=== PATIENT | male | born 1950 | race Caucasian/White ===

== ENCOUNTER 2018-11-22 11:00 | Inpatient (IN) | payer MEDICARE ==
[~2018-11-22] VITALS: Ht 177.8 cm; Wt 88.2 kg
[~2018-11-22 11:00] MED LIST: ADVAIR 250-501 EACH INH; ASPIRIN BUFFER325 MG PO; DAILY MULTIPLE1 EACH PO; IBUPROFEN600 MG PO; OMEGA 3-6-9 11200 MG PO; PROLASTIN C1000 MG IV; SPIRIVA18 MCG INH; VITAMIN D1000 UNIT PO
--- NOTE | 2018-11-22 20:16 | EKG ---
[facility] [address] [facility] [place], [place] [address] Signed Sinus tachycardia Otherwise normal ECG No previous ECGs available Confirmed by DANNIELLE VALE MD ([id number]) on 11/22/2018 8:16:54 PM Electronically Signed By: DANNIELLE VALE MD 11/22/18 2016 PATIENT NAME: HERMAN HALL MEME Electrocardiogram DATE OF : 46 PHYSICIAN: DANNIELLE VALE MD REPORT #: [id number] REPORT IS CONFIDENTIAL AND NOT TO BE RELEASED WITHOUT AUTHORIZATION
[2018-11-25] MEDS ORDERED: TAMIFLU75 MG PO (11:14)
[2018-11-25] MEDS ORDERED: ALBUTEROL2.5 MG/3 M INH (11:15)
[2018-11-25] MEDS ORDERED: PREDNISONE20 MG PO (11:17)
== END 2018-11-25 12:45 | disposition home or self-care (01) | DRG 193 ==
LOC: ED 11:00 → CCU 16:17 → MS 11-23 18:45
PROVIDERS: ADMIT Internal Medicine
DX: J10.01 Influenza due to other identified influenza virus with the same other identified influenza virus pneumonia (principal); J96.01 Acute respiratory failure with hypoxia; J44.1 Chronic obstructive pulmonary disease with (acute) exacerbation; J44.0 Chronic obstructive pulmonary disease with (acute) lower respiratory infection; R65.10 Systemic inflammatory response syndrome (SIRS) of non-infectious origin without acute organ dysfunction; E22.2 Syndrome of inappropriate secretion of antidiuretic hormone; E88.01 Alpha-1-antitrypsin deficiency; E86.1 Hypovolemia; I95.1 Orthostatic hypotension; Z88.8 Allergy status to other drugs, medicaments and biological substances; Z87.891 Personal history of nicotine dependence; Z79.51 Long term (current) use of inhaled steroids; Z79.899 Other long term (current) drug therapy
CPT/HCPCS: 36415; 71046; 80048; 80053; 83735; 83930; 83935; 84484; 85025; 87502; 93005; 93010; 94640; 94667; 94668; 94761; 96361; 96374; 99285-25; J1100; J1650; J2930; J3475; J7120; J7512

== ENCOUNTER 2020-02-19 03:13 | Emergency (ER) | payer MEDICARE ==
[~2020-02-19] VITALS: Ht 177.8 cm; Wt 88.7 kg
--- OUTSIDE RECORDS SUMMARY | ~2020-02-19 | XMS | Encounter Summary ---
Demographics + + + | Address | [id number] [place] [address] RD | | | [place] [address] | + + + | Home Phone | | + + + | Preferred Language | Unknown | + + + | Marital Status | | + + + | Hindu Affiliation | Unknown | + + + | Race | White | + + + | Ethnic Group | Not or | + + + Author + + + | Author | [facility] | + + + | Organization | [facility] | + + + | Address | Unknown | + + + | Phone | Unavailable | + + + Support + + +---------+ + | Name | Relationship | Address | Phone | + + +---------+ + | Tahmina Aaron | ECON | Unknown | | + + +---------+ + Care Team Providers + +------+ + | Care Ems Helicopter Pilot Name | Role | Phone | + +------+ + | Jerry Adrian MD | PCP | | + +------+ + Reason for Visit + + + | Reason | Comments | + + + | Refill Request | [facility] | + + + Encounter Details +--------+--------+ + + + | Date | Type | Department | Care Team | Description | +--------+--------+ + + + | 05/04/ | Refill | Pulmonary & | Misah Pace MD | Refill Request | | 2011 | | Critical Care | [address] | (S[facility]) | | | | Medicine at | [facility], | | | | | [facility] | [place] [address] | | | | | [address] | [phone] | | | | | [address] [facility] | | | | | | Pavilion, 3rd Floor | | | | | | [place], [place] | | | | | | [address] | | | | | | [phone] | | | +--------+--------+ + + + Social History + +-------+ +--------+ + | Tobacco Use | Types | Packs/Day | Years | Date | | | | | Used | | + +-------+ +--------+ + | Former Smoker | | | | Quit: 10/04/1985 | + +-------+ +--------+ + + +---+---+---+ | Smokeless Tobacco: | | | | | Never Used | | | | + +---+---+---+ + + +---------+ + | Alcohol Use | Drinks/Week | oz/Week | Comments | + + +---------+ + | Not Asked | | | | + + +---------+ + + + + | Sex Assigned at | Date Recorded | | | | + + + | Not on file | | + + + + + + + | Job Start Date | Occupation | Industry | + + + + | Not on file | Not on file | Not on file | + + + + + + + + | Travel History | Travel Start | Travel End | + + + + + + | No recent travel history available. | + + documented as of this encounter Plan of Treatment Not on filedocumented as of this encounter Visit Diagnoses Not on filedocumented in this encounter"
--- OUTSIDE RECORDS SUMMARY | ~2020-02-19 | XMS | Encounter Summary ---
Demographics + + + | Address | [id number] [place] [address] RD | | | [place] [address] | + + + | Home Phone | | + + + | Preferred Language | Unknown | + + + | Marital Status | | + + + | Jewish Affiliation | Unknown | + + + | Race | White | + + + | Ethnic Group | Not or | + + + Author + + + | Author | [facility] | + + + | Organization | [facility] | + + + | Address | Unknown | + + + | Phone | Unavailable | + + + Support + + +---------+ + | Name | Relationship | Address | Phone | + + +---------+ + | Tahmina Aaron | ECON | Unknown | | + + +---------+ + Care Team Providers + +------+ + | Care Statistical Machine Servicer Name | Role | Phone | + +------+ + | Jerry Adrian MD | PCP | | + +------+ + Reason for Visit + + + | Reason | Comments | + + + | Refill Request | Spirtohmas 18mcg | + + + Encounter Details +--------+--------+ + + + | Date | Type | Department | Care Team | Description | +--------+--------+ + + + | 08/30/ | Refill | Pulmonary & | Zion Roth, | Refill Request | | 2011 | | Critical Care | [address] | (S[facility] 18mcg) | | | | Medicine at | [facility] | | | | | [facility] | [place], [place] | | | | | [address] | [address] | | | | | [address] [facility] | [phone] | | | | | [facility] Floor | | | | | | [place], [place] | | | | | | [address] | | | | | | [phone] | | | +--------+--------+ + + + [...]
--- OUTSIDE RECORDS SUMMARY | ~2020-02-19 | XMS | Encounter Summary ---
Demographics + + + | Address | [address] [place] [address] RD | | | [place] [address] | + + + | Home Phone | | + + + | Preferred Language | Unknown | + + + | Marital Status | | + + + | Jewish Affiliation | Unknown | + + + | Race | White | + + + | Ethnic Group | Not or | + + + Author + + + | Organization | Unknown | + + + | Address | Unknown | + + + | Phone | Unavailable | + + + Support + + +---------+ + | Name | Relationship | Address | Phone | + + +---------+ + | Tahmina Aaron | ECON | Unknown | | + + +---------+ + Care Team Providers + +------+ + | Care Referral Agent Name | Role | Phone | + +------+ + PCP | Unavailable | + +------+ + Encounter Details +--------+ + + + + | Date | Type | Department | Care Team | Description | +--------+ + + + + | 02/13/ | Office | | Note, Outpatient | Progress Note | | 2002 | Visit-Trans | | Clinic | | | | cribed | | | | +--------+ + + + + Social History + +-------+ +--------+------+ | Tobacco Use | Types | Packs/Day | Years | Date | | | | | Used | | + +-------+ +--------+------+ | Never Assessed | | | | | + +-------+ +--------+------+ + + + | Sex Assigned at [...] + + documented as of this encounter Progress Notes Interface, Diamond Selector In - 04/22/2006 1:01 AM PDTCLINIC DATE: 02/13/2003 ADULT PULMONARY CLINIC PROBLEM: Chronic obstructive pulmonary disease secondary to alpha-1 antitrypsin deficiency. HISTORY OF PRESENT ILLNESS: I last saw To in July 2002. Since that time, he has had only 1 upper respiratory infection that resolved without antibiotics. He has been asymptomatic from that at least 2 weeks. He has a daily cough. It is not bothersome and is productive of a very minimal amount of sputum. He denies any wheezing, chest pain, or hemoptysis. REVIEW OF SYSTEMS CONSTITUTIONAL: No fevers, chills, or night sweats. His exercise tolerance and activity level have been stable. ENT: He is using his Flonase fairly regularly and has not had many sinus symptoms even with the onset of the allergy season. CARDIOVASCULAR: No chest pain or palpitations. RESPIRATORY: As above. GI: Negative. : Negative. MUSCULOSKELETAL: He did not mention his chronic neck pain today. SKIN: Negative. PSYCHIATRIC: His mood is good. ALLERGIES: He has no known drug allergies. MEDICATIONS: Azmacort 2 puffs b.i.d. He did increase it to 2 puffs t.i.d. when he had the URI. Serevent 2 puffs b.i.d. Flonase 1 to 2 inhalations in each nostril q.d. most days and Prolastin 140 mg/kg IV every 2 weeks. He does not use oxygen. 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 He is about [place] hike [place] this [place]. OBJECTIVE VITAL SIGNS: His weight is 197.3 pounds up 5 pounds from July 2002. Temperature is 97, blood pressure was 118/84, pulse was 68, respiratory rate was 21 when he arrived, but 16 when I examined him. His oxygen saturation was 92% at rest on room air immediately after walking into the exam room. GENERAL: He does not appear acutely or chronically ill. Skin is warm and dry. Color is good. HEENT: Sclerae anicteric. Conjunctivae noninjected. His nasal turbinates are swollen. No nasal polyps are visualized. No purulent nasal drainage. Pharynx is mildly injected. No exudate or lesions. NECK: Supple with no masses, lymphadenopathy, or increased JVP. CHEST: He does aerate to both bases well. He has got some scattered crackles. No wheezing. HEART: Heart sounds are unremarkable. S1, S2, no murmurs or rubs. ABDOMEN: Round and soft with adequate bowel sounds. No mass, tenderness, or organomegaly. EXTREMITIES: No edema, cyanosis, or clubbing. He does have some soft tissue swelling over the MIP joint of the middle finger of his left hand. This is apparently posttraumatic. LABORATORY DATA: Spirometry: Pre-bronchodilator spirometry today reveals a FVC of 3.25 L (65% of predicted), FEV1 is 1.76 L (44% of predicted), FEV1/FVC is 54%. Postbronchodilator FVC is 3.41 L (68% of predicted) FEV1 is 1.76 L (44% of predicted). This represents a postbronchodilator increase in FVC of 5%, and an increase in FEV1 of 0%. His DLCO is within normal limits. His oxygen saturation in the PFT lab is 95% at rest on room air. Laboratory data in his chart was reviewed. We do not have LFTs or alpha-1 trough levels since 1999, although he says those have been done every 6 months. ASSESSMENT 1. Moderate chronic obstructive pulmonary disease secondary to alpha-1 antitrypsin deficiency. His spirometry today is virtually the same as it was in July 2002. It does demonstrate a moderately severe obstructive defect with no reversibility. There is also a suggestion of restriction. 2. Chronic sinusitis, stable at this time. PLAN: He is going to continue on the same medications. We will see him back in 4 to 6 months. He will have his primary care doctor or the hospital send us his recent lab work. Pavithra Shi / [id number] / [id number] / [id number] / [id number] cc: Jerry Adrian M.D. [address] [place] [id number] signed by Interface, Diamond Selector In at 04/22/2006 1:01 AM PDTdocumented in this encounter Plan of Treatment Not on filedocumented as of this encounter Visit Diagnoses Not on filedocumented in this encounter"
--- OUTSIDE RECORDS SUMMARY | ~2020-02-19 | XMS | Encounter Summary ---
Demographics + + + | Address | [id number] [place] [address] RD | | | [place] [address] | + + + | Home Phone | | + + + | Preferred Language | Unknown | + + + | Marital Status | | + + + | Anabaptism Affiliation | Unknown | + + + | Race | White | + + + | Ethnic Group | Not or | + + + Author + + + | Author | [facility] | + + + | Organization | [facility] | + + + | Address | Unknown | + + + | Phone | Unavailable | + + + Support + + +---------+ + | Name | Relationship | Address | Phone | + + +---------+ + | Tahmina Aaron | ECON | Unknown | | + + +---------+ + Care Team Providers + +------+ + | Care Counseling Specialist Name | Role | Phone | + +------+ + PCP | Unavailable | + +------+ + Encounter Details +--------+ + + + + | Date | Type | Department | Care Team | Description | +--------+ + + + + | 04/26/ | Office | Pulmonary & | Masha Pickering ANP | | | 2005 | Visit-ECX | Critical Care | | | | | | Medicine at | | | | | | [facility] | | | | | | [address] | | | | | | [address] [facility] | | | | | | [facility], 3rd Floor | | | | | | [place], [place] | | | | | | [address] | | | | | | [phone] | | | +--------+ + + + [...]
--- OUTSIDE RECORDS SUMMARY | ~2020-02-19 | XMS | Encounter Summary ---
Demographics + + + | Address | [address] [place] [address] RD | | | [place] [address] | + + + | Home Phone | | + + + | Preferred Language | Unknown | + + + | Marital Status | | + + + | Sabianist Affiliation | Unknown | + + + | Race | White | + + + | Ethnic Group | Not or | + + + Author + + + | Author | [facility] | + + + | Organization | [facility] | + + + | Address | Unknown | + + + | Phone | Unavailable | + + + Support + + +---------+ + | Name | Relationship | Address | Phone | + + +---------+ + | Tahmina Aaron | ECON | Unknown | | + + +---------+ + Care Team Providers + +------+ + | Care Generating Station Mechanic Name | Role | Phone | + +------+ + | Jerry Adrian MD | PCP | | + +------+ + Encounter Details +--------+ + + + + | Date | Type | Department | Care Team | Description | +--------+ + + + + | 07/10/ | Results | Registration [id number] | | | | 1996 | Only | [address] | | | | | | [address] Mailcode: [id number] | | | | | | [place], [place] | | | | | | [address] | | | | | | [phone] | | | +--------+ + + + [...] Not on filedocumented as of this encounter Procedures + +--------+ + + + | Procedure Name | Priori | Date/Time | Associated Diagnosis | Comments | | | ty | | | | + +--------+ + + + | PULMONARY FUNCTION | Routin | 07/10/1997 | | Results for this | | TESTS | e | 2:36 PM | | procedure are in the | | | | PDT | | results section. | + +--------+ + + + documented in this encounter Results PULMONARY FUNCTION TESTS (07/10/1997 2:36 PM PDT) + + + + + + | Component | Value | Ref Range | Performed | Pathologist | | | | | At | Signature | + + + + + + | FVC | 4.13 | L | | | | MEASURED | | | | | + + + + + + | FVC % PRED | 81. | % | | | + + + + + + | FEV1 | 2.12 | L/S | | | | MEASURED | | | | | + + + + + + | FEV1 % PRED | 52. | % | | | + + + + + + | FEV1/FVC | 0.51 | % | | | | MEASURED | | | | | + + + + + + | FEF(25-75) | 0.65 | L/S | | | + + + + + + | FEF(25-75) | 16. | % | | | | % PRED | | | | | + + + + + + | FVC POST | 84. | % | | | | BD'S % PRED | | | | | + + + + + + | FEV1 POST | 2.06 | L | | | | BD'S | | | | | | MEASURED | | | | | + + + + + + | FEV1 POST | 50. | % | | | | BD'S % PRED | | | | | + + + + + + | FEV1/FVC | 0.48 | % | | | | POST BD'S | | | | | | MEASURD | | | | | + + + + + + | FEF() | 0.59 | L/S | | | | POST BD'S | | | | | | MEASURD | | | | | + + + + + + | FEF() | 15. | % | | | | POST BD'S % | | | | | | PRED | | | | | + + + + + + | FEV1 BD'S % | -3. | % | | | | CHANGE | | | | | + + + + + + | REST SAT | 96. | % | | | + + + + + + | FRC | 867. | L | | | | MEASURED | | | | | + + + + + + | PF COMMENT | 9860. | L | | | | 4 | | | | | + + + + + + + + | Specimen | + + | | + + + + + + + | Performing | Address | City/State/Zipcode | Phone Number | | Organization | | | | + + + + + | [facility] | [address] | [place] [address] | | | PATHOLOGY | [address] | | | + + + + + documented in this encounter Visit Diagnoses Not on filedocumented in this encounter"
--- OUTSIDE RECORDS SUMMARY | ~2020-02-19 | XMS | Encounter Summary ---
Demographics + + + | Address | [address] [place] [address] RD | | | [place] [address] | + + + | Home Phone | | + + + | Preferred Language | Unknown | + + + | Marital Status | | + + + | Yarsani Affiliation | Unknown | + + + | Race | White | + + + | Ethnic Group | Not or | + + + Author + + + | Author | [facility] | + + + | Organization | [facility] | + + + | Address | Unknown | + + + | Phone | Unavailable | + + + Support + + +---------+ + | Name | Relationship | Address | Phone | + + +---------+ + | Tahmina Aaron | ECON | Unknown | | + + +---------+ + Care Team Providers + +------+ + | Care Insurance Examiner Name | Role | Phone | + +------+ + | Jerry Adrian MD | PCP | | + +------+ + Encounter Details +--------+ + + + + | Date | Type | Department | Care Team | Description | +--------+ + + + + | 04/24/ | Online Facilitator | Pulmonary & | Misha Pace MD | COPD with Chronic | | 2007 | | Critical Care | [address] | Bronchitis (HCC) | | | | Medicine at | [facility], | (Primary Dx) | | | | [facility] | [place] [address] | | | | | [address] | [phone] | | | | | [address] [facility] | | | | | | [facility], 3rd Floor | | | | | | [place], [place] | | | | | | [address] | | | | | | [phone] | | | +--------+ + + + [...] as of this encounter Plan of Treatment + + +--------+ + + | Name | Type | Priori | Associated Diagnoses | Order Schedule | | | | ty | | | + + +--------+ + + | SPIROMETRY BEFORE / | Procedures | Routin | COPD with Chronic | 04/24/2008 | | AFTER BRONCHODIL, | | e | Bronchitis (HCC) | | | PULM FUNCTION LAB | | | | | + + +--------+ + + | CO DIFFUSION | Pulmonary | Routin | COPD with Chronic | 04/24/2008 | | CAPACITY(DLCO), PULM | Function | e | Bronchitis (HCC) | | | FUNCTION LAB | | | | | + + +--------+ + + | HEMOGLOBIN, PULM | Lab | Routin | COPD with Chronic | 04/24/2008 | | FUNCTION LAB ONLY | | e | Bronchitis (HCC) | | + + +--------+ + + | LUNG VOLUMES / BODY | Pulmonary | Routin | COPD with Chronic | 04/24/2008 | | BOX, PULM FUNCTION | Function | e | Bronchitis (HCC) | | | LAB | | | | | + + +--------+ + + documented as of this encounter Visit Diagnoses + + | Diagnosis | + + | 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
--- OUTSIDE RECORDS SUMMARY | ~2020-02-19 | XMS | Encounter Summary ---
Demographics + + + | Address | [address] [place] [address] RD | | | [place] [address] | + + + | Home Phone | | + + + | Preferred Language | Unknown | + + + | Marital Status | | + + + | Hinduism Affiliation | Unknown | + + + | Race | White | + + + | Ethnic Group | Not or | + + + Author + + + | Author | [facility] | + + + | Organization | [facility] | + + + | Address | Unknown | + + + | Phone | Unavailable | + + + Support + + +---------+ + | Name | Relationship | Address | Phone | + + +---------+ + | Tahmina Aaron | ECON | Unknown | | + + +---------+ + Care Team Providers + +------+ + | Care Clinical Data Coordinator Name | Role | Phone | + +------+ + | Jerry Adrian MD | PCP | | + +------+ + Encounter Details +--------+ + + + + | Date | Type | Department | Care Team | Description | +--------+ + + + + | 04/28/ | Results/Int | Pulmonary & | | Chronic airway | | 2010 | erpretation | Critical Care | | obstruction, not | | | | Medicine at [facility] | | elsewhere classified | | | | [address] | | (Primary Dx) | | | | [address] [facility] | | | | | | [place], 3rd Floor | | | | | | [place], [place] | | | | | | [address] | | | | | | [phone] | | | +--------+ + + + [...] documented as of this encounter Progress Notes Misha Pace MD - 04/29/2011 10:00 AM PDTRefer to PFT report. documented in this encounter Plan of Treatment Not on filedocumented as of this encounter Procedures + +--------+ + + + | Procedure Name | Priori | Date/Time | Associated Diagnosis | Comments | | | ty | | | | + +--------+ + + + | FL SPIROMETRY TEST | Routin | 04/29/2011 | Chronic airway | | | | e | 10:00 AM | obstruction, not | | | | | PDT | elsewhere classified | | + +--------+ + + + documented in this encounter Visit Diagnoses + + | Diagnosis | + + | Chronic airway obstruction, not elsewhere classified - Primary | + + documented in this encounter"
--- OUTSIDE RECORDS SUMMARY | ~2020-02-19 | XMS | Encounter Summary ---
Demographics + + + | Address | [address] [place] [address] RD | | | [place] [address] | + + + | Home Phone | | + + + | Preferred Language | Unknown | + + + | Marital Status | | + + + | Caodaism Affiliation | Unknown | + + + | Race | White | + + + | Ethnic Group | Not or | + + + Author + + + | Author | [facility] | + + + | Organization | [facility] | + + + | Address | Unknown | + + + | Phone | Unavailable | + + + Support + + +---------+ + | Name | Relationship | Address | Phone | + + +---------+ + | Tahmina Aaron | ECON | Unknown | | + + +---------+ + Care Team Providers + +------+ + | Care Biological Technical Officer Name | Role | Phone | + +------+ + PCP | Unavailable | + +------+ + Encounter Details +--------+ + + + + | Date | Type | Department | Care Team | Description | +--------+ + + + + | 07/11/ | Results | Pulmonary Function | Misha Pace MD | | | 2001 | Only | Lab at [facility] [address] | [address] | | | | [address] | [place], | | | | | [address] | [place] [address] | | | | | [place], [place] | [phone] | | | | | [address] | | | | | | [phone] | | | +--------+ + + + [...] | + +--------+ + + + | SPIROMETRY WITH BD'S | Routin | 07/11/2002 | | Results for this | | | e | 11:35 AM | | procedure are in the | | | | PDT | | results section. | + +--------+ + + + documented in this encounter Results SPIROMETRY WITH BD'S (07/11/2002 11:35 AM PDT) + + + + + + | Component | Value | Ref Range | Performed | Pathologist | | | | | At | Signature | + + + + + + | FVC | 3.28 | L | | | | MEASURED | | | | | + + + + + + | FVC % PRED | 65 | % | | | + + + + + + | FEV1 | 1.71 | L/S | | | | MEASURED | | | | | + + + + + + | FEV1 % PRED | 43 | % | | | + + + + + + | FEV1/FVC | 52.00 | % | | | | MEASURED | | | | | + + + + + + | FEF(25-75) | 0.50 | L/S | | | + + + + + + | FEF(25-75) | 13 | % | | | | % PRED | | | | | + + + + + + | FVC POST | 3.46 | L | | | | BD'S | | | | | | MEASURED | | | | | + + + + + + | FVC POST | 69 | | | | | BD'S % PRED | | | | | + + + + + + | FEV1 POST | 1.70 | L | | | | BD'S | | | | | | MEASURED | | | | | + + + + + + | FEV1 POST | 43 | % | | | | BD'S % PRED | | | | | + + + + + + | FEV1/FVC | 49.00 | % | | | | POST BD'S | | | | | | MEASURD | | | | | + + + + + + | FEF() | 0.45 | L/S | | | | POST BD'S | | | | | | MEASURD | | | | | + + + + + + | FEF() | 12 | % | | | | POST BD'S % | | | | | | PRED | | | | | + + + + + + | FEV1 BD'S % | 0 | % | | | | CHANGE | | | | | + + + + + + | PF COMMENT | SAO2:97% | | | | | 1 | | | | | + + + + + + + + | Specimen | + + | | + + + + + + + | Performing | Address | City/State/Zipcode | Phone Number | | Organization | | | | + + + + + | [facility] | [address] | [place], [place] | | | DIAGNOSTICS - | [address] | [address] | | | PULMONARY FUNCTION | | | | + + + + + documented in this encounter Visit Diagnoses Not on filedocumented in this encounter"
--- OUTSIDE RECORDS SUMMARY | ~2020-02-19 | XMS | Encounter Summary ---
Demographics + + + | Address | [id number] [place] [address] RD | | | [place] [address] | + + + | Home Phone | | + + + | Preferred Language | Unknown | + + + | Marital Status | | + + + | Buddhist Affiliation | Unknown | + + + | Race | White | + + + | Ethnic Group | Not or | + + + Author + + + | Author | [facility] | + + + | Organization | [facility] | + + + | Address | Unknown | + + + | Phone | Unavailable | + + + Support + + +---------+ + | Name | Relationship | Address | Phone | + + +---------+ + | Tahmina Aaron | ECON | Unknown | | + + +---------+ + Care Team Providers + +------+ + | Care Systems Integration Manager Name | Role | Phone | + +------+ + PCP | Unavailable | + +------+ + Encounter Details +--------+ + + + + | Date | Type | Department | Care Team | Description | +--------+ + + + + | 01/17/ | Office | [facility] | Note, Outpatient | Progress Note | | 1998 | Visit-Trans | MEDICINE | Clinic | | | | cribed [...] as of this encounter Progress Notes Interface, Medical Office Clerk In - 09/25/2006 5:07 AM [facility]: [facility] PULMON[facility] CLINIC CHIEF COMPLAINT: Concern over decreased supply of alpha-1 antitrypsin replacement therapy and concern over progression of disease. SUBJECTIVE: Since the patient's last visit on July 30, 1998, he has done relatively well. He had one episode of respiratory tract infection precipitated by sinus infection. The patient instituted therapy early with inhaled therapies and noted a prompt relief. Since that time, he is back to his baseline. He continues to be active and is able to do everything he wants without significant shortness of breath. He has no cough, has no sputum production, no chest pain, no lower extremity edema, and no shortness of breath at rest or with exertion. PAST MEDICAL HISTORY: Past medical history is significant for: 1. Acute herpes zoster on the right forehead approximately one month ago, treated with Famvir. 2. Benign prostatic hypertrophy. MEDICATIONS: Current medications include: 1. Serevent two puffs twice daily. 2. Azmacort two puffs twice daily. 3. Prolastin 12 mg intravenously every two weeks, although he has had trouble getting that much. 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 He plans a trip to [place] with his family this summer. REVIEW OF SYSTEMS: The patient has had no fevers, chills, sweats, or night sweats. Rash is improved. He continues to be concerned about his weight. He has no other complaints, no other problems. OBJECTIVE: GENERAL: The patient is a gentleman looking his stated age, well nourished, well hydrated, in no acute distress. VITAL SIGNS: Weight 208 pounds, heart rate 72 and regular, blood pressure 118/74, respiratory rate 16 and unlabored, room air oxygen saturation at rest is 92 percent. SKIN: Warm and dry with good turgor. HEENT: Sclerae are anicteric without injection. Oropharynx is clear. LUNGS: Distant breath sounds which are vesicular in nature without rales or rhonchi appreciated. There is a normal expiratory phase. CARDIOVASCULAR: Examination reveals regular rate and rhythm with a normal S1 and S2. ABDOMEN: The abdomen is mildly obese but soft and nontender. EXTREMITIES: No cyanosis, clubbing, or edema. LABORATORY VALUES: Pulmonary function tests today show an FEV1 of 1.98 (49 percent of predicted) with a 3 percent increase to 2.03 (50 percent after bronchodilators). FVC before bronchodilators is 4.27 and decreases to 4.07 after bronchodilators. ASSESSMENT: 1. 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 The patient is clinically stable. He has had some decrement in his pulmonary function tests since last visit. This is a small decrement and may be due to variation in airflow as is seen in this population. 2. Alpha-1 antitrypsin deficiency. The patient has had trouble getting adequate replacement therapy due to nationwide shortage. 3. Chronic sinusitis, quiescent at this time. 4. Chronic intermittent rash of the forehead, which is improved. PLAN: 1. Check liver function tests now and every six months. (The patient had this tested last month and will get the results forwarded to me at this time.) 2. Follow up pulmonary function tests in six months. 3. Continue alcohol and acetaminophen abstinence. 4. Continue current metered-dose inhaler regimen. 5. The patient, Masha Pickering, and I had a long detailed discussion regarding optimal replacement therapy during this time when he is not getting his ideal allotment. Parminderbrittonaisha will be working with his pharmacy company and the supplier as well as the patient to come up with the optimal regimen. Jimmie Montalvo M.D. [place], Pulmonary and Critical Care MSC/clg cc: Enmanuel OROURKE MD [address] [place] [address] [address] [place] [id number] signed by Interface, Medical Office Clerk In at 09/25/2006 5:07 AM PSTdocumented in this encounter Plan of Treatment Not on filedocumented as of this encounter Visit Diagnoses Not on filedocumented in this encounter"
--- OUTSIDE RECORDS SUMMARY | ~2020-02-19 | XMS | Clinical Summary ---
Demographics + + + | Address | [address] | | | [place] [address] | + + + | Home Phone | | + + + | Preferred Language | Unknown | + + + | Marital Status | | + + + | Jewish Affiliation | Unknown | + + + | Race | Unknown | + + + | Ethnic Group | Unknown | + + + Author + + + | Author | [facility] | | | and [place] | + + + | Organization | [facility] | | | and [place] | + + + | Address | Unknown | + + + | Phone | Unavailable | + + + Support + + +---------+ + | Name | Relationship | Address | Phone | + + +---------+ + | Tahmina Aaron | ECON | Unknown | | + + +---------+ + Care Team Providers + +------+ + | Care Administration Internship Name | Role | Phone | + +------+ + PCP | Unavailable | + +------+ + Allergies Not on File Medications Not on file Active Problems Not on file Social History + +-------+ +--------+------+ | Tobacco [...] recent travel history available. | + + Last Filed Vital Signs Not on file Plan of Treatment + + + + + | Health Maintenance | Due Date | Last Done | Comments | + + + + + | Vaccine: | | | | | Dtap/Tdap/Td (1 - | 9 | | | | Tdap) | | | | + + + + + | Vaccine: Zoster (1 | | | | | of 2) | 8 | | | + + + + + | Vaccine: | | | | | Pneumococcal 65+ (1 | 3 | | | | of 2 - PCV13) | | | | + + + + + | Vaccine: Influenza | | | | | (Season Ended) | 0 | | | + + + + + Results Not on filefrom Last 3 Months"
--- OUTSIDE RECORDS SUMMARY | ~2020-02-19 | XMS | Encounter Summary ---
Demographics + + + | Address | [address] [place] [address] RD | | | [place] [address] | + + + | Home Phone | | + + + | Preferred Language | Unknown | + + + | Marital Status | | + + + | Roman Catholic Affiliation | Unknown | + + + [...] Team Providers + +------+ + | Care Cath Laboratory Technician Name | Role | Phone | + +------+ + PCP | Unavailable | + +------+ + Encounter Details +--------+ + + + + | Date | Type | Department | Care Team | Description | +--------+ + + + + | 12/15/ | Office | | Note, Outpatient | Progress Note | | 2005 | Visit-Trans | | Clinic | | [...] as of this encounter Progress Notes Interface, Architectural Designer In - 05/03/2005 1:24 AM PDT [id number] ISABEL Matos Clinic Date: 12/15/2004 Clinic: TELEPHONE CONVERSATION Subjective: Anabell called to say that on December 11, 2004, he woke up with a sore throat and burning in his lungs. Since that time, he has been coughing up yellow sputum. He has not taken his temperature, feels like he may have had a low-grade fever off and on. No sore throat anymore. He has trouble lying flat because it makes him cough. He is very fatigued and he has some shortness of breath with exertion. He has no antibiotic allergies. Assessment: Upper respiratory infection in a man with underlying emphysema secondary to bkmtb-7-zrczcoamjfv deficiency. Plan: I called a prescription for amoxicillin 875 mg 1 p.o. b.i.d x10 days. I advised him to call his primary care doctor and/or be seen in an urgent care clinic if he develops a fever, pleuritic chest pain, or any increase in his shortness of breath. Pavithra Shi / TRISTIAN [id number] / [id number] / [id number] / [phone] Electronically signed by Masha Pickering 12-26-2004 04:36:05 PM documented i n this encounter Plan of Treatment Not on filedocumented as of this encounter Visit Diagnoses Not on filedocumented in this encounter"
--- OUTSIDE RECORDS SUMMARY | ~2020-02-19 | XMS | Encounter Summary ---
Demographics + + + | Address | [address] [place] [address] RD | | | [place] [address] | + + + | Home Phone | | + + + | Preferred Language | Unknown | + + + | Marital Status | | + + + | Yazdanism Affiliation | Unknown | + + + | Race | White | + + + | Ethnic Group | Not or | + + + Author + + + | Author | [facility] | + + + | Organization | [facility] | + + + | Address | Unknown | + + + | Phone | Unavailable | + + + Support + + +---------+ + | Name | Relationship | Address | Phone | + + +---------+ + | Tahmina Aaron | ECON | Unknown | | + + +---------+ + Care Team Providers + +------+ + | Care Combination Worker Name | Role | Phone | + +------+ + | Jerry Adrian MD | PCP | | + +------+ + Encounter Details +--------+ + + + + | Date | Type | Department | Care Team | Description | +--------+ + + + + | 07/31/ | Results | Registration [id number] | | | | 1997 | Only | [address] | | | | | | [address] Mailcode: [address] | | | | | | [place], [place] | | | | | | [address] | | | | | | [phone] | | | +--------+ + + + [...] + | PULMONARY FUNCTION | Routin | 07/31/1998 | | Results for this | | TESTS | e | 8:10 AM | | procedure are in the | | | | PST | | results section. | + +--------+ + + + documented in this encounter Results PULMONARY FUNCTION TESTS (07/31/1998 8:10 AM PST) + + + + + + | Component | Value | Ref Range | Performed | Pathologist | | | | | At | Signature | + + + + + + | FVC | 4.09 | L | | | | MEASURED | | | | | + + + + + + | FVC % PRED | 80. | % | | | + + + + + + | FEV1 | 1.95 | L/S | | | | MEASURED | | | | | + + + + + + | FEV1 % PRED | 48. | % | | | + + + + + + | FEV1/FVC | 48. | % | | | | MEASURED | | | | | + + + + + + | FEF(25-75) | 0.56 | L/S | | | + + + + + + | FEF(25-75) | 14. | % | | | | % PRED | | | | | + + + + + + | FVC POST | 85. | % | | | | BD'S % PRED | | | | | + + + + + + | FEV1 POST | 2.16 | L | | | | BD'S | | | | | | MEASURED | | | | | + + + + + + | FEV1 POST | 53. | % | | | | BD'S % PRED | | | | | + + + + + + | FEV1/FVC | 50. | % | | | | POST BD'S | | | | | | MEASURD | | | | | + + + + + + | FEF() | 0.63 | L/S | | | | POST BD'S | | | | | | MEASURD | | | | | + + + + + + | FEF() | 16. | % | | | | POST BD'S % | | | | | | PRED | | | | | + + + + + + | FEV1 BD'S % | 11. | % | | | | CHANGE | | | | | + + + + + + + + | Specimen | + + | | + + + + + + + | Performing | Address | City/State/Zipcode | Phone Number | | Organization | | | | + + + + + | [facility] | [address] | [place] [address] | | | PATHOLOGY | [address] | | | + + + + + documented in this encounter Visit Diagnoses Not on filedocumented in this encounter"
--- OUTSIDE RECORDS SUMMARY | ~2020-02-19 | XMS | Encounter Summary ---
Demographics + + + | Address | [address] [place] [address] RD | | | [place] [address] | + + + | Home Phone | | + + + | Preferred Language | Unknown | + + + | Marital Status | | + + + | Adventism Affiliation | Unknown | + + + | Race | White | + + + | Ethnic Group | Not or | + + + Author + + + | Author | [facility] | + + + | Organization | [facility] | + + + | Address | Unknown | + + + | Phone | Unavailable | + + + Support + + +---------+ + | Name | Relationship | Address | Phone | + + +---------+ + | Tahmina Aaron | ECON | Unknown | | + + +---------+ + Care Team Providers + +------+ + | Care Division Merchandise Manager Name | Role | Phone | + +------+ + PCP | Unavailable | + +------+ + Encounter Details +--------+ + + + + | Date | Type | Department | Care Team | Description | +--------+ + + + + | 01/19/ | Office | [facility] | Note, Outpatient | Progress Note | | 1999 | Visit-Trans | MEDICINE | Clinic | [...] as of this encounter Progress Notes Interface, Micrographics Services Supervisor In - 08/25/2006 5:03 AM [facility]: [facility] The patient canceled his appointment, was not able to make it. However, we spoke on the phone. Overall, he continues to feel well without any change in overall respiratory status. His primary complaint is that he has gained 15 pounds over the winter, and this has decreased his exercise tolerance somewhat. He has dyspnea with heavy exertion when he overdoes himself, otherwise, no shortness of breath at rest. He has a cough that is intermittent without sputum production or hemoptysis. No chest pain or lower extremity edema. His sinuses are doing well; although, he anticipates it may be getting some allergic rhinitis in the coming weeks, has certain shrubs in his yard about to grow. He changed to use Serevent two puffs b.i.d., Azmacort two puffs b.i.d., and prostacyclin at 140 mg/kg IV every two weeks. He had laboratory tests done on December 31, 1999. AST 34, ALT 29, alkaline phosphatase 57, total bilirubin 0.6, and alpha 1 antitrypsin level 63. All these values are within the normal or target values. Overall, Mr. Aaron continues to do well with his emphysema from alpha 1antitrypsin deficiency. He continues to be relatively asymptomatic with a high activity level. His alpha 1 antitrypsin level is in the target zone (desired greater than 60). My only concern is that on the last spirometry testing, he had a decrement from before. Differential diagnosis is clear. Therapeutic options are unlimited. Due to the patient's stable status, I did not feel it is imperative that the patient comes and sees me now, but can defer until summer or at his earliest convenience; although I do feel strongly he gets followup spirometry in the coming months. Today, I called in prescriptions for Serevent two puffs b.i.d., Azmacort four puffs b.i.d., and Vancenase one puff each nostril q.d. to [facility] at [phone]. The patient's phone number is . Jimmie Montalvo M.D. Asst. Professor Pulmonary Critical Care Medicine MSC / HS [id number] / [id number] / [phone] / [phone] cc: Fermin Adrian M.D. [address] [place] [phone] [id number] signed by Interface, Micrographics Services Supervisor In at 08/25/2006 5:03 AM PSTdocume nted in this encounter Plan of Treatment Not on filedocumented as of this encounter Visit Diagnoses Not on filedocumented in this encounter"
--- OUTSIDE RECORDS SUMMARY | ~2020-02-19 | XMS | Encounter Summary ---
Demographics + + + | Address | [address] [place] [address] RD | | | [place] [address] | + + + | Home Phone | | + + + | Preferred Language | Unknown | + + + | Marital Status | | + + + | Temple Affiliation | Unknown | + + + | Race | White | + + + | Ethnic Group | Not or | + + + Author + + + | Author | [facility] | + + + | Organization | [facility] | + + + | Address | Unknown | + + + | Phone | Unavailable | + + + Support + + +---------+ + | Name | Relationship | Address | Phone | + + +---------+ + | Tahmina Aaron | ECON | Unknown | | + + +---------+ + Care Team Providers + +------+ + | Care Daycare Teacher Name | Role | Phone | + +------+ + | Jerry Adrian MD | PCP | | + +------+ + Encounter Details +--------+ + + + + | Date | Type | Department | Care Team | Description | +--------+ + + + + | 10/10/ | Chair Trimmer | Pulmonary & | Kathie Gomes, | COPD with chronic | | 2010 | | Critical Care | ANP [address] | bronchitis (HCC) | | | | Medicine at | [address] | (Primary Dx) | | | | [facility] | [place], [place] | | | | | [address] | [address] | | | | | [facility] | [phone] | | | | | [place], [address] [place] [address] | | | | | | [place], [place] | | | | | | [address] | | | | | | [phone] | | | +--------+ + + + + Social History + +-------+ +--------+ + | Tobacco Use | Types | Packs/Day | Years | Date | | | | | Used | | + +-------+ +--------+ + | Former Smoker | | | | Quit: 10/04/1985 | + +-------+ +--------+ + + + +---------+ + | Alcohol Use [...] Not on filedocumented as of this encounter Results SPIROMETRY, PULM FUNCTION LAB (04/28/2011 8:27 AM PDT) + + + + + + | Component | Value | Ref Range | Performed | Pathologist | | | | | At | Signature | + + + + + + | DISTANCE | 384 | | [facility] | | | WALKED-METE | | | SPECIAL | | | RS | | | DIAGNOSTICS | | | | | | - | | | | | | PULMONARY | | | | | | FUNCTION | | + + + + + + | FVC PRE | 2.92 | 4.72 Liters | [facility] | | | | | | SPECIAL | | | | | | DIAGNOSTICS | | | | | | - | | | | | | PULMONARY | | | | | | FUNCTION | | + + + + + + | FVC PRE | 62 | % | [facility] | | | (%REF) | | | SPECIAL | | | | | | DIAGNOSTICS | | | | | | - | | | | | | PULMONARY | | | | | | FUNCTION | | + + + + + + | FEV1 PRE | 1.41 | 3.55 Liters | [facility] | | | | | | SPECIAL | | | | | | DIAGNOSTICS | | | | | | - | | | | | | PULMONARY | | | | | | FUNCTION | | + + + + + + | FEV1 PRE | 40 | % | [facility] | | | (%REF) | | | SPECIAL | | | | | | DIAGNOSTICS | | | | | | - | | | | | | PULMONARY | | | | | | FUNCTION | | + + + + + + | FEV1/FVC | 48 | 75 % | [facility] | | | PRE | | | SPECIAL | | | | | | DIAGNOSTICS | | | | | | - | | | | | | PULMONARY | | | | | | FUNCTION | | + + + + + + | FEV1/FVC | 64 | % | [facility] | | | PRE (%REF) | | | SPECIAL | | | | | | DIAGNOSTICS | | | | | | - | | | | | | PULMONARY | | | | | | FUNCTION | | + + + + + + | DUK44-01% | 0.40 | 2.88 L/sec | [facility] | | | PRE | | | SPECIAL | | | | | | DIAGNOSTICS | | | | | | - | | | | | | PULMONARY | | | | | | FUNCTION | | + + + + + + | OSD32-32% | 14 | % | [facility] | | | PRE (%REF) | | | SPECIAL | | | | | | DIAGNOSTICS | | | | | | - | | | | | | PULMONARY | | | | | | FUNCTION | | + + + + + + | PEF PRE | 6.06 | 9.09 L/sec | [facility] | | | | | | SPECIAL | | | | | | DIAGNOSTICS | | | | | | - | | | | | | PULMONARY | | | | | | FUNCTION | | + + + + + + | PEF PRE | 67 | % | [facility] | | | (%REF) | | | SPECIAL | | | | | | DIAGNOSTICS | | | | | | - | | | | | | PULMONARY | | | | | | FUNCTION | | + + + + + + | FIF50% PRE | 7.63 | L/sec | [facility] | | | | | | SPECIAL | | | | | | DIAGNOSTICS | | | | | | - | | | | | | PULMONARY | | | | | | FUNCTION | | + + + + + + | PULMONARY | Name: GALEN HERMAN | | [facility] | | | INTERPRETAT | L ########Age: 60 | | SPECIAL | | | ION | Gender: | | DIAGNOSTICS | | | | Male Race: | | - | | | | | | PULMONARY | | | | Height(in):Physician: | | FUNCTION | | | | Misha Pace | | | | | | | | | | | | Mold Builder: Shannen | | | | | | THALIA Boss Diagnosis: | | | | | | COPD 496 | | | | | | 8-lvpvvkrhygg-201.4D | | | | | | ######## | | | | | | | | | | | | Dyspnea | | | | | | Exercise: No Dyspnea | | | | | | Rest: No Cough: Yes | | | | | | | | | | | | Persistent: Yes | | | | | | Productive | | | | | | (cc): Smoker: Yes | | | | | | How | | | | | | Lon | | | | | | Cigarettes: Yes Quit: | | | | | | Yes | | | | | | | | | | | | Stopped: Order# | | | | | | [id number] | | | | | | | | | | | | Spirometry | | | | | | Ref | | | | | | Pre Pre | | | | | | Post Post | | | | | | Post | | | | | | | | | | | | Michelle % Ref | | | | | | Michelle % Ref | | | | | | % ChgFVC | | | | | | Liters 4.72 | | | | | | 2.92 [id number] | | | | | | Liters 3.55 | | | | | | 1.41 40FEV1/FVC | | | | | | % 75 | | | | | | [id number]% | | | | | | L/sec 2.88 | | | | | | 0.40 [id number] | | | | | | L/sec | | | | | | 0.40PEF | | | | | | L/sec 9.09 | | | | | | 6.06 33WUW71% | | | | | | L/sec | | | | | | 7.63 | | | | | | Lung | | | | | | VolumesTLC | | | | | | Liters 7.02VC | | | | | | Liters 4.70IC | | | | | | Liters 3.10FRC | | | | | | N2 Liters | | | | | | 3.67ERV | | | | | | Liters 1.55RV | | | | | | Liters 2.29RV/TLC | | | | | | % 33Wash | | | | | | Time MinFRC PL | | | | | | Liters 3.67 | | | | | | | | | | | | Pulmonary Pressures | | | | | | | | | | | | Ref Pre Pre | | | | | | | | | | | | Michelle % | | | | | | RefPI max [id number] | | | | | | Volume LitersPE max | | | | | | [id number] Volume Liters | | | | | | | | | | | | Diffusing Capacity | | | | | | (DLCO) | | | | | | Ref | | | | | | Pre Pre | | | | | | | | | | | | | | | | | | Michelle % RefDLCO | | | | | | mL/mmHg/min 28.0DL | | | | | | Adj mL/mmHg/min | | | | | | 28.0DLCO/VA | | | | | | mL/mHg/min/L 4.18DL/VA | | | | | | Adj mL/mHg/min/L 4.04 PF | | | | | | Reference: NHANES III - | | | | | | | | | | | | | | | | | | | | | | | | | | | | | | | | | | | | Page 1Name: GALEN, | | | | | | HERMAN L ######## | | | | | | | | | | | | | | | | | | Six Minute Walk | | | | | | test (if done) | | | | | | COMMENTS:Patient | | | | | | was unable to produce | | | | | | Acceptable and | | | | | | Reproducible | | | | | | Spirometrydata.--inconsi | | | | | | stent FEV1 and peak | | | | | | flows. 6 Minute Walk | | | | | | Test: | | | | | | Zhzpqkskixuorp=0355 | | | | | | feet, 384 meters | | | | | | Minutes Walked= 6 | | | | | | Beginning HR=57 | | | | | | Beginning SpO2=93 | | | | | | Ending HR: 91 Ending | | | | | | SpO2: 90 Dyspnea Index | | | | | | before= 0 ,after= 0.5 | | | | | | Oxygen Level=room air | | | | | | | | | | | | | | | | | | Physician | | | | | | InterpretationSpirometry | | | | | | shows severe | | | | | | (FEV1/FVC<70%, | | | | | | 30%<FEV1<50% predicted) | | | | | | airflowobstruction. | | | | | | Since 07/08/10, the FEV1 | | | | | | has increased by 19%. | | | | | | The FVC hasremained the | | | | | | same. The distance | | | | | | walked is mildly reduced | | | | | | (6133-8099 | | | | | | feet).Theoxygen | | | | | | saturation at the end of | | | | | | the walk remained in | | | | | | the lower limit of | | | | | | normalfor the duration | | | | | | of the test. | | | | | | Technically difficult | | | | | | study as detailed in | | | | | | bodyof report. | | | | | | | | | | | | | | | | | | | | | | | | | | | | | | Page 2 | | | | + + + + + + + + | Specimen | + + | | + + + + + | Narrative | Performed At | + + + | | | + + + + + | Transcriptions | + + | Jamila [place] - 04/29/2011 10:13 AM PDT | | | + + | Jamila [place] - 05/10/2011 3:33 PM PDT | + + + + + + + | Performing | Address | City/State/Zipcode | Phone Number | | Organization | | | | + + + + + | [facility] | [address] | [place], [place] | | | DIAGNOSTICS - | [address] | [address] | | | PULMONARY FUNCTION | | | | + + + + + documented in this encounter Visit Diagnoses + + | Diagnosis | + + | 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
--- OUTSIDE RECORDS SUMMARY | ~2020-02-19 | XMS | Encounter Summary ---
Demographics + + + | Address | [address] [place] [address] RD | | | [place] [address] | + + + | Home Phone | | + + + | Preferred Language | Unknown | + + + | Marital Status | | + + + | Cheondoism Affiliation | Unknown | + + + | Race | White | + + + | Ethnic Group | Not or | + + + Author + + + | Author | [facility] | + + + | Organization | [facility] | + + + | Address | Unknown | + + + | Phone | Unavailable | + + + Support + + +---------+ + | Name | Relationship | Address | Phone | + + +---------+ + | Tahmina Aaron | ECON | Unknown | | + + +---------+ + Care Team Providers + +------+ + | Care Geothermal Operations Manager Name | Role | Phone | + +------+ + | Jelani Higgins MD | PCP | | + +------+ + Encounter Details +--------+ + + + + | Date | Type | Department | Care Team | Description | +--------+ + + + + | 05/26/ | Ancillary | Registration [address] | Masha Pickering ANP | | | 2006 | Registratio | [address] | | | | | n | [place] Mailcode: [id number] | | | | | | [place], [place] | | | | | | [address] | | | | | | [phone] | | | +--------+ + + + [...]
--- OUTSIDE RECORDS SUMMARY | ~2020-02-19 | XMS | Encounter Summary ---
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 He is about to [...] his recent lab work. Pavithra Shi / [id number] / [id number] / [id number] / [id number] cc: Jerry Adrian M.D. [address] [place] [id number] signed by Interface, Academic Administrator In at 04/22/2006 1:01 AM PDTdocumented in this encounter Plan of Treatment Not on filedocumented as of this encounter Visit Diagnoses Not on filedocumented in this encounter"
--- OUTSIDE RECORDS SUMMARY | ~2020-02-19 | XMS | Encounter Summary ---
Demographics + + + | Address | [address] [place] [address] RD | | | [place] [address] | + + + | Home Phone | | + + + | Preferred Language | Unknown | + + + | Marital Status | | + + + | Hoahaoism Affiliation | Unknown | + + + | Race | White | + + + | Ethnic Group | Not or | + + + Author + + + | Author | [facility] | + + + | Organization | [facility] | + + + | Address | Unknown | + + + | Phone | Unavailable | + + + Support + + +---------+ + | Name | Relationship | Address | Phone | + + +---------+ + | Tahmina Aaron | ECON | Unknown | | + + +---------+ + Care Team Providers + +------+ + | Care Construction Materials Tester Name | Role | Phone | + +------+ + | Jerry Adrian MD | PCP | | + +------+ + Reason for Visit + + + | Reason | Comments | + + + | Refill Request | Refill request for Fluticazone | + + + Encounter Details +--------+--------+ + + + | Date | Type | Department | Care Team | Description | +--------+--------+ + + + | 08/15/ | Refill | Pulmonary & | Zion Roth, | Refill Request | | 2012 | | Critical Care | [address] | (Refill request for | | | | Medicine at | [facility] [address] | Fluticazone ) | | | | [facility] | [place], [place] | | | | | [address] | [address] | | | | | [address] | [phone] | | | | | [place], [facility] Floor | | | | | | [place], [place] | | | | | | [address] | | | | | | [phone] | | | +--------+--------+ + + + [...]
--- OUTSIDE RECORDS SUMMARY | ~2020-02-19 | XMS | Encounter Summary ---
Demographics + + + | Address | [address] [place] [address] RD | | | [place] [address] | + + + | Home Phone | | + + + | Preferred Language | Unknown | + + + | Marital Status | | + + + | Latter-Day Affiliation | Unknown | + + + | Race | White | + + + | Ethnic Group | Not or | + + + Author + + + | Author | [facility] | + + + | Organization | [facility] | + + + | Address | Unknown | + + + | Phone | Unavailable | + + + Support + + +---------+ + | Name | Relationship | Address | Phone | + + +---------+ + | Tahmina Aaron | ECON | Unknown | | + + +---------+ + Care Team Providers + +------+ + | Care Jewel Hole Rough Opener Name | Role | Phone | + +------+ + | Jelani Higgins MD | PCP | | + +------+ + Encounter Details +--------+ + + + + | Date | Type | Department | Care Team | Description | +--------+ + + + + | 12/12/ | Plug Cutting Machine Operator | Pulmonary & | Zion Roth, | | | 2019 | | Critical Care | [address] | | | | | Medicine at | [facility] | | | | | [facility] | [place], [place] | | | | | [address] | [address] | | | | | [address] [facility] | [phone] | | | | | [place], [address] [place] [address] | | | | | | [place], [place] | | | | | | [address] | | | | | | [phone] | | | +--------+ + + + [...]
--- OUTSIDE RECORDS SUMMARY | ~2020-02-19 | XMS | Encounter Summary ---
Demographics + + + | Address | [address] [place] [address] RD | | | [place] [address] | + + + | Home Phone | | + + + | Preferred Language | Unknown | + + + | Marital Status | | + + + | Mu-Ism Affiliation | Unknown | + + + | Race | White | + + + | Ethnic Group | Not or | + + + Author + + + | Author | [facility] | + + + | Organization | [facility] | + + + | Address | Unknown | + + + | Phone | Unavailable | + + + Support + + +---------+ + | Name | Relationship | Address | Phone | + + +---------+ + | Tamhina Aaron | ECON | Unknown | | + + +---------+ + Care Team Providers + +------+ + | Care Global Compensation Director Name | Role | Phone | + +------+ + | Jerry Adrian MD | PCP | | + +------+ + Encounter Details +--------+ + + + + | Date | Type | Department | Care Team | Description | +--------+ + + + + | 07/08/ | Hospital | Medicine | Tech, P[facility] Adult | | | 2009 | Encounter | Specialties at [facility] | Clinic [address] | | | | | [address] | [facility] | | | | | [address] | [place] [address] | | | | | [place], [address] [place] [address] | | | | | | [place] | | | | | | [address] | | | | | | [phone] | | | +--------+ + + + [...] + + documented as of this encounter Medications at Time of Discharge + + + +---------+ + + | Medication | Sig | Dispensed | Refills | Start | End Date | | | | | | Date | | + + + +---------+ + + | PROLASTIN IV | 12 gms every 2 weeks | | 0 | 01/02/19 | | | | | | | 97 | | + + + +---------+ + + documented as of this encounter Plan of Treatment Not on filedocumented as of this encounter Procedures + +--------+ + + + | Procedure Name | Priori | Date/Time | Associated Diagnosis | Comments | | | ty | | | | + +--------+ + + + | PULMONARY FUNCTION | Routin | 07/08/2010 | | Results for this | | | e | 11:35 AM | | procedure are in the | | | | PDT | | results section. | + +--------+ + + + | ADULT PULMONARY | | 07/08/2010 | | Results for this | | FUNCTION | | 12:00 AM | | procedure are in the | | | | PDT | | results section. | + +--------+ + + + documented in this encounter Results RESP CARE PULMONARY FUNCTION (07/08/2010 11:35 AM PDT) + + + + + + | Component | Value | Ref Range | Performed | Pathologist | | | | | At | Signature | + + + + + + | PULMONARY | Spirometry with | | [facility] | | | FUNCTION | bronchodilator was | | RESPIRATORY | | | | performed:Spirometry | | THERAPY | | | | results were the | | | | | | following:FVC=2.92FVC% | | | | | | predicted=29GQY6=7.19FEV | | | | | | 1% | | | | | | predicted=34FEV1/FVC=41F | | | | | | EF 25-75=0.30FEF 25-75% | | | | | | predicted=11PEF=6.86PEF% | | | | | | predicted=76Post | | | | | | bronchodilator | | | | | | spirometry was the | | | | | | following:FVC=2.64FVC% | | | | | | predicted=95POI8=8.24FEV | | | | | | 1% | | | | | | predicted=35FEV1/FVC=47F | | | | | | EF 25-75=0.39FEF 25-75% | | | | | | predicted=14PEF=6.56PEF% | | | | | | predicted=73FEV1% | | | | | | change post | | | | | | bronchodilator=4Patient | | | | | | reports using Advair 3 | | | | | | hours before this test. | | | | | | PEFs and FVCs arenot | | | | | | consistent on | | | | | | pre-bronchodilator | | | | | | trials. | | | | | | Electronically Signed | | | | | | by: Marii Watson, JOB COST ESTIMATOR | | | | + + + + + + + + | Specimen | + + | | + + + + + + + | Performing | Address | City/State/Zipcode | Phone Number | | Organization | | | | + + + + + | [facility] | [address] [facility] | [place], [place] | | | THERAPY | [address] | [address] | | + + + + + ADULT PULMONARY FUNCTION (07/08/2010 12:00 AM PDT) + + + | Narrative | Performed At | + + + | | | + + + + + | Procedure Note | + + | Jamila [place] - 08/05/2010 10:52 AM PDT | | | + + documented in this encounter Visit Diagnoses Not on filedocumented in this encounter"
--- OUTSIDE RECORDS SUMMARY | ~2020-02-19 | XMS | Encounter Summary ---
Demographics + + + | Address | [address] [place] [address] RD | | | [place] [address] | + + + | Home Phone | | + + + | Preferred Language | Unknown | + + + | Marital Status | | + + + | Yarsanism Affiliation | Unknown | + + + | Race | White | + + + | Ethnic Group | Not or | + + + Author + + + | Author | [facility] | + + + | Organization | [facility] | + + + | Address | Unknown | + + + | Phone | Unavailable | + + + Support + + +---------+ + | Name | Relationship | Address | Phone | + + +---------+ + | Tahmina Aaron | ECON | Unknown | | + + +---------+ + Care Team Providers + +------+ + | Care Manager Student Services Name | Role | Phone | + +------+ + | Jerry Adrian MD | PCP | | + +------+ + Encounter Details +--------+ + + + + | Date | Type | Department | Care Team | Description | +--------+ + + + + | 08/18/ | Documentati | Pulmonary & | Zion Roth, | | | 2012 | on | Critical Care | [address] | | | | | Medicine at | [facility] | | | | | [facility] | [place], [place] | | | | | [address] | [address] | | | | | [address] [facility] | [phone] | | | | | [place], [facility] Floor | | | | | | [place], [place] | | | | | | [address] | | | | | | [phone] | | | +--------+ + + + [...]
--- OUTSIDE RECORDS SUMMARY | ~2020-02-19 | XMS | Encounter Summary ---
Demographics + + + | Address | [address] [place] [address] RD | | | [place] [address] | + + + | Home Phone | | + + + | Preferred Language | Unknown | + + + | Marital Status | | + + + | Mormon Affiliation | Unknown | + + + | Race | White | + + + | Ethnic Group | Not or | + + + Author + + + | Author | [facility] | + + + | Organization | [facility] | + + + | Address | Unknown | + + + | Phone | Unavailable | + + + Support + + +---------+ + | Name | Relationship | Address | Phone | + + +---------+ + | Tahmina Aaron | ECON | Unknown | | + + +---------+ + Care Team Providers + +------+ + | Care Facing End Trimmer Name | Role | Phone | + +------+ + | Jerry Adrian MD | PCP | | + +------+ + Reason for Visit +--------+ + | Reason | Comments | +--------+ + | COPD | f/u COPD w/ chronic bronchitis; Alpha 1 | +--------+ + Encounter Details +--------+---------+ + + + | Date | Type | Department | Care Team | Description | +--------+---------+ + + + | 08/10/ | Office | Pulmonary & | Misha Pace MD | Alpha 1-Antitrypsin | | 2007 | Visit | Critical Care | [address] | Deficiency; COPD | | | | Medicine at | [address] [place], | with Chronic | | | | [facility] | [place] [address] | Bronchitis (HCC) | | | | [address] | [phone] | | | | | [address] [facility] | | | | | | [place], [address] [place] [address] | | | | | | [place], [place] | | | | | | [address] | | | | | | [phone] | | | +--------+---------+ + + + Social History + +-------+ [...] + + documented as of this encounter Last Filed Vital Signs + + + + + | Vital Sign | Reading | Time Taken | Comments | + + + + + | Blood Pressure | 124/80 | 08/10/2008 10:08 AM | | | | | PST | | + + + + + | Pulse | 95 | 08/10/2008 10:08 AM | | | | | PST | | + + + + + | Temperature | 36.9 C (98.4 F) | 08/10/2008 10:08 AM | | | | | PST | | + + + + + | Respiratory Rate | 16 | 08/10/2008 10:08 AM | | | | | PST | | + + + + + | Oxygen Saturation | 95% | 08/10/2008 10:08 AM | | | | | PST | | + + + + + | Inhaled Oxygen | - | - | | | Concentration | | | | + + + + + | Weight | 92.1 kg (203 lb) | 08/10/2008 10:08 AM | | | | | PST | | + + + + + | Height | 175.3 cm (5' 9") | 08/10/2008 10:08 AM | | | | | PST | | + + + + + | Body Mass Index | 29.98 | 08/10/2008 10:08 AM | | | | | PST | | + + + + + documented in this encounter Patient Instructions Patient Instructions Misha Pace - 08/10/2008 10:32 AM PSTPneumonia shot today Spiriva on puff daily will improve breathing. Will give starter assistance.Electronically s igned by Misha Pace at 08/10/2008 10:32 AM PST documented in this encounter Progress Notes Misha Pace - 08/10/2008 10:16 AM PSTFormatting of this note might be different from the o riginal. Encounter Diagnoses Code Name Primary? 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 Not much lifti ng except in winter when has to put on chains. Takes albuterol before lifting which is main hardship. Takes Advair 250/50 BID, Prolastin [id number] at [facility]. No ED visits . Did well over past year. No URI ( cold) or bronchitis. Had suspected sinus infection last S pring, took clarithromycin. Does have cough, small phlegm but not off color. No awakening SOB. No albuterol since [place] 30 pound pack. For sinus, can not take nasal lavages secondary to burning and pain. Uses fluticasone with partial relief drainage. Both brothers are heterozygotes. Physical Exam: BP 124/80, Pulse 95, Temperature 36.9 C (98.4 F), Temperature source Ora l, RR 16, Ht 175.3 cm (5' 9")( < 3 %ile), Wt 92.08 kg (203 lbs)( < 3 %ile), SpO2 95%. General: No acute distress, otherwise unchanged from previous exam. Nares: erythema, mucus, and purulence. Throat: No erythema, exudate, or tonsillar enlargement Neck: No evidence of elevated jugular veins or lymphadenopathy Lungs: prolonged exhalation Cardiac: regular No murmurs, rubs or gallops. Extremities: varicose veins on right; no edema. Musculoskeletal: No obvious joint deformities noted. Neurologic: Exam grossly non-focal. Skin: No evidence of rash or skin changes. Lymph nodes: No other lymphadenopathy detected. LABS:Spirometry with bronchodilator, lung volumes, and DLCO were performed: Spirometry results were the following: FVC=2.73 FVC% predicted=60 FEV1=1.37 FEV1% predicted=39 FEV1/FVC=50 FEF 25-75=0.43 FEF 25-75% predicted=15 Severe obstructive impairment, response to aerosol bronchodilator; air trapping present. 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 No setbacks. On augmentation thera py PLAN: IN patient instructions include start Spiriva with instructions use, Pneumovac admini stered, F/U q6 months with 6 MW next visit; discussed many issues documented in this encounter Plan of Treatment Not on filedocumented as of this encounter Procedures + +--------+ + + + | Procedure Name | Priori | Date/Time | Associated Diagnosis | Comments | | | ty | | | | + +--------+ + + + | ORDERS OTHER | | 12/24/2008 | | Results for this | | | | 12:00 AM | | procedure are in the | | | | PDT | | results section. | + +--------+ + + + | ORDERS OTHER | | 07/10/2008 | | Results for this | | | | 12:00 AM | | procedure are in the | | | | PDT | | results section. | + +--------+ + + + | ORDERS OTHER | | 10/11/2006 | | Results for this | | | | 12:00 AM | | procedure are in the | | | | PST | | results section. | + +--------+ + + + documented in this encounter Results ORDERS OTHER (12/24/2008 12:00 AM PDT) + + + | Narrative | Performed At | + + + | | | + + + + + | Procedure Note | + + | Other, Faculty - 12/24/2008 12:00 AM PDT | + + ORDERS OTHER (07/10/2008 12:00 AM PDT) + + + | Narrative | Performed At | + + + | | | + + + + + | Procedure Note | + + | Jamila [place] - 07/10/2008 12:00 AM PDT | + + ORDERS MANISH (10/11/2006 12:00 AM PST) + + + | Narrative | Performed At | + + + | | | + + + + + | Procedure Note | + + | Jamila [place] - 10/11/2006 12:00 AM PST | + + documented in this encounter Visit Diagnoses + + | Diagnosis | + + | Alpha 1-antitrypsin deficiency [id number] deficiency | + + | COPD with chronic bronchitis (HCC) Obstructive chronic bronchitis without | | exacerbation | + + documented in this encounter
--- OUTSIDE RECORDS SUMMARY | ~2020-02-19 | XMS | Encounter Summary ---
Demographics + + + | Address | [address] [place] [address] RD | | | [place] [address] | + + + | Home Phone | | + + + | Preferred Language | Unknown | + + + | Marital Status | | + + + | Cheondoism Affiliation | Unknown | + + + | Race | White | + + + | Ethnic Group | Not or | + + + Author + + + | Author | [facility] | + + + | Organization | [facility] | + + + | Address | Unknown | + + + | Phone | Unavailable | + + + Support + + +---------+ + | Name | Relationship | Address | Phone | + + +---------+ + | Tahmina Aaron | ECON | Unknown | | + + +---------+ + Care Team Providers + +------+ + | Care Complaint Specialist Name | Role | Phone | + +------+ + | Jerry Adrian MD | PCP | | + +------+ + Encounter Details +--------+ + + + + | Date | Type | Department | Care Team | Description | +--------+ + + + + | 11/08/ | Results | Registration [address] | | | | 1995 | Only | [address] | | | | | | [address] Mailcode: [id number] | | | | | | [place], [place] | | | | | | [address] | | | | | | [phone] | | | +--------+ + + + [...] + | PULMONARY FUNCTION | Routin | 11/08/1995 | | Results for this | | TESTS | e | 4:22 PM | | procedure are in the | | | | PST | | results section. | + +--------+ + + + documented in this encounter Results PULMONARY FUNCTION TESTS (11/08/1995 4:22 PM PST) + + + + + + | Component | Value | Ref Range | Performed | Pathologist | | | | | At | Signature | + + + + + + | FVC | 4.56 | L | | | | MEASURED | | | | | + + + + + + | FVC % PRED | 88. | % | | | + + + + + + | FEV1 | 2.24 | L/S | | | | MEASURED | | | | | + + + + + + | FEV1 % PRED | 54. | % | | | + + + + + + | FEV1/FVC | 49. | % | | | | MEASURED | | | | | + + + + + + | FEF(25-75) | 0.61 | L/S | | | + + + + + + | FEF(25-75) | 15. | % | | | | % PRED | | | | | + + + + + + | FVC POST | 90. | % | | | | BD'S % PRED | | | | | + + + + + + | FEV1 POST | 2.38 | L | | | | BD'S | | | | | | MEASURED | | | | | + + + + + + | FEV1 POST | 58. | % | | | | BD'S % PRED | | | | | + + + + + + | FEV1/FVC | 51. | % | | | | POST BD'S | | | | | | MEASURD | | | | | + + + + + + | FEF() | 0.65 | L/S | | | | POST BD'S | | | | | | MEASURD | | | | | + + + + + + | FEF() | 16. | % | | | | POST BD'S % | | | | | | PRED | | | | | + + + + + + | FEV1 BD'S % | 6. | % | | | | CHANGE | | | | | + + + + + + + + | Specimen | + + | | + + + + + + + | Performing | Address | City/State/Zipcode | Phone Number | | Organization | | | | + + + + + | [facility] | [address] | [place] [address] | | | PATHOLOGY | [address] | | | + + + + + documented in this encounter Visit Diagnoses Not on filedocumented in this encounter"
--- OUTSIDE RECORDS SUMMARY | ~2020-02-19 | XMS | Clinical Summary ---
Demographics + + + | Address | [address] | | | [place] [address] | + + + | Home Phone | | + + + | Preferred Language | Unknown | + + + | Marital Status | | + + + | Samaritan Affiliation | Unknown | + + + | Race | Unknown | + + + | Ethnic Group | Unknown | + + + Author + + + | Author | [facility] | | | and [place] | + + + | Organization | [facility] | | | and [place] | [...] Team Providers + +------+ + | Care Family Readiness Support Assistant Name | Role | Phone | + [...]
--- OUTSIDE RECORDS SUMMARY | ~2020-02-19 | XMS | Encounter Summary ---
Demographics + + + | Address | [address] [place] [address] RD | | | [place] [address] | + + + | Home Phone | | + + + | Preferred Language | Unknown | + + + | Marital Status | | + + + | Sabianism Affiliation | Unknown | + + + | Race | White | + + + | Ethnic Group | Not or | + + + Author + + + | Author | [facility] | + + + | Organization | [facility] | + + + | Address | Unknown | + + + | Phone | Unavailable | + + + Support + + +---------+ + | Name | Relationship | Address | Phone | + + +---------+ + | Tahmina Aaron | ECON | Unknown | | + + +---------+ + Care Team Providers + +------+ + | Care Workers Compensation Manager Name | Role | Phone | + +------+ + | Jerry Adrian MD | PCP | | + +------+ + Reason for Visit + + + | Reason | Comments | + + + | Refill Request | Fluticasone | + + + Encounter Details +--------+--------+ + + + | Date | Type | Department | Care Team | Description | +--------+--------+ + + + | 07/29/ | Refill | Pulmonary & | Zion Roth, | Refill Request | | 2014 | | Critical Care | [address] | (Fluticasone ) | | | | Medicine at | [facility] | | | | | [facility] | [place], [place] | | | | | [address] | [address] | | | | | [address] | [phone] | | | | | [place], [address] Floor | | | | | | [place], [place] | | | | | | [address] | | | | | | [phone] | | | +--------+--------+ + + + [...]
--- OUTSIDE RECORDS SUMMARY | ~2020-02-19 | XMS | Encounter Summary ---
Demographics + + + | Address | [address] [place] [address] RD | | | [place] [address] | + + + | Home Phone | | + + + | Preferred Language | Unknown | + + + | Marital Status | | + + + | Methodist Affiliation | Unknown | + + + [...] | + + +---------+ + | Tahmina Hall | ECON | Unknown | | + + +---------+ + Care Team Providers + +------+ + | Care Topographical Surveyor Name | Role | Phone | + +------+ + | Jerry Adrian MD | PCP | | + +------+ + Encounter Details +--------+ + + + + | Date | Type | Department | Care Team | Description | +--------+ + + + + | 09/02/ | Windows Deployment Technician | Pulmonary & | Misha Godfrey MD | [id number]-ewmrhjgnmhe | | 2010 | | Critical Care | [address] | deficiency (HCC) | | | | Medicine at | [facility], | (Primary Dx) | | | | [facility] | [place] [address] | | | | | [address] | [phone] | | | | | [facility] | | | | | | Pavilion, 3rd Floor | | | | | | [place], [place] | | | | | | [address] | | | | | | [phone] | | | +--------+ + + + [...] this encounter Results SPIROMETRY, PULM FUNCTION LAB (04/15/2012 8:12 AM PDT) + + + + + + | Component | Value | Ref Range | Performed | Pathologist | | | | | At | Signature | + + + + + + | DISTANCE | 421 | | [facility] | | | WALKED-METE | | | SPECIAL | | | RS | | | DIAGNOSTICS | | | | | | - | | | | | | PULMONARY | | | | | | FUNCTION | | + + + + + + | FVC PRE | 3.25 | 4.62 Liters | [facility] | | | | | | SPECIAL | | | | | | DIAGNOSTICS | | | | | | - | | | | | | PULMONARY | | | | | | FUNCTION | | + + + + + + | FVC PRE | 70 | % | [facility] | | | (%REF) | | | SPECIAL | | | | | | DIAGNOSTICS | | | | | | - | | | | | | PULMONARY | | | | | | FUNCTION | | + + + + + + | FEV1 PRE | 1.51 | 3.47 Liters | [facility] | | | | | | SPECIAL | | | | | | DIAGNOSTICS | | | | | | - | | | | | | PULMONARY | | | | | | FUNCTION | | + + + + + + | FEV1 PRE | 43 | % | [facility] | | | (%REF) | | | SPECIAL | | | | | | DIAGNOSTICS | | | | | | - | | | | | | PULMONARY | | | | | | FUNCTION | | + + + + + + | FEV1/FVC | 46 | 75 % | [facility] | | | PRE | | | SPECIAL | | | | | | DIAGNOSTICS | | | | | | - | | | | | | PULMONARY | | | | | | FUNCTION | | + + + + + + | FEV1/FVC | 62 | % | [facility] | | | PRE (%REF) | | | SPECIAL | | | | | | DIAGNOSTICS | | | | | | - | | | | | | PULMONARY | | | | | | FUNCTION | | + + + + + + | [id number]% | 0.41 | 2.79 L/sec | [facility] | | | PRE | | | SPECIAL | | | | | | DIAGNOSTICS | | | | | | - | | | | | | PULMONARY | | | | | | FUNCTION | | + + + + + + | [id number]% | 15 | % | [facility] | | | PRE (%REF) | | | SPECIAL | | | | | | DIAGNOSTICS | | | | | | - | | | | | | PULMONARY | | | | | | FUNCTION | | + + + + + + | PEF PRE | 6.13 | 8.92 L/sec | [facility] | | | | | | SPECIAL | | | | | | DIAGNOSTICS | | | | | | - | | | | | | PULMONARY | | | | | | FUNCTION | | + + + + + + | PEF PRE | 69 | % | [facility] | | | (%REF) | | | SPECIAL | | | | | | DIAGNOSTICS | | | | | | - | | | | | | PULMONARY | | | | | | FUNCTION | | + + + + + + | FIF50% PRE | 6.63 | L/sec | [facility] | | | | | | SPECIAL | | | | | | DIAGNOSTICS | | | | | | - | | | | | | PULMONARY | | | | | | FUNCTION | | + + + + + + | PULMONARY | Name: HERMAN HALL | | [facility] | | | INTERPRETAT | L ########Age: 61 | | SPECIAL | | | ION | Gender: | | DIAGNOSTICS | | | | Male Race: | | - | | | | | | PULMONARY | | | | Height(in):Physician: | | FUNCTION | | | | MISHA GODFREY | | | | | | | | | | | | Raw Material Planner: Andrews Conrad | | | | | | ADMINISTRATOR Diagnosis: | | | | | | | | | | | | Occ | | | | | | Exposure: | | | | | | Construction/Diesel | | | | | | | | | | | | | | | | | | Dyspnea Exercise: No | | | | | | Dyspnea Rest: No Cough: | | | | | | Yes | | | | | | Persistent: Yes | | | | | | Productive | | | | | | (cc): 0-2 Smoker: Yes | | | | | | How | | | | | | Lon | | | | | | Cigarettes: Yes Quit: | | | | | | Yes | | | | | | | | | | | | Stopped: 30 Order# | | | | | | [id number] | | | | | | | [...] | | | | | | Liters 4.62 | | | | | | 3.25 [id number] | | | | | | Liters 3.47 | | | | | | 1.51 43FEV1/FVC | | | | | | % 75 | | | | | | [id number]% | | | | | | L/sec 2.79 | | | | | | 0.41 [id number] | | | | | | L/sec | | | | | | 0.41PEF | | | | | | L/sec 8.92 | | | | | | 6.13 [id number]% | | | | | | L/sec | | | | | | 6.63 | | | | | | Lung | | | | | | VolumesTLC | | | | | | Liters 6.94VC | | | | | | Liters 4.62IC | | | | | | Liters 3.05FRC | | | | | | N2 Liters | | | | | | 3.63ERV | | | | | | Liters 1.53RV | | | | | | Liters 2.29RV/TLC | | | | | | % 34Wash | | | | | | Time MinFRC PL | | | | | | Liters 3.63 | | | | | | | | | | | | Pulmonary Pressures | | | | | | | | | | | | Ref Pre Pre | | | | | | | | | | | | Michelle % | | | | | | RefPI max [id number] | | | | | | Volume LitersPE max | | | | | | [id number] Volume Liters | | | | | [...] | | | | | | mL/mmHg/min 27.6DL | | | | | | Adj mL/mmHg/min | | | | | | 27.6DLCO/VA | | | | | | mL/mHg/min/L 4.17DL/VA | | | | | | Adj mL/mHg/min/L 4.01 PF | | | | | | Reference: NHANES III - | | | | | | | | | | | | | | | | | | | | | | | | | | | | | | | | | | | | Page 1Name: ISABEL, | | | | | | HERMAN Matos ######## | | | | | | | | | | | | | | | | | | Six Minute Walk | | | | | | test (if done) | | | | | | | | | | | | COMMENTS:Spirometry | | | | | | data is acceptable and | | | | | | reproducible. Cough with | | | | | | some efforts. 6Minute | | | | | | Walk Test: Distance | | | | | | dqjqng=5656 feet, 421 | | | | | | meters Minutes walked= | | | | | | 6 Beginning HR= 61 | | | | | | Beginning SpO2= 96 | | | | | | Ending HR = 91 Ending | | | | | | SpO2= 91 Dyspnea Index | | | | | | before = 0 , after = | | | | | | 0.5 Test on Room Air | | | | | | | | | | | | | | | | | | Physician | | | | | | InterpretationCALDWELL, | | | | | | HERMAN Matos had pulmonary | | | | | | function testing done | | | | | | for the evaluation | | | | | | pxlzhmo-2-voepsmhbzar | | | | | | disease. Spirometry | | | | | | shows severe | | | | | | (FEV1/FVC<70%,30%<FEV1<5 | | | | | | 0% predicted) airflow | | | | | | obstruction. The | | | | | | distance walked is | | | | | | normal. The patient | | | | | | walked 412 meters in 6 | | | | | | minutes. The oxygen | | | | | | saturation at the endof | | | | | | the walk fell | | | | | | significantly ( >4% ). | | | | | | | | | | | | | | | | | | | | | | | | | | | | | | Page 2 | | | | + + + + + + | BREATHING | 0 | % | [facility] | | | RESERVE | | | SPECIAL | | | BASE | | | DIAGNOSTICS | | | | | | - | | | | | | PULMONARY | | | | | | FUNCTION | | + + + + + + | BREATHING | 0 | % | [facility] | | | RESERVE AT | | | SPECIAL | | | | | | DIAGNOSTICS | | | | | | - | | | | | | PULMONARY | | | | | | FUNCTION | | + + + + + + | BREATHING | 0 | % | [facility] | | | RESERVE | | | SPECIAL | | | PEAK | | | DIAGNOSTICS | | | [...] | + + | Jamila Colorado - 04/18/2012 7:15 AM PDT | + + + + + + + | Performing | Address | City/State/Zipcode | Phone Number | | Organization | | | | + + + + + | [facility] | [address] | [place], [place] | | | DIAGNOSTICS - | [address] | [address] | | | PULMONARY FUNCTION | | | | + + + + + documented in this encounter Visit Diagnoses + + | Diagnosis | + + | Xyyfr-9-lyetgopldyo deficiency (HCC) - Primary Aydds-7-wsowatmlyzb deficiency | + + documented in this encounter"
--- OUTSIDE RECORDS SUMMARY | ~2020-02-19 | XMS | Encounter Summary ---
Demographics + + + | Address | [address] [place] [address] RD | | | [place] [address] | + + + | Home Phone | | + + + | Preferred Language | Unknown | + + + | Marital Status | | + + + | Voodoo Affiliation | Unknown | + + + | Race | White | + + + | Ethnic Group | Not or | + + + Author + + + | Author | [facility] | + + + | Organization | [facility] | + + + | Address | Unknown | + + + | Phone | Unavailable | + + + Support + + +---------+ + | Name | Relationship | Address | Phone | + + +---------+ + | Tahmina Aaron | ECON | Unknown | | + + +---------+ + Care Team Providers + +------+ + | Care Annealing Furnace Tender Name | Role | Phone | + +------+ + | Jerry Adrian MD | PCP | | + +------+ + Reason for Visit + + + | Reason | Comments | + + + | Refill Request | for Justen. Last filled 02/25/2013. | + + + Encounter Details +--------+--------+ + + + | Date | Type | Department | Care Team | Description | +--------+--------+ + + + | 03/24/ | Refill | Pulmonary & | Zion Roth, | Refill Request (for | | 2012 | | Critical Care | [address] | Justen. Last filled | | | | Medicine at | [facility] [address] | 02/25/2013.) | | | | [facility] | [place], [place] | | | | | [address] | [address] | | | | | [facility] | [phone] | | | | | [place], [address] [place] [address] | | | | | | [place], [place] | | | | | | [address] | | | | | | [phone] | | | +--------+--------+ + + + [...]
--- OUTSIDE RECORDS SUMMARY | ~2020-02-19 | XMS | Encounter Summary ---
Demographics + + + | Address | [address] [place] [address] RD | | | [place] [address] | + + + | Home Phone | | + + + | Preferred Language | Unknown | + + + | Marital Status | | + + + | Gnosticism Affiliation | Unknown | + + + | Race | White | + + + | Ethnic Group | Not or | + + + Author + + + | Author | [facility] | + + + | Organization | [facility] | + + + | Address | Unknown | + + + | Phone | Unavailable | + + + Support + + +---------+ + | Name | Relationship | Address | Phone | + + +---------+ + | Tahmina Aaron | ECON | Unknown | | + + +---------+ + Care Team Providers + +------+ + | Care Rope Twisting Machine Operator Name | Role | Phone | + +------+ + | Jerry Adrian MD | PCP | | + +------+ + Encounter Details +--------+ + + + + | Date | Type | Department | Care Team | Description | +--------+ + + + + | 03/20/ | Telephone | Pulmonary & | Misha Pace MD | | | 2008 | | Critical Care | [address] | | | | | Medicine at | [facility], | | | | | [facility] | [place] [address] | | | | | [address] | [phone] | | | | | [facility] | | | | | | Pavilion, 3rd Floor | | | | | | [place], [place] | | | | | | [address] | | | | | | [phone] | | | +--------+ + + + [...]
--- OUTSIDE RECORDS SUMMARY | ~2020-02-19 | XMS | Encounter Summary ---
Demographics + + + | Address | [address] [place] [address] RD | | | [place] [address] | + + + | Home Phone | | + + + | Preferred Language | Unknown | + + + | Marital Status | | + + + | Amish Affiliation | Unknown | + + + [...] Team Providers + +------+ + | Care Sales Correspondent Name | Role | Phone | + +------+ + PCP | Unavailable | + +------+ + Encounter Details +--------+ + + + + | Date | Type | Department | Care Team | Description | +--------+ + + + + | 07/12/ | Office | | Note, Outpatient | Progress Note | | 2001 | Visit-Trans | | Clinic | | [...] as of this encounter Progress Notes Interface, Post Doctoral Researcher In - 05/01/2006 1:04 AM PDTCLINIC DATE: 07/12/2002 PULMONARY CLINIC PROBLEM LIST: Moderate chronic obstructive pulmonary disease secondary to alpha 1-antitrypsin deficiency. HISTORY OF PRESENT ILLNESS: Anabell has lost about 15 pounds in the last few months, and he feels as though his breathing is much better after that. His exercise tolerance has increased. He does have a daily mildly productive morning cough. He has had an upper respiratory infection in May 2002 for which he took Biaxin for a period that took care of all of his symptoms. He denies any hemoptysis or pleuritic chest pain. REVIEW OF SYSTEMS CONSTITUTIONAL: No fever, chills, or night sweats. He has an increase in exercise tolerance and activity level. ENT: He has less rhinitis and rhinorrhea since using the Flonase on a regular basis. Also, less postnasal drip. CARDIOVASCULAR: No chest pain or palpitations. RESPIRATORY: As above. GI: Negative. : Negative. MUSCULOSKELETAL: He has had some chronic neck pain for 3 to 4 months. He has been to the chiropractor which has not helped. He has not seen his butcher head regarding this problem. 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 SKIN: Negative. PSYCHIATRIC: His mood is good. Review of systems is otherwise negative. ALLERGIES: He has no known drug allergies. MEDICATIONS: Azmacort 2 puffs b.i.d. and Serevent 2 puffs b.i.d. He has tried Advair, but likes the combination of Serevent and Azmacort better. He is using Flonase 1 to 2 inhalations in each nostril q.d. and Prolastin 140 mg/kg IV q. 2 weeks. He does not use oxygen. 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 He is active with hiking in the summer and hunting in the fall. He has also been doing some woodworking. OBJECTIVE VITAL SIGNS: Weight is 192.2 pounds, temperature is 97 p.o., blood pressure 108/70, heart rate is 62 and regular, respiratory rate is 14, and oxygen saturation is 94% at rest on room air. GENERAL: He does not appear acutely or chronically ill. SKIN: Warm and dry. Color is good. HEENT: Sclerae are anicteric. Conjunctivae are noninjected. No purulent nasal drainage or nasal polyps. Pharynx is noninjected. No exudate or lesions. NECK: Supple with no masses or lymphadenopathy. No increased JVP. CHEST: He has diminished breath sounds throughout. No crackles or wheezes. HEART: Heart sounds are unremarkable. S1 and S2. No murmurs or rubs. ABDOMEN: Round and soft with active bowel sounds. No masses, tenderness, or organomegaly. EXTREMITIES: No edema, cyanosis, or clubbing. LABORATORY DATA: Spirometry then today reveals a pre-bronchodilator FVC of 3.28 L (65% of predicted), FEV1 is 1.71 L (43% of predicted), and FEV1/FVC of 52%. Post-bronchodilator FVC was 3.46 L (69% of predicted), FEV1 is 1.70 L (43% of predicted), and FEV1/FVC is 49%. This represents a post-bronchodilator increase in FVC of 5%, and no increase in FEV1. This compares to post-bronchodilator spirometry done on March 07, 2002, at which time his FVC was 3.26 L, and his FEV1 was 1.60 L. His FiO2 at that time was 97% at rest on room air. ASSESSMENT 1. Moderately severe chronic obstructive pulmonary disease secondary to alpha 1-antitrypsin deficiency. He demonstrates no reversibility today. His spirometry readings are a bit higher than they were in March 2002. 2. Chronic sinusitis with improvement in symptoms today. 3. Chronic neck pain. PLAN: We will continue on the same medications. He will increase his Azmacort if he gets an upper respiratory infection. I encouraged him to see his butcher head for an yearly exam and to have his neck pain evaluated. Anabell needs to have yearly liver function tests to look for any signs of liver disease related to alpha 1-antitrypsin deficiency. We would like to see him back in 4 to 6 months. Zaid Shi. Division of Pulmonary and Critical Care / HS [id number] / [id number] / [id number] / cc: Fermin Adrian M.D. [address] [place], [place] [address]Zleashpitmqzye signed by Interface, Post Doctoral Researcher In at 05/01/2006 1:0 4 AM PDTdocumented in this encounter Plan of Treatment Not on filedocumented as of this encounter Visit Diagnoses Not on filedocumented in this encounter"
--- OUTSIDE RECORDS SUMMARY | ~2020-02-19 | XMS | Encounter Summary ---
Demographics + + + | Address | [address] [place] [address] RD | | | [place] [address] | + + + | Home Phone | | + + + | Preferred Language | Unknown | + + + | Marital Status | | + + + | Quaker Affiliation | Unknown | + + + | Race | White | + + + | Ethnic Group | Not or | + + + Author + + + | Author | [facility] | + + + | Organization | [facility] | + + + | Address | Unknown | + + + | Phone | Unavailable | + + + Support + + +---------+ + | Name | Relationship | Address | Phone | + + +---------+ + | Tahmina Aaron | ECON | Unknown | | + + +---------+ + Care Team Providers + +------+ + | Care Dimensional Inspector Name | Role | Phone | + +------+ + PCP | Unavailable | + +------+ + Encounter Details +--------+ + + + + | Date | Type | Department | Care Team | Description | +--------+ + + + + | 10/16/ | Results | Pulmonary Function | Misha Pace MD | | | 2003 | Only | Lab at [facility] [address] | [address] | | | | | [address] | [place], | | | | | [address] | [place] [address] | | | | | [place], [place] | [phone] | | | | | [address] | | | | | | [phone] | | | +--------+ + + + [...] + +--------+ + + + | SPIROMETRY | Routin | 10/16/2003 | | Results for this | | | e | 9:45 AM | | procedure are in the | | | | PST | | results section. | + +--------+ + + + | SPIROMETRY WITH BD'S | Routin | 10/16/2003 | | Results for this | | | e | 9:45 AM | | procedure are in the | | | | PST | | results section. | + +--------+ + + + documented in this encounter Results SPIROMETRY WITH BD'S (10/16/2003 9:45 AM PST) + + + + + + | Component | Value | Ref Range | Performed | Pathologist | | | | | At | Signature | + + + + + + | FVC | 2.71 | L | | | | MEASURED | | | | | + + + + + + | FVC % PRED | 54 | % | | | + + + + + + | FEV1 | 1.66 | L/S | | | | MEASURED | | | | | + + + + + + | FEV1 % PRED | 42 | % | | | + + + + + + | FEV1/FVC | 0.61 | % | | | | MEASURED | | | | | + + + + + + | FEF() | 0.65 | L/S | | | + + + + + + | FEF() | 18 | % | | | | % PRED | | | | | + + + + + + | FVC POST | 2.90 | L | | | | BD'S | | | | | | MEASURED | | | | | + + + + + + | FVC POST | 58 | | | | | BD'S % PRED | | | | | + + + + + + | FEV1 POST | 1.62 | L | | | | BD'S | | | | | | MEASURED | | | | | + + + + + + | FEV1 POST | 41 | % | | | | BD'S % PRED | | | | | + + + + + + | FEV1/FVC | 0.56 | % | | | | POST BD'S | | | | | | MEASURD | | | | | + + + + + + | FEF() | 0.54 | L/S | | | | POST BD'S | | | | | | MEASURD | | | | | + + + + + + | FEF(75) | 15 | % | | | | POST BD'S % | | | | | | PRED | | | | | + + + + + + | FEV1 BD'S % | 0 | % | | | | CHANGE | | | | | + + + + + + | PF COMMENT | pt became tired after | | | | | 1 | 2nd post maneuver and is | | | | | | wheezy. Pt. states | | | | | | it'sfrom the cold air | | | | | | he's been in. | | | | + + + + + + + + | Specimen | + + | | + + + + + + + | Performing | Address | City/State/Zipcode | Phone Number | | Organization | | | | + + + + + | [facility] | [address] | [place], [place] | | | DIAGNOSTICS - | [address] | [address] | | | PULMONARY FUNCTION | | | | + + + + + SPIROMETRY (10/16/2003 9:45 AM PST) + +---------+ + + + | Component | Value | Ref Range | Performed | Pathologist | | | | | At | Signature | + +---------+ + + + | FVC | 2.71 | L | | | | MEASURED | | | | | + +---------+ + + + | FVC % PRED | 54 | % | | | + +---------+ + + + | FEV1 | 1.66 | L/S | | | | MEASURED | | | | | + +---------+ + + + | FEV1 % PRED | 42 | % | | | + +---------+ + + + | FEV1/FVC | 0.61 | % | | | | MEASURED | | | | | + +---------+ + + + | FEF() | 0.65 | L/S | | | + +---------+ + + + | FEF() | 18 | % | | | | % PRED | | | | | + +---------+ + + + | PF COMMENT | [id number] | | | | | 1 | | | | | + +---------+ + + + + + | Specimen | + + | | + + + + + + + | Performing | Address | City/State/Zipcode | Phone Number | | Organization | | | | + + + + + | [facility] | [address] | [place], [place] | | | DIAGNOSTICS - | [address] | [address] | | | PULMONARY FUNCTION | | | | + + + + + documented in this encounter Visit Diagnoses Not on filedocumented in this encounter"
--- OUTSIDE RECORDS SUMMARY | ~2020-02-19 | XMS | Encounter Summary ---
Demographics + + + | Address | [address] [place] [address] RD | | | [place] [address] | + + + | Home Phone | | + + + | Preferred Language | Unknown | + + + | Marital Status | | + + + | Alevism Affiliation | Unknown | + + + | Race | White | + + + | Ethnic Group | Not or | + + + Author + + + | Author | [facility] | + + + | Organization | [facility] | + + + | Address | Unknown | + + + | Phone | Unavailable | + + + Support + + +---------+ + | Name | Relationship | Address | Phone | + + +---------+ + | Tahmina Aaron | ECON | Unknown | | + + +---------+ + Care Team Providers + +------+ + | Care Hand Stoner Name | Role | Phone | + +------+ + | Jelani Higgins MD | PCP | | + +------+ + Encounter Details +--------+ + + + + | Date | Type | Department | Care Team | Description | +--------+ + + + + | 04/13/ | Ancillary | Registration [address] | [address] AN[facility] | | | 2005 | Registratio | [address] | | | | | n | Jayden Mailcode: [id number] | | | | | | [place], [place] | | | | | | [address] | | | | | | [phone] | | | +--------+ + + + [...]
--- OUTSIDE RECORDS SUMMARY | ~2020-02-19 | XMS | Encounter Summary ---
Demographics + + + | Address | [address] [place] [address] RD | | | [place] [address] | + + + | Home Phone | | + + + | Preferred Language | Unknown | + + + | Marital Status | | + + + | Mandaeism Affiliation | Unknown | + + + | Race | White | + + + | Ethnic Group | Not or | + + + Author + + + | Author | [facility] | + + + | Organization | [facility] | + + + | Address | Unknown | + + + | Phone | Unavailable | + + + Support + + +---------+ + | Name | Relationship | Address | Phone | + + +---------+ + | Tahmina Aaron | ECON | Unknown | | + + +---------+ + Care Team Providers + +------+ + | Care Class B Driver Name | Role | Phone | + +------+ + | Jerry Adrian MD | PCP | | + +------+ + Reason for Visit + + + | Reason | Comments | + + + | Medication Question | | + + + Encounter Details +--------+ + + + + | Date | Type | Department | Care Team | Description | +--------+ + + + + | 10/13/ | Telephone | Pulmonary & | Misha Pace MD | Medication Question | | 2009 | | Critical Care | [address] | | | | | Medicine at | [address] [place], | | | | | [facility] [place] | [place] [address] | | | | | [address] | [phone] | | | | | [address] [facility] | | | | | | [place], [address] Floor | | | | | | [place], [place] | | | | | | [address] | | | | | | [phone] | | | +--------+ + + + [...]
--- OUTSIDE RECORDS SUMMARY | ~2020-02-19 | XMS | Encounter Summary ---
Demographics + + + | Address | [address] [place] [address] RD | | | [place] [address] | + + + | Home Phone [...] + + + | Author | [facility] | + + + | Organization | [facility] | + + + | Address | Unknown | + + + | Phone | Unavailable | + + + Support + + +---------+ + | Name | Relationship | Address | Phone | + + +---------+ + | Tahmina Aaron | ECON | Unknown | | + + +---------+ + Care Team Providers + +------+ + | Care Manager Agricultural Name | Role | Phone | + +------+ + | Jerry Adrian MD | PCP | | + +------+ + Encounter Details +--------+ + + + + | Date | Type | Department | Care Team | Description | +--------+ + + + + | 04/24/ | Senior Product Designer | Pulmonary & | Misha Pace MD | COPD with Chronic | | 2007 | | Critical Care | [address] | Bronchitis (HCC) | | | | Medicine at | [facility], | (Primary Dx) | | | | [facility] | [place] [address] | | | | | [address] | [phone] | | | | | [address] [facility] | | | | | | [address], [address]rd Floor | | | | | | [place], [place] | | | | | | [address] | | | | | | [phone] | | | +--------+ + + + [...]
--- OUTSIDE RECORDS SUMMARY | ~2020-02-19 | XMS | Encounter Summary ---
Demographics + + + | Address | [address] [place] [address] RD | | | [place] [address] | + + + | Home Phone | | + + + | Preferred Language | Unknown | + + + | Marital Status | | + + + | Caodaism Affiliation | Unknown | + + + | Race | White | + + + | Ethnic Group | Not or | + + + Author + + + | Author | [facility] | + + + | Organization | [facility] | + + + | Address | Unknown | + + + | Phone | Unavailable | + + + Support + + +---------+ + | Name | Relationship | Address | Phone | + + +---------+ + | Tahmina Hall | ECON | Unknown | | + + +---------+ + Care Team Providers + +------+ + | Care Retail Cosmetics Sales Counter Manager Name | Role | Phone | + +------+ + | Jerry Adrian MD | PCP | | + +------+ + Reason for Visit Benefits Check (Routine) +--------+--------+ + + + + | Status | Reason | Specialty | Diagnoses / | Referred By | Referred To | | | | | Procedures | Contact | Contact | +--------+--------+ + + + + | Closed | | Pulmonary | | Pul | Pul Faculty | | | | Disease | | Faculty 3rd | [facility]rd [facility] | | | | | | [facility] [address] | | | | | | [address] | [address] | | | | | | Loop | Physician's | | | | | | Physician's | Pavilion, | | | | | | Pavilion, | 3rd Floor | | | | | | 3rd Floor | [place], [place] | | | | | | [place], [place] | [address] | | | | | | [address] | Phone: | | | | | | Phone: | [phone] | | | | | | [phone] | Fax: | | | | | | Fax: | [phone] | | | | | | [phone] | | +--------+--------+ + + + + Encounter Details +--------+ + + + + | Date | Type | Department | Care Team | Description | +--------+ + + + + | 01/29/ | Hospital | Pulmonary Function | Tech, Pfl Adult | | | 2017 | Encounter | Lab at [facility] [address] | [address] | | | | | [address] | [facility], | | | | | [facility], | [place] [address] | | | | | [address] [place] [address], | | | | | | [place] [address] | | | | | | [phone] | | | +--------+ + + + [...] + + + +---------+ + + | albuterol 90 | Inhale 2 puffs by | 1 | 6 | 09/20/20 | | | mcg/actuation | mouth every six | Inhaler | | 15 | | | inhalation HFA | hours as needed. | | | | | | aerosol inhaler | Rinse mouth after | | | | | | | use. | | | | | + + + +---------+ + + | amoxicillin 500 mg | Take 1 capsule by | 21 | 0 | 09/20/20 | | | oral capsule | mouth every eight | capsule | | 15 | | | | hours. | | | | | + + + +---------+ + + | fluticasone | Instill 1 spray in | 1 each | 12 | 07/29/20 | | | (FLONASE) 50 | nose once daily. | | | 15 | | | mcg/actuation nasal | | | | | | | spray,suspension | | | | | | + + + +---------+ + [...] | + +--------+ + + + | SPIROMETRY, PULM | Routin | 01/29/2017 | | Results for this | | FUNCTION LAB | e | 8:40 AM | Juhzs-7-pselgcrxgbq | procedure are in the | | | | PDT | deficiency (HCC) | results section. | + +--------+ + + + documented in this encounter Results SPIROMETRY, PULM FUNCTION LAB (01/29/2017 8:40 AM PDT) + + + + + + | Component | Value | Ref Range | Performed | Pathologist | | | | | At | Signature | + + + + + + | PULMONARY | Name: HALLHERMAN GONZALEZ | | [facility] | | | INTERPRETAT | L ID: [id number]: | | SPECIAL | | | ION | Height: 70.08 | | DIAGNOSTICS | | | | Inches Age: 66Tech: | | - | | | | Meagan Bales Weight: | | PULMONARY | | | | 212.53 Lbs Sex: | | FUNCTION | | | | MaleVisitDate: | | | | | | 01/29/2017 VisitTime: | | | | | | 08:40:46 AM Race: | | | | | | CaucasianSecondary ID:PT | | | | | | ID: DoctorID:Change | | | | | | 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 | | | | | | The results of this | | | | | | test meet the ATS | | | | | | standards | | | | | | foracceptability and | | | | | | repeatability. | | | | + + + + + + | FVC PRE | 2.39 | 4.49 L | [facility] | | | | | | SPECIAL | | | | | | DIAGNOSTICS | | | | | | - | | | | | | PULMONARY | | | | | | FUNCTION | | + + + + + + | FVC PRE | 53 | % | [facility] | | | (%REF) | | | SPECIAL | | | | | | DIAGNOSTICS | | | | | | - | | | | | | PULMONARY | | | | | | FUNCTION | | + + + + + + | FEV1 PRE | 1.34 | 3.31 L | [facility] | | | | | [...] + + + + | FEV1/FVC | 56 | 74 % | [facility] | | | PRE | | | SPECIAL | | | | | | DIAGNOSTICS | | | | | | - | | | | | | PULMONARY | | | | | | FUNCTION | | + + + + + + | FEV1/FVC | 75 | % | [facility] | | | PRE (%REF) | | | SPECIAL | | | | | | DIAGNOSTICS | | | | | | - | | | | | | PULMONARY | | | | | | FUNCTION | | + + + + + + | PEF PRE | 4.50 | 8.51 L/sec | [facility] | | | | | | SPECIAL | | | | | | DIAGNOSTICS | | | | | | - | | | | | | PULMONARY | | | | | | FUNCTION | | + + + + + + | PEF PRE | 52 | % | [facility] | | | (%REF) | | | SPECIAL | | | | | | DIAGNOSTICS | | | | | | - | | | | | | PULMONARY | | | | | | FUNCTION | | + + + + + + | QCE21-50% | 0.53 | 2.55 L/sec | [facility] | | | PRE | | | SPECIAL | | | | | | DIAGNOSTICS | | | | | | - | | | | | | PULMONARY | | | | | | FUNCTION | | + + + + + + | EXE91-15% | 20 | % | [facility] | | | PRE (%REF) | | | SPECIAL | | | | | | DIAGNOSTICS | | | | | | - | | | | | | PULMONARY | | | | | | FUNCTION | | + + + + + + | FIF50% PRE | 6.27 | 6.71 L/sec | [facility] | | | | | | SPECIAL | | | | | | DIAGNOSTICS | | | | | | - | | | | | | PULMONARY | | | | | | FUNCTION | | + + + + + + | FIF50% PRE | 93 | % | [facility] | | | (%REF) | | | SPECIAL | | | | | | DIAGNOSTICS | | | | | | - | | | | | | PULMONARY | | | | | | FUNCTION | | + + + + + + | DLCO PRE | 19.31 | 24.22 | [facility] | | | | | ml/min/mmHg | SPECIAL | | | | | | DIAGNOSTICS | | | | | | - | | | | | | PULMONARY | | | | | | FUNCTION | | + + + + + + | DLCO PRE | 79 | % | [facility] | | | (%REF) | | | SPECIAL | | | | | | DIAGNOSTICS | | | | | | - | | | | | | PULMONARY | | | | | | FUNCTION | | + + + + + + | DLCO ADJ | 19.42 | 24.22 | [facility] | | | PRE | | ml/min/mmHg | SPECIAL | | | | | | DIAGNOSTICS | | | | | | - | | | | | | PULMONARY | | | | | | FUNCTION | | + + + + + + | DLCO ADJ | 80 | % | [facility] | | | PRE (%REF) | | | SPECIAL | | | | | | DIAGNOSTICS | | | | | | - | | | | | | PULMONARY | | | | | | FUNCTION | | + + + + + + | DLCO/VA ADJ | 3.69 | ml/min/mmHg/L | [facility] | | | PRE | | | SPECIAL | | | | | | DIAGNOSTICS | | | | | | - | | | | | | PULMONARY | | | | | | FUNCTION | | + + + + + + | DLCO/VA ADJ | 107 | % | [facility] | | | [...] [facility] | [address] | [place], [place] | | | DIAGNOSTICS - | [address] | [address] | | | PULMONARY FUNCTION | | | | + + + + + documented in this encounter Visit Diagnoses + + | Diagnosis | + + | 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
--- OUTSIDE RECORDS SUMMARY | ~2020-02-19 | XMS | Encounter Summary ---
Demographics + + + | Address | [address] [place] [address] RD | | | [place] [address] | + + + | Home Phone [...] + + + | Author | [facility] | + + + | Organization | [facility] | + + + | Address | Unknown | + + + | Phone | Unavailable | + + + Support + + +---------+ + | Name | Relationship | Address | Phone | + + +---------+ + | Tahmina Aaron | ECON | Unknown | | + + +---------+ + Care Team Providers + +------+ + | Care Hull Grinder Name | Role | Phone | + +------+ + PCP | Unavailable | + +------+ + Reason for Visit + + + | Reason | Comments | + + + | Acute sinusitis | | + + + Encounter Details +--------+ + + + + | Date | Type | Department | Care Team | Description | +--------+ + + + + | 05/10/ | Telephone | Pulmonary & | Masha Pickering ANP | Acute sinusitis | | 2006 | | Critical Care | | | | | | Medicine at | | | | | | [facility] | | | | | | [address] | | | | | | Loop Physician's | | | | | | Pavilion, [address] [place] [address] | | | | | | [place], [place] | | | | | | [address] | | | | | | [phone] | | | +--------+ + + + [...]
--- OUTSIDE RECORDS SUMMARY | ~2020-02-19 | XMS | Encounter Summary ---
Demographics + + + | Address | [address] [place] [address] RD | | | [place] [address] | + + + | Home Phone | | + + + | Preferred Language | Unknown | + + + | Marital Status | | + + + | Pentecostal Affiliation | Unknown | + + + | Race | White | + + + | Ethnic Group | Not or | + + + Author + + + | Author | [facility] | + + + | Organization | [facility] | + + + | Address | Unknown | + + + | Phone | Unavailable | + + + Support + + +---------+ + | Name | Relationship | Address | Phone | + + +---------+ + | Tahmina Aaron | ECON | Unknown | | + + +---------+ + Care Team Providers + +------+ + | Care Bending Machine Set Up Operator Name | Role | Phone | + +------+ + PCP | Unavailable | + +------+ + Reason for Visit + + + | Reason | Comments | + + + | Refill Request | | + + + Encounter Details +--------+ + + + + | Date | Type | Department | Care Team | Description | +--------+ + + + + | 09/29/ | Telephone | Pulmonary & | Masha Pickering ANP | Refill Request | | 2006 | | Critical Care | | | | | | Medicine at | | | | | | [facility] | | | | | | [address] | | | | | | Loop Physician's | | | | | | Pavilion, 3rd Floor | | | | | | [place], [place] | | | | | | [address] | | | | | | [phone] | | | +--------+ + + + [...]
--- OUTSIDE RECORDS SUMMARY | ~2020-02-19 | XMS | Encounter Summary ---
Demographics + + + | Address | [address] [place] [address] RD | | | [place] [address] | + + + | Home Phone | | + + + | Preferred Language | Unknown | + + + | Marital Status | | + + + | Worship Affiliation | Unknown | + + + [...] Team Providers + +------+ + | Care Multifocal Button Generator Name | Role | Phone | + +------+ + PCP | Unavailable | + +------+ + Encounter Details +--------+ + + + + | Date | Type | Department | Care Team | Description | +--------+ + + + + | 03/07/ | Results | Pulmonary Function | Misha Pace MD | | | 2001 | Only | Lab at [facility] [address] | [address] | | | | | [address] | [place], | | | | | [address] | [place] [address] | | | | | [place], [place] | [phone] | | | | | [address] | | | | | | [phone] | | | +--------+ + + + [...] | SPIROMETRY WITH BD'S | Routin | 03/07/2002 | | Results for this | | | e | 9:58 AM | | procedure are in the | | | | PDT | | results section. | + +--------+ + + + documented in this encounter Results SPIROMETRY WITH BD'S (03/07/2002 9:58 AM PDT) + + + + + + | Component | Value | Ref Range | Performed | Pathologist | | | | | At | Signature | + + + + + + | FVC | 3.49 | L | | | | MEASURED | | | | | + + + + + + | FVC % PRED | 69 | % | | | + + + + + + | FEV1 | 1.60 | L/S | | | | MEASURED | | | | | + + + + + + | FEV1 % PRED | 40 | % | | | + + + + + + | FEV1/FVC | 46.00 | % | | | | MEASURED | | | | | + + + + + + | FEF(25-75) | 0.37 | L/S | | | + + + + + + | FEF(25-75) | 10 | % | | | | % PRED | | | | | + + + + + + | FVC POST | 3.26 | L | | | | BD'S | | | | | | MEASURED | | | | | + + + + + + | FVC POST | 65 | | | | | BD'S % PRED | | | | | + + + + + + | FEV1 POST | 1.60 | L | | | | BD'S | | | | | | MEASURED | | | | | + + + + + + | FEV1 POST | 40 | % | | | | BD'S % PRED | | | | | + + + + + + | FEV1/FVC | 49.00 | % | | | | POST BD'S | | | | | | MEASURD | | | | | + + + + + + | FEF() | 0.39 | L/S | | | | POST BD'S | | | | | | MEASURD | | | | | + + + + + + | FEF() | 10 | % | | | | POST BD'S % | | | | | | PRED | | | | | + + + + + + | FEV1 BD'S % | 0 | % | | | | CHANGE | | | | | + + + + + + | PF COMMENT | SAO2:95% | | | | | 1 | | | | | + + + + + + + + | Specimen | + + | | + + + + + + + | Performing | Address | City/State/Zipcode | Phone Number | | Organization | | | | + + + + + | [facility] | [address] | [place], [place] | | | DIAGNOSTICS - | [address] | [address] | | | PULMONARY FUNCTION | | | | + + + + + documented in this encounter Visit Diagnoses Not on filedocumented in this encounter"
--- OUTSIDE RECORDS SUMMARY | ~2020-02-19 | XMS | Encounter Summary ---
Demographics + + + | Address | [address] [place] [address] RD | | | [place] [address] | + + + | Home Phone | | + + + | Preferred Language | Unknown | + + + | Marital Status | | + + + | Scientology Affiliation | Unknown | + + + [...] Team Providers + +------+ + | Care Technical Program Manager Name | Role | Phone | + +------+ + | Jelani Higgins MD | PCP | | + +------+ + Encounter Details +--------+ + + + + | Date | Type | Department | Care Team | Description | +--------+ + + + + | 10/13/ | Ancillary | [address] | Msaha Pickering ANP | | | 2005 | Registratio | [address] | | | | | n | [place] Mailcode: [id number] | | | | | | [place], [place] | | | | | | [address] | | | | | | [phone] | | | +--------+ + + + [...]
--- OUTSIDE RECORDS SUMMARY | ~2020-02-19 | XMS | Encounter Summary ---
Demographics + + + | Address | [address] [place] [address] RD | | | [place] [address] | + + + | Home Phone | | + + + | Preferred Language | Unknown | + + + | Marital Status | | + + + | Jew Affiliation | Unknown | + + + | Race | White | + + + | Ethnic Group | Not or | + + + Author + + + | Author | [facility] | + + + | Organization | [facility] | + + + | Address | Unknown | + + + | Phone | Unavailable | + + + Support + + +---------+ + | Name | Relationship | Address | Phone | + + +---------+ + | Tahmina Aaron | ECON | Unknown | | + + +---------+ + Care Team Providers + +------+ + | Care Director Of Operations Support Name | Role | Phone | + +------+ + | Jerry Adrian MD | PCP | | + +------+ + Encounter Details +--------+ + + + + | Date | Type | Department | Care Team | Description | +--------+ + + + + | 04/12/ | Hospital | Medicine | Tech, Pfl Adult | | | 2008 | Encounter | Specialties at [facility] | Clinic [address] | | | | | [address] | [facility] | | | | | Loop Physician's | [place] [address] | | | | | [place], [address] [place] [address] | | | | | | [place], [place] | | | | | | [address] | | | | | | [phone] | | | +--------+ + + + [...] + + | ADULT PULMONARY | | 04/12/2009 | | Results for this | | FUNCTION | | 11:59 PM | | procedure are in the | | | | PDT | | results section. | + +--------+ + + + | PULMONARY FUNCTION | Routin | 04/12/2009 | | Results for this | | | e | 11:13 AM | | procedure are in the | | | | PDT | | results section. | + +--------+ + + + documented in this encounter Results ADULT PULMONARY FUNCTION (04/12/2009 11:59 PM PDT) + + + | Narrative | Performed At | + + + | | | + + + + + | Procedure Note | + + | Other, Faculty - 04/19/2009 12:32 PM PDT | | | + + RESP CARE PULMONARY FUNCTION (04/12/2009 11:13 AM PDT) + + + + + [...] the | | | | | | following:FVC=3.07FVC% | | | | | | predicted=97QLN3=1.57FEV | | | | | | 1% | | | | | | predicted=43FEV1/FVC=51F | | | | | | EF 25-75=0.50FEF 25-75% | | | | | | predicted=17PEF=6.07PEF% | | | | | | predicted=66Post | | | | | | bronchodilator | | | | | | spirometry was the | | | | | | following:FVC=3.19FVC% | | | | | | predicted=36IMN1=6.66FEV | | | | | | 1% | | | | | | predicted=46FEV1/FVC=52F | | | | | | EF 25-75=0.56FEF 25-75% | | | | | | predicted=19PEF=6.23PEF% | | | | | | predicted=67FEV1% | | | | | | change post | | | | | | bronchodilator=6Six | | | | | | minute walk was | | | | | | performed. Patient | | | | | | walked 1380 feet in 6 | | | | | | minutes. Priorto walk | | | | | | test, the at rest heart | | | | | | rate was 59 and the SPO2 | | | | | | was 95 After walkheart | | | | | | rate was 88 and SPO2 was | | | | | | 91 The patients test | | | | | | was performed on | | | | | | roomair.Electronically | | | | | | Signed by: Shannen Boss, | | | | | | PRECINCT COMMANDING OFFICER | | | | + + + + + + + + | Specimen | + + | | + + + + + + + | Performing | Address | City/State/Zipcode | Phone Number | | Organization | | | | + + + + + | [facility] | [address] | [place], [place] | | | THERAPY | [address] | [address] | | + + + + + | [facility] | [address] | [place], [place] | | | THERAPY | [facility] | [address] | | + + + + + documented in this encounter Visit Diagnoses Not on filedocumented in this encounter"
--- OUTSIDE RECORDS SUMMARY | ~2020-02-19 | XMS | Encounter Summary ---
Demographics + + + | Address | [address] [place] [address] RD | | | [place] [address] | + + + | Home Phone | | + + + | Preferred Language | Unknown | + + + | Marital Status | | + + + | Taoist Affiliation | Unknown | + + + | Race | White | + + + | Ethnic Group | Not or | + + + Author + + + | Author | [facility] | + + + | Organization | [facility] | + + + | Address | Unknown | + + + | Phone | Unavailable | + + + Support + + +---------+ + | Name | Relationship | Address | Phone | + + +---------+ + | Tahmina Aaron | ECON | Unknown | | + + +---------+ + Care Team Providers + +------+ + | Care Forge Hand Name | Role | Phone | + +------+ + | Jerry Adrian MD | PCP | | + +------+ + Encounter Details +--------+ + + + + | Date | Type | Department | Care Team | Description | +--------+ + + + + | 01/23/ | Results | Registration [address] | | | | 1997 | Only | [address] | | | | | | [address] Mailcode: [id number] | | | | | | [place], [place] | | | | | | [address] | | | | | | [phone] | | | +--------+ + + + [...] + | PULMONARY FUNCTION | Routin | 01/23/1998 | | Results for this | | TESTS | e | 4:31 PM | | procedure are in the | | | | PDT | | results section. | + +--------+ + + + documented in this encounter Results PULMONARY FUNCTION TESTS (01/23/1998 4:31 PM PDT) + + + + + + | Component | Value | Ref Range | Performed | Pathologist | | | | | At | Signature | + + + + + + | FVC | 4.1 | L | | | | MEASURED | | | | | + + + + + + | FVC % PRED | 80. | % | | | + + + + + + | FEV1 | 1.76 | L/S | | | | MEASURED | | | | | + + + + + + | FEV1 % PRED | 43. | % | | | + + + + + + | FEV1/FVC | 43. | % | | | | MEASURED | | | | | + + + + + + | FEF(25-75) | 0.45 | L/S | | | + + + + + + | FEF(25-75) | 11. | % | | | | % PRED | | | | | + + + + + + | FVC POST | 93. | % | | | | BD'S % PRED | | | | | + + + + + + | FEV1 POST | 2.14 | L | | | | BD'S | | | | | | MEASURED | | | | | + + + + + + | FEV1 POST | 52. | % | | | | BD'S % PRED | | | | | + + + + + + | FEV1/FVC | 45. | % | | | | POST BD'S | | | | | | MEASURD | | | | | + + + + + + | FEF() | 0.5 | L/S | | | | POST BD'S | | | | | | MEASURD | | | | | + + + + + + | FEF(75) | 13. | % | | | | POST BD'S % | | | | | | PRED | | | | | + + + + + + | FEV1 BD'S % | 22. | % | | | | CHANGE [...] | + + + + + | [facility] | [address] | [place] [address] | | | PATHOLOGY | [address] | | | + + + + + documented in this encounter Visit Diagnoses Not on filedocumented in this encounter"
--- OUTSIDE RECORDS SUMMARY | ~2020-02-19 | XMS | Encounter Summary ---
Demographics + + + | Address | [address] [place] [address] RD | | | [place] [address] | + + + | Home Phone [...] Team Providers + +------+ + | Care Validation Architect Name | Role | Phone | + +------+ + | Jelani Higgins MD | PCP | | + +------+ + Encounter Details +--------+ + + + + | Date | Type | Department | Care Team | Description | +--------+ + + + + | 10/14/ | Ancillary | Registration [address] | Masha Pickering ANP | | | 2004 | Registratio | [address] | | | | | n | [address] Mailcode: [id number] | | | | | | [place], [place] | | | | | | [address] | | | | | | [phone] | | | +--------+ + + + [...]
--- OUTSIDE RECORDS SUMMARY | ~2020-02-19 | XMS | Encounter Summary ---
Demographics + + + | Address | [address] [place] [address] RD | | | [place] [address] | + + + | Home Phone | | + + + | Preferred Language | Unknown | + + + | Marital Status | | + + + | Yazidism Affiliation | Unknown | + + + [...] Team Providers + +------+ + | Care Social Worker Assistant Name | Role | Phone | + +------+ + | Jerry Adrian MD | PCP | | + +------+ + Encounter Details +--------+ + + + + | Date | Type | Department | Care Team | Description | +--------+ + + + + | 07/31/ | Travel Registered Nurse Nicu | Pulmonary & | [facility] | [id number] | | 2012 | | Critical Care | [address] | deficiency (HCC) | | | | Medicine at | [facility] [address] | (Primary Dx); COPD | | | | [facility] | [facility] [place] | with chronic | | | | [address] | [address] | bronchitis (HCC) | | | | [address] [facility] | [phone] | | | | | [place], [facility] Floor | | | | | | [place], [place] | | | | | | [address] | | | | | | [phone] | | | +--------+ + + + [...] this encounter Results SPIROMETRY, PULM FUNCTION LAB (08/04/2013 10:46 AM PDT) + + + + + + | Component | Value | Ref Range | Performed | Pathologist | | | | | At | Signature | + + + + + + | DISTANCE | 381 | | [facility] | | | WALKED[facility] | | | SPECIAL | | | RS | | | DIAGNOSTICS | | | | | | - | | | | | | PULMONARY | | | | | | FUNCTION | | + + + + + + | FVC PRE | 3.26 | 4.55 Liters | [facility] | | | | | | SPECIAL | | | | | | DIAGNOSTICS | | | | | | - | | | | | | PULMONARY | | | | | | FUNCTION | | + + + + + + | FVC PRE | 72 | % | [facility] | | | (%REF) | | | SPECIAL | | | | | | DIAGNOSTICS | | | | | | - | | | | | | PULMONARY | | | | | | FUNCTION | | + + + + + + | FEV1 PRE | 1.40 | 3.40 Liters | [facility] | | | | | | SPECIAL | | | | | | DIAGNOSTICS | | | | | | - | | | | | | PULMONARY | | | | | | FUNCTION | | + + + + + + | FEV1 PRE | 41 | % | [facility] | | | (%REF) | | | SPECIAL | | | | | | DIAGNOSTICS | | | | | | - | | | | | | PULMONARY | | | | | | FUNCTION | | + + + + + + | FEV1/FVC | 43 | 75 % | [facility] | | | PRE | | | SPECIAL | | | | | | DIAGNOSTICS | | | | | | - | | | | | | PULMONARY | | | | | | FUNCTION | | + + + + + + | [id number]% | 0.34 | 2.69 L/sec | [facility] | | | PRE | | | SPECIAL | | | | | | DIAGNOSTICS | | | | | | - | | | | | | PULMONARY | | | | | | FUNCTION | | + + + + + + | [id number]% | 13 | % | [facility] | | | PRE (%REF) | | | SPECIAL | | | | | | DIAGNOSTICS | | | | | | - | | | | | | PULMONARY | | | | | | FUNCTION | | + + + + + + | PEF PRE | 5.80 | 8.75 L/sec | [facility] | | | | | | SPECIAL | | | | | | DIAGNOSTICS | | | | | | - | | | | | | PULMONARY | | | | | | FUNCTION | | + + + + + + | PEF PRE | 66 | % | [facility] | | | (%REF) | | | SPECIAL | | | | | | DIAGNOSTICS | | | | | | - | | | | | | PULMONARY | | | | | | FUNCTION | | + + + + + + | FIF50% PRE | 6.80 | L/sec | [facility] | | | | | | SPECIAL | | | | | | DIAGNOSTICS | | | | | | - | | | | | | PULMONARY | | | | | | FUNCTION | | + + + + + + | PULMONARY | Name: HERMAN HALL | | [facility] | | | INTERPRETAT | L ########Age: 63 | | SPECIAL | | | ION | Gender: | | DIAGNOSTICS | | | | Male Race: | | - | | | | | | PULMONARY | | | | Height(in):Physician: | | FUNCTION | | | | [place] | | | | | | | | | | | | Validation Intern: Andrews | | | | | | Anamaria ETSEBAN Diagnosis: | | | | | | Alpha-1 | | | | | | Occ | | | | | | Exposure: | | | | | | | | | | | | Dyspnea | | | | | | Exercise: No Dyspnea | | | | | | Rest: No Cough: Yes | | | | | | | | | | | | Persistent: Yes | | | | | | Productive | | | | | | (cc): 1-3 Smoker: Yes | | | | | | How | | | | | | Lon | | | | | | Cigarettes: Yes Quit: | | | | | | Yes | | | | | | | | | | | | Stopped: 28 Order# | | | | | | [id number] | | | | | | | [...] | | | | | | Liters 4.55 | | | | | | 3.26 [id number] | | | | | | Liters 3.40 | | | | | | 1.40 41FEV1/FVC | | | | | | % 75 | | | | | | [id number]% | | | | | | L/sec 2.69 | | | | | | 0.34 [id number] | | | | | | L/sec | | | | | | 0.34PEF | | | | | | L/sec 8.75 | | | | | | 5.80 25NIY30% | | | | | | L/sec | | | | | | 6.80 | | | | | | Lung | | | | | | VolumesTLC | | | | | | Liters 6.95VC | | | | | | Liters 4.55IC | | | | | | Liters 3.02FRC | | | | | | N2 Liters | | | | | | 3.65ERV | | | | | | Liters 1.51RV | | | | | | Liters 2.33RV/TLC | | | | | | % 34Wash | | | | | | Time MinFRC PL | | | | | | Liters 3.65 | | | | | | | | | | | | Pulmonary Pressures | | | | | | | | | | | | Ref Pre Pre | | | | | | | | | | | | Michelle % | | | | | | RefPI max cmH2O | | | | | | 97PI Volume LitersPE | | | | | | max cmH2O 206PE | | | | | | Volume Liters | | | | | | | | | | | | Diffusing Capacity | | | | | | (DLCO) | | | | | | Ref | | | | | | Pre Pre | | | | | | | | | | | | Michelle | | | | | | % RefDLCO | | | | | | mL/mmHg/min 27.1DL | | | | | | Adj mL/mmHg/min | | | | | | 27.1DLCO/VA | | | | | | mL/mHg/min/L 4.12DL/VA | | | | | | Adj mL/mHg/min/L 3.95 PF | | | | | | [...] Distance | | | | | | awtmpm=3697 feet, 381 | | | | | | meters Minutes walked= | | | | | | 6 Beginning HR= 60 | | | | | | Beginning SpO2= 96 | | | | | | Ending HR = 95 | | | | | | Ending SpO2= 90 | | | | | | Dyspnea Index before = | | | | | | 0 after = 1 | | | | | | | | | | | | | | | | | | Physician | | | | | | InterpretationSpirometry | | | | | | shows severe | | | | | | (FEV1/FVC<70%, | | | | | | 30%<FEV1<50% predicted) | | | | | | airflowobstruction. | | | | | | Since 04/15/12, the | | | | | | FEV1 has decreased by 7% | | | | | | and the FVC | | | | | | hasincreased by 0%. | | | | | | Between test variation | | | | | | can be up to 10%. | | | | | | These changestherefore | | | | | | are not significant. | | | | | | The distance walked is | | | | | | mildly reduced(2044-5253 | | | | | | feet). The oxygen | | | | | | saturation at the end of | | | | | | the walk | | | | | | fellsignificantly | | | | | | (>4-6%). | | | | | | | | | | | | | | | | | | | | | | | | Page | | | | | | 2 | | | | + + + + + + + + | Specimen | + + | | + + + + + | Narrative | Performed At | + + + | | [facility] | | | DIAGNOSTICS - | | | PULMONARY | | | FUNCTION | + + + + + | Procedure Note | + + | Jamila [place] - 08/14/2013 10:46 AM PST | + + + + + + + | Performing | Address | City/State/Zipcode | Phone Number | | Organization | | | | + + + + + | [facility] | [address] | [place], [place] | | | DIAGNOSTICS - | [address] | [address] | | | PULMONARY FUNCTION | | | | + + + + + documented in this encounter Visit Diagnoses + + | Diagnosis | + + | Yvjlh-7-btlzqsalcmk deficiency (HCC) - Primary Dzjnm-6-ovmhrvfvlrk deficiency | + + | 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
--- OUTSIDE RECORDS SUMMARY | ~2020-02-19 | XMS | Encounter Summary ---
Demographics + + + | Address | [address] [place] [address] RD | | | [place] [address] | + + + | Home Phone | | + + + | Preferred Language | Unknown | + + + | Marital Status | | + + + | Mosque Affiliation | Unknown | + + + | Race | White | + + + | Ethnic Group | Not or | + + + Author + + + | Author | [facility] | + + + | Organization | [facility] | + + + | Address | Unknown | + + + | Phone | Unavailable | + + + Support + + +---------+ + | Name | Relationship | Address | Phone | + + +---------+ + | Tahmina Aaron | ECON | Unknown | | + + +---------+ + Care Team Providers + +------+ + | Care Vice President Underwriting Name | Role | Phone | + [...] as of this encounter Progress Notes Interface, Director Of Accounts Payable In - 09/25/2006 5:[address] [facility]: [facility] PUL[facility] CHIEF COMPLAINT: Concern [...] with the optimal regimen. Jimmie Montalvo M.D. Nail Kegger, Pulmonary and Critical Care MSC/clg cc: Enmanuel OROURKE MD [address] [place] [address] [address] [place] [id number] signed by Interface, Director Of Accounts Payable In at 09/25/2006 5:07 AM PSTdocumented in this encounter Plan of Treatment Not on filedocumented as of this encounter Visit Diagnoses Not on filedocumented in this encounter"
--- OUTSIDE RECORDS SUMMARY | ~2020-02-19 | XMS | Encounter Summary ---
Demographics + + + | Address | [address] [place] [address] RD | | | [place] [address] | + + + | Home Phone | | + + + | Preferred Language | Unknown | + + + | Marital Status | | + + + | Orthodox Affiliation | Unknown | + + + [...] Team Providers + +------+ + | Care Sock Examiner Name | Role | Phone | + +------+ + PCP | Unavailable | + +------+ + Encounter Details +--------+ + + + + | Date | Type | Department | Care Team | Description | +--------+ + + + + | 04/15/ | Office | | Note, Outpatient | Progress Note | | 2004 | Visit-Trans | | Clinic | | [...] as of this encounter Progress Notes Interface, Neuro Intensivist Physician In - 05/03/2005 5:58 AM PDTClinic Date: 04/15/2004 Clinic: Adult Pulmonary Clinic Problem: Alpha-1 antitrypsin deficiency emphysema. Interim History: I last saw To in February 2003. Since then, he has not taken any antibiotics for either sinus infection or bronchitis. He feels that he has had his respiratory baseline. He has a daily productive cough although he produces minimal amounts of mucus. The cough is not bothersome. No wheezing. He does notice increased shortness of breath with lifting heavy objects and with the [place] into the mountains. He started pretreating with albuterol and that helps a great deal. Review of Systems: His energy level is good. He denies any fever, chills, or night sweats. ENT: No problems of sinuses. He uses Flonase and intermittent saline nasal washes. Cardiovascular: No chest pain, no palpitations. GI: He had a colonoscopy about a year ago because he has a family history of colon cancer. This is being facilitated by Dr. Adrian, his primary care provider. : Negative. Musculoskeletal: He gets some intermittent morning stiffness in both of his hands. No joint inflammation. Skin is negative. Allergies: HE HAS SOME SEASONAL ALLERGIES AND HAS NOT BEEN BOTHERED TO ANY GREAT EXTENT THIS YEAR. Medications: Advair 250 one inhalation daily, Flonase one inhalation in each nostril daily, Prolastin 140 mg per kg every 2 weeks IV, and albuterol 1 to 2 puffs p.r.n. which he uses maybe once or twice a month. Objective Vital Signs: His height is 71 inches; weight 199.5 which is his winter baseline; pulse is 71 and regular; temperature 97.3; blood pressure 114/64 in his left arm, sitting; respiratory rate is 16; and his oxygen saturation is 93% at rest on room air. General: He does not appear acutely or chronically ill. SKIN : Warm and dry. Color is good. HEENT: Sclerae are anicteric. Conjunctivae are noninjected. He has no purulent nasal drainage or nasal polyps visualized. Pharynx is noninjected. No exudates or lesions. He has fair dentition. NECK: Supple with no masses, lymphadenopathy, or increased JVP. CHEST: He has diminished breath sounds throughout. His chest is clear to P A. CARDIAC: Heart sounds are unremarkable. S1 and S2. No murmurs or rubs. Abdomen: Flat and soft with adequate bowel sounds. No masses, tenderness, or organomegaly. EXTREMITIES: No edema, cyanosis, or clubbing. Laboratory Data: Spirometry done in the clinic today reveals pre-bronchodilator FVC of 2.75 L (55% of predicted), FEV1 of 1.39 L (35% of predicted), and FEV1/FVC of 50%. Post-bronchodilator FVC is 2.84 L (57% of predicted) FEV1 is 1.4 L (37% of predicted), and FEV1/FVC is 51%. This represents a post-bronchodilator increase in FVC of 3% and an increase in FEV1 of 4%. This compares to his spirometry done in February 2003 at which time his pre-bronchodilator FVC was 2.71 L and his FEV1 was 1.66 L. Post-bronchodilator FVC was 2.9 L, FEV1 was 1.2 L. He has had a progressive decline over the last 2 years in his lung function. He gets a complete metabolic panel and a CBC done on a yearly basis and liver function, in fact, done every 6 months at his primary care provider and they have all been within normal limits. This was last done in November 2003. Assessment 1. Chronic obstructive pulmonary disease secondary to Alpha-1antitrypsin deficiency. His current spirometry reveals moderately severe obstructive ventilatory defect with no significant reversibility and a steady decline in FEV1 over the last couple of years. 2. Chronic sinusitis. Stable at this time. 3. History of mildly elevated cholesterol. 4. Family history of colon cancer and reported personal history of diverticulosis. Plan: Continue with his current medications. He will let us know if he has any respiratory infections. He will return to see me in 6 months with pre and post bronchodilator spirometry and a 6-minute walk schedule. I am a bit concerned that he may be needing some nocturnal O2. Zaid Shi. / [id number] / [id number] / [id number] / [id number] cc: Jimmie Montalvo M.D. [facility] Pulmonary Division Jerry Adrian M.D. [address] [place] [address] [address] [place], [place] [id number] signed by Interface, Neuro Intensivist Physician In at 05/03/2005 5:5 8 AM PDTdocumented in this encounter Plan of Treatment Not on filedocumented as of this encounter Visit Diagnoses Not on filedocumented in this encounter"
--- OUTSIDE RECORDS SUMMARY | ~2020-02-19 | XMS | Encounter Summary ---
Demographics + + + | Address | [address] [place] [address] RD | | | [place] [address] | + + + | Home Phone [...] Team Providers + +------+ + | Care Word Processing Supervisor Name | Role | Phone | + +------+ + | Jelani Higgins MD | PCP | | + +------+ + Encounter Details +--------+ + + + + | Date | Type | Department | Care Team | Description | +--------+ + + + + | 04/12/ | Document-Sc | UNKNOWN DEPARTMENT | Other, Faculty | | | 2010 | anned | [address] [facility] | [phone] | | | | | [address] | | | | | | [place], [place] | | | | | | [address] | | | +--------+ + + + [...] + + | ORDERS OTHER | | 04/12/2011 | | Results for this | | | | 12:00 AM | | procedure are in the | | | | PDT | | results section. | + +--------+ + + + documented in this encounter Results ORDERS OTHER (04/12/2011 12:00 AM PDT) + + + | Narrative | Performed At | + + + | | | | | | + + + + + | Procedure Note | + + | Jamila [place] - 02/21/2014 11:20 AM PDT | + + documented in this encounter Visit Diagnoses Not on filedocumented in this encounter"
--- OUTSIDE RECORDS SUMMARY | ~2020-02-19 | XMS | Encounter Summary ---
Demographics + + + | Address | [address] [place] [address] RD | | | [place] [address] | + + + | Home Phone | | + + + | Preferred Language | Unknown | + + + | Marital Status | | + + + | Confucianist Affiliation | Unknown | + + + | Race | White | + + + | Ethnic Group | Not or | + + + Author + + + | Author | [facility] | + + + | Organization | [facility] | + + + | Address | Unknown | + + + | Phone | Unavailable | + + + Support + + +---------+ + | Name | Relationship | Address | Phone | + + +---------+ + | Tahmina Aaron | ECON | Unknown | | + + +---------+ + Care Team Providers + +------+ + | Care Post Hole Digger Name | Role | Phone | + +------+ + PCP | Unavailable | + +------+ + Encounter Details +--------+ + + + + | Date | Type | Department | Care Team | Description | +--------+ + + + + | 09/06/ | Results | Pulmonary & | Masha Pickering ANP | | | 2000 | Only | Critical Care | | | | | | Medicine at | | | | | | [facility] | | | | | | [address] | | | | | | [facility] | | | | | | [facility], 3rd Floor | | | | | | [place], [place] | | | | | | [address] | | | | | | [phone] | | | +--------+ + + + [...] | + +--------+ + + + | X-RAY CHEST 2 VIEW | Routin | 09/06/2001 | | Results for this | | | e | 10:53 AM | | procedure are in the | | | | PST | | results section. | + +--------+ + + + documented in this encounter Results CHEST 2 VIEW (09/06/2001 10:53 AM PST) + + + + + + | Component | Value | Ref Range | Performed | Pathologist | | | | | At | Signature | + + + + + + | CHEST, 2 | Radiologist 1: JANICE, | | | | | VIEWS [place] | Vincenzo MIRANDA-Radiologist | | | | | STEREO | 2: RUTH CAMACHO | | | | | | VincenzoTWO VIEWS OF THE | | | | | | CHEST: 09/06/2001 | | | | | | Dictated 09/06/2001 | | | | | | COMPARISON: None. | | | | | | FINDINGS: There is | | | | | | flattening of the | | | | | | diaphragms with an | | | | | | increasedretrosternal | | | | | | space. Some vascular | | | | | | distortion is also | | | | | | present. There isno | | | | | | focal consolidation, | | | | | | pleural effusion, or | | | | | | pneumothorax. | | | | | | Lingularatelectasis/scar | | | | | | ring is present. The | | | | | | trachea is midline and | | | | | | thecardiomediastinal | | | | | | silhouette is normal. | | | | | | The osseous structures | | | | | | areintact. IMPRESSION: | | | | | | 1. Emphysema. 2. | | | | | | Scarring vs atelectasis | | | | | | in the lingula. END OF | | | | | | IMPRESSION: | | | | + + + + + + + + | Specimen | + + | | + + + +---------+ + + | Performing | Address | City/State/Zipcode | Phone Number | | Organization | | | | + +---------+ + + | [facility] DEPARTMENT OF | | | | | RADIOLOGY | | | | + +---------+ + + documented in this encounter Visit Diagnoses Not on filedocumented in this encounter"
--- OUTSIDE RECORDS SUMMARY | ~2020-02-19 | XMS | Encounter Summary ---
Demographics + + + | Address | [id number] [place] [address] RD | | | [place] [address] | + + + | Home Phone | | + + + | Preferred Language | Unknown | + + + | Marital Status | | + + + | Jew Affiliation | Unknown | + + + | Race | White | + + + | Ethnic Group | Not or | + + + Author + + + | Author | [facility] | + + + | Organization | [facility] | + + + | Address | Unknown | + + + | Phone | Unavailable | + + + Support + + +---------+ + | Name | Relationship | Address | Phone | + + +---------+ + | Tahmina Aaorn | ECON | Unknown | | + + +---------+ + Care Team Providers + +------+ + | Care Academic Affairs Dean Name | Role | Phone | + +------+ + PCP | Unavailable | + +------+ + Encounter Details +--------+ + + + + | Date | Type | Department | Care Team | Description | +--------+ + + + + | 03/07/ | Office | [facility] | Note, Outpatient | Progress Note | | 2001 | Visit-Trans | MEDICINE | Clinic | [...] as of this encounter Progress Notes Interface, Telegraph Office Manager In - 05/24/2006 1:12 AM PDTCLINIC DATE: 03/07/2002 ADULT PULMONARY CLINIC PROBLEM: Moderate chronic obstructive pulmonary disease secondary to alpha-1 antitrypsin deficiency. HISTORY OF PRESENT ILLNESS: The patient has had troubles with upper respiratory infection. He is currently feeling like he is back to his baseline, but he is worried because he has had a definite decrease in exercise tolerance and a decrease in upper extremity strength. He has an intermittent cough that is not bothersome. No wheezing. He is not waking up at night short of breath. He notices his problems are with heavy physical activity and also [place] 5500 [place]. REVIEW OF SYSTEMS CONSTITUTIONAL: As above. ENT: He has had one sinus infection in the last few months and feels that most of his bronchitis has turned out as sinus problems. This is better with using Flonase on a daily basis. RESPIRATORY: As above. CARDIOVASCULAR: No chest pain or palpitations. GI: Negative. Review of systems is otherwise negative. MEDICATIONS: Azmacort 2 puffs b.i.d., Flonase 1-2 inhalations in each nostril q.d. He was using Advair and has switched back to Serevent 2 puffs b.i.d and Azmacort 2 puffs b.i.d. He is also receiving Prolastin 140 mg/kg intravenously every 2 weeks. He does not use oxygen. 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 He has been active during the summer and is making some plans to remain more active during the wintertime. OBJECTIVE VITAL SIGNS: Weight is 199.1 pounds which is down 13 pounds from September 2001. Temperature is 97.7, blood pressure 118/72, heart rate is 76 and regular, respiratory rate is 14, and oxygen saturation 92% at rest on room air. GENERAL: He does not appear acutely or chronically ill. SKIN: Warm and dry. Color is good. HEENT: Sclerae anicteric, conjunctivae noninjected. Nasal turbinates are a bit boggy. No purulent nasal drainage or nasal polyps are visualized. Pharynx is noninjected. No exudate or lesions. NECK: Supple with no masses or lymphadenopathy. CHEST: Diminished breath sounds throughout but does aerate well to both bases. No adventitious sounds. No dullness to percussion. HEART: Sounds are unremarkable. S1, S2. No murmurs or rubs. ABDOMEN: Round and soft with active bowel sounds. No masses, tenderness, or organomegaly. EXTREMITIES: No edema or cyanosis. LABORATORY DATA: Prebronchodilator spirometry done today in the PFT lab reveal an FVC of 3.49 L (69% of predicted), FEV1 is 1.60 L (40% of predicted), and FEV1/FVC of 46%. Postbronchodilator, FVC was 3.26 L (65% of predicted), FEV1 is 1.60 L (40% of predicted), and FEV1/FVC of 49%. This represents a postbronchodilator decrease in FVC of 6% and no change in FEV1. This compares to spirometry done in September 06, 2001, at which time his prebronchodilator FVC was 3.17 L and his FEV1 was 1.61 L. ALLERGIES: TRIMETHOPRIM SULFA CAUSES A RASH. ASSESSMENT: Severe chronic obstructive pulmonary disease with no reversibility on spirometry, some improvement in FVC since his last visit although he has had a significant decline over the course of the last year and a half. Since August 2001, his FVC has declined approximately 600 mL, and his FEV1 is down by about 250 mL. PLAN: He will continue on the same medications although he will double his Azmacort dose if he gets a URI. He will be watchful for the appearance of purulent nasal drainage, and we will treat him fairly quickly and aggressively for any sinus infection. We will consider a sinus CT scan and a referral to ENT if he continues to have episodes of acute sinusitis. We discussed ways to change his activity, also discussed diet as it would behoove him to lose a bit of weight. He will return to see me in 3 to 4 months. Zaid Shi. Division of Pulmonary and Critical Care / [id number] / [id number] / [id number] / [id number] Tdocumented in this encounter Plan of Treatment Not on filedocumented as of this encounter Visit Diagnoses Not on filedocumented in this encounter"
--- OUTSIDE RECORDS SUMMARY | ~2020-02-19 | XMS | Encounter Summary ---
Demographics + + + | Address | [address] [place] [address] RD | | | [place] [address] | + + + | Home Phone | | + + + | Preferred Language | Unknown | + + + | Marital Status | | + + + | Nondenominational Affiliation | Unknown | + + + | Race | White | + + + | Ethnic Group | Not or | + + + Author + + + | Author | [facility] | + + + | Organization | [facility] | + + + | Address | Unknown | + + + | Phone | Unavailable | + + + Support + + +---------+ + | Name | Relationship | Address | Phone | + + +---------+ + | Tahmina Aaron | ECON | Unknown | | + + +---------+ + Care Team Providers + +------+ + | Care Stamp Pad Finisher Name | Role | Phone | + +------+ + | Jerry Adrian MD | PCP | | + +------+ + Encounter Details +--------+ + + + + | Date | Type | Department | Care Team | Description | +--------+ + + + + | 08/03/ | Results/Int | Pulmonary Function | | Chronic airway | | 2013 | erpretation | Lab at [facility] [address] | | obstruction, not | | | | [address] | | elsewhere classified | | | | [facility] | | (Primary Dx) | | | | [place], [place] | | | | | | [address] | | | | | | [phone] | | | +--------+ + + + [...] documented as of this encounter Progress Notes Zion Roth MD - 08/07/2014 2:59 PM PST Refer to PFT report. d ocumented in this encounter Plan of Treatment Not on filedocumented as of this encounter Procedures + +--------+ + + + | Procedure Name | Priori | Date/Time | Associated Diagnosis | Comments | | | ty | | | | + +--------+ + + + | SD DIFFUSING | Routin | 08/07/2014 | Chronic airway | | | CAPACITY | e | 2:59 PM | obstruction, not | | | | | PST | elsewhere classified | | + +--------+ + + + | SD SPIROMETRY TEST | Routin | 08/07/2014 | Chronic airway | | | | e | 2:59 PM | obstruction, not | | | | | PST | elsewhere classified | | + +--------+ + + + | SPIROMETRY, PULM | Routin | 08/03/2014 | | Results for this | | FUNCTION LAB | e | 8:04 AM | [id number] | procedure are in the | | | | PDT | deficiency (HCC) | results section. | + +--------+ + + + documented in this encounter Visit Diagnoses + + | Diagnosis | + + | Chronic airway obstruction, not elsewhere classified - Primary | + + documented in this encounter"
--- OUTSIDE RECORDS SUMMARY | ~2020-02-19 | XMS | Encounter Summary ---
Demographics + + + | Address | [address] [place] [address] RD | | | [place] [address] | + + + | Home Phone | | + + + | Preferred Language | Unknown | + + + | Marital Status | | + + + | Zoroastrianism Affiliation | Unknown | + + + [...] Team Providers + +------+ + | Care Hair Preparer Name | Role | Phone | + +------+ + PCP | Unavailable | + +------+ + Encounter Details +--------+ + + + + | Date | Type | Department | Care Team | Description | +--------+ + + + + | 04/14/ | Office | [facility] | Clinic, Pulmonary | Progress Note | | 2005 | Visit-Trans | DISEASE | | | | | cribed | | [...] as of this encounter Progress Notes Interface, Clinical Nursing Instructor In - 05/03/2005 9:36 AM PDT [id number] [facility] Clinic Date: 04/14/2005 Clinic: Pulmonary Problem: COPD, secondary to alpha-1 antitrypsin deficiency. Interim History: I last saw To in October 2004. Since that time, he had 1 episode of acute sinusitis that then manifested itself as purulent bronchitis. He was treated with amoxicillin and recovered without incident. He has felt great since then. He does have some bit of sputum in the morning. He has not been using his Flonase regularly and he is not certain if the sputum production is not actually sinus drainage. No chest pain, hemoptysis, or wheezing. His exercise tolerance is unchanged. He does hike to a [place] cabin [place] altitude in the summer and has not been having any problems with that at all. He has also been doing a lot of fishing. Review of Systems: General: No fevers, chills, or night sweats. His energy level is good. ENT: Some postnasal drip and rhinitis this summer. Cardiovascular: No chest pain or palpitations. Respiratory: As above. GI: No abdominal pain or heartburn. : Negative. Musculoskeletal: Negative. Skin: Negative. Neurologic: Negative. Endocrine: Negative. Review of systems are otherwise negative. Allergies: He has no known drug allergies. Medications: Include Advair 250/50 one inhalation b.i.d., Flonase one inhalation daily, Prolastin 150 mg/kg every 2 weeks intravenously, and albuterol 1 to 2 puffs p.r.n. which he uses pre-exercise. Social History: Unchanged. Habits: He is a former smoker and he does not drink alcohol. Objective: Vital Signs: Weight 198 pounds, which is unchanged from his last visit. Blood pressure though was 140/82, and I did not recheck it. Pulse was 68 and regular, temperature 97.5, and oxygen saturation was not done. Respiratory rate was 16. General: He does not appear acutely or chronically ill. Skin: Warm and dry. Color is good. HEENT: Sclerae anicteric. Conjunctivae non-injected. Nasal turbinates are a little boggy. No purulent nasal drainage or polyps are visualized. Pharynx is non-injected. No exudate or lesions. Neck: Supple with no lymphadenopathy or increased JVD. Chest: He has diminished breath sounds throughout. His chest is clear to P A. No wheezing with forced expiratory maneuver. Heart: Heart sounds are unremarkable although a little distant. S1 and S2. No murmurs or rubs. Rhythm is regular. Abdomen: Round and soft with active bowel sounds. No masses, tenderness, or organomegaly. Extremities: No edema, cyanosis, or clubbing. Laboratory Data: Spirometry done today in clinic reveals a pre-bronchodilator FVC of 3.33 L (64% of predicted), FEV1 1.70 L (42% of predicted), and FEV1/FVC of 51%. Post bronchodilator FVC is 3.52 L (67% of predicted), FEV1 at 1.64 L (41% of predicted), and FEV1/FVC ratio is 47%. This represents a post-bronchodilator increase in FVC of 6% and a decrease in FEV1 of 4%. This compares to the spirometry done in October 2004 at which time his pre-bronchodilator FVC was 2.67% L and his FEV1 was 1.44 L. Post-bronchodilator FVC was 2.70 L and his FEV1 was 1.4 L. Assessment: 1. 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 Spirometry today reveals a moderate obstructive ventilatory defect with a fairly marked improvement in his lung function since his last visit. His FVC is up to where it was in the summer of 2000 and his FEV1 is up to where it was in September of 2001. In the interim period of time, his spirometry has always been lower than his baseline. 2. History of sinusitis, a bit exacerbated at this time secondary to seasonal allergies. 3. History of mild hyperlipidemia being followed by his primary care provider. 4. Family history of colon cancer and personal history of diverticulosis. Plan: He is going to continue on his current medications and I did advise him to use his Flonase regularly. Written prescriptions for both Advair and Flonase. He will get a trough alpha-1 antitrypsin level, complete metabolic panel, and a CBC without differential checked at the time right prior to his next Prolastin infusion. He will continue with his every 2-week Prolastin infusions. Will return to see us in 6 months or prior to that if need be. Pavithra Shi / [id number] / [id number] / [id number] / [id number] cc: Jerry Dasilva [address] [place] [phone] Electronically signed by Masha Pickering 04-22-2005 02:33:42 PM documented i n this encounter Plan of Treatment Not on filedocumented as of this encounter Visit Diagnoses Not on filedocumented in this encounter"
--- OUTSIDE RECORDS SUMMARY | ~2020-02-19 | XMS | Encounter Summary ---
Demographics + + + | Address | [address] [place] [address] RD | | | [place] [address] | + + + | Home Phone | | + + + | Preferred Language | Unknown | + + + | Marital Status | | + + + | Restorationist Affiliation | Unknown | + + + [...] Team Providers + +------+ + | Care Tea Plantation Worker Name | Role | Phone | + +------+ + | Jerry Adrian MD | PCP | | + +------+ + Encounter Details +--------+ + + + + | Date | Type | Department | Care Team | Description | +--------+ + + + + | 10/10/ | Slabber | Pulmonary & | Kathie Gomes, | COPD with chronic | | 2010 | | Critical Care | ANP [address] | bronchitis (HCC) | | | | Medicine at | [facility] [address] | (Primary Dx) | | | | [facility] | [place], [place] | | | | | [address] | [address] | | | | | [facility] | [phone] | | | | | [place], [address] [place] [address] | | | | | | [place], [place] | | | | | | [address] | | | | | | [phone] | | | +--------+ + + + [...] + + + + + + | CXD82-63% | 0.40 | 2.88 L/sec | [facility] | | | PRE | | | SPECIAL | | | | | | DIAGNOSTICS | | | | | | - | | | | | | PULMONARY | | | | | | FUNCTION | | + + + + + + | BHH93-53% | 14 | % | [facility] | [...] | | | | | | | Commissary Steward: Shannen | | | | | | THALIA Boss Diagnosis: | | | | | | COPD 496 | | | | | | 9-[id number]-534.4D | | | | | | ######## [...] Order# | | | | | | [id number] | | | | | | | [...] 75 | | | | | | [id number]% | | | | | | L/sec 2.88 | | | | | | 0.40 [id number] | | | | | | L/sec | | | | | | 0.40PEF | | | | | | L/sec 9.09 | | | | | | 6.06 34MIG58% | | | | | | L/sec [...] | | | | | RefPI max [id number] | | | | | | Volume LitersPE max | | | | | | [id number] Volume Liters | | | | | [...] Test: | | | | | | Ffkvbcvckolcwh=5010 | | | | | | feet, [...] reduced | | | | | | (9299-5229 | | | | | | feet).Theoxygen [...] [facility] | [address] | [place], [place] | | | DIAGNOSTICS - | [address] | [address] | | | PULMONARY FUNCTION | | | | + + + + + documented in this encounter Visit Diagnoses + + | Diagnosis | + + | 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
--- OUTSIDE RECORDS SUMMARY | ~2020-02-19 | XMS | Encounter Summary ---
Demographics + + + | Address | [address] [place] [address] RD | | | [place] [address] | + + + | Home Phone | | + + + | Preferred Language | Unknown | + + + | Marital Status | | + + + | Christianity Affiliation | Unknown | + + + | Race | White | + + + | Ethnic Group | Not or | + + + Author + + + | Author | [facility] | + + + | Organization | [facility] | + + + | Address | Unknown | + + + | Phone | Unavailable | + + + Support + + +---------+ + | Name | Relationship | Address | Phone | + + +---------+ + | Tahmina Aaron | ECON | Unknown | | + + +---------+ + Care Team Providers + +------+ + | Care Patternmaker Metal Bench Name | Role | Phone | + +------+ + PCP | Unavailable | + +------+ + Encounter Details +--------+ + + + + | Date | Type | Department | Care Team | Description | +--------+ + + + + | 10/14/ | Office | [facility] | Clinic, [...] as of this encounter Progress Notes Interface, Seat Coverer In - 05/03/2005 1:24 AM PDT [id number] [facility] Clinic Date: 10/14/2004 Clinic: Pulmonary Problem List: COPD secondary to alpha-1 antitrypsin deficiency. Interim History: I last saw Anabell on April 15, 2004. He has had one URI since then but that did not require antibiotics. In fact, he has not needed any antibiotics for 2 years. In the past, his antibiotic use was almost entirely related to purulent sinusitis that did not resolve and progressed into a bronchitis. He has been faithfully using his Flonase and states that as long as he does that, he is okay. He feels that he is at his respiratory baseline. He has some wheezing occasionally with activity. He has no nighttime awakening. No chest pain or hemoptysis. He did a lot of hiking up to his [place] this summer. He finds that if he uses his albuterol, he does not go very fast, does not walk very fast but makes it to his cabin without discomfort. This is a 40- to 45-minute walk. Review of Systems: No fever, chills, or night sweats. His energy level is unchanged over the last year. He has trouble bending and carrying or driving heavy items.. He does walk slower than his same-age counterparts. HEENT: No sinus complaints as long as he uses his Flonase. Cardiovascular: No chest pain or palpitations. Pulmonary: As above. GI: Negative. : Negative. Skin: Negative. Musculoskeletal: He has been putting in a new floor in his house and has bilateral shoulder and knee arthralgias. Heme: Negative. Allergies: He has seasonal allergies, but this is not the season when he usually gets them. Review of systems is otherwise negative. Medications: Advair 250/50, 1 inhalation b.i.d.; Flonase 1 inhalation in each nostril daily; Prolastin 140 mg/kg every 2 weeks IV; and albuterol 1 to 2 puffs p.r.n. which he uses pre-exercise only. Social History: Unchanged. Habits: He is a former smoker and does not drink alcohol. Objective Vital Signs: Weight is 199 pounds, which is unchanged from April 2004; blood pressure is 114/70; pulse is 61; temperature is 97.7; oxygen saturation 95% at rest on room air; and respiratory rate is 16. General: He does not appear acutely or chronically ill. HEENT: Sclerae are anicteric. Conjunctivae are noninjected. No nasal polyps or purulent nasal drainage are noted. Pharynx is noninjected. No exudate or lesion. Neck: Supple with no lymphadenopathy or increased JVP. Chest: He has diminished breath sounds in the bases and some fine bibasilar crackles and inspiratory crackles. No wheezing. Heart: Heart sounds are unremarkable. S1 and S2. No murmurs or rubs. Abdomen: Round and soft with active bowel sounds. No masses, tenderness, or organomegaly. Extremities: No edema, cyanosis, or clubbing. Laboratory Data: Spirometry done today in clinic reveals a pre-bronchodilator FVC of 2.67 L (54% of predicted), FEV1 of 1.44 L (37% of predicted), and FEV1/FVC of 54%. Post-bronchodilator FVC of 2.7 mL (54% of predicted), FEV1 of 1.40 L (36% of predicted) and FEV1/FVC is 52%. This represents post-bronchodilator increase in FVC of 1% and a decrease in FEV1 of 3%. This compares to spirometry done on April 15, 2004, at which time his pre-bronchodilator FVC was 2.84 and his FEV1 was 1.44 and post-bronchodilator FVC was 2.85 and his FEV1 was 1.36. In October 2003, his FVC was 2.90 L and his FEV1 was 1.62. Assessment 1. 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 Spirometry today shows a moderate to severe obstructive ventilatory defect with a suggestion of restriction. He has essentially had no change in his FEV1 over the course of the last 2 years but his FVC has declined a bit. 2. History of rhinosinusitis, quiescent at this time. 3. History of mild hyperlipidemia followed by his primary care provider. 4. Family history of colon cancer and personal history of diverticulosis. Plan: He is going to continue with his current medications. Encouraged him to continue with his regular exercise. He will get a liver function panel checked via his primary care provider within the next month or so and have results sent to us. We will see him back in clinic in 6 months with pre-bronchodilator and post-bronchodilator spirometry done at the time of that visit. Pavithra Shi Division of Pulmonary and Critical Care / [id number] / [id number] / [id number] / cc: Jerry Adrian M.D. [address] [place] [address] Electronically signed by Masha Pickering 12-26-2004 04:35:23 PM documented i n this encounter Plan of Treatment Not on filedocumented as of this encounter Visit Diagnoses Not on filedocumented in this encounter"
--- OUTSIDE RECORDS SUMMARY | ~2020-02-19 | XMS | Encounter Summary ---
Demographics + + + | Address | [address] [place] [address] RD | | | [place] [address] | + + + | Home Phone | | + + + | Preferred Language | Unknown | + + + | Marital Status | | + + + | Synagogue Affiliation | Unknown | + + + | Race | White | + + + | Ethnic Group | Not or | + + + Author + + + | Author | [facility] | + + + | Organization | [facility] | + + + | Address | Unknown | + + + | Phone | Unavailable | + + + Support + + +---------+ + | Name | Relationship | Address | Phone | + + +---------+ + | Tahmina Aaron | ECON | Unknown | | + + +---------+ + Care Team Providers + +------+ + | Care Sifting Operator Name | Role | Phone | + +------+ + | Jerry Adrian MD | PCP | | + +------+ + Reason for Visit + + + | Reason | Comments | + + + | Refill Request | Spirthomas 18mcg | + + + Encounter Details +--------+--------+ + + + | Date | Type | Department | Care Team | Description | +--------+--------+ + + + | 01/09/ | Refill | Pulmonary & | Zion Roth, | Refill Request | | 2015 | | Critical Care | [address] | (Spiriva 18mcg ) | | | | Medicine at | [facility] | | | | | [facility] | [place], [place] | | | | | [address] | [address] | | | | | [facility] | [phone] | | | | | [facility], [address]rd Floor | | | | | | [place], [place] | | | | | | [address] | | | | | | [phone] | | | +--------+--------+ + + + [...]
--- OUTSIDE RECORDS SUMMARY | ~2020-02-19 | XMS | Encounter Summary ---
Demographics + + + | Address | [address] [place] [address] RD | | | [place] [address] | + + + | Home Phone | | + + + | Preferred Language | Unknown | + + + | Marital Status | | + + + | Baptist Affiliation | Unknown | + + + [...] Team Providers + +------+ + | Care Performance Management Consultant Name | Role | Phone | + +------+ + PCP | Unavailable | + +------+ + Encounter Details +--------+ + + + + | Date | Type | Department | Care Team | Description | +--------+ + + + + | 01/22/ | Office | General Internal | Note, Outpatient | Progress Note | | 1997 | Visit-Trans | Medicine [address] | Clinic | | | | emma | [address] | | | | | | Mailcode: [id number] | | | | | | Outpatient Clinic | | | | | | [facility], [address] | | | | | | [place], [place] | | | | | | [address] | | | | | | [phone] | | | +--------+ + + + [...] as of this encounter Progress Notes Interface, Phlebotomist Medical Lab Assistant In - 10/28/2006 5:11 AM PST CLINIC DATE: 01/22/98 PULMONARY CLINIC: CHIEF COMPLAINT: Follow-up of alpha-1 antitrypsin replacement therapy. SUBJECTIVE: The patient was last seen in July 1997. Since that time he has done quite well overall. He has no specific pulmonary complaints. He had one episode of bronchitis for which he received antibiotics which were short lived. He has had no sinus infection since starting Vancenase. He takes 1 puff b.i.d. when he first has onset of nasal symptoms. He continues to be maintained on 10 grams IV every 2 weeks of replacement therapy despite recommendation to increase it to 12.5 grams. He cites ongoing concern on cost of his insurance company, possible denial of coverage if there is a change. Specifically, he has no shortness of breath at rest or with exertion and is able to function as he likes to. There is no cough, mucus production or hemoptysis. There is no chest pain. He is getting ready to travel to [place]. MEDICATIONS: Prolastin 10 grams IV q. 2 weeks, Serevent 2 puffs b.i.d., Azmacort 2 puffs b.i.d. 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 REVIEW OF SYSTEMS: As above. PHYSICAL EXAMINATION: gentleman, stated age, well nourished, well hydrated. No acute distress. Vital signs, weight is 207 lbs, temperature is 96.4, heart rate 75 and regular, blood pressure 116/74, respiratory rate is 16 and nonlabored. On room air 02 saturation at rest is 95%. Skin is warm and dry with good turgor. There is no jaundice. HEENT, sclera enteric without injection. The oropharynx is clear. The chest shows distant breath sounds without rales or rhonchi. There is no dullness. Cardiovascular, regular rate and rhythm with normal S1-S2. Extremities without clubbing, cyanosis or edema. DATA: The patient's says his last Prolastin trough level was 54. Pulmonary function tests today show a FEV-1 after bronchodilators are 2.14 liters (52% of predicted) and FEC of 4.74 (93% of predicted). There was a 22% increase in FEV-1 after bronchodilators. ASSESSMENT: 1. 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 The patient continues to have severe airways obstruction with significant reversible component. He has had no significant changes in pulmonary function and in fact some improvement. 2. Alpha-1 antitrypsin deficiency. He continues to have low trough levels on suboptimal replacement therapy. He has had no other abnormalities. 3. Chronic sinusitis, resolved overall but intermittent exacerbations. PLAN: 1. Increase Prolastin infusions to 140 mg per kilo (12.5 grams) IV every 2 weeks. He is to check level approximately 3 to 4 weeks after beginning new infusion. 2. Follow-up pulmonary function tests in six months. 3. Continue yearly liver tests. 4. Continue alcohol and acetaminophen absence. 5. Again refer the patient to alpha-1 antitrypsin deficiency support group. 6. Continue Serevent and Azmacort at its current level and continue increasing Azmacort to higher levels, and consider increasing to higher levels given marked reactivity to bronchodilators today. Jimmie Salomon M.D. [place], Lung Transplantation Assistant Professor Of Mathematics, Pulmonary and Critical Care Clinic AUBREY/shweta cc: Enmanuel OROURKE MD [address] [facility] [address] [place] [address] documented in this encounter Plan of Treatment Not on filedocumented as of this encounter Visit Diagnoses Not on filedocumented in this encounter"
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
--- OUTSIDE RECORDS SUMMARY | ~2020-02-19 | XMS | Encounter Summary ---
Demographics + + + | Address | [address] [place] [address] RD | | | [place] [address] | + + + | Home Phone [...] + + + | Author | [facility] | + + + | Organization | [facility] | + + + | Address | Unknown | + + + | Phone | Unavailable | + + + Support + + +---------+ + | Name | Relationship | Address | Phone | + + +---------+ + | Tahmina Hall | ECON | Unknown | | + + +---------+ + Care Team Providers + +------+ + | Care Area Director Of Home Health Sales Name | Role | Phone | + [...] | | | | 3rd Floor | [place], [place] | | | | | | [place], [place] | [address] | | | | | | [address] | Phone: | | | | | | Phone: | [phone] | | | | | | [phone] | Fax: | | | | | | Fax: | [phone] | | | | | | [phone] | | +--------+--------+ + + + + [...] | | | | [address] | [facility], | | | | | [place], | [place] [address] | | | | | [address] [place] [address], | | | | | | [place] [address] | | | | | | [phone] | | | +--------+ + + + [...] LAB | e | 8:40 AM | Gxgxj-1-[id number] | procedure are in the | | [...] | | | INTERPRETAT | L ID: [id number]: | | SPECIAL | | | ION [...] + + + + + + | [id number]% | 0.53 | 2.55 L/sec | [facility] | | | PRE | | | SPECIAL | | | | | | DIAGNOSTICS | | | | | | - | | | | | | PULMONARY | | | | | | FUNCTION | | + + + + + + | GRO81-89% | 20 | % | [facility] | [...] SOO SPECIAL | [address] | [place], [place] | | | DIAGNOSTICS - | [place] | [address] | | | PULMONARY FUNCTION | | | | + + + + + documented in this encounter Visit Diagnoses + + | Diagnosis | + + | Bwzzr-7-puapbfmkaov deficiency (HCC) Xoleq-9-oppgobqbwpt deficiency | + + documented in this encounter"
--- OUTSIDE RECORDS SUMMARY | ~2020-02-19 | XMS | Encounter Summary ---
Demographics + + + | Address | [address] [place] [address] RD | | | [place] [address] | + + + | Home Phone | | + + + | Preferred Language | Unknown | + + + | Marital Status | | + + + | Anabaptist Affiliation | Unknown | + + + | Race | White | + + + | Ethnic Group | Not or | + + + Author + + + | Author | [facility] | + + + | Organization | [facility] | + + + | Address | Unknown | + + + | Phone | Unavailable | + + + Support + + +---------+ + | Name | Relationship | Address | Phone | + + +---------+ + | Tahmina Aaron | ECON | Unknown | | + + +---------+ + Care Team Providers + +------+ + | Care Mixer Operator Vacuum Pan Salt Name | Role | Phone | + +------+ + | Jerry Adrian MD | PCP | | + +------+ + Reason for Visit + + + | Reason | Comments | + + + | Refill Request | Advair | + + + Encounter Details +--------+--------+ + + + | Date | Type | Department | Care Team | Description | +--------+--------+ + + + | 08/22/ | Refill | Pulmonary & | Zion Roth, | Refill Request | | 2013 | | Critical Care | [address] | (Advair) | | | | Medicine at | [facility] [place] [facility] | | | | | [facility] | [place], [place] | | | | | [address] | [address] | | | | | [address] | [phone] | | | | | [address] Floor | | | | | | [place], [place] | | | | | | [address] | | | | | | [phone] | | | +--------+--------+ + + + [...]
--- OUTSIDE RECORDS SUMMARY | ~2020-02-19 | XMS | Encounter Summary ---
Demographics + + + | Address | [address] [place] [address] RD | | | [place] [address] | + + + | Home Phone | | + + + | Preferred Language | Unknown | + + + | Marital Status | | + + + | Restorationism Affiliation | Unknown | + + + | Race | White | + + + | Ethnic Group | Not or | + + + Author + + + | Author | [facility] | + + + | Organization | [facility] | + + + | Address | Unknown | + + + | Phone | Unavailable | + + + Support + + +---------+ + | Name | Relationship | Address | Phone | + + +---------+ + | Tahmina Aaron | ECON | Unknown | | + + +---------+ + Care Team Providers + +------+ + | Care Enforcement Safety Officer Name | Role | Phone | + +------+ + | Jelani Higgins MD | PCP | | + +------+ + Encounter Details +--------+ + + + + | Date | Type | Department | Care Team | Description | +--------+ + + + + | 04/14/ | Ancillary | Registration [id number] | Masha Pickering ANP | | | 2004 | Registratio | [address] | | | | | n | [place] Mailcode: [id number] | | | | | | [place], [place] | | | | | | [address] | | | | | | [phone] | | | +--------+ + + + [...]
--- OUTSIDE RECORDS SUMMARY | ~2020-02-19 | XMS | Encounter Summary ---
Demographics + + + | Address | [address] [place] [address] RD | | | [place] [address] | + + + | Home Phone | | + + + | Preferred Language | Unknown | + + + | Marital Status | | + + + | Druze Affiliation | Unknown | + + + | Race | White | + + + | Ethnic Group | Not or | + + + Author + + + | Author | [facility] | + + + | Organization | [facility] | + + + | Address | Unknown | + + + | Phone | Unavailable | + + + Support + + +---------+ + | Name | Relationship | Address | Phone | + + +---------+ + | Tahmina Aaron | ECON | Unknown | | + + +---------+ + Care Team Providers + +------+ + | Care Junior Linux Systems Administrator Name | Role | Phone | + [...] [id number] | | | | | | [place], [place] | | | | | | [address] | | | | | | [phone] | | | +--------+ + + + [...]
--- OUTSIDE RECORDS SUMMARY | ~2020-02-19 | XMS | Encounter Summary ---
Demographics + + + | Address | [address] [place] [address] RD | | | [place] [address] | + + + | Home Phone [...] Team Providers + +------+ + | Care Embossing Tool Setter Name | Role | Phone | + +------+ + | Jerry Adrian MD | PCP | | + +------+ + Reason for Visit + + + | Reason | Comments | + + + | Follow-up visit | | + + + Benefits Check (Routine) +--------+--------+ + + + [...] | | | | 3rd Floor | [place], [place] | | | | | | [place] | [address] | | | | | | [address] | Phone: | | | | | | Phone: | [phone] | | | | | | [phone] | Fax: | | | | | | Fax: | [phone] | | | | | | [phone] | | +--------+--------+ + + + + Encounter Details +--------+---------+ + + + | Date | Type | Department | Care Team | Description | +--------+---------+ + + + | 01/29/ | Office | | Zion Roth, | COPD with chronic | | 2017 | Visit | Hematology/Oncology | [address] | bronchitis (HCC) | | | | at [facility] | [address] | (Primary Dx); | | | | & Healing [address] | [place], [place] | [id number] | | | | [address] Mailcode: | [id number] | deficiency ([facility]) | | | | [facility] | [phone] | | | | | and [address], | | | | | | [address] | | | | | | [place], [place] | | | | | | [address] | | | | | | [phone] | | | +--------+---------+ + + + [...] + + + | Blood Pressure | 128/63 | 01/29/2017 10:13 AM | | | | | PDT | | + + + + + | Pulse | 67 | 01/29/2017 10:13 AM | | | | | PDT | | + + + + + | Temperature | 36.8 C (98.3 F) | 01/29/2017 10:13 AM | | | | | PDT | | + + + + + | Respiratory Rate | 16 | 01/29/2017 10:13 AM | | | | | PDT | | + + + + + | Oxygen Saturation | 92% | 01/29/2017 10:13 AM | | | | | PDT | | + + + + + | Inhaled Oxygen | - | - | | | Concentration | | | | + + + + + | Weight | 96.6 kg (213 lb) | 01/29/2017 10:13 AM | | | | | PDT | | + + + + + | Height | - | - | | + + + + + | Body Mass Index | 30.13 | 09/20/2015 8:38 AM | | | | | PST | | + + + + + documented in this encounter Patient Instructions Patient Instructions Zion Roth MD - 01/29/2017 10:30 AM PDTWhat is my diagnosis/What am I being treated for? -Alpha-1 COPD What is my plan for today s visit (what tests I have to do when I leave, how am I suppose d to use my medications)? -No changes in medications What needs to happen for my condition to improve/resolve? -Keep as active as possible. What is the name of the doctor I saw today? -Zion Roth MD How do I get in touch with the doctor(s) in case I have a question? -Call [phone] We recommend signing up for [employer] our secure online messaging system that will allow you to communicate with your provider electronically. Directions for signing up are included in this packet. My Chart is an excellent way to ask questions and get advice about non-urgent problems. For more pressing concerns, call our office. In the event of an medical emergency you arnaldo foster call 911 or present to the nearest Emergency Room. documented in this encounter Progress Notes Zion Roth MD - 01/29/2017 10:30 AM PDTFormatting of this note might be different fro m the original. Date: 01/29/2017 Primary Care Provider: Jerry Adrian MD [facility] [address] [place] [address] Referring Provider: Jerry Adrian MD [facility] [address] [facility] [address] [place] [address] To Aaron is a 66 y.o. male in pulmonary clinic today for the follow up of alpha 1 a ntitrypsin disease. PROBLEM LIST: A1AT - Prolastin IV [id number] - Tiotropium - Advair - FEV1 ~1.5 and stable since 2005 Subjective: To Aaron reports his last exacerbation 2 weeks prior. Feeling better n ow. Feels like he is back to his baseline. Overall in the past year he notes that when he was having to change his semi-it would take him a little bit longer in the past but still pr edilia good. He did have a rough November and December which coincidently he felt like he slept b vernell in his truck with less sinus drainage than at home. He questions whether there is some allergy at home. He has not had any fevers, chills, or night sweats. Current Medications: Current Outpatient Prescriptions Medication Sig albuterol 90 mcg/actuation inhalation HFA aerosol inhaler Inhale 2 puffs by mouth every six hours as needed. Rinse mouth after use. amoxicillin 500 mg oral capsule Take 1 capsule by mouth every eight hours. fluticasone (FLONASE) 50 mcg/actuation nasal spray,suspension Instill 1 spray in nose o nce daily. fluticasone-salmeterol (ADVAIR DISKUS) 250-50 mcg/dose inhalation blister with device I nhale 1 puff two times daily. PROLASTIN IV 12 gms every 2 weeks tiotropium (SPIRIVA WITH HANDIHALER) 18 mcg inhalation capsule, w/inhalation device inh nancy the contents of one capsule (18mcg) by inhalation route once daily; rinse mouth after us e No current facility-administered medications for this visit. Past Medical History: Diagnosis Date Jybyl-0-yewrqmcdsjf deficiency (HCC) Past Social and Family History: No significant changes since last visit. Review of systems: As above. All others negative or unchanged from previous visit on comple te review of systems. Physical Exam: Visit Vitals Item Reading BP 128/63 Pulse 67 Temp (Src) 36.8 C (98.3 F) (Oral) RR 16 Wt 96.6 kg (213 lb) SpO2 92% BMI 30.13 kg/(m^2) General: No acute distress, otherwise unchanged from previous exam. KEELEY: Normocephalic, PERRLA, EOMI, external ears without lesions Nares: No evidence of nasal erythema, polyps, purulence, congestion or septal deviation. Throat: No erythema, exudate, or tonsillar enlargement. Neck: No evidence of elevated jugular veins or lymphadenopathy. Lungs: Clear to auscultation bilaterally, no wheezes, rhonchi or crackles. Cardiac: regular rate and rhythm No murmurs, rubs or gallops. Abdomen: Non-tender, non-distended. Extremities: No cyanosis, clubbing, or edema. Musculoskeletal: No obvious joint deformities noted. Neurologic: Exam grossly non-focal. Skin: No evidence of rash or skin changes. PFTs Date FVC FEV1 FEV1/FVC 01/29/17.....................2.39 (53%).................1.34 (40%)......................... ....56% 08/03/14.....................2.62 (57%).................1.44 (42%)......................... ....55% 08/04/13.....................3.26 (72%).................1.40 (41%)......................... ....43% 04/15/12.....................3.25 (70%).................1.51 (43%)......................... ....46% 07/08/10.....................2.92 (63%).................1.19 (34%)......................... ....41% 07/08/10post..............2.64 (57%).................1.24 (35%)............................ .47% 04/12/09.....................3.07 (64%).................1.57 (43%)......................... ....51% 04/12/09post..............3.19 (67%).................1.66 (46%)............................ .52% 08/10/08.....................2.73 (61%).................1.37 (73%)......................... ....50% 08/10/08post..............3.07 (69%).................1.35 (42%)............................ .44% 05/26/07.....................3.19 (66%).................1.52 (41%)......................... ....48% 05/26/07post..............3.52 (73%).................1.63 (44%)............................ .46% 10/26/06.....................2.89 (60%).................1.63 (44%)......................... ....56% 10/26/06post..............2.75 (57%).................1.30 (35%)............................ .47% 04/20/06.....................3.17 (65%).................1.52 (41%)......................... ....48% 04/20/06post..............3.19 (65%).................1.54 (41%)............................ .48% Lung Volumes Date TLC VC RV RV/TLC ERV 08/10/08......8.41 (124%)....3.44 (75%).....4.97 (228%).............59%.................... 0.77 (51%) DLCO 01/29/17...........19.4 (80%) 08/10/08...........21.3 (76%) 6MW 04/15/12............421 04/28/11............384 Flow-volume loops were reviewed. Results are consistent with obstructive physiology. Assessment: 66-year-old with COPD secondary to alpha 1 antitrypsin disease. Overall he has continued to be stable by symptoms. His PFTs have slightly decreased but I do not think it's a signific ant difference over the past 3 years. At this time no changes in his medications. Will debra nue tiotropium and Advair. Continue alpha 1 antitrypsin supplementation. Follow-up in one ye ar or sooner if needed. Plan: No changes in medications Continue alpha 1 antitrypsin supplementation Follow-up in one year or sooner if needed I spent 15 minutes in the care of the patient, over half of which was spent in counseling t he patient regarding alpha-1 disease treatment and prognosis. Zion Roth MD PULMONARY/CRITICAL CARE MEDICINE [address] Mailcdoe:[address] [place] [address] Display Progress Note in MyChart: Yes documented in this en counter Plan of Treatment Not on filedocumented as of this encounter Visit Diagnoses + + | Diagnosis | + + | COPD with chronic bronchitis (HCC) - Primary Obstructive chronic bronchitis without | | exacerbation | + + | Luhcj-6-ggucpqjxbda deficiency (HCC) Igmze-5-dwxktmyrgqu deficiency | + + documented in this encounter"
--- OUTSIDE RECORDS SUMMARY | ~2020-02-19 | XMS | Encounter Summary ---
Demographics + + + | Address | [address] [place] [address] RD | | | [place] [address] | + + + | Home Phone | | + + + | Preferred Language | Unknown | + + + | Marital Status | | + + + | Congregation Affiliation | Unknown | + + + | Race | White | + + + | Ethnic Group | Not or | + + + Author + + + | Author | [facility] | + + + | Organization | [facility] | + + + | Address | Unknown | + + + | Phone | Unavailable | + + + Support + + +---------+ + | Name | Relationship | Address | Phone | + + +---------+ + | Tahmina Aaron | ECON | Unknown | | + + +---------+ + Care Team Providers + +------+ + | Care Fire Observer Name | Role | Phone | + +------+ + PCP | Unavailable | + +------+ + Encounter Details +--------+ + + + + | Date | Type | Department | Care Team | Description | +--------+ + + + + | 01/02/ | Office | General Internal | Note, Outpatient | Progress Note | | 1996 | Visit-Trans | Medicine [address] | Clinic | | | | emma | Kajal Joyce | | | | | | Mailcode: [id number] | | | | | | Outpatient Clinic | | | | | | [facility], [address] | | | | | | [place], [place] | | | | | | [address] | | | | | | [phone] | | | +--------+ + + + [...] as of this encounter Progress Notes Interface, Virologist In - 12/03/2006 5:05 AM PST CLINIC DATE: 01/02/97 PULMONARY CLINIC: Mr. Aaron returns for his first visit since July of 1994 for follow-up of chronic obstructive pulmonary disease secondary to alpha1-antitrypsin deficiency to check his status and assist in management of Prolastin replacement therapy. Mr. Aaron has been maintained on Prolastin approximately 10 g intravenously per dose every two weeks. He denies shortness of breath but has occasional dyspnea on exertion if he overdoes it. He cannot run. He cannot walk up hills too fast, but if he paces himself, he has little problem. He has no cough but does have some occasional mucous production. There has been no hemoptysis. He has had no chest pains. He has had no right upper quadrant discomfort, no nausea, vomiting, or diarrhea. No lower extremity edema. He has had problems with chronic sinusitis and episodes of bronchitis. About two or three times a year he requires antibiotics for flare of sinusitis and mild bronchitis. He notes prompt response to oral antibiotics. He feels that this has prevented him from having pneumonia. He has chronic frontal and maxillary sinus pressure and occasional rhinorrhea. He has had no fevers, chills, or night sweats. HABITS: He no longer smokes. Alcohol: none. MEDICATIONS: Azmacort two puffs b.i.d., Serevent two puffs b.i.d., Prolastin approximately 10 g intravenously q. two weeks. REVIEW OF SYSTEMS: He takes no acetaminophen on a regular basis, only recently took two for the first time in many years. 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 He travels to [place] yearly for [employer] to [employer]. PHYSICAL EXAMINATION: Slightly overweight gentleman in no acute distress. VITAL SIGNS: Heart rate 56 and regular, blood pressure 100/72, respiratory rate 12 and nonlabored. Weight is 201 pounds. Temperature is 96.2 degrees Fahrenheit. Room air O2 saturation at rest is 94%. SKIN: Skin is warm and dry with good turgor. There are no spider angiomata. HEENT: Normocephalic, atraumatic. Pupils equal, round, and reactive to light. Sclerae anicteric without injection. There is no frontal or maxillary sinus tenderness. The nasal mucosa is erythematous and slightly boggy with clear drainage. There are no polyps seen. The oropharynx is clear without erythema or exudate. BACK: Without costovertebral angle or spinal tenderness. CHEST: Symmetric to observation to percussion and auscultation. There are distant vesicular breath sounds without rales or rhonchi noted. CARDIAC: Regular rate and rhythm with normal S1 and S2. No murmur or S3 is appreciated. ABDOMEN: The abdomen is slightly enlarged. Bowel sounds are present, soft, nontender, nondistended without hepatosplenomegaly or masses. EXTREMITIES: Without clubbing, cyanosis, or edema. Pulmonary function tests today show an FEV1 of 2.10 liters (51% of predicted) with 4% increase after inhaled bronchodilators to 2.18 liters. The FVC is 2.49 liters (83% of predicted) with a 3% increase to 4.42 liters after bronchodilators. The room air O2 saturation during that test was 96%. The FEV1-FVC ratio was 49%. Flow volume curve shows severe obstructive lung disease. ASSESSMENT: 1. Chronic obstructive pulmonary disease secondary to alpha1-antitrypsin deficiency. The patient has severe airways obstruction based on his physiology but only moderate based on his symptomatology. He has had good response to his current medications. His Prolastin therapy has kept him in fairly good standing, but he does have limited reserve. 2. Alpha1-antitrypsin deficiency. The patient is probably on a slightly subtherapeutic Prolastin replacement level, given his weight and the doses he says he takes. He has not had a recent trough level. He has not had yearly liver tests as best as I can tell. 3. Chronic sinusitis. The patient has had chronic sinus problems and is status post sinus surgery but still has persistent symptoms with occasional flares. PLAN: 1. Continue Prolastin infusions at 140 mg per kg to be infused every two weeks. The patient has been instructed to check a trough level every four months or sooner if the level is less than 60. 2. The patient should be seen in follow-up here every six months with pulmonary function tests. 3. He will need yearly liver tests. 4. Continue alcohol abstinence. 5. Minimal, if any, acetaminophen ingestion. 6. The patient was made aware of the alpha1-antitrypsin deficiency support group which meets the wednesday of every month and he will be placed on the waiting list. 7. Continue Serevent and Azmacort and consider increased Azmacort to four puffs b.i.d. 8. A trial of Vancenase AQ one puff each nostril q. day as therapy for chronic sinusitis. 9. The patient was given a prescription of clarithromycin 500 mg b.i.d. for 10 days to have on hand in case he develops a flare of sinusitis or purulent bronchitis. He will take this with him on his upcoming trip to [facility]. 10. I have encouraged the patient to arrange his Prolastin dosing such that he takes a dose of Prolastin just before he leaves for [place] and then promptly upon return. Jimmie Montalvo M.D. Scheduling Analyst, Lung Transplantation Retail Performance Specialist, Pulmonary and Critical Care Medicine [email or web address] cc: Enmanuel OROURKE MD [address] [place] [address] documented in this encounter Plan of Treatment Not on filedocumented as of this encounter Visit Diagnoses Not on filedocumented in this encounter"
--- OUTSIDE RECORDS SUMMARY | ~2020-02-19 | XMS | Encounter Summary ---
Demographics + + + | Address | [address] [place] [address] RD | | | [place] [address] | + + + | Home Phone | | + + + | Preferred Language | Unknown | + + + | Marital Status | | + + + | Mormonism Affiliation | Unknown | + + + [...] Team Providers + +------+ + | Care No Experience Name | Role | Phone | + +------+ + PCP | Unavailable | + +------+ + Encounter Details +--------+ + + + + | Date | Type | Department | Care Team | Description | +--------+ + + + + | 04/20/ | Respiratory | | Other, Faculty | | | 2006 | Therapy | | [phone] | | +--------+ + + + + [...] | + +--------+ + + + | [facility]- | Routin | 04/20/2006 | | Results for this | | SPIROMETRY W/ | e | 9:38 AM | | procedure are in the | | BRONCHODILATOR | | PDT | | results section. | + +--------+ + + + documented in this encounter Results [facility]- SPIROMETRY W/ BRONCHODILATOR (04/20/2006 9:38 AM PDT) + + + + + + | Component | Value | Ref Range | Performed | Pathologist | | | | | At | Signature | + + + + + + | PULMONARY | SPIROMETRY PRE AND POST | | | | | FUNCTION | BRONCHODILATOR WERE | | | | | | PERFORMED | | | | | | PRE-BRONCHODILATOR | | | | | | SPIROMETRY WERE THE | | | | | | FOLLOWING: FVC=3.17 | | | | | | FVC% PREDICTED=65 | | | | | | FEV1=1.52 FEV1% | | | | | | PREDICTED=41 | | | | | | FEFmax=6.98 FEFmax% | | | | | | PREDICTED=74 | | | | | | FEV1/FVC%=48 FEF | | | | | | 25-75 =0.45 KAC95-76% | | | | | | PREDICTED=14 | | | | | | POST-BRONCHODILATOR | | | | | | SPIROMETRY WERE THE | | | | | | FOLLOWING FVC=3.19 | | | | | | FVC% PREDICTED=65 | | | | | | FEV1=1.54 FEV1% | | | | | | PREDICTED=41 | | | | | | FEFmax=6.98 FEFmax% | | | | | | PREDICTED=74 | | | | | | FEV1/FVC%=48 FEF | | | | | | 25-75 =0.42 WDH51-76% | | | | | | PREDICTED=13 FEV1 | | | | | | % CHANGE POST | | | | | | BRONCHODILATOR= 1 Shannen | | | | | | FOX Boss | | | | + + + + + + + + | Specimen | + + | | + + + + + | Narrative | Performed At | + + + | Ordered by an unspecified provider. | | + + + + + + + + | Performing | Address | City/State/Zipcode | Phone Number | | Organization | | | | + + + + + | [facility] | [address] | [place], [place] | | | DIAGNOSTICS - | [place] | [address] | | | PULMONARY FUNCTION | | | | + + + + + documented in this encounter Visit Diagnoses Not on filedocumented in this encounter"
--- OUTSIDE RECORDS SUMMARY | ~2020-02-19 | XMS | Encounter Summary ---
Demographics + + + | Address | [address] [place] [address] RD | | | [place] [address] | + + + | Home Phone | | + + + | Preferred Language | Unknown | + + + | Marital Status | | + + + | Tenriism Affiliation | Unknown | + + + | Race | White | + + + | Ethnic Group | Not or | + + + Author + + + | Author | [facility] | + + + | Organization | [facility] | + + + | Address | Unknown | + + + | Phone | Unavailable | + + + Support + + +---------+ + | Name | Relationship | Address | Phone | + + +---------+ + | Tahmina Aaron | ECON | Unknown | | + + +---------+ + Care Team Providers + +------+ + | Care Service Writer Advisor Name | Role | Phone | + +------+ + PCP | Unavailable | + +------+ + Encounter Details +--------+ + + + + | Date | Type | Department | Care Team | Description | +--------+ + + + + | 09/06/ | Office | [facility] | Note, Outpatient | Progress Note | | 2000 | Visit-Trans | MEDICINE | Clinic | [...] as of this encounter Progress Notes Interface, Natural Resources Technician In - 06/25/2006 3:01 AM PDTCLINIC DATE: 09/06/2001 PULMONARY CLINIC PROBLEM LIST: Moderate COPD secondary to alpha-1 antitrypsin deficiency. SUBJECTIVE: I last saw To on March 08, 2001, since then he has been relatively stable from a respiratory standpoint. He spends a great deal of the time in the [place] to [place]. [place] [place]. He was having some rapid onset of dyspnea with exertion hiking into that camp. He did start premedicating with albuterol which has made a big difference and decreased the amount of shortness of breath that he has. He has daily morning cough that is productive of a small amount of sputum. He denies any chest pain or palpitations. No hemoptysis. No fever, chills, or night sweats. He has been getting his Prolastin infusions fairly regularly over the last few months. He has a little bit stored up. He has had every 2-week infusions for 3 consecutive doses. MEDICATIONS: Azmacort 4 puffs b.i.d., Serevent 2 puffs b.i.d., Flonase 1 inhalation b.i.d. daily, and Prolastin 140 mg/kg IV every 2 weeks. 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 He is very active during the summer and very inactive during the winter. OBJECTIVE: VITAL SIGNS: Weight is 212.4 pounds which is up 12 pounds from 6 months ago, blood pressure is 104/70, heart rate is 71 and regular, respiratory rate is 16, and oxygen saturation is 92% at rest on room air. GENERAL: He does not appear acutely or chronically ill. SKIN: Warm and dry. Color is good. HEENT: Sclerae are anicteric. Conjunctivae are noninjected. Nasal turbinates are pink and boggy. No nasal polyps or purulent nasal drainage is visualized. Pharynx is not injected. No exudate or lesions. NECK: Supple with no lymphadenopathy or masses. CHEST: He does have diminished breath sounds throughout, particularly in the bases. He does have some fine bibasilar crackles. No wheezing. HEART: Sounds are unremarkable. S1 and S2. No murmurs or rubs. ABDOMEN: Round and soft with active bowel sounds. No masses tenderness or organomegaly. EXTREMITIES: No edema, cyanosis, or clubbing. LABORATORY DATA: Spirometry done today reveals a prebronchodilator FVC of 3.17 liters (63% of predicted), FEV1 is 1.61 liters (40% of predicted), and FEV1/FVC is 51%. Postbronchodilator FVC is 3.38 liters (67% of predicted), FEV1 is 1.87 liters (47% of predicted), and FEV1/FVC is 55%. This represents a postbronchodilator change in FEV1 of 16% or 260 mL. This compares with spirometry done on March 08, 2001, which revealed an FVC of 3.53 liters and FEV1 of 1.56 liters. ASSESSMENT 1. Moderate obstructive ventilatory defect in a man with alpha-1 antitrypsin deficiency. He has had significant drop in his forced vital capacity in the last 6 months, although a part of this could be attributed to weight gain. His forced expiratory volume in 1 second is stable although has drifted over the course of the last couple of years. 2. Weight gain, most likely secondary to decrease in activity level with no change in his diet. PLAN: Even though he still has some reversibility on his PFTs, this is unchanged from before, and I am going to have him drop his Azmacort back to 2 puffs b.i.d. I also gave him the option of trying Advair 250/[address] Serevent and Azmacort which he is going to do at some point. If he likes it, then we will have him continue on that. He understands that he is not meant to use it at the same time that he is using Azmacort or Serevent. We will have him continue with his Flonase. He has not had a chest x-ray in about 7 years, and so we are going to do a PA and lateral chest x-ray today to make sure this is nothing else that could account for the drift in his PFTs. He will have a trial of alpha-1 antitrypsin level drawn before his next Prolastin infusion, and we will also check CBC without differential and a complete metabolic panel at that time. To will return to see me in 6 months. Pavithra Shi Division of Pulmonary and Critical Care / HS [id number] / [id number] / [id number] / [id number] cc: Jerry Adrian M.D. [facility] [place] Embedded Firmware Developer [address] [place] [address]. [address] [place] [id number] signed by Interface, Natural Resources Technician In at 06/25/2006 3:01 AM [facility] umented in this encounter Plan of Treatment Not on filedocumented as of this encounter Visit Diagnoses Not on filedocumented in this encounter"
--- OUTSIDE RECORDS SUMMARY | ~2020-02-19 | XMS | Encounter Summary ---
Demographics + + + | Address | [address] [place] [address] RD | | | [place] [address] | + + + | Home Phone | | + + + | Preferred Language | Unknown | + + + | Marital Status | | + + + | Islam Affiliation | Unknown | + + + | Race | White | + + + | Ethnic Group | Not or | + + + Author + + + | Author | [facility] | + + + | Organization | [facility] | + + + | Address | Unknown | + + + | Phone | Unavailable | + + + Support + + +---------+ + | Name | Relationship | Address | Phone | + + +---------+ + | Tahmina Aaron | ECON | Unknown | | + + +---------+ + Care Team Providers + +------+ + | Care Evaluator Transfer Students Name | Role | Phone | + +------+ + | Jerry Adrian MD | PCP | | + +------+ + Reason for Visit + + + | Reason | Comments | + + + | Follow-up visit | | + + + Encounter Details +--------+---------+ + + + | Date | Type | Department | Care Team | Description | +--------+---------+ + + + | 08/03/ | Office | Pulmonary & | Carolina Hi, | [id number] | | 2014 | Visit | Critical Care | [address] | deficiency (HCC) | | | | Medicine at | [facility] [address] | (Primary Dx); COPD | | | | [facility] | [place], [place] | with chronic | | | | [address] | [address] | bronchitis (HCC) | | | | [address] [facility] | [phone] | | | | | Pav[facility], 3rd Floor | | | | | | [place], [place] | | | | | | [address] | | | | | | [phone] | | | +--------+---------+ + + + [...] + + + | Blood Pressure | 135/79 | 08/03/2014 8:37 AM | | | | | PDT | | + + + + + | Pulse | 57 | 08/03/2014 8:37 AM | | | | | PDT | | + + + + + | Temperature | 36.3 C (97.4 F) | 08/03/2014 8:37 AM | | | | | PDT | | + + + + + | Respiratory Rate | 18 | 08/03/2014 8:37 AM | | | | | PDT | | + + + + + | Oxygen Saturation | 93% | 08/03/2014 8:37 AM | | | | | PDT | | + + + + + | Inhaled Oxygen | - | - | | | Concentration | | | | + + + + + | Weight | 90.7 kg (200 lb) | 08/03/2014 8:37 AM | | | | | PDT | | + + + + + | Height | 179.1 cm (5' 10.5") | 08/03/2014 8:37 AM | | | | | PDT | | + + + + + | Body Mass Index | 28.29 | 08/03/2014 8:37 AM | | | | | PDT | | + + + + + documented in this encounter Progress Notes Carolina Hi MD - 08/03/2014 8:46 AM PDTFormatting of this note might be different fro m the original. Date: 08/03/2014 Primary Care Provider: Jerry Adrian MD [facility] [address] [place] [address] Referring Provider: Misha Pace MD [address] [place] [address] To Aaron is a 64 y.o. male in pulmonary clinic today for the follow up of COPD and A1AT deficiency. PROBLEM LIST: A1AT - Prolastin IV [id number] - Tiotropium - Advair - FEV1 ~1.5 and stable since 2005 Subjective: To Aaron reports that he has been doing very well. Hasn't needed albut jose for over a year and that was when he was having to chain up [place]. He denies any fever currently and has not had any exacerbations or pneumonia in past year. Current Medications: Current Outpatient Prescriptions Medication Sig albuterol 90 mcg/Actuation Inhalation HFA Aerosol Inhaler Inhale 2 Puffs every six hour s as needed. Rinse mouth after use. fluticasone (FLONASE) 50 mcg/actuation nasal spray,suspension Instill 1 spray in nose o nce daily. fluticasone-salmeterol (ADVAIR DISKUS) 250-50 mcg/dose inhalation Disk with Device Inha le 1 puff two times daily. PROLASTIN IV 12 gms every 2 weeks tiotropium (SPIRIVA WITH HANDIHALER) 18 mcg inhalation capsule, w/inhalation device inh nancy the contents of one capsule (18mcg) by inhalation route once daily; rinse mouth after us e No current facility-administered medications for this visit. Past Medical History Diagnosis Date Mpjnb-1-suzxtlqdixt deficiency Past Social and Family History: No significant changes since last visit. Review of systems: As above. All others negative or unchanged from previous visit on comple te review of systems. Physical Exam: Visit Vitals Item Reading BP 135/79 Pulse 57 Temp (Src) 36.3 C (97.4 F) (Forehead) RR 18 Ht 1.791 m (5' 10.5") Wt 90.719 kg (200 lb) SpO2 93% BMI 28.28 kg/(m^2) General: No acute distress, otherwise unchanged [...] skin changes. PFTs Date FVC FEV1 FEV1/FVC 08/03/14.....................2.62 (57%).................1.44 (42%)......................... ....55% 08/04/13.....................3.26 (72%).................1.40 (41%)......................... [...] 08/10/08......8.41 (124%)....3.44 (75%).....4.97 (228%).............59%.................... 0.77 (51%) DLCO 08/03/14...........23.1 (93%) 08/10/08...........21.3 (76%) 6MW 04/15/12............421 04/28/11............384 Flow-volume loops were reviewed. Results are consistent with obstructive physiology. Assessment: 64 yo with COPD secondary to A1AT deficiency. He continues to tolerate the Prolastin infus ions well. Follow up in 1 year and PRN. No changed is tiotropium, advair, and albuterol re gimen. Plan: Follow up in 1 year No changes in regimen I spent 15 minutes in the care of the patient, over half of which was spent in counseling t he patient regarding treatment and prognosis of COPD. CAROLINA HI MD PULMONARY/CRITICAL CARE MEDICINE [address] [place] [address] Mailcode: [id number] [place] [phone] Display Progress Note in MyChart: Yes documented in this en counter Plan of Treatment Not on filedocumented as of this encounter Visit Diagnoses + + | Diagnosis | + + | Ryfnm-6-wodajbmmxgb deficiency (HCC) - Primary Dcslm-4-ayddnlpsqzr deficiency | + + | COPD with chronic bronchitis (HCC) Obstructive chronic bronchitis without | | exacerbation | + + documented in this encounter
--- OUTSIDE RECORDS SUMMARY | ~2020-02-19 | XMS | Encounter Summary ---
Demographics + + + | Address | [address] [place] [address] RD | | | [place] [address] | + + + | Home Phone | | + + + | Preferred Language | Unknown | + + + | Marital Status | | + + + | Confucianism Affiliation | Unknown | + + + [...] Team Providers + +------+ + | Care Roadway Engineer Name | Role | Phone | + [...] | | | | Medicine at | [facility], | | | | | [facility] | [place] [address] | | | | | [address] | [phone] | | | | | [facility] | | | | | | [facility], 3rd Floor | | | | | | [place], [place] | | | | | | [address] | | | | | | [phone] | | | +--------+ + + + [...]
--- OUTSIDE RECORDS SUMMARY | ~2020-02-19 | XMS | Encounter Summary ---
Demographics + + + | Address | [address] [place] [address] RD | | | [place] [address] | + + + | Home Phone [...] Team Providers + +------+ + | Care Two Way Radio Technician Name | Role | Phone | [...] Clinic | | | | | | [facility], [address] | | | | | | [place], [place] | | | | | | [address] | | | | | | [phone] | | | +--------+ + + + [...] as of this encounter Progress Notes Interface, Car Changer In - 12/03/2006 5:05 AM PST CLINIC [...] side. He travels to [place] yearly for [employer] to [email or web address]. PHYSICAL EXAMINATION: Slightly overweight gentleman in no [...] with him on his upcoming trip to [facility]. 10. I have encouraged the patient to arrange his Prolastin dosing such that he takes a dose of Prolastin just before he leaves for [place] and then promptly upon return. Jimmie Montalvo M.D. Monumental Stonemason, Lung Transplantation Analyst Geochemical Prospecting, Pulmonary and Critical Care Medicine [email or web address] cc: Enmanuel OROURKE MD [address] [facility] [place] [address] documented in this encounter Plan of Treatment Not on filedocumented as of this encounter Visit Diagnoses Not on filedocumented in this encounter"
--- OUTSIDE RECORDS SUMMARY | ~2020-02-19 | XMS | Encounter Summary ---
Demographics + + + | Address | [address] [place] [address] RD | | | [place] [address] | + + + | Home Phone | | + + + | Preferred Language | Unknown | + + + | Marital Status | | + + + | Taoist Affiliation | Unknown | + + + | Race | White | + + + | Ethnic Group | Not or | + + + Author + + + | Author | [facility] | + + + | Organization | [facility] | + + + | Address | Unknown | + + + | Phone | Unavailable | + + + Support + + +---------+ + | Name | Relationship | Address | Phone | + + +---------+ + | Tahmina Aaron | ECON | Unknown | | + + +---------+ + Care Team Providers + +------+ + | Care Historical Manuscripts Curator Name | Role | Phone | + +------+ + | Jelani Higgins MD | PCP | | + +------+ + Encounter Details +--------+ + + + + | Date | Type | Department | Care Team | Description | +--------+ + + + + | 10/19/ | Ancillary | Registration [id number] | Masha Pickering ANP | | | 2006 | Registratio | [address] | | | | | n | [place]den Mailcode: [id number] | | | | | | [place], [place] | | | | | | [address] | | | | | | [phone] | | | +--------+ + + + [...]
--- OUTSIDE RECORDS SUMMARY | ~2020-02-19 | XMS | Encounter Summary ---
Demographics + + + | Address | [address] [place] [address] RD | | | [place] [address] | + + + | Home Phone [...] + +------+ + | Care Director Of Analytics Name | Role | Phone | + +------+ + | Jerry Adrian MD | PCP | | + +------+ + Reason for Visit + + + | Reason | Comments | + + + | Refill Request | for fluticasone nasal spray | + + + Encounter Details +--------+--------+ + + + | Date | Type | Department | Care Team | Description | +--------+--------+ + + + | 10/14/ | Refill | Pulmonary & | Zion Roth, | Refill Request (for | | 2012 | | Critical Care | MD Mariano Belle | fluticasone nasal | | | | Medicine at | [facility] [address] | spray) | | | | [facility] | [place], [place] | | | | | [address] | [address] | | | | | [address] [facility] | [phone] | | | | | [place], 3rd Floor | | | | | | [place], [place] | | | | | | [address] | | | | | | [phone] | | | +--------+--------+ + + + [...]
--- OUTSIDE RECORDS SUMMARY | ~2020-02-19 | XMS | Encounter Summary ---
Demographics + + + | Address | [address] [place] [address] RD | | | [place] [address] | + + + | Home Phone [...] Team Providers + +------+ + | Care Ampoule Sealer Name | Role | Phone | + [...] [id number] | | | | | | [place], [place] | | | | | | [address] | | | | | | [phone] | | | +--------+ + + + [...]
--- OUTSIDE RECORDS SUMMARY | ~2020-02-19 | XMS | Encounter Summary ---
Demographics + + + | Address | [address] [place] [address] RD | | | [place] [address] | + + + | Home Phone | | + + + | Preferred Language | Unknown | + + + | Marital Status | | + + + | Druze Affiliation | Unknown | + + + | Race | White | + + + | Ethnic Group | Not or | + + + Author + + + | Author | [facility] | + + + | Organization | [facility] | + + + | Address | Unknown | + + + | Phone | Unavailable | + + + Support + + +---------+ + | Name | Relationship | Address | Phone | + + +---------+ + | Tahmina Aaron | ECON | Unknown | | + + +---------+ + Care Team Providers + +------+ + | Care Drapery Inspector Name | Role | Phone | + +------+ + | Jerry Adrian MD | PCP | | + +------+ + Encounter Details +--------+ + + + + | Date | Type | Department | Care Team | Description | +--------+ + + + + | 04/15/ | Results/Int | Pulmonary Function | | Chronic airway | | 2011 | erpretation | Lab at [facility] [address] | | obstruction, not | | | | [address] | | elsewhere classified | | | | [address] | | (Primary Dx) | | | | [place], [place] | | | | | | [address] | | | | | | [phone] | | | +--------+ + + + [...] documented as of this encounter Progress Notes Bud Dye MD - 04/16/2012 9:49 AM PDT Refer to PFT report. d ocumented in this encounter Plan of Treatment Not on filedocumented as of this encounter Procedures + +--------+ + + + | Procedure Name | Priori | Date/Time | Associated Diagnosis | Comments | | | ty | | | | + +--------+ + + + | [place] PULMONARY STRESS | Routin | 04/16/2012 | Chronic airway | | | TESTING,SIMPLE | e | 9:49 AM | obstruction, not | | | | | PDT | elsewhere classified | | + +--------+ + + + | [place] SPIROMETRY TEST | Routin | 04/16/2012 | Chronic airway | | | | e | 9:49 AM | obstruction, not | | | | | PDT | elsewhere classified | | + +--------+ + + + | SPIROMETRY, PULM | Routin | 04/15/2012 | | Results for this | | FUNCTION LAB | e | 8:12 AM | Momfl-6-nhbeqhafcpt | procedure are in the | | | | PDT | deficiency (HCC) | results section. | + +--------+ + + + documented in this encounter Visit Diagnoses + + | Diagnosis | + + | Chronic airway obstruction, not elsewhere classified - Primary | + + documented in this encounter"
--- OUTSIDE RECORDS SUMMARY | ~2020-02-19 | XMS | Encounter Summary ---
Demographics + + + | Address | [address] [place] [address] RD | | | [place] [address] | + + + | Home Phone [...] Team Providers + +------+ + | Care Snap Shearer Name | Role | Phone | + +------+ + | Jerry Adrian MD | PCP | | + +------+ + Encounter Details +--------+ + + + + | Date | Type | Department | Care Team | Description | +--------+ + + + + | 06/08/ | Results | Registration [id number] | | | | 1995 | Only | [address] | | | | | | [address] Mailcode: [id number] | | | | | | [place], [place] | | | | | | [address] | | | | | | [phone] | | | +--------+ + + + [...] + | PULMONARY FUNCTION | Routin | 06/08/1996 | | Results for this | | TESTS | e | 2:59 PM | | procedure are in the | | | | PDT | | results section. | + +--------+ + + + documented in this encounter Results PULMONARY FUNCTION TESTS (06/08/1996 2:59 PM PDT) + + + + + + | Component | Value | Ref Range | Performed | Pathologist | | | | | At | Signature | + + + + + + | FVC | 4.02 | L | | | | MEASURED | | | | | + + + + + + | FVC % PRED | 78. | % | | | + + + + + + | FEV1 | 2.18 | L/S | | | | MEASURED | | | | | + + + + + + | FEV1 % PRED | 53. | % | | | + + + + + + | FEV1/FVC | 54. | % | | | | MEASURED | | | | | + + + + + + | FEF(2575) | 0.74 | L/S | | | + + + + + + | FEF(25-75) | 18. | % | | | | % PRED | | | | | + + + + + + | FVC POST | 86. | % | | | | BD'S % PRED | | | | | + + + + + + | FEV1 POST | 2.27 | L | | | | BD'S | | | | | | MEASURED | | | | | + + + + + + | FEV1 POST | 55. | % | | | | BD'S % PRED | | | | | + + + + + + | FEV1/FVC | 51. | % | | | | POST BD'S | | | | | | MEASURD | | | | | + + + + + + | FEF() | 0.67 | L/S | | | | POST BD'S | | | | | | MEASURD | | | | | + + + + + + | FEF() | 17. | % | | | | POST BD'S % | | | | | | PRED | | | | | + + + + + + | FEV1 BD'S % | 4. | % | | | | CHANGE | | | | | + + + + + + | REST SAT | 97. | % | | | + + + + + + + + | Specimen | + + | | + + + + + + + | Performing | Address | City/State/Zipcode | Phone Number | | Organization | | | | + + + + + | [facility] | [address] | [place] [address] | | | PATHOLOGY | [address] | | | + + + + + documented in this encounter Visit Diagnoses Not on filedocumented in this encounter"
--- OUTSIDE RECORDS SUMMARY | ~2020-02-19 | XMS | Encounter Summary ---
Demographics + + + | Address | [address] [place] [address] RD | | | [place] [address] | + + + | Home Phone | | + + + | Preferred Language | Unknown | + + + | Marital Status | | + + + | Rastafari Affiliation | Unknown | + + + | Race | White | + + + | Ethnic Group | Not or | + + + Author + + + | Author | [facility] | + + + | Organization | [facility] | + + + | Address | Unknown | + + + | Phone | Unavailable | + + + Support + + +---------+ + | Name | Relationship | Address | Phone | + + +---------+ + | Tahmina Aaron | ECON | Unknown | | + + +---------+ + Care Team Providers + +------+ + | Care Information Director Name | Role | Phone | + +------+ + PCP | Unavailable | + +------+ + Encounter Details +--------+ + + + + | Date | Type | Department | Care Team | Description | +--------+ + + + + | 07/22/ | Office | [facility] | Note, [...] as of this encounter Progress Notes Interface, Hydrator In - 08/23/2006 2:32 AM [facility]: [facility] PULMON[facility] CLINIC CHIEF COMPLAINT: 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 SUBJECTIVE: The patient says he is doing fine overall with little change in his symptoms. He traveled to [facility] in March-April for hunting and has been hunting locally last month. He can walk three miles over 45 minutes at 4400 feet. Has no trouble as long as he paces himself, has to go slowly uphill but notes no overall change. He has no shortness of breath at rest and no dyspnea and exertion unless he overdoes himself. He has a cough that is rare without sputum production or hemoptysis. There is no chest pain. There is no lower extremity edema. His sinuses are improving, and he uses his medications without need for p.r.n. use. PAST MEDICAL HISTORY 1. Herpes zoster, right forehead, resolved. 2. Benign prostatic hypertrophy. MEDICATIONS: Serevent two puffs b.i.d., Azmacort two puffs b.i.d., and folacin 10 mg IV q.2 weeks. 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 REVIEW OF SYSTEMS: No fever, chills, sweats, or night sweats. No dysphagia, no odynophagia, no right upper quadrant tenderness. He had fluctuating weight depending on intake and activity level. No other new problems. PHYSICAL EXAMINATION: A gentleman who appears his stated age. GENERAL: He is well nourished, well hydrated, and in no acute distress. VITAL SIGNS: Weight 203.6 pounds, temperature 95.3 degrees Fahrenheit, heart rate 64 and regular, blood pressure 100/80, respiratory rate is 12 and nonlabored, and room air O2 saturation is 93%. SKIN: Warm and dry with good turgor. HEENT: Sclerae anicteric without injection. Oropharynx is clear. CHEST: Distant breath sounds which are vesicular without rales or rhonchi. Normal expiratory phase. CARDIOVASCULAR: Regular rate and rhythm with normal S1 and S2. No increased P2. ABDOMEN: Mildly obese but soft and nontender. EXTREMITIES: Without clubbing, cyanosis, or edema. He did have a spirometry today which showed anFEV1 of 1.92 (48% predicted with no change after bronchodilators). The FVC is 3.86 (76% predicted), increase of 6% to 4.12 after bronchodilators. The FVC1/FVC ratio is 50% since January 17, 1999. The FEV1 has decreased from 2.03 and 4.27 respectively. ASSESSMENT 1. 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 He is clinically stable but with some decrement in pulmonary function tests. 2. Qymin-3-magrhycbvdz deficiency, on replacement therapy. 3. Chronic sinusitis, improved. PLAN 1. Check liver tests now and q.6 months. 2. Followup pulmonary function tests in six months. 3. Continue alcohol and acetaminophen abstinence. 4. Continue current metered-dose inhaler regimen. 5. The patient had a flu shot earlier this week. 6 Return for followup in six months' time or sooner if signs and symptoms warrant. Jimmie Montalvo M.D. Professor Of French, Pulmonary Critical Care [facility] / HS [id number] / [id number] / [id number] / 700 cc: SHABNAM OROURKE MD [address] [place] [address] [address] [place] [id number] signed by Interface, Hydrator In at 08/23/2006 2:32 AM PSTdocumented in this encounter Plan of Treatment Not on filedocumented as of this encounter Visit Diagnoses Not on filedocumented in this encounter"
--- OUTSIDE RECORDS SUMMARY | ~2020-02-19 | XMS | Encounter Summary ---
Demographics + + + | Address | [address] [place] [address] RD | | | [place] [address] | + + + | Home Phone [...] Team Providers + +------+ + | Care Auto Machinist Name | Role | Phone | + [...] Clinic | | | | | | [facility], [address] | | | | | | [place], [place] | | | | | | [address] | | | | | | [phone] | | | +--------+ + + + [...] as of this encounter Progress Notes Interface, Feed Blender In - 10/28/2006 5:11 AM PST CLINIC [...] reactivity to bronchodilators today. Jimmie Salomon M.D. Guyline Operator, Lung Transplantation Photographer News, Pulmonary and Critical Care Clinic AUBREY/shweta cc: Enmanuel OROURKE MD [address] [facility] [address] [place] [address] documented in this encounter Plan of Treatment Not on filedocumented as of this encounter Visit Diagnoses Not on filedocumented in this encounter"
--- OUTSIDE RECORDS SUMMARY | ~2020-02-19 | XMS | Encounter Summary ---
Demographics + + + | Address | [address] [place] [address] RD | | | [place] [address] | + + + | Home Phone [...] Team Providers + +------+ + | Care Felt Hanger Name | Role | Phone | + [...] [id number] | | | | | | [place], [place] | | | | | | [address] | | | | | | [phone] | | | +--------+ + + + [...] | + + + + + | [facility] | [address] | [place] [address] | | | PATHOLOGY | [address] | | | + + + + + documented in this encounter Visit Diagnoses Not on filedocumented in this encounter"
--- OUTSIDE RECORDS SUMMARY | ~2020-02-19 | XMS | Encounter Summary ---
Demographics + + + | Address | [address] [place] [address] RD | | | [place] [address] | + + + | Home Phone | | + + + | Preferred Language | Unknown | + + + | Marital Status | | + + + | Catholic Affiliation | Unknown | + + + | Race | White | + + + | Ethnic Group | Not or | + + + Author + + + | Author | [facility] | + + + | Organization | [facility] | + + + | Address | Unknown | + + + | Phone | Unavailable | + + + Support + + +---------+ + | Name | Relationship | Address | Phone | + + +---------+ + | Tahmina Aaron | ECON | Unknown | | + + +---------+ + Care Team Providers + +------+ + | Care Hat Marker Name | Role | Phone | + +------+ + PCP | Unavailable | + +------+ + Encounter Details +--------+ + + + + | Date | Type | Department | Care Team | Description | +--------+ + + + + | 07/11/ | Results | Pulmonary Function | Misha Pace MD | | | 2001 | Only | Lab at [facility] [address] | [address] | | | | | [address] | [place], | | | | | [address] | [place] [address] | | | | | [place], [place] | [phone] | | | | | [address] | | | | | | [phone] | | | +--------+ + + + [...] [facility] | [address] | [place], [place] | | | DIAGNOSTICS - | [address] | [address] | | | PULMONARY FUNCTION | | | | + + + + + documented in this encounter Visit Diagnoses Not on filedocumented in this encounter"
--- OUTSIDE RECORDS SUMMARY | ~2020-02-19 | XMS | Encounter Summary ---
Demographics + + + | Address | [address] [place] [address] RD | | | [place] [address] | + + + | Home Phone | | + + + | Preferred Language | Unknown | + + + | Marital Status | | + + + | Episcopalian Affiliation | Unknown | + + + | Race | White | + + + | Ethnic Group | Not or | + + + Author + + + | Author | [facility] | + + + | Organization | [facility] | + + + | Address | Unknown | + + + | Phone | Unavailable | + + + Support + + +---------+ + | Name | Relationship | Address | Phone | + + +---------+ + | Tahmina Aaron | ECON | Unknown | | + + +---------+ + Care Team Providers + +------+ + | Care Hand Edge Bander Name | Role | Phone | + +------+ + PCP | Unavailable | + +------+ + Encounter Details +--------+ + + + + | Date | Type | Department | Care Team | Description | +--------+ + + + + | 09/06/ | Results | Pulmonary Function | Misha Pace MD | | | 2000 | Only | Lab at [facility] [address] | [address] | | | | | [address] | [address] [place], | | | | | [address] | [place] [address] | | | | | [place], [place] | [phone] | | | | | [address] | | | | | | [phone] | | | +--------+ + + + [...] | SPIROMETRY WITH BD'S | Routin | 09/06/2001 | | Results for this | | | e | 9:09 AM | | procedure are in the | | | | PST | | results section. | + +--------+ + + + documented in this encounter Results SPIROMETRY WITH BD'S (09/06/2001 9:09 AM PST) + + + + + + | Component | Value | Ref Range | Performed | Pathologist | | | | | At | Signature | + + + + + + | FVC | 3.17 | L | | | | MEASURED | | | | | + + + + + + | FVC % PRED | 63 | % | | | + + + + + + | FEV1 | 1.61 | L/S | | | | MEASURED | | | | | + + + + + + | FEV1 % PRED | 40 | % | | | + + + + + + | FEV1/FVC | 51.00 | % | | | | MEASURED | | | | | + + + + + + | FEF(25-75) | 0.41 | L/S | | | + + + + + + | FEF(2575) | 11 | % | | | | % PRED | | | | | + + + + + + | FVC POST | 3.38 | L | | | | BD'S | | | | | | MEASURED | | | | | + + + + + + | FVC POST | 67 | | | | | BD'S % PRED | | | | | + + + + + + | FEV1 POST | 1.87 | L | | | | BD'S | | | | | | MEASURED | | | | | + + + + + + | FEV1 POST | 47 | % | | | | BD'S % PRED | | | | | + + + + + + | FEV1/FVC | 55.00 | % | | | | POST BD'S | | | | | | MEASURD | | | | | + + + + + + | FEF() | 0.52 | L/S | | | | POST BD'S | | | | | | MEASURD | | | | | + + + + + + | FEF() | 14 | % | | | | POST BD'S % | | | | | | PRED | | | | | + + + + + + | FEV1 BD'S % | 16 | % | | | | CHANGE [...] [facility] | [address] | [place], [place] | | | DIAGNOSTICS - | [address] | [address] | | | PULMONARY FUNCTION | | | | + + + + + documented in this encounter Visit Diagnoses Not on filedocumented in this encounter"
--- OUTSIDE RECORDS SUMMARY | ~2020-02-19 | XMS | Encounter Summary ---
Demographics + + + | Address | [address] [place] [address] RD | | | [place] [address] | + + + | Home Phone | | + + + | Preferred Language | Unknown | + + + | Marital Status | | + + + | Yazidi Affiliation | Unknown | + + + [...] Team Providers + +------+ + | Care It Consultant Name | Role | Phone | + +------+ + | Jerry Adrian MD | PCP | | + +------+ + Reason for Visit + + + | Reason | Comments | + + + | Refill Request | spiriva | + + + Encounter Details +--------+ + + + + | Date | Type | Department | Care Team | Description | +--------+ + + + + | 11/14/ | Telephone | Pulmonary & | Zion Roth, | Refill Request | | 2013 | | Critical Care | [address] | (spiriva) | | | | Medicine at | [facility] | | | | | [facility] | [place], [place] | | | | | [address] | [address] | | | | | [address] [facility] | [phone] | | | | | [place], [facility] Floor | | | | | | [place], [place] | | | | | | [address] | | | | | | [phone] | | | +--------+ + + + [...] + | Diagnosis | + + | 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
--- OUTSIDE RECORDS SUMMARY | ~2020-02-19 | XMS | Encounter Summary ---
Demographics + + + | Address | [address] [place] [address] RD | | | [place] [address] | + + + | Home Phone | | + + + | Preferred Language | Unknown | + + + | Marital Status | | + + + | Taoism Affiliation | Unknown | + + + | Race | White | + + + | Ethnic Group | Not or | + + + Author + + + | Author | [facility] | + + + | Organization | [facility] | + + + | Address | Unknown | + + + | Phone | Unavailable | + + + Support + + +---------+ + | Name | Relationship | Address | Phone | + + +---------+ + | Tahmina Aaron | ECON | Unknown | | + + +---------+ + Care Team Providers + +------+ + | Care Senior J2Ee Developer Name | Role | Phone | + [...] as of this encounter Progress Notes Interface, Dental Appliance Mechanic In - 05/03/2005 1:24 AM PDT [id number] [facility] Date: 10/14/2004 Clinic: Pulmonary [...] Division of Pulmonary and Critical Care / [id number] / [id number] / [id number] / cc: Jerry Adrian M.D. [address] [place] [address] Electronically signed by Masha Pickering 12-26-2004 04:35:23 PM documented i n this encounter Plan of Treatment Not on filedocumented as of this encounter Visit Diagnoses Not on filedocumented in this encounter"
--- OUTSIDE RECORDS SUMMARY | ~2020-02-19 | XMS | Encounter Summary ---
Demographics + + + | Address | [address] [place] [address] RD | | | [place] [address] | + + + | Home Phone [...] Providers + +------+ + | Care Director Media Name | Role | Phone | + [...] [address] | | | | | [address] | [facility] | | | | | [address] | [place] [address] | | | | | [place], [address] [place] [address] | | | | | | [place], [place] | | | | | | [address] | | | | | | [phone] | | | +--------+ + + + [...] following:FVC=2.92FVC% | | | | | | predicted=31DUW5=5.19FEV | | | | | | 1% [...] following:FVC=2.64FVC% | | | | | | predicted=10RGC7=4.24FEV | | | | | | 1% [...] | | | | by: Marii Watson, CASSEROLE PREPARER | | | | + + + + + + + + | Specimen | + + | | + + + + + + + | Performing | Address | City/State/Zipcode | Phone Number | | Organization | | | | + + + + + | [facility] | [address] [facility] | [place], [place] | | | THERAPY | [address] | [address] | | + + + + + [...]
--- OUTSIDE RECORDS SUMMARY | ~2020-02-19 | XMS | Encounter Summary ---
Demographics + + + | Address | [address] [place] [address] RD | | | [place] [address] | + + + | Home Phone | | + + + | Preferred Language | Unknown | + + + | Marital Status | | + + + | Adventist Affiliation | Unknown | + + + | Race | White | + + + | Ethnic Group | Not or | + + + Author + + + | Author | [facility] | + + + | Organization | [facility] | + + + | Address | Unknown | + + + | Phone | Unavailable | + + + Support + + +---------+ + | Name | Relationship | Address | Phone | + + +---------+ + | Tahmina Aaron | ECON | Unknown | | + + +---------+ + Care Team Providers + +------+ + | Care Wooling Machine Operator Name | Role | Phone | + +------+ + | Jelani Higgins MD | PCP | | + +------+ + Encounter Details +--------+ + + + + | Date | Type | Department | Care Team | Description | +--------+ + + + + | 12/12/ | Maxillofacial Prosthodontist | Pulmonary & | Zion Roth, | | | 2019 | | Critical Care | [address] | | | | | Medicine at | [facility] | | | | | [facility] | [place], [place] | | | | | [address] | [address] | | | | | [address] | [phone] | | | | | [place], [address] [place] [address] | | | | | | [place], [place] | | | | | | [address] | | | | | | [phone] | | | +--------+ + + + [...]
--- OUTSIDE RECORDS SUMMARY | ~2020-02-19 | XMS | Encounter Summary ---
Demographics + + + | Address | [address] [place] [address] RD | | | [place] [address] | + + + | Home Phone [...] Team Providers + +------+ + | Care Treatment Specialist Name | Role | Phone | + +------+ + | Jerry Adrian MD | PCP | | + +------+ + Reason for Visit + + + | Reason | Comments | + + + | Refill Request | spiriva | + + + Encounter Details +--------+--------+ + + + | Date | Type | Department | Care Team | Description | +--------+--------+ + + + | 11/21/ | Refill | Pulmonary & | Zion Roth, | Refill Request | | 2014 | | Critical Care | [address] | (spiriva) | | | | Medicine at | [facility] | | | | | [facility] | [place], [place] | | | | | [address] | [address] | | | | | [address] | [phone] | | | | | [place], [facility] Floor | | | | | | [place], [place] | | | | | | [address] | | | | | | [phone] | | | +--------+--------+ + + + [...]
--- OUTSIDE RECORDS SUMMARY | ~2020-02-19 | XMS | Encounter Summary ---
Demographics + + + | Address | [address] [place] [address] RD | | | [place] [address] | + + + | Home Phone [...] Team Providers + +------+ + | Care Radio Interference Expert Name | Role | Phone | + [...] as of this encounter Progress Notes Interface, Records Management Assistant In - 06/25/2006 3:01 AM PDTCLINIC DATE: [...] of Pulmonary and Critical Care / HS [id number] / [id number] / [id number] / [id number] cc: Jerry Adrian M.D. [facility] De[facility]rer [address] [place] [address]. [address] [id number] signed by Interface, Records Management Assistant In at 06/25/2006 3:01 AM [facility] umented in this encounter Plan of Treatment Not on filedocumented as of this encounter Visit Diagnoses Not on filedocumented in this encounter"
--- OUTSIDE RECORDS SUMMARY | ~2020-02-19 | XMS | Encounter Summary ---
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 SUBJECTIVE: To called to say that he switched from Serevent 2 puffs b.i.d. and Azmacort 4 puffs b.i.d. to Advair 250/50 one inhalation twice a day for 2 weeks. At the end of that 2 weeks, he went to get his Prolastin infusion, and his blood pressure was 150/92. He checked it. He spoke to his local doctor and then has been checking his blood pressure at home, and his blood pressure is now in the range of about 130/80 range. A week and a half ago, when he finished the Advair sample, he went back to Serevent at the dose as described above. His usual blood pressures range in the 110 to 120 over 70 to 80 range. He calls today because he needs new prescriptions and new 3-month prescriptions so that he can send to a mail-away pharmacy. He wonders if the Advair is related to his increased blood pressure. ASSESSMENT: It would be unlikely that the Advair is responsible for increased blood pressure unless there is some difference in absorption between that dose of Azmacort and that dose of fluticasone. It probably is not an entirely equivalent dose. PLAN: Because he had done fine on the Serevent and Azmacort, and we had switched him to Advair mostly for convenience, I will write prescription for Serevent and Azmacort with refills for a year. We will also send in a prescription for Flonase 1 inhalation in to each nostril daily for a year. When he comes in to see us in 6 months, we will probably give him a sample of Advair with a lower steroid dose and have him give that a try while monitoring his blood pressure. Pavithra Shi Division of Pulmonary and Critical Care / HS [id number] / [id number] / [id number] / [id number] signed by Interface, Software Computer Specialist In at 06/21/2006 2:30 AM PDTdoc umented in this encounter Plan of Treatment Not on filedocumented as of this encounter Visit Diagnoses Not on filedocumented in this encounter"
--- OUTSIDE RECORDS SUMMARY | ~2020-02-19 | XMS | Encounter Summary ---
Demographics + + + | Address | [address] [place] [address] RD | | | [place] [address] | + + + | Home Phone | | + + + | Preferred Language | Unknown | + + + | Marital Status | | + + + | Buddhist Affiliation | Unknown | + + + | Race | White | + + + | Ethnic Group | Not or | + + + Author + + + | Author | [facility] | + + + | Organization | [facility] | + + + | Address | Unknown | + + + | Phone | Unavailable | + + + Support + + +---------+ + | Name | Relationship | Address | Phone | + + +---------+ + | aThmina Aaron | ECON | Unknown | | + + +---------+ + Care Team Providers + +------+ + | Care Paper Twister Name | Role | Phone | + +------+ + | Jelani Higgins MD | PCP | | + +------+ + Encounter Details +--------+ + + + + | Date | Type | Department | Care Team | Description | +--------+ + + + + | 03/20/ | X Ray Service Technician | Pulmonary & | Zion Roth, | | | 2019 | | Critical Care | [address] | | | | | Medicine at | [facility] | | | | | [facility] | [place], [place] | | | | | [address] | [address] | | | | | [address] | [phone] | | | | | [place], [address] [place] [address] | | | | | | [place], [place] | | | | | | [address] | | | | | | [phone] | | | +--------+ + + + [...]
--- OUTSIDE RECORDS SUMMARY | ~2020-02-19 | XMS | Encounter Summary ---
Demographics + + + | Address | [address] [place] [address] RD | | | [place] [address] | + + + | Home Phone | | + + + | Preferred Language | Unknown | + + + | Marital Status | | + + + | Congregation Affiliation | Unknown | + + + | Race | White | + + + | Ethnic Group | Not or | + + + Author + + + | Author | [facility] | + + + | Organization | [facility] | + + + | Address | Unknown | + + + | Phone | Unavailable | + + + Support + + +---------+ + | Name | Relationship | Address | Phone | + + +---------+ + | Tahmina Aaron | ECON | Unknown | | + + +---------+ + Care Team Providers + +------+ + | Care Pipeline Integrity Engineer Name | Role | Phone | [...] [id number] | | | | | | [place], [place] | | | | | | [address] | | | | | | [phone] | | | +--------+ + + + [...] | + + + + + | [facility] | [address] | [place] [address] | | | PATHOLOGY | [address] | | | + + + + + documented in this encounter Visit Diagnoses Not on filedocumented in this encounter"
--- OUTSIDE RECORDS SUMMARY | ~2020-02-19 | XMS | Encounter Summary ---
Demographics + + + | Address | [address] [place] [address] RD | | | [place] [address] | + + + | Home Phone | | + + + | Preferred Language | Unknown | + + + | Marital Status | | + + + | Rastafarian Affiliation | Unknown | + + + [...] Team Providers + +------+ + | Care Diagnostics Tech Name | Role | Phone | + +------+ + | Jelani Higgins MD | PCP | | + +------+ + Encounter Details +--------+ + + + + | Date | Type | Department | Care Team | Description | +--------+ + + + + | 10/26/ | Ancillary | Registration [address] | Masha Pickering ANP | | | 2006 | Registratio | [address] | | | | | n | [address] Mailcode: [id number] | | | | | | [place], [place] | | | | | | [address] | | | | | | [phone] | | | +--------+ + + + [...]
--- OUTSIDE RECORDS SUMMARY | ~2020-02-19 | XMS | Encounter Summary ---
Demographics + + + | Address | [address] [place] [address] RD | | | [place] [address] | + + + | Home Phone [...] Team Providers + +------+ + | Care Keg Raiser Name | Role | Phone | + +------+ + PCP | Unavailable | + +------+ + Reason for Visit + + + | Reason | Comments | + + + | Refill Request | | + + + Encounter Details +--------+--------+ + + + | Date | Type | Department | Care Team | Description | +--------+--------+ + + + | 06/20/ | Refill | Pulmonary & | Masha Pickering ANP | Refill Request | | 2006 | | Critical Care | | | | | | Medicine at | | | | | | [facility] | | | | | | [address] | | | | | | [address] | | | | | | Pavilion, 3rd Floor | | | | | | [place], [place] | | | | | | [address] | | | | | | [phone] | | | +--------+--------+ + + + [...]
--- OUTSIDE RECORDS SUMMARY | ~2020-02-19 | XMS | Encounter Summary ---
Demographics + + + | Address | [address] [place] [address] RD | | | [place] [address] | + + + | Home Phone [...] Team Providers + +------+ + | Care Flame Cutting Machine Operator Name | Role | Phone | + +------+ + | Jerry Adrian MD | PCP | | + +------+ + Reason for Visit + + + | Reason | Comments | + + + | Refill Request | Request for Fluticasone Prop [address] [facility] [place] | + + + Encounter Details +--------+--------+ + + + | Date | Type | Department | Care Team | Description | +--------+--------+ + + + | 07/09/ | Refill | Pulmonary & | Misha Pace MD | Refill Request | | 2010 | | Critical Care | [address] | (Request for | | | | Medicine at | [facility], | Fluticasone Prop 50 | | | | [facility] | [place] [address] | [facility] [place]) | | | | [address] | [phone] | | | | | [address] | | | | | | [place], 3rd Floor | | | | | | [place], [place] | | | | | | [address] | | | | | | [phone] | | | +--------+--------+ + + + [...]
--- OUTSIDE RECORDS SUMMARY | ~2020-02-19 | XMS | Encounter Summary ---
Demographics + + + | Address | [address] [place] [address] RD | | | [place] [address] | + + + | Home Phone | | + + + | Preferred Language | Unknown | + + + | Marital Status | | + + + | Pentecostalism Affiliation | Unknown | + + + [...] Team Providers + +------+ + | Care Health Care Analyst Name | Role | Phone | + [...] | | | | Medicine at | [facility] | | | | | Phys[facility] | [place], [place] | | | | | [address] | [address] | | | | | [address] | [phone] | | | | | Pavilion, 3rd Floor | | | | | | [place], [place] | | | | | | [address] | | | | | | [phone] | | | +--------+--------+ + + + [...]
--- OUTSIDE RECORDS SUMMARY | ~2020-02-19 | XMS | Encounter Summary ---
Demographics + + + | Address | [address] [place] [address] RD | | | [place] [address] | + + + | Home Phone [...] Team Providers + +------+ + | Care Gun Stock Checker Name | Role | Phone | + +------+ + | Jelani Higgins MD | PCP | | + +------+ + Encounter Details +--------+ + + + + | Date | Type | Department | Care Team | Description | +--------+ + + + + | 04/20/ | Ancillary | Registration [address] | Masha Pickering ANP | | | 2005 | Registratio | [address] [facility] | | | | | n | [address] Mailcode: [id number] | | | | | | [place], [place] | | | | | | [address] | | | | | | [phone] | | | +--------+ + + + [...]
--- OUTSIDE RECORDS SUMMARY | ~2020-02-19 | XMS | Encounter Summary ---
Demographics + + + | Address | [address] [place] [address] RD | | | [place] [address] | + + + | Home Phone [...] Providers + +------+ + | Care Sales Department Manager Name | Role | Phone | + +------+ + PCP | Unavailable | + +------+ + Encounter Details +--------+ + + + + | Date | Type | Department | Care Team | Description | +--------+ + + + + | 09/06/ | Results | Pulmonary Function | Misha Pace MD | | | 2000 | Only | Lab at [facility] [address] | [address] | | | | | [address] | [facility], | | | | | [place] | [place] [address] | | | | | [facility], [place] | [phone] | | | | | [address] | | | | | | [phone] | | | +--------+ + + + [...] [facility] | [address] | [place], [place] | | | DIAGNOSTICS - | [address] | [address] | | | PULMONARY FUNCTION | | | | + + + + + documented in this encounter Visit Diagnoses Not on filedocumented in this encounter"
--- OUTSIDE RECORDS SUMMARY | ~2020-02-19 | XMS | Encounter Summary ---
Demographics + + + | Address | [address] [place] [address] RD | | | [place] [address] | + + + | Home Phone [...] Team Providers + +------+ + | Care Electronics Production Supervisor Name | Role | Phone | [...] as of this encounter Progress Notes Interface, Bridal Consultant In - 04/20/2006 2:02 AM PDT [id number] ISABEL Matos [id number] Clinic Date: 10/13/2005 Clinic: Pulmonary and Critical Care Problem: COPD secondary to snhrw-4-wjszudonray deficiency. Interim History: I last saw Anabell [...] in 6 months. Pavithra Shi / TRISTIAN [id number] / [id number] / [id number] / [id number] Electronically signed by Masha Pickering 04-19-2006 11:29:33 AM documented i n this encounter Plan of Treatment Not on filedocumented as of this encounter Visit Diagnoses Not on filedocumented in this encounter"
--- OUTSIDE RECORDS SUMMARY | ~2020-02-19 | XMS | Encounter Summary ---
Demographics + + + | Address | [address] [place] [address] RD | | | [place] [address] | + + + | Home Phone | | + + + | Preferred Language | Unknown | + + + | Marital Status | | + + + | Restoration Affiliation | Unknown | + + + [...] Team Providers + +------+ + | Care Welcome Wagon Hostess Name | Role | Phone | + [...] Pavilion | | | | | | [address] | | | | | | [address] | | | | | | Pavilion, 3rd Floor | | | | | | [place], [place] | | | | | | [address] | | | | | | [phone] | | | +--------+--------+ + + + [...]
--- OUTSIDE RECORDS SUMMARY | ~2020-02-19 | XMS | Encounter Summary ---
Demographics + + + | Address | [address] [place] [address] RD | | | [place] [address] | + + + | Home Phone | | + + + | Preferred Language | Unknown | + + + | Marital Status | | + + + | Moravian Affiliation | Unknown | + + + [...] Team Providers + +------+ + | Care Vp Of Customer Experience Strategy Name | Role | Phone | + +------+ + PCP | Unavailable | + +------+ + Encounter Details +--------+ + + + + | Date | Type | Department | Care Team | Description | +--------+ + + + + | 08/24/ | Office | [facility] | Note, [...] as of this encounter Progress Notes Interface, Cofounder In - 08/11/2006 3:05 AM [facility] DATE: 08/24/2000 PULMONARY CLINIC CHIEF COMPLAINT: Concern over status of lung disease. HISTORY OF PRESENT ILLNESS: The patient's last visit was on July 22, 1999. The patient spoke with me on the phone on January 20, 2000. The patient says that he feels good without any change. He is very active in a hiking and walking program. He has a mountain/hunting camp to which hikes in on Wednesday and hikes out on Wednesday. He has had improved exercise tolerance and is able to keep up with friends. No chronic cough, no sputum production, no wheezing, no dyspnea on exertion with activities of daily living. He has had two occasions with sinus symptoms that have been improved with courses of Vancenase and Biaxin. He has had no chest pain or lower extremity edema, and no fevers, chills, sweats, or night sweats. No problems with his prostacyclin infusion which he gets every 2 weeks. MEDICATIONS: Serevent 2 puffs b.i.d., Azmacort 2 puffs b.i.d., Prolastin infusion 140 mg/kg IV every 2 weeks, Vancenase 2 puffs b.i.d. each nostril, and Biaxin 500 mg p.o. b.i.d. p.r.n. sinus problems. PAST MEDICAL HISTORY: Unchanged. 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 REVIEW OF SYSTEMS: As detailed above. Has lost weight with intentional weight loss. No other new problems. PHYSICAL EXAMINATION: GENERAL: A gentleman, stated age, well nourished, and well hydrated in no acute distress. VITAL SIGNS: Weight 206 pounds, heart rate 60 and regular, blood pressure 130/76, temperature 97.8 degrees Fahrenheit, and O2 saturation 95% on room air. SKIN: Warm and dry with good turgor without petechia or ecchymoses. HEENT: Normocephalic and atraumatic. Sclerae anicteric without injection. Oropharynx clear without erythema or exudate. NECK: Supple without lymphadenopathy. CHEST: Symmetric to observation, percussion, and auscultation with good expansion and excursion. No dullness or vesicular breath sounds. Without rales or rhonchi. CARDIAC: Regular rate and rhythm. ABDOMEN: Mildly obese, soft, positive bowel sounds, nontender. EXTREMITIES: No clubbing, cyanosis, or edema. NEUROLOGIC: Alert and oriented x 3. Mental status intact. No tremor. LABORATORY DATA: FEV1 1.80 l (45% of predicted) ( ) after bronchodilators. FVC 3.65 l (70% of predicted), increase of 7% after bronchodilator 3.97 (77% of predicted). Recent alpha 1-antitrypsin level is 62. Liver tests recently have been in the acceptable range. ASSESSMENT 1. 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 Clinically stable, although he has had a continued decrement in pulmonary function tests. Unclear etiology. 2. Chronic sinusitis, improved. PLAN: Followup liver tests, pulmonary function tests, and exam in 6 months or sooner if signs or symptoms warrant. Continue alcohol and acetaminophen abstinence. Continue medications. Flu shot today. Return to clinic in 6 months' time or sooner if signs or symptoms warrant. Jimmie Montalvo M.D. [employer] of Pulmonary and Critical Care Medicine [facility] / HS [id number] / [id number] / [id number] / [id number] cc: Jerry Adrian M.D. [facility] [address] [place] [address] [place] [id number] signed by Interface, Cofounder In at 08/11/2006 3:05 AM PSTdocume nted in this encounter Plan of Treatment Not on filedocumented as of this encounter Visit Diagnoses Not on filedocumented in this encounter"
--- OUTSIDE RECORDS SUMMARY | ~2020-02-19 | XMS | Encounter Summary ---
Demographics + + + | Address | [address] [place] [address] RD | | | [place] [address] | + + + | Home Phone | | + + + | Preferred Language | Unknown | + + + | Marital Status | | + + + | Jain Affiliation | Unknown | + + + [...] Team Providers + +------+ + | Care Warehouse Picker Name | Role | Phone | + [...] Critical Care | [address] | (Advair) | | | | Medicine at | [facility] | | | | | Phys[facility] | [place], [place] | | | | | [address] | [address] | | | | | [address] | [phone] | | | | | [place], [facility] Floor | | | | | | [place], [place] | | | | | | [address] | | | | | | [phone] | | | +--------+--------+ + + + [...]
--- OUTSIDE RECORDS SUMMARY | ~2020-02-19 | XMS | Encounter Summary ---
Demographics + + + | Address | [address] [place] [address] RD | | | [place] [address] | + + + | Home Phone | | + + + | Preferred Language | Unknown | + + + | Marital Status | | + + + | Anglican Affiliation | Unknown | + + + [...] Team Providers + +------+ + | Care Business Development Name | Role | Phone | + +------+ + | Jerry Adrian MD | PCP | | + +------+ + Encounter Details +--------+ + + + + | Date | Type | Department | Care Team | Description | +--------+ + + + + | 01/14/ | Telephone | Pulmonary & | Misha Pace MD | | | 2016 | | Critical Care | [address] | | | | | Medicine at | [facility], | | | | | Phys[facility] | [place] [address] | | | | | [address] | [phone] | | | | | [address] | | | | | | Pavilion, 3rd Floor | | | | | | [place], [place] | | | | | | [address] | | | | | | [phone] | | | +--------+ + + + [...]
--- OUTSIDE RECORDS SUMMARY | ~2020-02-19 | XMS | Encounter Summary ---
Demographics + + + | Address | [address] [place] [address] RD | | | [place] [address] | + + + | Home Phone | | + + + | Preferred Language | Unknown | + + + | Marital Status | | + + + | Mandaen Affiliation | Unknown | + + + | Race | White | + + + | Ethnic Group | Not or | + + + Author + + + | Author | [facility] | + + + | Organization | [facility] | + + + | Address | Unknown | + + + | Phone | Unavailable | + + + Support + + +---------+ + | Name | Relationship | Address | Phone | + + +---------+ + | Tahmina Aaron | ECON | Unknown | | + + +---------+ + Care Team Providers + +------+ + | Care Certified Indoor Environmentalist Name | Role | Phone | + +------+ + | Jerry Adrian MD | PCP | | + +------+ + Encounter Details +--------+ + + + + | Date | Type | Department | Care Team | Description | +--------+ + + + + | 01/28/ | Results/Int | Pulmonary Function | | Dyspnea and | | 2017 | erpretation | Lab at [facility] [address] | | respiratory | | | | [address] | | abnormalities | | | | [address] [facility] | | (Primary Dx) | | | | [place], [place] | | | | | | [address] | | | | | | [phone] | | | +--------+ + + + [...] + documented as of this encounter Progress Savannah Yanes MD - 01/30/2018 10:19 PM PDT Refer to PFT report. P DTdocumented in this encounter Plan of Treatment Not on filedocumented as of this encounter Procedures + +--------+ + + + | Procedure Name | Priori | Date/Time | Associated Diagnosis | Comments | | | ty | | | | + +--------+ + + + | GA DIFFUSING | Routin | 01/30/2018 | Dyspnea and | | | CAPACITY | e | 10:19 PM | respiratory | | | | | PDT | abnormalities | | + +--------+ + + + | GA SPIROMETRY TEST | Routin | 01/30/2018 | Dyspnea and | | | | e | 10:19 PM | respiratory | | | | | PDT | abnormalities | | + +--------+ + + + | SPIROMETRY, PULM | Routin | 01/28/2018 | COPD with chronic | Results for this | | FUNCTION LAB | e | 9:11 AM | bronchitis (HCC) | procedure are in the | | | | PDT | [id number] | results section. | | | | | deficiency (HCC) | | + +--------+ + + + documented in this encounter Visit Diagnoses + + | Diagnosis | + + | Dyspnea and respiratory abnormalities - Primary | + + documented in this encounter"
--- OUTSIDE RECORDS SUMMARY | ~2020-02-19 | XMS | Encounter Summary ---
Demographics + + + | Address | [address] [place] [address] RD | | | [place] [address] | + + + | Home Phone [...] Team Providers + +------+ + | Care Regional Loss Prevention Manager Name | Role | Phone | + +------+ + | Jerry Adrian MD | PCP | | + +------+ + Encounter Details +--------+ + + + + | Date | Type | Department | Care Team | Description | +--------+ + + + + | 01/17/ | Results | Registration [id number] | | | | 1998 | Only | [address] | | | | | | [address] Mailcode: [id number] | | | | | | [place], [place] | | | | | | [address] | | | | | | [phone] | | | +--------+ + + + [...] + | PULMONARY FUNCTION | Routin | 01/17/1999 | | Results for this | | TESTS | e | 8:00 AM | | procedure are in the | | | | PDT | | results section. | + +--------+ + + + documented in this encounter Results PULMONARY FUNCTION TESTS (01/17/1999 8:00 AM PDT) + + + + + + | Component | Value | Ref Range | Performed | Pathologist | | | | | At | Signature | + + + + + + | FVC | 4.27 | L | | | | MEASURED | | | | | + + + + + + | FVC % PRED | 84. | % | | | + + + + + + | FEV1 | 1.98 | L/S | | | | MEASURED | | | | | + + + + + + | FEV1 % PRED | 49. | % | | | + + + + + + | FEV1/FVC | 46. | % | | | | MEASURED | | | | | + + + + + + | FEF(25-75) | 0.46 | L/S | | | + + + + + + | FEF(25-75) | 12. | % | | | | % PRED | | | | | + + + + + + | FVC POST | 80. | % | | | | BD'S % PRED | | | | | + + + + + + | FEV1 POST | 2.03 | L | | | | BD'S [...] + + + + | FEF() | 0.49 | L/S | | | | POST BD'S | | | | | | MEASURD | | | | | + + + + + + | FEF() | 13. | % | | | | POST BD'S % | | | | | | PRED | | | | | + + + + + + | FEV1 BD'S % | 3. | % | | | | CHANGE | | | | | + + + + + + | REST SAT | 95. | % | | | + + + + + + + + | Specimen | + + | | + + + + + + + | Performing | Address | City/State/Zipcode | Phone Number | | Organization | | | | + + + + + | [facility] | [address] | [place] [address] | | | PATHOLOGY | [address] | | | + + + + + documented in this encounter Visit Diagnoses Not on filedocumented in this encounter"
--- OUTSIDE RECORDS SUMMARY | ~2020-02-19 | XMS | Encounter Summary ---
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 History of Present Illness: Anabell was feeling pretty much in his respiratory baseline until approximately 2 weeks ago when he started having intermittent wheezing and increased shortness of breath which he attributes to being out in the cold air. He has not taken any antibiotics for several months. He did not take any with this episode. He denies any hemoptysis. He does have some bilateral pain under both scapula which does increase with taking a deep breath. This has been going on for a week or so but also coincides with activities required of him for his job. He has not been waking up at night, short of breath, or wheezing. Review of Systems Constitutional: He feels like his energy level was down a bit during the colder weather, but he is feeling almost back to normal. ENT: He has not needed any antibiotics for sinusitis for approximately a year. As long as he uses his inhaled steroids, he is able to stave off any sinusitis symptoms. Cardiovascular: No chest pain or palpitations. Respiratory: As above. GI: No pain. His appetite is good. Bowel movements are normal. Musculoskeletal: Negative. : Negative. Neurologic: Negative. Review of systems is otherwise negative. Medications: Azmacort 2 puffs b.i.d.; Serevent 2 puffs b.i.d.; Flonase 1 to 2 inhalations in each nostril daily; albuterol 1 to 2 puffs p.r.n., it is a rescue medicine which he only uses prior to heavy activity and has considered using it when at work; Prolastin 140 mg/kg IV every 2 weeks; and he does not use any oxygen. 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 He is less active during the winter time. Allergies: He has no known drug allergies. Objective Vital Signs: Weight was 200.7 pounds which is up about 8 pounds since July 2003, temperature 98.0, blood pressure 110/80, pulse was 64 and regular, respiratory rate was 18 when he arrived but 16 when I examined him, oxygen saturation was 95% at rest on room air. General: He does not appear acutely or chronically ill. Skin: Warm and dry. Color was good. HEENT: Sclerae were anicteric. Conjunctivae were noninjected. No nasal polyps or purulent nasal drainage were visualized. Pharynx was noninjected, no exudate or lesions. Neck: Supple with no masses or lymphadenopathy. Chest: He had diminished breath sounds in both bases and does have some fine bibasilar crackles. No wheezing even on forced expiratory maneuver. Cardiac: Heart sounds were a bit distant but unremarkable. S1 and S2. No murmurs or rubs. Abdomen: Round and soft with active bowel sounds. No masses, tenderness, or organomegaly. Extremities: No edema, cyanosis, or clubbing. Laboratory Data: Prebronchodilator spirometry done today reveals an FVC of 2.71 L (54% predicted), FEV1 of 1.66 L (42% predicted), and FEV1/FVC is 61%. Postbronchodilator FVC was 2.90 L (28% predicated), FEV1 of 1.62 L (41% predicated), and FEV1/FVC of 66%. This represents a postbronchodilator increase in FVC of 7% and a decrease in FEV1 of 3%. This compares to spirometry done on February 13, 2003, at which time his prebronchodilator FVC was 3.25 L, FEV1 was 1.76 L. Postbronchodilator FVC was 3.41 L, FEV1 was 1.76 L. Complete metabolic panel done in [place] in January 2003 was within normal limits. Assessment 1. Cerah-5-tewmhpytsyk deficiency. 2. Chronic obstructive pulmonary disease secondary to nzxmg-5-xvddqflkyce deficiency. He does have a history of asthmatic component with this. Spirometry today reveals moderate obstructive ventilatory defect with a suggestion of restriction and no significant reversibility. Symptomatically, he is recovering from the bed of an exacerbation. Plan: We will switch him to Advair 500/50 one inhalation b.i.d. x2 weeks and then decrease to Advair 250/50 one inhalation b.i.d. If symptomatically he tolerates this, we will continue with this combination rather than the Azmacort and the Serevent, mostly for convenience reasons. I did give him refills for all these medications including the Flonase. I also suggested that he use his 1 puff of albuterol prior to having to do any unloading or loading of things on to his truck or putting on chains, etc. He is going to continue to seek ways to get physical exercise during the winter time. He will return to see us in 3 to 4 months at which time a complete metabolic panel and CBC should be repeated. Zaid Shi. Division of Pulmonary and Critical Care / [id number] / [id number] / [id number] / cc: Jerry Adrian M.D. [address] [place] [id number] signed by Interface, Microbiology Lab Technician In at 05/02/2005 4:4 9 PM PDTdocumented in this encounter Plan of Treatment Not on filedocumented as of this encounter Visit Diagnoses Not on filedocumented in this encounter"
--- OUTSIDE RECORDS SUMMARY | ~2020-02-19 | XMS | Encounter Summary ---
Demographics + + + | Address | [id number] [place] [address] RD | | | [place] [address] | + + + | Home Phone | | + + + | Preferred Language | Unknown | + + + | Marital Status | | + + + | Faith Affiliation | Unknown | + + + [...] Team Providers + +------+ + | Care Engineering Technology Instructor Name | Role | Phone | + +------+ + | Jelani Higgins MD | PCP | | + +------+ + Encounter Details +--------+ + + + + | Date | Type | Department | Care Team | Description | +--------+ + + + + | 12/28/ | Documentati | Pulmonary & | Zion Roth, | | | 2013 | on | Critical Care | [address] | | | | | Medicine at | [facility] | | | | | [facility] | [place], [place] | | | | | [address] | [address] | | | | | [address] [facility] | [phone] | | | | | [place], [address] [place] [address] | | | | | | [place], [place] | | | | | | [address] | | | | | | [phone] | | | +--------+ + + + [...]
--- OUTSIDE RECORDS SUMMARY | ~2020-02-19 | XMS | Encounter Summary ---
Demographics + + + | Address | [address] [place] [address] RD | | | [place] [address] | + + + | Home Phone | | + + + | Preferred Language | Unknown | + + + | Marital Status | | + + + | Caodaism Affiliation | Unknown | + + + | Race | White | + + + | Ethnic Group | Not or | + + + Author + + + | Author | [facility] | + + + | Organization | [facility] | + + + | Address | Unknown | + + + | Phone | Unavailable | + + + Support + + +---------+ + | Name | Relationship | Address | Phone | + + +---------+ + | Tahmina Aaron | ECON | Unknown | | + + +---------+ + Care Team Providers + +------+ + | Care School Health Assistant Name | Role | Phone | + +------+ + | Jerry Adrian MD | PCP | | + +------+ + Encounter Details +--------+ + + + + | Date | Type | Department | Care Team | Description | +--------+ + + + + | 08/04/ | Results/Int | Pulmonary Function | | Chronic airway | | 2012 | erpretation | Lab at [facility] [address] | | obstruction, not | | | | [address] | | elsewhere classified | | | | [facility] | | (Primary Dx) | | | | [place], [place] | | | | | | [address] | | | | | | [phone] | | | +--------+ + + + [...] encounter Progress Notes Zion Roth MD - 08/14/2013 10:28 AM PST Refer to PFT report. d ocumented in this encounter Plan of Treatment Not on filedocumented as of this encounter Procedures + +--------+ + + + | Procedure Name | Priori | Date/Time | Associated Diagnosis | Comments | | | ty | | | | + +--------+ + + + | AL SPIROMETRY TEST | Routin | 08/14/2013 | Chronic airway | | | | e | 10:28 AM | obstruction, not | | | | | PST | elsewhere classified | | + +--------+ + + + | SPIROMETRY, PULM | Routin | 08/04/2013 | | Results for this | | FUNCTION LAB | e | 10:46 AM | Twcrh-5-[id number] | procedure are in the | | | | PDT | deficiency (HCC) | results section. | | | | | COPD with chronic | | | | | | bronchitis (HCC) | | + +--------+ + + + documented in this encounter Visit Diagnoses + + | Diagnosis | + + | Chronic airway obstruction, not elsewhere classified - Primary | + + documented in this encounter"
--- OUTSIDE RECORDS SUMMARY | ~2020-02-19 | XMS | Encounter Summary ---
Demographics + + + | Address | [address] [place] [address] RD | | | [place] [address] | + + + | Home Phone | | + + + | Preferred Language | Unknown | + + + | Marital Status | | + + + | Episcopal Affiliation | Unknown | + + + | Race | White | + + + | Ethnic Group | Not or | + + + Author + + + | Author | [facility] | + + + | Organization | [facility] | + + + | Address | Unknown | + + + | Phone | Unavailable | + + + Support + + +---------+ + | Name | Relationship | Address | Phone | + + +---------+ + | Tahmina Aaron | ECON | Unknown | | + + +---------+ + Care Team Providers + +------+ + | Care Silk Snapper Name | Role | Phone | + +------+ + PCP | Unavailable | + +------+ + Encounter Details +--------+ + + + + | Date | Type | Department | Care Team | Description | +--------+ + + + + | 06/08/ | Office | General Internal | Note, Outpatient | Progress Note | | 1995 | Visit-Trans | Medicine [address] | Clinic | | | | emma | [place] | | | | | | Mailcode: [id number] | | | | | | Outpatient Clinic | | | | | | [facility], [address] | | | | | | [place], [place] | | | | | | [address] | | | | | | [phone] | | | +--------+ + + + [...] as of this encounter Progress Notes Interface, Operations Section Manager In - 12/21/2006 3:12 AM PDT CLINIC DATE: 06/08/96 INTERNAL MEDICINE CLINIC CHIEF COMPLAINT: Establish primary care. This is a 46-year-old male previously followed by Dr. Johansen. PAST MEDICAL HISTORY: Alpha-1 antitrypsin deficiency diagnosed in 1993. He has chronic bronchitis and emphysema with a reactive airways component. He has been treated with Prolastin since 1993. History of sinus polyps, post-polypectomy in 1993. Multiple environmental allergies to dust mites, mold, alfalfa and wheat. He is receiving allergy immunotherapy since 1993. History of multiple exostoses of the right lower extremity removed as a teenager. History of hypertension, untreated. History of elevated cholesterol, untreated. SUBJECTIVE: Mr. Aaron reports his lung disease has been stable the last six to twelve months. He is able to do all the things he enjoys such as hunting, hiking and a variety of vigorous outdoor activities. He does note he has to take it slower than in years past but overall is happy with how he feels. This year he has had intermittent URIs about every three months; however, each of these has been self-limited and has not required antibiotics or prednisone. The most recent flare was about ten days ago but is now resolving. He does have questions about immunotherapy as he feels for a few days after his injection he is more congested and is wondering if perhaps this could be contributing to his q three month pattern of symptoms. Of note, he was on safari in [place] since February and has not had injections since then and has felt better during that time than while he was taking the shots. He has undertaken many efforts at changing his environment. They switched to propene heat, recirculating filters, water vacuums only, dust mite covers and have removed most of the carpeting in the house. There are no pets. Otherwise, he is well and has no complaints. He reports he was scheduled for a colon cancer screening test several years ago but when he became sick with his lung disease did not follow-up on it. He also reports he was told he had hypertension at one time and elevated cholesterol but has not sought treatment for either. MEDICATIONS: 1. Azmacort two puffs q 12 hours. 2. Serevent two puffs q 12 hours. 3. Prolastin 10 mg q two weeks. 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 Outdoor interests are many including hunting and photography. He does not smoke but has a 26 pack year history, quitting in 1988. He has not used alcohol in many years. PHYSICAL EXAMINATION: Weight is 197.5 lb, BP 102/80, pulse 54 and regular. The remainder of the examination is deferred secondary to time constraints. LABORATORY: Pulmonary function testing done today shows an FEV1 of 2.18 or 53% of predicted, FVC of 4.02 or 78% of predicted, ratio of 0.54. There is a 4% FEV1 change and 11% FVC change with bronchodilator. ASSESSMENT/PLAN: 1. Alpha-1 antitrypsin deficiency. Will plan to continue checking pulmonary function tests every six months. He does have prednisone as well as a prescription for ten days of Clarithromycin on hand in case his symptoms worsen. He does have a physician in [place] but has never seen this person and has received all of his medical care at [facility] and in [place]. He would like to continue being followed here but will receive his Prolastin in [place]. 2. COPD with chronic bronchitis and a reactive component. Symptoms are currently well controlled with Serevent and Azmacort. I did ask if he was interested in increasing his dose of Azmacort and he felt since his symptoms are not particularly bothersome he would like to continue at current dose. He did inquire about the newer steroid inhalers; however, I am not sure if these are on the market yet and will let him know by phone. 3. History of sinusitis with polyps, currently asymptomatic. 4. Environmental allergies. I spent some time discussing the possible role of immunotherapy in triggering exacerbations. I asked him to make an appointment to speak with the glazing machine operator about his concerns before quitting the shots entirely as he has already progressed to a stable dose and it would be a shame to have to begin therapy again if he is off the shots for too long. He is also to send copies of his records up here for review. 5. Family history of colon cancer. We spent a great deal of time discussing the importance of early screening for colon cancer. Since he has just one first degree relative with early colon cancer, I believe stool guaiacs and a screening flexible sigmoidoscopy are sufficient for screening. We will discuss this with GI, however, and find someone in [place] who can perform the tests as the patient feels it would be difficult to do the prep and drive to [place] on the same day. He was given stool guaiac cards. 6. Health maintenance. Will plan to check a fasting cholesterol and do more thorough physical exam and review of systems at our next visit in six months. He is to return then. Nataly Guajardo M.D. Instructor, Internal Medicine SL:[email or web address] documented in this encounter Plan of Treatment Not on filedocumented as of this encounter Visit Diagnoses Not on filedocumented in this encounter"
--- OUTSIDE RECORDS SUMMARY | ~2020-02-19 | XMS | Encounter Summary ---
Demographics + + + | Address | [id number] [place] [address] RD | | | [place] [address] | + + + | Home Phone | | + + + | Preferred Language | Unknown | + + + | Marital Status | | + + + | Christian Affiliation | Unknown | + + + [...] Team Providers + +------+ + | Care Draw Furnace Tender Name | Role | Phone [...] | | | Medicine at | [facility] | | | | | [facility] | [place], [place] | | | | | [address] | [address] | | | | | [address] [facility] | [phone] | | | | | [place], [facility] Floor | | | | | | [place], [place] | | | | | | [address] | | | | | | [phone] | | | +--------+--------+ + + + [...]
--- OUTSIDE RECORDS SUMMARY | ~2020-02-19 | XMS | Encounter Summary ---
Demographics + + + | Address | [address] [place] [address] RD | | | [place] [address] | + + + | Home Phone | | + + + | Preferred Language | Unknown | + + + | Marital Status | | + + + | Shinto Affiliation | Unknown | + + + | Race | White | + + + | Ethnic Group | Not or | + + + Author + + + | Author | [facility] | + + + | Organization | [facility] | + + + | Address | Unknown | + + + | Phone | Unavailable | + + + Support + + +---------+ + | Name | Relationship | Address | Phone | + + +---------+ + | Tahmina Aaron | ECON | Unknown | | + + +---------+ + Care Team Providers + +------+ + | Care Greens Laborer Name | Role | Phone | + +------+ + | Jerry Adrian MD | PCP | | + +------+ + Reason for Visit +--------+ + | Reason | Comments | +--------+ + | COPD | f/u | +--------+ + Encounter Details +--------+---------+ + + + | Date | Type | Department | Care Team | Description | +--------+---------+ + + + | 04/12/ | Office | Pulmonary & | Misha Pace MD | Alpha 1-Antitrypsin | | 2008 | Visit | Critical Care | [address] | Deficiency; COPD | | | | Medicine at | [facility], | with Chronic | | | | [facility] | [place] [address] | Bronchitis (HCC); | | | | [address] | [phone] | Sinusitis | | | | [address] [facility] | | | | | | [facility], [address]rd Floor | | | | | | [place], [place] | | | | | | [address] | | | | | | [phone] | | | +--------+---------+ + + + [...] + + + | Blood Pressure | 104/62 | 04/12/2009 10:25 AM | | | | | PDT | | + + + + + | Pulse | 59 | 04/12/2009 10:25 AM | | | | | PDT | | + + + + + | Temperature | 36.4 C (97.6 F) | 04/12/2009 10:25 AM | | | | | PDT | | + + + + + | Respiratory Rate | 16 | 04/12/2009 10:25 AM | | | | | PDT | | + + + + + | Oxygen Saturation | 93% | 04/12/2009 10:25 AM | | | | | PDT | | + + + + + | Inhaled Oxygen | - | - | | | Concentration | | | | + + + + + | Weight | 92.1 kg (203 lb) | 04/12/2009 10:25 AM | | | | | PDT | | + + + + + | Height | 178.1 cm (5' 10.13") | 04/12/2009 10:25 AM | | | | | PDT | | + + + + + | Body Mass Index | 29.02 | 04/12/2009 10:25 AM | | | | | PDT | | + + + + + documented in this encounter Patient Instructions Patient Instructions Misha Pace MD - 04/12/2009 11:31 AM PDTWhen sinus clears, restart Spiriva one puff daily. Continue Advair If sinus problems continue, would check sinus CT ( previous surgery 15 years ago) Breathing capacity better I marked allergy to Pneumonia/Pneumovac Keep up exercise. Prolastin schedule OK. documented in this encounter Progress Notes Misha Pace MD - 04/12/2009 11:28 AM PDTFormatting of this note might be different from t he original. Encounter Diagnoses Code Name Primary? Qualifier 273.4D Alpha 1-Antitrypsin Deficiency 491.20H COPD with Chronic Bronchitis 473.9F Sinusitis Several weeks ago, runny nose, increased pressure right side of face, earache. Saw Dr. Adrian and took Avelox one daily for 7 days, finished 3 days ago. Also had cap/crown 2-3 weeks ear lier. Symptoms cleared after 3 days. No LRI. Uses Spiriva one daily but gets sore throat so stops for couple months at a time, recent stop. See my phone conversation several months ago . Uses Advair BID. Rarely uses albuterol as no increased dyspnea. No prednisone use in ?coup le years. Receives Prolastin approximately 12 gm q 2 weeks at [facility]. No reacti ons. Continues get out, some hiking, into mountains. Developed redness left arm 4 days after Pneumovac last visit that persisted to chest for we eks. Physical Exam: Ht 178.1 cm (5' 10.13")( < 3 %ile), Wt 92.08 kg (203 lbs)( < 3 %ile), BP 104 /62, Pulse 59, Temperature 36.4 C (97.6 F), Temperature source Oral, RR 16, SpO2 93%. General: No acute distress, otherwise unchanged from previous exam. Nares: No evidence of nasal erythema, polyps, purulence, congestion or septal deviation. No mucus Throat: No erythema, exudate, or tonsillar enlargement Neck: No evidence of elevated jugular veins or lymphadenopathy Lungs: Clear to auscultation bilaterally, no wheezes, rhonchi or crackles Cardiac: regular No murmurs, rubs or gallops. Extremities: No cyanosis, clubbing, or edema Musculoskeletal: No obvious joint deformities noted. Neurologic: Exam grossly non-focal. Skin: No evidence of rash or skin changes. Lymph nodes: No other lymphadenopathy detected. LABS:Spirometry results were the following: FVC=3.07 FVC% predicted=64 FEV1=1.57 FEV1% predicted=43 FEV1/FVC=51 FEF 25-75=0.50 FEF 25-75% predicted=17 PEF=6.07 PEF% predicted=66 Post bronchodilator spirometry was the following: FVC=3.19 FVC% predicted=67 FEV1=1.66 FEV1% predicted=46 FEV1/FVC=52 FEF 25-75=0.56 FEF 25-75% predicted=19 PEF=6.23 PEF% predicted=67 FEV1% change post bronchodilator=6 Six minute walk was performed. Patient walked 1380 feet in 6 minutes. Prior to walk test, the at rest heart rate was 59 and the SPO2 was 95 After walk heart rate was 88 and SPO2 was 91 The patients test was performed on room air. Severe obstruction and restriction. Improved compared to 08/11. Low FVC probably due to air trapping. Desaturation on walk test not into abnormal range. ASSESSMENT: 1. COPD secondary to AAT deficiency, no severe setbacks, quite physically activ e, improved spirometry; pn augmentation therapy. 2. Possible recent sinusitis; 3. Unclear if systemic reaction to Pneumovax- he is convinced; resolved. PLAN: Long discussion and issues covered in written instructions: When sinus clears, restart Spiriva one puff daily. Continue Advair If sinus problems continue, would check sinus CT ( previous surgery 15 years ago) Breathing capacity better I marked allergy to Pneumonia/Pneumovac Keep up exercise. Prolastin schedule OK. do cumented in this encounter Plan of Treatment + + +--------+ + + | Name | Type | Priori | Associated Diagnoses | Order Schedule | | | | ty | | | + + +--------+ + + | SPIROMETRY BEFORE / | Procedures | Routin | COPD with Chronic | Ordered: 04/12/2009 | | AFTER BRONCHODIL, | | e | Bronchitis (HCC) | | | PULM FUNCTION LAB | | | | | + + +--------+ + + documented as of this encounter Procedures + +--------+ + + + | Procedure Name | Priori | Date/Time | Associated Diagnosis | Comments | | | ty | | | | + +--------+ + + + | ORDERS OTHER | | 02/24/2010 | | Results for this | | | | 12:00 AM | | procedure are in the | | | | PDT | | results section. | + +--------+ + + + | ORDERS OTHER | | 07/15/2009 | | Results for this | | | | 12:00 AM | | procedure are in the | | | | PDT | | results section. | + +--------+ + + + documented in this encounter Results ORDERS OTHER (02/24/2010 12:00 AM PDT) + + + | Narrative | Performed At | + + + | | | + + + + + | Procedure Note | + + | Miroslava Faculty - 02/24/2010 12:00 AM PDT | | | + + ORDERS MIROSLAVA (07/15/2009 12:00 AM PDT) + + + | Narrative | Performed At | + + + | | | + + + + + | Procedure Note | + + | Jamila [place] - 07/15/2009 12:00 AM PDT | | | + + documented in this encounter Visit Diagnoses + + | Diagnosis | + + | Alpha 1-antitrypsin deficiency Qwbzp-1-wcllwhobvyo deficiency | + + | COPD with chronic bronchitis (HCC) Obstructive chronic bronchitis without | | exacerbation | + + | Sinusitis Unspecified sinusitis (chronic) | + + documented in this encounter
--- OUTSIDE RECORDS SUMMARY | ~2020-02-19 | XMS | Encounter Summary ---
Demographics + + + | Address | [address] [place] [address] RD | | | [place] [address] | + + + | Home Phone [...] + + + | Author | [facility] | + + + | Organization | [facility] | + + + | Address | Unknown | + + + | Phone | Unavailable | + + + Support + + +---------+ + | Name | Relationship | Address | Phone | + + +---------+ + | Tahmina Aaron | ECON | Unknown | | + + +---------+ + Care Team Providers + +------+ + | Care Gear Cutting Machine Set Up Operator Name | Role | Phone | + +------+ + | Jerry Adrian MD | PCP | | + +------+ + Reason for Visit + + + | Reason | Comments | + + + | Medication Refill | | + + + Encounter Details +--------+ + + + + | Date | Type | Department | Care Team | Description | +--------+ + + + + | 10/11/ | Telephone | Pulmonary & | Misha Pace MD | Medication Refill | | 2009 | | Critical Care | [address] | | | | | Medicine at | [address] [place], | | | | | [facility] | [place] [address] | | | | | [address] | [phone] | | | | | [address] [facility] | | | | | | Pavilion, 3rd Floor | | | | | | [place], [place] | | | | | | [address] | | | | | | [phone] | | | +--------+ + + + [...]
--- OUTSIDE RECORDS SUMMARY | ~2020-02-19 | XMS | Encounter Summary ---
Demographics + + + | Address | [address] [place] [address] RD | | | [place] [address] | + + + | Home Phone [...] Team Providers + +------+ + | Care Automotive Sales Executive Name | Role | Phone | + [...] | Pulmonary & | Carolina Hi, | Zvrfn-7-oyuoiixieml | | 2014 | Visit | Critical Care | [address] | deficiency (HCC) | | | | Medicine at | [facility] [address] | (Primary Dx); COPD | | | | [facility] | [place], [place] | with chronic | | | | [address] | [address] | bronchitis (HCC) | | | | [facility] | [phone] | | | | | Pavilion, 3rd Floor | | | | | | [place], [place] | | | | | | [address] | | | | | | [phone] | | | +--------+---------+ + + + [...] 08/03/2014 Primary Care Provider: Jerry Adrian MD [facility] [address] [place] [address] Referring Provider: Misha Pace MD [address] [place] [address] To Aaron is a 64 y.o. male in pulmonary clinic today for the follow up of COPD and A1AT deficiency. PROBLEM LIST: A1AT - Prolastin IV d7lneqa - Tiotropium - Advair - FEV1 ~1.5 and stable since 2005 Subjective: To Aaron reports that he has been doing very well. Hasn't needed albut jose for over a year and that was when he was having to chain up going [place]. He denies any fever currently and [...] this visit. Past Medical History Diagnosis Date Jeycz-2-zjtatowbtpi deficiency Past Social and Family History: No [...] COPD. CAROLINA HI MD PULMONARY/CRITICAL CARE MEDICINE [address] [place] [address] Mailcode: [address] [place] [id number] Display Progress Note in MyChart: Yes documented in this en counter Plan of Treatment Not on filedocumented as of this encounter Visit Diagnoses + + | Diagnosis | + + | Eapiw-7-oichfpspyuy deficiency (HCC) - Primary Wjadl-1-fcwemlguwca deficiency | + + | COPD with chronic bronchitis (HCC) Obstructive chronic bronchitis without | | exacerbation | + + documented in this encounter
--- OUTSIDE RECORDS SUMMARY | ~2020-02-19 | XMS | Encounter Summary ---
Demographics + + + | Address | [address] [place] [address] RD | | | [place] [address] | + + + | Home Phone [...] + + + | Author | [facility] | + + + | Organization | [facility] | + + + | [...] + + + + | 08/03/ | Hospital | Pulmonary Function | Tech P[facility] Adult | | | 2013 | Encounter | Lab at [facility] [address] | [address] | | | | | [address] | [facility], | | | | | [place], | [place] [address] | | | | | [address] [place] [address], | | | | | | [place] [address] | | | | | | [phone] | | | +--------+ + + + [...] LAB | e | 8:04 AM | Avizg-4-mnmrsvfeylx | procedure are in the | | | | PDT | deficiency (HCC) | results section. | + +--------+ + + + documented in this encounter Results SPIROMETRY, PULM FUNCTION LAB (08/03/2014 8:04 AM PDT) + + + + + + | Component | Value | Ref Range | Performed | Pathologist | | | | | At | Signature | + + + + + + | PULMONARY | Site: [facility] | | [facility] | | | INTERPRETAT | [facility] | | SPECIAL | | | ION | [address] [facility], | | DIAGNOSTICS | | | | [place], [place], | | - | | | | [address]KT: [id number] | | PULMONARY | | | | Name: ISABEL, | | FUNCTION | | | | HERMAN LTech: Jovan, | | | | | | MarkAge: 64 Sex: Male | | | | | | CaucasianHeight: | | | | | | 70.08 Inches Weight: | | | | | | 204.81 Lbs BSA: | | | | | | 2.11Diagnosis: Alpha 1 | | | | | | Antitrypsin Deficiency | | | | | | 273.4Dyspnea: On hills | | | | | | and stairs Cough: | | | | | | Productive Wheeze: | | | | | | FrequentTbco Prod: | | | | | | Cigarette Yrs Smk: | | | | | | 10.0 Pks/Day: 1.0 | | | | | | Yrs Quit: | | | | | | 25.0Medications: Spiriva | | | | | | and AdvairPost Test | | | | | | Comments: Good patient | | | | | | effort & cooperation. | | | | | | The Results of this | | | | | | test appear to be valid, | | | | | | ATS criteria for three | | | | | | acceptable maneuvers was | | | | | | met. Height and weight | | | | | | reviewed with patient. | | | | | | | | | | | | | | | | | | Pre-Bronch | | | | | | | | | | | | Post-Bronch | | | | | | | | | | | | Actual Pred | | | | | | %Pred | | | | | | Actual %Pred | | | | | | %ChngSPIROMETRYFVC (L) | | | | | | | | | | | | 2.62 | | | | | | 4.58 57 | | | | | | | | | | | | FEV1 (L) | | | | | | | | | | | | 1.44 3.41 | | | | | | 42 | | | | | | | | | | | | FEV1/FVC (%) | | | | | | 55 | | | | | | 74 74 | | | | | | | | | | | | FEF 25% | | | | | | (L/sec) | | | | | | 1.53 7.41 | | | | | | 21 | | | | | | | | | | | | FEF 50% (L/sec) | | | | | | 0.30 | | | | | | 4.40 7 | | | | | | | | | | | | FEF 75% | | | | | | (L/sec) | | | | | | 0.18 1.32 | | | | | | 13 | | | | | | | | | | | | FEF 25-75% (L/sec) | | | | | | 0.39 | | | | | | 2.67 15 | | | | | | | | | | | | FEF Max (L/sec) | | | | | | | | | | | | 5.44 8.74 62 | | | | | | | | | | | | FIVC | | | | | | (L) | | | | | | 2.85 | | | | | | | | | | | | | | | | | | FIF 50% | | | | | | (L/sec) | | | | | | 6.72 6.83 | | | | | | 98 | | | | | | | | | | | | FIF Max (L/sec) | | | | | | 6.77 | | | | | | | | | | | | | | | | | | LUNG | | | | | | VOLUMESDIFFUSIONDLCOunc | | | | | | (ml/min/mmHg) | | | | | | 23.97 24.79 | | | | | | 97 | | | | | | | | | | | | DLCOcor (ml/min/mmHg) | | | | | | 23.11 | | | | | | 24.79 93 | | | | | | | | | | | | DL/VA | | | | | | (ml/min/mmHg/L) | | | | | | 4.01 3.53 | | | | | | 114 | | | | | | | | | | | | VA (L) | | | | | | | | | | | | 5.76 7.03 82 | | | | | | | | | | | | BLOOD | | | | | | GASESHgb (gm/dL) | | | | | | | | | | | | 16.0 | | | | | | | | | | | | | | | | | | Interpretation: | | | | | | INTERPRETATION: | | | | + + + + + + | FVC PRE | 2.62 | 4.58 L | [facility] | | | | | | SPECIAL | | | | | | DIAGNOSTICS | | | | | | - | | | | | | PULMONARY | | | | | | FUNCTION | | + + + + + + | FVC PRE | 57 | % | [facility] | | | (%REF) | | | SPECIAL | | | | | | DIAGNOSTICS | | | | | | - | | | | | | PULMONARY | | | | | | FUNCTION | | + + + + + + | FEV1 PRE | 1.44 | 3.41 L | [facility] | | | | | | SPECIAL | | | | | | DIAGNOSTICS | | | | | | - | | | | | | PULMONARY | | | | | | FUNCTION | | + + + + + + | FEV1 PRE | 42 | % | [facility] | | | (%REF) | | | SPECIAL | | | | | | DIAGNOSTICS | | | | | | - | | | | | | PULMONARY | | | | | | FUNCTION | | + + + + + + | FEV1/FVC | 55 | 74 % | [facility] | | | PRE | | | SPECIAL | | | | | | DIAGNOSTICS | | | | | | - | | | | | | PULMONARY | | | | | | FUNCTION | | + + + + + + | FEV1/FVC | 74 | % | [facility] | | | PRE (%REF) | | | SPECIAL | | | | | | DIAGNOSTICS | | | | | | - | | | | | | PULMONARY | | | | | | FUNCTION | | + + + + + + | PEF PRE | 5.44 | 8.74 L/sec | [facility] | | | | | | SPECIAL | | | | | | DIAGNOSTICS | | | | | | - | | | | | | PULMONARY | | | | | | FUNCTION | | + + + + + + | PEF PRE | 62 | % | [facility] | | | (%REF) | | | SPECIAL | | | | | | DIAGNOSTICS | | | | | | - | | | | | | PULMONARY | | | | | | FUNCTION | | + + + + + + | [id number]% | 0.39 | 2.67 L/sec | [facility] | | | PRE | | | SPECIAL | | | | | | DIAGNOSTICS | | | | | | - | | | | | | PULMONARY | | | | | | FUNCTION | | + + + + + + | [id number]% | 15 | % | [facility] | | | PRE (%REF) | | | SPECIAL | | | | | | DIAGNOSTICS | | | | | | - | | | | | | PULMONARY | | | | | | FUNCTION | | + + + + + + | FIF50% PRE | 6.72 | 6.83 L/sec | [facility] | | | | | | SPECIAL | | | | | | DIAGNOSTICS | | | | | | - | | | | | | PULMONARY | | | | | | FUNCTION | | + + + + + + | FIF50% PRE | 98 | % | [facility] | | | (%REF) | | | SPECIAL | | | | | | DIAGNOSTICS | | | | | | - | | | | | | PULMONARY | | | | | | FUNCTION | | + + + + + + | DLCO PRE | 23.97 | 24.79 | [facility] | | | | | ml/min/mmHg | SPECIAL | | | | | | DIAGNOSTICS | | | | | | - | | | | | | PULMONARY | | | | | | FUNCTION | | + + + + + + | DLCO PRE | 97 | % | [facility] | | | (%REF) | | | SPECIAL | | | | | | DIAGNOSTICS | | | | | | - | | | | | | PULMONARY | | | | | | FUNCTION | | + + + + + + | DLCO ADJ | 23.11 | 24.79 | [facility] | | | PRE | | ml/min/mmHg | SPECIAL | | | | | | DIAGNOSTICS | | | | | | - | | | | | | PULMONARY | | | | | | FUNCTION | | + + + + + + | DLCO ADJ | 93 | % | [facility] | | | PRE (%REF) | | | SPECIAL | | | | | | DIAGNOSTICS | | | | | | - | | | | | | PULMONARY | | | | | | FUNCTION | | + + + + + + | DLCO/VA ADJ | 4.01 | ml/min/mmHg/L | [facility] | | | PRE | | | SPECIAL | | | | | | DIAGNOSTICS | | | | | | - | | | | | | PULMONARY | | | | | | FUNCTION | | + + + + + + | DLCO/VA ADJ | 114 | % | [facility] | | | [...] | + + | Jamila [place] - 08/07/2014 3:12 PM PST | + + + + + + + | Performing | Address | City/State/Zipcode | Phone Number | | Organization | | | | + + + + + | [facility] | [address] | [place], [place] | | | DIAGNOSTICS - | [place] | [address] | | | PULMONARY FUNCTION | | | | + + + + + documented in this encounter Visit Diagnoses + + | Diagnosis | + + | Kveqb-9-lqolgazuyul deficiency (HCC) Abykj-3-zigjeroyjnq deficiency | + + documented in this encounter"
--- OUTSIDE RECORDS SUMMARY | ~2020-02-19 | XMS | Encounter Summary ---
Demographics + + + | Address | [address] [place] [address] RD | | | [place] [address] | + + + | Home Phone | | + + + | Preferred Language | Unknown | + + + | Marital Status | | + + + | Religion Affiliation | Unknown | + + + [...] Team Providers + +------+ + | Care Motor Rebuilder Name | Role | Phone | + [...] | +--------+ + + + + | 03/27/ | Telephone | Pulmonary & | Zion Roth, | Medication Refill | | 2019 | | Critical Care | [address] | | | | | Medicine at | [facility] | | | | | [facility] | [place], [place] | | | | | [address] | [address] | | | | | [address] [facility] | [phone] | | | | | [place], 3rd Floor | | | | | | [place], [place] | | | | | | [address] | | | | | | [phone] | | | +--------+ + + + [...]
--- OUTSIDE RECORDS SUMMARY | ~2020-02-19 | XMS | Encounter Summary ---
Demographics + + + | Address | [address] [place] [address] RD | | | [place] [address] | + + + | Home Phone | | + + + | Preferred Language | Unknown | + + + | Marital Status | | + + + | Samaritan Affiliation | Unknown | + + + | Race | White | + + + | Ethnic Group | Not or | + + + Author + + + | Author | [facility] | + + + | Organization | [facility] | + + + | Address | Unknown | + + + | Phone | Unavailable | + + + Support + + +---------+ + | Name | Relationship | Address | Phone | + + +---------+ + | Tahmina Aaron | ECON | Unknown | | + + +---------+ + Care Team Providers + +------+ + | Care Quality Coordinator Name | Role | Phone | + +------+ + | Jelani Higgins MD | PCP | | + +------+ + Encounter Details +--------+ + + + + | Date | Type | Department | Care Team | Description | +--------+ + + + + | 04/12/ | Manager Intranet | Pulmonary & | Zion Roth, | Aezyp-5-lvzqvpqzfgn | | 2012 | | Critical Care | [address] | deficiency (HCC) | | | | Medicine at | [facility] [address] | (Primary Dx); COPD | | | | [facility] | [place], [place] | with chronic | | | | [address] | [address] | bronchitis (HCC) | | | | [facility] | [phone] | | | | | [facility], [facility] Floor | | | | | | [place], [place] | | | | | | [address] | | | | | | [phone] | | | +--------+ + + + [...] + | Diagnosis | + + | Rfcvb-5-fetwlfgnzyy deficiency (HCC) - Primary Gjxtf-9-qcetkqzxizc deficiency | + + | 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
--- OUTSIDE RECORDS SUMMARY | ~2020-02-19 | XMS | Encounter Summary ---
Demographics + + + | Address | [address] [place] [address] RD | | | [place] [address] | + + + | Home Phone [...] Team Providers + +------+ + | Care Anatomical Embalmer Name | Role | Phone | + +------+ + | Jerry Adrian MD | PCP | | + +------+ + Encounter Details +--------+ + + + + | Date | Type | Department | Care Team | Description | +--------+ + + + + | 02/02/ | Associate Director Qa | Pulmonary & | Zion Roth, | | | 2018 | | Critical Care | [address] | | | | | Medicine at | [facility] | | | | | [facility] | [place], [place] | | | | | [address] | [address] | | | | | [facility] | [phone] | | | | | [place], [facility] Floor | | | | | | [place], [place] | | | | | | [address] | | | | | | [phone] | | | +--------+ + + + [...]
--- OUTSIDE RECORDS SUMMARY | ~2020-02-19 | XMS | Encounter Summary ---
Demographics + + + | Address | [address] [place] [address] RD | | | [place] [address] | + + + | Home Phone [...] + + + | Author | [facility] | + + + | Organization | [facility] | + + + | Address | Unknown | + + + | Phone | Unavailable | + + + Support + + +---------+ + | Name | Relationship | Address | Phone | + + +---------+ + | Tahmina Aaron | ECON | Unknown | | + + +---------+ + Care Team Providers + +------+ + | Care Physical Chemistry Teacher Name | Role | Phone | [...] | | | | 3rd Floor | [place], [place] | | | | | | [place], [place] | [address] | | | | | | [address] | Phone: | | | | | | Phone: | [phone] | | | | | | [phone] | Fax: | | | | | | Fax: | [phone] | | | | | | [phone] | | +--------+--------+ + + + + Encounter Details +--------+ + + + + | Date | Type | Department | Care Team | Description | +--------+ + + + + | 01/29/ | Results/Int | Pulmonary Function | | Chronic obstructive | | 2016 | erpretation | Lab at [facility] [address] | | pulmonary disease, | | | | [address] | | unspecified COPD | | | | [facility] | | type (HCC) (Primary | | | | [place], [place] | | Dx) | | | | [address] | | | | | | [phone] | | | +--------+ + + + [...] documented as of this encounter Progress Notes David Judge MD - 02/12/2017 8:44 AM PDT Refer to PFT report. doc umented in this encounter Plan of Treatment Not on filedocumented as of this encounter Procedures + +--------+ + + + | Procedure Name | Priori | Date/Time | Associated Diagnosis | Comments | | | ty | | | | + +--------+ + + + | FL DIFFUSING | Routin | 02/12/2017 | Chronic | | | CAPACITY | e | 8:44 AM | obstructive | | | | | PDT | pulmonary disease, | | | | | | unspecified COPD | | | | | | type (HCC) | | + +--------+ + + + | FL SPIROMETRY TEST | Routin | 02/12/2017 | Chronic | | | | e | 8:44 AM | obstructive | | | | | PDT | pulmonary disease, | | | | | | unspecified COPD | | | | | | type (HCC) | | + +--------+ + + + | SPIROMETRY, PULM | Routin | 01/29/2017 | | Results for this | | FUNCTION LAB | e | 8:40 AM | Xjtjz-2-fsbvvvhiaat | procedure are in the | | | | PDT | deficiency (HCC) | results section. | + +--------+ + + + documented in this encounter Visit Diagnoses + + | Diagnosis | + + | Chronic obstructive pulmonary disease, unspecified COPD type (HCC) - Primary | + + documented in this encounter"
--- OUTSIDE RECORDS SUMMARY | ~2020-02-19 | XMS | Encounter Summary ---
Demographics + + + | Address | [address] [place] [address] RD | | | [place] [address] | + + + | Home Phone [...] Team Providers + +------+ + | Care Planning Associate Name | Role | Phone | + +------+ + | Jerry Adrian MD | PCP | | + +------+ + Encounter Details +--------+ + + + + | Date | Type | Department | Care Team | Description | +--------+ + + + + | 02/02/ | [employer] Room Attendant | Pulmonary & | Zion Roth, | | | 2018 | | Critical Care | [address] | | | | | Medicine at | [facility] | | | | | [facility] | [place], [place] | | | | | [address] | [address] | | | | | [address] [facility] | [phone] | | | | | [place], [facility] Floor | | | | | | [place], [place] | | | | | | [address] | | | | | | [phone] | | | +--------+ + + + [...]
--- OUTSIDE RECORDS SUMMARY | ~2020-02-19 | XMS | Encounter Summary ---
Demographics + + + | Address | [address] [place] [address] RD | | | [place] [address] | + + + | Home Phone [...] Team Providers + +------+ + | Care Facilities Technician Name | Role | Phone | [...] as of this encounter Progress Notes Interface, Mail Processing Clerk In - 08/23/2006 2:32 [facility]: [facility] PULMON[facility] CLINIC CHIEF COMPLAINT: Concern over pulmonary function in the setting of skokm-4-rnlwctbplgu deficiency. SUBJECTIVE: The patient says he is doing fine overall with little change in his symptoms. He traveled to [facility] in March-April for hunting and has [...] 1. 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 He is clinically stable but with some decrement in pulmonary function tests. 2. Ihfcp-0-qrxawslrpme deficiency, on replacement therapy. 3. Chronic sinusitis, [...] signs and symptoms warrant. Jimmie Montalvo M.D. [facility], Pulmonary Critical Care [facility] / HS [id number] / [id number] / [id number] / [id number] cc: SHABNAM OROURKE MD [address] [place] [address] [address] [place] [id number] signed by Interface, Mail Processing Clerk In at 08/23/2006 2:32 AM PSTdocumented in this encounter Plan of Treatment Not on filedocumented as of this encounter Visit Diagnoses Not on filedocumented in this encounter"
--- OUTSIDE RECORDS SUMMARY | ~2020-02-19 | XMS | Encounter Summary ---
Demographics + + + | Address | [address] [place] [address] RD | | | [place] [address] | + + + | Home Phone | | + + + | Preferred Language | Unknown | + + + | Marital Status | | + + + | Orthodoxy Affiliation | Unknown | + + + [...] Providers + +------+ + | Care Fire Lieutenant Marine Name | Role | Phone | + +------+ + PCP | Unavailable | + +------+ + Reason for Visit + + + | Reason | Comments | + + + | Refill Request | | + + + Encounter Details +--------+--------+ + + + | Date | Type | Department | Care Team | Description | +--------+--------+ + + + | 10/05/ | Refill | Pulmonary & | Masha Pickering ANP | Refill Request | | 2007 | | Critical Care | | | | | | Medicine at | | | | | | [facility] | | | | | | [address] | | | | | | [address] | | | | | | Pavilion, 3rd Floor | | | | | | [place], [place] | | | | | | [address] | | | | | | [phone] | | | +--------+--------+ + + + [...]
--- OUTSIDE RECORDS SUMMARY | ~2020-02-19 | XMS | Encounter Summary ---
Demographics + + + | Address | [id number] [place] [address] RD | | | [place] [address] | + + + | Home Phone [...] Team Providers + +------+ + | Care Magnetic Prospecting Operator Name | Role | Phone | + +------+ + PCP | Unavailable | + +------+ + Encounter Details +--------+ + + + + | Date | Type | Department | Care Team | Description | +--------+ + + + + | 07/07/ | Office | UNKNOWN DEPARTMENT | Note, Outpatient | Progress Note | | 1993 | Visit-Trans | [address] [facility] | Clinic | | | | emma | [address] | | | | | | [place], [place] | | | | | | [address] | | | +--------+ + + + [...] as of this encounter Progress Notes Interface, Dial Painter In - 01/30/2007 3:05 AM PDT CLINIC DATE: 07/07/94 PULMONARY AND CRITICAL CARE: REFERRAL SOURCE: Misha Maldonado M.D. REASON FOR REFERRAL: Further evaluation alpha1-antitrypsin deficiency. 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 PROBLEM #1: Alpha1-antitrypsin deficiency/emphysema. The patient mentions no breathing difficulties prior to three or four years ago when he had episodic chest pain after paroxysms of coughing accompanied by wheezing. The chest pain was both right and left side. He saw a brush clearing laborer who performed an electrocardiogram and treadmill and said that he did not have heart problems. The symptoms disappeared after that first winter, although they would recur on occasion. He noticed over the last couple of years intermittent shortness of breath when he would do vigorous exercise but did not seek medical attention. Last fall, he noted episodes of coughing, chest pain, wheezing, and "bubbling" with his breathing that worsened in August and September. He was seen either in a doctor office or emergency room two to three times and given several courses of Augmentin with only partial relief. At least on one of those visits, Albuterol, Atrovent, and Aerobid were tried with partial relief. He continued to have intermittent coughing, right and left chest pain, partly relieved by antibiotics. On occasion, he had accompanying sinus drainage. Doctor Asa Andujar performed intranasal sinus drainage in January 1994 with a decrease in his coughing. He still had occasional wheezing and noisy breathing particularly with cold air. He would had shortness of breath with vigorous exercise but not at rest or with walking on the level. In April, Doctor Haily prescribed Serevent two puffs twice daily and Azmacort four puffs twice daily, although he is only taking two puffs twice daily. That further diminished the coughing. About that time, Doctor Con did skin testing and began a desensitization program to mold, dust mites, alfalfa, and wheat. He has had weekly injections since that time. The past few weeks, his breathing has been the best over the past eight or nine months. He still is short of breath with vigorous exercise and has occasional right upper and left upper chest pain, particularly after coughing. He has had no recent fever or chills. He denies past history of pneumonia and asthma. He has never had tuberculosis, although an adopted daughter had tuberculosis that was treated. A PPD was applied several times last winter and was negative. He has not been hospitalized for this problem. The only emergency room visits were last winter. PAST MEDICAL HISTORY: Surgical history includes multiple exostoses in his right leg removed at age 14 and age 20. He had one episode of high blood pressure noted several years ago but not repeated. He denies myocardial infarction but had cardiac evaluation as noted earlier. He denies stroke, diabetes, peptic ulcer disease, or hepatitis. 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 He smoked from age 18 until five years ago. Alcohol: None in recent years. Other drugs: None. MEDICATIONS: See above. Occasional Albuterol and Multi-Vitamins. He denies ever using prednisone or Khanh-Dur. ALLERGIES TO MEDICATIONS: I did not record. OTHER REVIEW OF SYSTEMS: He denies fever or chills. He says his weight has been stable. He denies arthritis. He denies blood transfusions. He says his bowel movements are regular without blood. He had one bladder infection about five years ago but no recurrence. He denies heat or cold intolerance. HABITAT: He has lived all of his life in [place]. He lives in a house and has no pets. 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 He may have used [employer] for a year or two near the end. 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 He does do some occasional repair. ACTIVITY: He is proud of his hunting which is both archery and rifle. He has been hunting this fall both with archery and rifle. He is proud of the fact that he has bagged animals on each of the tags except elk which he hopes to do. He also has hobbies of taxidermy, woodwork, and gun building. He says that about five years ago, he used to walk ahead of his companions but more recently he is toward the end but is able to keep up. FAMILY HISTORY: Father at 53 of colon carcinoma and diabetes. Mother is alive with diabetes. He has two brothers, age 48 and 38, who are well. He has been on two occasions and currently lives with his . He has daughters age 25 and 26 and an adopted daughter who is age 23. None of them have been checked for alpha1-antitrypsin deficiency. PHYSICAL EXAMINATION: A pleasant slightly overweight but otherwise husky man in no distress. His weight is 202. Blood pressure 116/80, 112/82 by me. Pulse 64, 60 and regular. Respiratory rate 16. EYES: No icterus. Extraocular movements intact. Fundi benign. NOSE: Throat shows mild edema but there is no mucus or bleeding points. MOUTH: Unremarkable. NECK: No nodes. The jugular venous pressure is 1 cm above the clavicle at 30 degrees. CHEST: No dullness and completely clear to auscultation. HEART: No murmur or gallop. ABDOMEN: The liver is felt about 4 cm below the costal margin and has an 11 cm breadth but the musculature makes it a little difficult to be absolutely certain of the edge which I think is smooth. There is no palpable spleen. EXTREMITIES: No cyanosis, clubbing, or edema. NEUROLOGICAL: Not done. LABORATORY DATA: The only blood studies are an alpha1-antitrypsin level of 19 on December 19, 1993. A phenotype is ZZ on June 04, 1994. Arterial blood gases on December 19, 1993, on room is pH 7.39, pCO2 39, and pO2 68 which is slightly reduced. Spirometry on December 19, 1993, shows an FVC of 4.08 and an FEV1 of 2.21. The TLC is 7.22 or 101%. The DLCO is 28.2 or 95%. Spirometry today shows an FVC of 3.74 or 72% and FEV1 2.05 or 49%. After aerosol bronchodilator, the FVC is 3.93 or 76% and the FEV1 is 2.26 or 54%. This is a 10% improvement. These show moderate to severe obstructive impairment and are slightly reduced compared to December 19, 1993. Sinus series on December 19, 1993, shows a large retention cyst or polyp in the right maxillary antrum. The other sinuses are unremarkable according to the report. I reviewed accompanying chest x-rays. Two films on January 01, 1993, show a hyperinflation with slight flattening of the diaphragm. There is atelectasis at both bases. Two films on January 15, 1993, show essentially no change. Two films on September 11, 1993, show de in the atelectasis with a better inspiration. Two films on December 05, 1993, show a slight crowding of the markings on the lateral in the area of the lingula. All of these findings are nonspecific, although there is a suggestion of hyperinflation by flattening of the diaphragms. ASSESSMENT: 1. Alpha1-antitrypsin deficiency confirmed by reduced alpha1-antitrypsin level and PiZZ. 2. 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 He has moderate to severe impairment by pulmonary function and mild hypoxemia. There is no cor pulmonale on today's examination. 3. I thought his liver was slightly enlarged on physical examination. There are no liver function studies available. 4. History of sinusitis and sinus drainage surgery five months ago. COMMENT AND MANAGEMENT PLAN: 1. I discussed my findings over an hour with the patient, describing the pathophysiology of alpha1-antitrypsin deficiency, its diagnosis, and its management including the use of augmentation therapy with Prolastin. I answered any questions from the patient. Doctor Maldonado joined us in conversation to assist with responses to questioning. 2. It was my recommendation that augmentation therapy be initiated as soon as he has had a chance to review the written material that I have provided, discussed with his family, and checked with his insurance. I think it is an appropriate use of that medication as he fits the guidelines recommended by the [place] [employer]. 3. I told him I would be able to answer further questions at any time and assist his physicians in initiating Prolastin management if he so desired. Misha Pace M.D. Recruitment Advertising Manager, Medicine Division of Pulmonary and Critical Care AFB:matt CC: MISHA MALDONADO MD DE[facility] documented in this encounter Plan of Treatment Not on filedocumented as of this encounter Visit Diagnoses Not on filedocumented in this encounter
--- OUTSIDE RECORDS SUMMARY | ~2020-02-19 | XMS | Encounter Summary ---
Demographics + + + | Address | [id number] [place] [address] RD | | | [place] [address] | + + + | Home Phone [...] Team Providers + +------+ + | Care Fiberglass Model Maker Name | Role | Phone | + +------+ + | Jerry Adrian MD | PCP | | + +------+ + Reason for Visit + + + | Reason | Comments | + + + | [id number] | | | deficiency | | + + + Encounter Details +--------+---------+ + + + | Date | Type | Department | Care Team | Description | +--------+---------+ + + + | 07/13/ | Office | Pulmonary & | [place], [place] C, | [id number] | | 2011 | Visit | Critical Care | [address] | deficiency ([facility]); | | | | Medicine at | [address] | COPD with chronic | | | | [facility] | [place], [place] | bronchitis ([facility]) | | | | [address] | [address] | | | | | [address] [facility] | [phone] | | | | | Pavilion, [facility] Floor | | | | | | [place], [place] | | | | | | [address] | | | | | | [phone] | | | +--------+---------+ + + + [...] + | Blood Pressure | 124/80 | 04/15/2012 9:02 AM | | | | | PDT | | + + + + + | Pulse | 73 | 04/15/2012 9:02 AM | | | | | PDT | | + + + + + | Temperature | 36.9 C (98.4 F) | 04/15/2012 9:02 AM | | | | | PDT | | + + + + + | Respiratory Rate | 16 | 04/15/2012 9:02 AM | | | | | PDT | | + + + + + | Oxygen Saturation | 92% | 04/15/2012 9:02 AM | | | | | PDT | | + + + + + | Inhaled Oxygen | - | - | | | Concentration | | | | + + + + + | Weight | 93.1 kg (205 lb 3.2 | 04/15/2012 9:02 AM | | | | oz) | PDT | | + + + + + | Height | 178.4 cm (5' 10.25") | 04/15/2012 9:02 AM | | | | | PDT | | + + + + + | Body Mass Index | 29.23 | 04/15/2012 9:02 AM | | | | | PDT | | + + + + + documented in this encounter Patient Instructions Patient Instructions [place] Hi MD - 04/15/2012 9:38 AM PDTYour lungs haven't change d since 2005. Congratulations! Please come back to see me in a year. documented in this encounter Progress Notes [place] Hi MD - 04/15/2012 9:00 AM PDTFormatting of this note might be different fro m the original. Date: 04/15/2012 Primary Care Provider: MD K[facility] [address] [place] [address] Referring Provider: Misha Pace MD [address] [place] [address] To Aaron is a 61 y.o. male in pulmonary clinic today for the follow up of A1AT and COPD. PROBLEM LIST: A1AT - Prolastin IV [id number] - Tiotropium - Advair - FEV1 ~1.5 and stable since 2005 Subjective: To Aaron is a 61 y.o. 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 He reports that h enirqueta continues to do very well. 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 He is excited about [facility] this year as his cameras have noted some very large bulls. He denies any fever, chills or night sweats. He continues to walk into his ImmunotEGG spots without too much difficult y (around 2.5miles). He went to a auto glass worker a couple of weeks ago and will get the resul ts of the tests next week. Current Medications: Current Outpatient Prescriptions Medication Sig albuterol 90 mcg/Actuation Inhalation HFA Aerosol Inhaler Inhale 2 Puffs every six hour s as needed. Rinse mouth after use. fluticasone (FLONASE) 50 mcg/Actuation Nasal [place], Suspension Instill 1 [place] in nose once daily. fluticasone-salmeterol (ADVAIR DISKUS) 250-50 mcg/dose Inhalation Disk with Device Inha le 1 Puff two times daily. PROLASTIN IV 12 gms every 2 weeks tiotropium (SPIRIVA WITH HANDIHALER) 18 mcg Inhalation Capsule, w/Inhalation Device inh nancy the contents of one capsule (18mcg) by inhalation route once daily; rinse mouth after us e Past Social and Family History: No significant changes since last visit. Review of systems: As above. All other reviews other negative or unchanged from previous vi sit. Physical Exam: Visit Vitals Item Reading BP 124/80 Pulse 73 Temp (Src) 36.9 C (98.4 F) (Oral) RR 16 Ht 178.4 cm (5' 10.25") Wt 93.078 kg (205 lb 3.2 oz) SpO2 92% BMI 29.23 kg/(m^2) General: No acute distress, otherwise unchanged from previous exam. KEELEY: Normocephalic, PERRLA, EOMI, external ears without lesions Nares: No evidence of nasal erythema, polyps, purulence, congestion or septal deviation. Throat: No erythema, exudate, or tonsillar enlargement. Neck: No evidence of elevated jugular veins or lymphadenopathy. Lungs: Clear to auscultation bilaterally, no wheezes, rhonchi or crackles but overall decre ased breath sounds. Cardiac: regular rate and rhythm No murmurs, rubs or gallops. Abdomen: Normal abdominal bowel sounds; no evidence of hepatosplenomegaly. Non-tender, non- distended. Extremities: No cyanosis, clubbing, or edema. Musculoskeletal: No obvious joint deformities noted. Neurologic: Exam grossly non-focal. Skin: No evidence of rash or skin changes. Lymph nodes: No other lymphadenopathy detected. PFT's Date FVC FEV1 FEV1/FVC 04/15/12.....................3.25 (70%).................1.51 (43%)......................... ....46% 07/08/10.....................2.92 (63%).................1.19 (34%)......................... [...] 08/10/08......8.41 (124%)....3.44 (75%).....4.97 (228%).............59%.................... 0.77 (51%) DLCO 08/10/08...........21.3 (76%) 6MW 04/15/12............421 04/28/11............384 Flow-volume loops were reviewed. Results are consistent with obstructive lung disease. Assessment: 61 yo with A1AT deficiency and COPD. Overall pt has been doing extremely well in the past year. No exacerbations and he is able to do everything he wants to (sometimes he does it a little slower that in the past). In reviewing PFT's with the pt it was noted that his FEV1 has not changed in the past 6 years. This is very encouraging and can be attributed to ravinder patel care of himself and the prolastin. No changes needed in his medications at this time. Lyndsey ollow up in one year. Plan: RTC in one year. PFT's with 6 MW at that time I spent 40 minutes with the patient, over half of which was spent in counseling the patient regarding A1AT and COPD. CAROLINA HI MD PULMONARY/CRITICAL CARE MEDICINE [address] [place] [address] Mailcode: [id number] [phone] signed by Carolina Hi MD at 04/15/2012 1:27 PM PDTdocumente d in this encounter Plan of Treatment Not on filedocumented as of this encounter Visit Diagnoses + + | Diagnosis | + + | Ygnhy-0-bacblluvyoj deficiency (HCC) Zrmei-2-fvbcdnmtopt deficiency | + + | COPD with chronic bronchitis (HCC) Obstructive chronic bronchitis without | | exacerbation | + + documented in this encounter
--- OUTSIDE RECORDS SUMMARY | ~2020-02-19 | XMS | Encounter Summary ---
Demographics + + + | Address | [id number] [place] [address] RD | | | [place] [address] | + + + | Home Phone [...] Team Providers + +------+ + | Care Nuisance Wildlife Control Operator Name | Role | Phone | [...] [id number] | | | | | | [place], [place] | | | | | | [address] | | | | | | [phone] | | | +--------+ + + + [...] | + + + + + | [facility] | [address] | [place] [address] | | | PATHOLOGY | [address] | | | + + + + + documented in this encounter Visit Diagnoses Not on filedocumented in this encounter"
--- OUTSIDE RECORDS SUMMARY | ~2020-02-19 | XMS | Encounter Summary ---
Demographics + + + | Address | [id number] [place] [address] RD | | | [place] [address] | + + + | Home Phone [...] Team Providers + +------+ + | Care Air Tucker Name | Role | Phone | + [...] as of this encounter Progress Notes Interface, Waste Disposal Leakage Tester In - 05/24/2006 1:12 AM PDTCLINIC DATE: [...] of Pulmonary and Critical Care / HS [id number] / [id number] / [id number] / [id number] Tdocumented in this encounter Plan of Treatment Not on filedocumented as of this encounter Visit Diagnoses Not on filedocumented in this encounter"
--- OUTSIDE RECORDS SUMMARY | ~2020-02-19 | XMS | Encounter Summary ---
Demographics + + + | Address | [id number] [place] [address] RD | | | [place] [address] | + + + | Home Phone [...] + + + | Author | [facility] | + + + | Organization | [facility] | + + + | Address | Unknown | + + + | Phone | Unavailable | + + + Support + + +---------+ + | Name | Relationship | Address | Phone | + + +---------+ + | Tahmina Aaron | ECON | Unknown | | + + +---------+ + Care Team Providers + +------+ + | Care Nursing Home Manager Name | Role | Phone | [...] | | | | Medicine at | [address] | [place] ) | | | | [facility] | [place], [place] | | | | | [address] | [address] | | | | | [address] [facility] | [phone] | | | | | [address], [facility] Floor | | | | | | [place], [place] | | | | | | [address] | | | | | | [phone] | | | +--------+--------+ + + + [...]
--- OUTSIDE RECORDS SUMMARY | ~2020-02-19 | XMS | Encounter Summary ---
Demographics + + + | Address | [address] [place] [address] RD | | | [place] [address] | + + + | Home Phone [...] Team Providers + +------+ + | Care Distance Education Teacher Name | Role | Phone | + +------+ + | Jelani Higgins MD | PCP | | + +------+ + Encounter Details +--------+---------+ + + + | Date | Type | Department | Care Team | Description | +--------+---------+ + + + | 04/18/ | Office | Pulmonary & | Zion Roth, | [id number] | | 2019 | Visit | Critical Care | [address] | deficiency ([facility]) | | | | Medicine at | [address] | (Primary Dx); COPD | | | | [facility] | [place], [place] | with chronic | | | | [address] | [address] | bronchitis (HCC) | | | | [facility] | [phone] | | | | | [place], [address] [place] [address] | | | | | | [place], [place] | | | | | | [address] | | | | | | [phone] | | | +--------+---------+ + + + [...] + + + | Blood Pressure | 134/69 | 04/18/2019 9:54 AM | | | | | PDT | | + + + + + | Pulse | 61 | 04/18/2019 9:54 AM | | | | | PDT | | + + + + + | Temperature | 36.8 C (98.2 F) | 04/18/2019 9:54 AM | | | | | PDT | | + + + + + | Respiratory Rate | 20 | 04/18/2019 9:54 AM | | | | | PDT | | + + + + + | Oxygen Saturation | 95% | 04/18/2019 9:54 AM | | | | | PDT | | + + + + + | Inhaled Oxygen | - | - | | | Concentration | | | | + + + + + | Weight | 85.5 kg (188 lb 6.4 | 04/18/2019 9:54 AM | | | | oz) | PDT | | + + + + + | Height | 176.5 cm (5' 9.49") | 04/18/2019 9:54 AM | | | | | PDT | | + + + + + | Body Mass Index | 27.43 | 04/18/2019 9:54 AM | | | | | PDT | | + + + + + documented in this encounter Patient Instructions Patient Instructions Zion Roth MD - 04/18/2019 10:00 AM PDTWhat is my diagnosis/What am I being treated for? -Alpha-1 What is my plan for today s visit (what tests I have to do when I leave, how am I suppose d to use my medications)? -Continue prolastin What needs to happen for my condition to improve/resolve? -Keep as active as possible. What is the name of the doctor I saw today? -Zion Roth MD How do I get in touch with the doctor(s) in case I have a question? -Call [phone] We recommend signing up for [employer] our secure online messaging system that will allow you to communicate with your provider electronically. Directions for signing up are included in this packet. My Chart is an excellent way to ask questions and get advice about non-urgent problems. For more pressing concerns, call our office. In the event of an medical emergency you shojustino foster call 911 or present to the nearest Emergency Room. documented in this encounter Progress Notes Zion Roth MD - 04/18/2019 10:00 AM PDTFormatting of this note might be different fro m the original. Date: 04/18/2019 Primary Care Provider: Jelani Higgins MD [address] [facility] [place] [address] Referring Provider: No Referring Provider Per Patient NO REFERRING PROVIDER PER PT To Aaron is a 68 y.o. male in pulmonary clinic today for the follow up of A1AT. PROBLEM LIST: A1AT- Prolastin IV b6hcncn - Tiotropium - Advair - FEV1 ~1.5 and stable since 2005 Subjective: To Aaron reports he has lost 25# and is feeling 5x better. Did have pn eumonia over the winter but recovered. 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 Current Medications: Current Outpatient Medications Medication Sig albuterol 90 mcg/actuation inhalation HFA aerosol inhaler Inhale 2 puffs by mouth every six hours as needed. Rinse mouth after use. amoxicillin 500 mg oral capsule Take 1 capsule by mouth every eight hours. (Patient not taking: Reported on 04/18/2019) fluticasone (FLONASE) 50 mcg/actuation nasal spray,suspension Instill 1 spray in nose o nce daily. fluticasone propion-salmeterol (ADVAIR DISKUS) 250-50 mcg/dose inhalation blister with device Inhale 1 puff two times daily. PROLASTIN IV 12 gms every 2 weeks tiotropium (SPIRIVA WITH HANDIHALER) 18 mcg inhalation capsule, w/inhalation device inh nancy the contents of one capsule (18mcg) by inhalation route once daily; rinse mouth after us e No current facility-administered medications for this visit. Past Medical History: Diagnosis Date Fsder-5-qqrwlmweqxy deficiency (HCC) Past Social and Family History: No significant changes since last visit. Review of systems: As above. All others negative or unchanged from previous visit on comple te review of systems. Physical Exam: Visit Vitals Item Reading BP 134/69 Pulse 61 Temp (Src) 36.8 C (98.2 F) (Oral) RR 20 Ht 1.765 m (5' 9.49") Wt 85.5 kg (188 lb 6.4 oz) SpO2 95% BMI 27.43 kg/(m^2) General: No acute distress, otherwise unchanged [...] skin changes. PFTs Date FVC FEV1 FEV1/FVC 01/28/18.....................2.79 (63%).................1.12 (34%)......................... ....40% 01/29/17.....................2.39(53%).................1.34(40%)....................... ......56% 08/03/14.....................2.62 (57%).................1.44 (42%)......................... ....55% 08/04/13.....................3.26 (72%).................1.40 (41%)......................... [...] 08/10/08......8.41 (124%)....3.44 (75%).....4.97 (228%).............59%.................... 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 With the weight loss he has felt much better. Continue with prolastin and will come back to see me in a year. Plan: Continue prolastin Follow up in 1 year I spent 25 minutes in the care of the patient, over half of which was spent in counseling t he patient regarding alpha 1 antitrypsin treatment. Zion Roth MD PULMONARY/CRITICAL CARE MEDICINE [address] [place] [address] Mailcode: [id number] [place] [address] documented in this en counter Plan of Treatment Not on filedocumented as of this encounter Visit Diagnoses + + | Diagnosis | + + | Zekeq-7-juhuulpvbwo deficiency (HCC) - Primary Qsjqq-5-ngkspbyhrbn deficiency | + + | COPD with chronic bronchitis (HCC) Obstructive chronic bronchitis without | | exacerbation | + + documented in this encounter
--- OUTSIDE RECORDS SUMMARY | ~2020-02-19 | XMS | Encounter Summary ---
Demographics + + + | Address | [address] [place] [address] RD | | | [place] [address] | + + + | Home Phone [...] + +------+ + | Care Vice President Tax Name | Role | Phone | + [...] Description | +--------+--------+ + + + | 10/20/ | Refill | Pulmonary & | Zion Roth, | Refill Request | | 2017 | | Critical Care | [address] [facility] | | | | | Medicine at [facility] | | | | | [facility] | [place], [place] | | | | | [address] | [address] | | | | | [facility] | [phone] | | | | | [place], [facility] Floor | | | | | | [place], [place] | | | | | | [address] | | | | | | [phone] | | | +--------+--------+ + + + [...]
--- OUTSIDE RECORDS SUMMARY | ~2020-02-19 | XMS | Encounter Summary ---
Demographics + + + | Address | [address] [place] [address] RD | | | [place] [address] | + + + | Home Phone [...] Team Providers + +------+ + | Care Mining Teacher Name | Role | Phone | + +------+ + PCP | Unavailable | + +------+ + Encounter Details +--------+ + + + + | Date | Type | Department | Care Team | Description | +--------+ + + + + | 05/26/ | Office | UNKNOWN DEPARTMENT | Note, Outpatient | Progress Note | | 2006 | Visit-Trans | [address] [facility] | Clinic | | | | emma | [address] | | | | | | [place], [place] | | | | | | [address] | | | +--------+ + + + [...] as of this encounter Progress Notes Interface, Computer Graphics Illustrator In - 06/21/2007 2:26 AM PDT [id number] ISABEL Matos [id number] Clinic Date: 05/26/2007 Clinic: Adult Pulmonary Clinic Problem: 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 History of Present Illness: I last saw Anabell in our clinic on October 26, 2006. Since that time, he has done relatively well. He was having intermittent sinus headaches and congestion for about 2-1/2 months and called me on May 10, 2007, with symptoms that sounded like he had a sinus infection. I prescribed 10 days of amoxicillin for him. He said that his symptoms cleared up within a day or two, and now, he is wondering if in fact this was a reaction to spray he was using to kill bees. He currently has no purulent sinus drainage. He has a daily morning cough that is productive. He had some wheezing after using the bee killing product, but none otherwise. He has done well during this summer with a hiking that he ordinarily engages in. He denies any nighttime awakening, hemoptysis, or chest pain. Review of Systems: Constitutional: No fever, chills, or night sweats. His energy level is at its baseline. HEENT: He has not been doing his sinus rinses on a daily basis and has had some postnasal drip. Respiratory: As above. Cardiovascular: No chest pain or palpitations. GI: His appetite is good. No changes in his bowel habits. Musculoskeletal: Denies arthralgias or myalgias. Skin: Negative. Psych: His mood is good. A 14-point review of systems is otherwise negative. Medications: Prolastin 12 g every 2 weeks and Advair Diskus 250/50 1 inhalation twice a day. He has albuterol as a rescue medicine which he uses very rarely. He uses Flonase 1 spray in each nostril daily. Objective: Weight is 203 pounds; temperature 98.7; pulse is 66 and regular; blood pressure is 100/78 in his left arm, sitting; respiratory rate is 16; and oxygen saturation 96% at rest on room air. He does not appear acutely or chronically ill. Skin: Warm and dry. Color is good. HEENT: Sclerae anicteric. Conjunctivae noninjected. No purulent nasal drainage or nasal polyps are noted. Pharynx is noninjected. No exudate or lesions. Neck: Supple without lymphadenopathy or increased JVP. Chest: He has diminished breath sounds in both bases and some fine inspiratory crackles. Otherwise, his chest is clear. Heart sounds are unremarkable. S1 and S2. No murmurs or rubs. Abdomen: Round and soft with adequate bowel sounds. No masses, tenderness, or organomegaly. Extremities: No edema, cyanosis, or clubbing. Laboratory Data: Spirometry done today in clinic reveals a prebronchodilator FVC of 3.19 L (56% of predicted), FEV1 is 1.52 L (41% of predicted), and FEV1/FVC is 48%. Postbronchodilator FVC is 3.52 L (73% of predicted), FEV1 is 1.63 L (44% of predicted), and FEV1/FVC is 46%. This compares to spirometry done on October 26, 2006, at which time his prebronchodilator FVC was 2.9 L, FEV1 1.63 L, and FEV1/FVC was 56%. Postbronchodilator FVC was 2.75 L, FEV1 1.30 L, and FEV1/FVC was 47%. Assessment: 1. 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 Pulmonary function today is the best that we have seen in at least a couple of years. 2. Intermittent sinusitis, currently not a problem. Plan: He is going to restart his saline nasal washes. Continue on his Prolastin. He will have his routine labs checked by Dr. Adrian in October. He is going to return to see us in 6 months to 1 year or sooner if he has any issues. Pavithra Shi / [id number] / [id number] / [id number] / cc: Jerry Adrian M.D. FAX: [phone] Electronically signed by Masha Pickering 06-20-2007 08:25:07 AM documented in this encounter Plan of Treatment Not on filedocumented as of this encounter Visit Diagnoses Not on filedocumented in this encounter"
--- OUTSIDE RECORDS SUMMARY | ~2020-02-19 | XMS | Encounter Summary ---
Demographics + + + | Address | [address] [place] [address] RD | | | [place] [address] | + + + | Home Phone [...] Team Providers + +------+ + | Care Airplane Charter Clerk Name | Role | Phone | + +------+ + | Jerry Adrian MD | PCP | | + +------+ + Reason for Visit + + + | Reason | Comments | + + + | Refill Request | Request for Spiriva 18 MCG CP-Handihaler | + + + | Refill Request | Request for Advair 250-50 Diskus. | + + + Encounter Details +--------+--------+ + + + | Date | Type | Department | Care Team | Description | +--------+--------+ + + + | 07/14/ | Refill | Pulmonary & | Misha Pace MD | Refill Request | | 2010 | | Critical Care | [address] | (Request for Spiriva | | | | Medicine at | [facility], | [address] | | | | [facility] [place] | [place] [address] | CP-Handihaler); | | | | [address] | [phone] | Refill Request | | | | [facility] | | (Request for Advair | | | | [place], 3rd Floor | | 250-50 Diskus.) | | | | [place], [place] | | | | | | [address] | | | | | | [phone] | | | +--------+--------+ + + + [...]
--- OUTSIDE RECORDS SUMMARY | ~2020-02-19 | XMS | Encounter Summary ---
Demographics + + + | Address | [address] [place] [address] RD | | | [place] [address] | + + + | Home Phone [...] + + + | Author | [facility] | + + + | Organization | [facility] | + + + | Address | Unknown | + + + | Phone | Unavailable | + + + Support + + +---------+ + | Name | Relationship | Address | Phone | + + +---------+ + | Tahmina Aaron | ECON | Unknown | | + + +---------+ + Care Team Providers + +------+ + | Care Release Of Information Clerk Name | Role | Phone | + +------+ + | Jerry Adrian MD | PCP | | + +------+ + Reason for Visit + + + | Reason | Comments | + + + | Refill Request | Advair 250-50 Diskus | + + + Encounter Details +--------+--------+ + + + | Date | Type | Department | Care Team | Description | +--------+--------+ + + + | 08/09/ | Refill | Pulmonary & | Zion Roth, | Refill Request | | 2011 | | Critical Care | [address] | (Advair 250-50 | | | | Medicine at | [facility] [address] | Disk) | | | | [facility] | [place], [place] | | | | | [address] | [address] | | | | | [facility] | [phone] | | | | | [facility], [facility] Floor | | | | | | [place], [place] | | | | | | [address] | | | | | | [phone] | | | +--------+--------+ + + + [...]
--- OUTSIDE RECORDS SUMMARY | ~2020-02-19 | XMS | Encounter Summary ---
Demographics + + + | Address | [address] [place] [address] RD | | | [place] [address] | + + + | Home Phone | | + + + | Preferred Language | Unknown | + + + | Marital Status | | + + + | Christianity Affiliation | Unknown | + + + | Race | White | + + + | Ethnic Group | Not or | + + + Author + + + | Author | [facility] | + + + | Organization | [facility] | + + + | Address | Unknown | + + + | Phone | Unavailable | + + + Support + + +---------+ + | Name | Relationship | Address | Phone | + + +---------+ + | Tahmina Aaron | ECON | Unknown | | + + +---------+ + Care Team Providers + +------+ + | Care Security Assurance Analyst Name | Role | Phone | [...] | | | | 3rd Floor | [place], [place] | | | | | | [place], [place] | [address] | | | | | | [address] | Phone: | | | | | | Phone: | [phone] | | | | | | [phone] | Fax: | | | | | | Fax: | [phone] | | | | | | [phone] | | +--------+--------+ + + + + Encounter Details +--------+---------+ + + + | Date | Type | Department | Care Team | Description | +--------+---------+ + + + | 09/20/ | Office | | Zion Roth, | [id number] | | 2015 | Visit | Hematology/Oncology | [address] | deficiency (HCC) | | | | at [facility] | [facility] [address] | (Primary Dx); COPD | | | | & Healing [address] | [place], [place] | with chronic | | | | [place] Mailcode: | [id number] | bronchitis (HCC) | | | | [facility] | [phone] | | | | | and Healing, | | | | | | [address] | | | | | | [facility] [place] | | | | | | [address] | | | | | | [phone] | | | +--------+---------+ + + + [...] + + + | Blood Pressure | 142/68 | 09/20/2015 8:38 AM | | | | | PST | | + + + + + | Pulse | 74 | 09/20/2015 8:38 AM | | | | | PST | | + + + + + | Temperature | 36.6 C (97.8 F) | 09/20/2015 8:38 AM | | | | | PST | | + + + + + | Respiratory Rate | 16 | 09/20/2015 8:38 AM | | | | | PST | | + + + + + | Oxygen Saturation | 93% | 09/20/2015 8:38 AM | | | | | PST | | + + + + + | Inhaled Oxygen | - | - | | | Concentration | | | | + + + + + | Weight | 94.6 kg (208 lb 8 | 09/20/2015 8:38 AM | | | | oz) | PST | | + + + + + | Height | 179.1 cm (5' 10.5") | 09/20/2015 8:38 AM | | | | | PST | | + + + + + | Body Mass Index | 29.49 | 09/20/2015 8:38 AM | | | | | PST | | + + + + + documented in this encounter Patient Instructions Patient Instructions Zion Roth MD - 09/20/2015 9:05 AM PSTWhat is my diagnosis/What am I being treated for? -COPD and A1AT What is my plan for today s visit (what tests I have to do when I leave, how am I suppose d to use my medications)? -No changes What needs to happen for my condition to improve/resolve? -Keep up the good What is the name of the doctor I saw today? -Zion Roth MD How do I get in touch with the doctor(s) in case I have a question? -Call [phone] We recommend signing up for [employer] our secure online messaging system that will allow you to communicate with your provider electronically. Directions for signing up are included in this packet. My Chart is an excellent way to ask questions and get advice about non-urgent problems. For more pressing concerns, call our office. In the event of an medical emergency you shou kristin call 911 or present to the nearest Emergency Room. documented in this encounter Progress Notes Zion Roth MD - 09/20/2015 8:40 AM PSTFormatting of this note might be different fro m the original. Date: 09/20/2015 Primary Care Provider: [facility] [address] [place] [address] Referring Provider: Misha Pace MD [facility] [place] [address] To Aaron is a 65 y.o. male in pulmonary clinic today for the follow up of COPD and A1AT deficiency. PROBLEM LIST: A1AT - Prolastin IV l6wvbzr - Tiotropium - Advair - FEV1 ~1.5 and stable since 2005 Subjective: To Aaron reports no changes in the past year. His biggest problem is h is sinuses and then when he walks at into cold weather. He will start to cough at that time. 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 Current Medications: Current Outpatient Prescriptions Medication Sig [...] this visit. Past Medical History Diagnosis Date Xirff-7-blatykvvsux deficiency (HCC) Past Social and Family History: No significant changes since last visit. Review of systems: As above. All others negative or unchanged from previous visit on comple te review of systems. Physical Exam: Visit Vitals Item Reading BP 142/68 Pulse 74 Temp (Src) 36.6 C (97.8 F) (Oral) RR 16 Ht 1.791 m (5' 10.5") Wt 94.575 kg (208 lb 8 oz) SpO2 93% BMI 29.48 kg/(m^2) 0 General: No acute distress, otherwise unchanged from [...] 08/03/14...........23.1 (93%) 08/10/08...........21.3 (76%) 6MW 04/15/12............421 04/28/11............384 Assessment: 65 yo with A1AT and subsequent COPD. Overall he is doing quite well. Recommended that he use albuterol prior to going out in cold weather to see if that would help the bronchospasm. Given hx of sinus disease will give antibiotics to have on hand. Pt to call if he takes t hem. Follow up in 1 year with PFTs at that time. Plan: Follow up in 1 year PFTs at follow up I spent 15 minutes in the care of the patient, over half of which was spent in counseling t he patient regarding COPD treatment and appropriate antibiotic use. Zion Roth MD PULMONARY/CRITICAL CARE MEDICINE [address] [facility] Mailcdoe:[address] [place] [address] Display Progress Note in [facility] Inter[employer] Serviceshart: Yes documented in this en counter Plan of Treatment Not on filedocumented as of this encounter Visit Diagnoses + + | Diagnosis | + + | Vkhlv-4-ekjrpcfygxx deficiency (HCC) - Primary Obvqw-0-qvmeisbppld deficiency | + + | COPD with chronic bronchitis (HCC) Obstructive chronic bronchitis without | | exacerbation | + + documented in this encounter
--- OUTSIDE RECORDS SUMMARY | ~2020-02-19 | XMS | Encounter Summary ---
Demographics + + + | Address | [address] [place] [address] RD | | | [place] [address] | + + + | Home Phone [...] + + + | Author | [facility] | + + + | Organization | [facility] | + + + | Address | Unknown | + + + | Phone | Unavailable | + + + Support + + +---------+ + | Name | Relationship | Address | Phone | + + +---------+ + | Tahmina Aaron | ECON | Unknown | | + + +---------+ + Care Team Providers + +------+ + | Care Order Management Specialist Name | Role | Phone | [...] Pavilion | | | | | | [address] | | | | | | [facility] | | | | | | [facility], 3rd Floor | | | | | | [place], [place] | | | | | | [address] | | | | | | [phone] | | | +--------+--------+ + + + [...]
--- OUTSIDE RECORDS SUMMARY | ~2020-02-19 | XMS | Encounter Summary ---
Demographics + + + | Address | [address] [place] [address] RD | | | [place] [address] | + + + | Home Phone [...] Providers + +------+ + | Care Construction Skills Teacher Name | Role | Phone | [...] | | | | Medicine at | [facility] | | | | | [facility] | [place], [place] | | | | | [address] | [address] | | | | | [facility] | [phone] | | | | | [facility], [facility] Floor | | | | | | [place], [place] | | | | | | [address] | | | | | | [phone] | | | +--------+--------+ + + + [...]
--- OUTSIDE RECORDS SUMMARY | ~2020-02-19 | XMS | Encounter Summary ---
Demographics + + + | Address | [address] [place] [address] RD | | | [place] [address] | + + + | Home Phone | | + + + | Preferred Language | Unknown | + + + | Marital Status | | + + + | Jehovah'S Witness Affiliation | Unknown | + + + [...] Team Providers + +------+ + | Care Editor House Organ Name | Role | Phone | + +------+ + | Jerry Adrian MD | PCP | | + +------+ + Reason for Visit + + + | Reason | Comments | + + + | Iseej-7-xukbixvpgms | | | deficiency | | + + + Encounter Details +--------+---------+ + + + | Date | Type | Department | Care Team | Description | +--------+---------+ + + + | 08/04/ | Office | Pulmonary & | Hawarden, Carolina C, | Fdgee-4-oooyupmbfsr | | 2012 | Visit | Critical Care | [address] | deficiency (HCC) | | | | Medicine at | [facility] [address] | (Primary Dx) | | | | [facility] | [place], [place] | | | | | [address] | [address] | | | | | [address] [facility] | [phone] | | | | | [facility], [facility] Floor | | | | | | [facility] [place] | | | | | | [address] | | | | | | [phone] | | | +--------+---------+ + + + [...] + + + | Blood Pressure | 132/81 | 08/04/2013 11:28 AM | | | | | PDT | | + + + + + | Pulse | 60 | 08/04/2013 11:28 AM | | | | | PDT | | + + + + + | Temperature | 36.6 C (97.8 F) | 08/04/2013 11:28 AM | | | | | PDT | | + + + + + | Respiratory Rate | 16 | 08/04/2013 11:28 AM | | | | | PDT | | + + + + + | Oxygen Saturation | 92% | 08/04/2013 11:28 AM | | | | | PDT | | + + + + + | Inhaled Oxygen | - | - | | | Concentration | | | | + + + + + | Weight | 91.6 kg (202 lb) | 08/04/2013 11:28 AM | | | | | PDT | | + + + + + | Height | 176.5 cm (5' 9.5") | 08/04/2013 11:28 AM | | | | | PDT | | + + + + + | Body Mass Index | 29.4 | 08/04/2013 11:28 AM | | | | | PDT | | + + + + + documented in this encounter Progress Notes Carolina Hi MD - 08/04/2013 11:38 AM PDTFormatting of this note might be different fro m the original. Date: 08/04/2013 Primary Care Provider: Enmanuel Adrian MD [facility] [address] [place] [address] Referring Provider: Misha Pace MD [address] [place] [address] Herman Hall is a 63 y.o. male in pulmonary clinic today for the follow up of A1AT and COPD. PROBLEM LIST: A1AT - Prolastin IV t5oatqh - Tiotropium - Advair - FEV1 ~1.5 and stable since 2005 Subjective: Herman Hall reports that he continues to do well. He denies any fever, ch ills, or night sweats. Had to show pictures of his son's recent elk ([employer] [employer] 380+) . Was able to go hunting this year without difficulty. Current Medications: Current Outpatient Prescriptions Medication Sig albuterol 90 mcg/Actuation Inhalation HFA Aerosol Inhaler Inhale 2 Puffs every six hour s as needed. Rinse mouth after use. fluticasone (FLONASE) 50 mcg/actuation Nasal Nelson, Suspension Instill 1 Nelson in nose once daily. fluticasone-salmeterol (ADVAIR DISKUS) 250-50 mcg/dose Inhalation Disk with Device Inha le 1 Puff two times daily. PROLASTIN IV 12 gms every 2 weeks tiotropium (SPIRIVA WITH HANDIHALER) 18 mcg Inhalation capsule, w/inhalation device inh nancy the contents of one capsule (18mcg) by inhalation route once daily; rinse mouth after us e No current facility-administered medications for this visit. Past Medical History Diagnosis Date Yzewx-9-sxhwquswnhb deficiency Past Social and Family History: No significant changes since last visit. Review of systems: As above. All others negative or unchanged from previous visit on comple te review of systems. Physical Exam: Visit Vitals Item Reading BP 132/81 Pulse 60 Temp (Src) 36.6 C (97.8 F) (Forehead) RR 16 Ht 1.765 m (5' 9.5") Wt 91.627 kg (202 lb) SpO2 92% BMI 29.41 kg/(m^2) General: No acute distress, otherwise unchanged [...] skin changes. PFTs Date FVC FEV1 FEV1/FVC 08/04/13.....................3.26 (72%).................1.40 (41%)......................... ....43% 04/15/12.....................3.25 (70%).................1.51 (43%)......................... ....46% 07/08/10.....................2.92 (63%).................1.19 (34%)......................... ....41% 07/08/10post..............2.64 (57%).................1.24 (35%)............................ .47% 04/12/09.....................3.07 (64%).................1.57 (43%)......................... ....51% 04/12/09post..............3.19 (67%).................1.66 (46%)............................ .52% 08/10/08.....................2.73 (61%).................1.37 (73%)......................... ....50% 08/10/08post..............3.07 (69%).................1.35 (42%)............................ .44% 05/26/07.....................3.19 (66%).................1.52 (41%)......................... ....48% 05/26/07post..............3.52 (73%).................1.63 (44%)............................ .46% 10/26/06.....................2.89 (60%).................1.63 (44%)......................... ....56% 10/26/06post..............2.75 (57%).................1.30 (35%)............................ .47% 04/20/06.....................3.17 (65%).................1.52 (41%)......................... ....48% 04/20/post..............3.19 (65%).................1.54 (A41%)........................... ..48% Lung Volumes Date TLC VC RV RV/TLC ERV 08/10/08......8.41 (124%)....3.44 (75%).....4.97 (228%).............59%.................... 0.77 (51%) DLCO 08/10/08...........21.3 (76%) 6MW 04/15/............421 04/28/11............384 Flow-volume loops were reviewed. Results are consistent with obstructive physiology. 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 Continues to get q2week replacement without problems. Will moreno ve pt follow up in 1 year and PRN. Continue tiotropium, advair, and albuterol.; Plan: Follow up in 1 year Continue tiotropium, advair and albuterol CAROLINA HI MD PULMONARY/CRITICAL CARE MEDICINE [address] [place] [address] Mailcode: [id number] [place] [id number] [phone] signed by Carolina Hi MD at 08/08/2013 9:30 AM PSTdocumente d in this encounter Plan of Treatment Not on filedocumented as of this encounter Results SPIROMETRY, PULM FUNCTION LAB (08/03/2014 8:04 AM PDT) + + + + + + | Component | Value | Ref Range | Performed | Pathologist | | | | | At | Signature | + + + + + + | PULMONARY | Site: [facility] and | | [facility] | | | INTERPRETAT | [facility] | | SPECIAL | | | ION | [address] [facility], | | DIAGNOSTICS | | | | [place], [place], | | - | | | | [id number]: [id number] | | PULMONARY | | | | Name: HALL, | | FUNCTION | | | | [...] + + + + + + | BGV53-56% | 0.39 | 2.67 L/sec | [facility] | | | PRE | | | SPECIAL | | | | | | DIAGNOSTICS | | | | | | - | | | | | | PULMONARY | | | | | | FUNCTION | | + + + + + + | WYX88-56% | 15 | % | [facility] | [...] | + + | Other, Faculty - 08/07/2014 3:12 PM PST | + + + + + + + | Performing | Address | City/State/Zipcode | Phone Number | | Organization | | | | + + + + + | [facility] | [address] | [place], [place] | | | DIAGNOSTICS - | [address] | [address] | | | PULMONARY FUNCTION | | | | + + + + + documented in this encounter Visit Diagnoses + + | Diagnosis | + + | Ublbc-1-tzrksvliero deficiency (HCC) - Primary Eoppx-8-pvzqfzqtcsw deficiency | + + documented in this encounter
--- OUTSIDE RECORDS SUMMARY | ~2020-02-19 | XMS | Encounter Summary ---
Demographics + + + | Address | [address] [place] [address] RD | | | [place] [address] | + + + | Home Phone | | + + + | Preferred Language | Unknown | + + + | Marital Status | | + + + | Jainism Affiliation | Unknown | + + + [...] Team Providers + +------+ + | Care Research & Analytics Manager Name | Role | Phone | [...] [id number] | | | | | | [place], [place] | | | | | | [address] | | | | | | [phone] | | | +--------+ + + + [...]
--- OUTSIDE RECORDS SUMMARY | ~2020-02-19 | XMS | Encounter Summary ---
Demographics + + + | Address | [address] [place] [address] RD | | | [place] [address] | + + + | Home Phone [...] + + + | Author | [facility] | + + + | Organization | [facility] | + + + | Address | Unknown | + + + | Phone | Unavailable | + + + Support + + +---------+ + | Name | Relationship | Address | Phone | + + +---------+ + | Tahmina Aaron | ECON | Unknown | | + + +---------+ + Care Team Providers + +------+ + | Care Labor Economist Name | Role | Phone | + [...] | | | | [address] | [facility], | | | | | [place], | [place] [address] | | | | | [address] [place] [address], | | | | | | [place] [address] | | | | | | [phone] | | | +--------+ + + + [...] LAB | e | 8:04 AM | Xbnqp-2-alpqafmbayc | procedure are in the | | [...] + + + | PULMONARY | Site: [facility] and | | [facility] | | | INTERPRETAT | [facility], [facility] | | SPECIAL | | | ION | [address] [facility], | | DIAGNOSTICS | | | | [place], [place], | | - | | | | [address]HE: [id number] | | PULMONARY | | | | [...] + + + + + + | OTS13-35% | 0.39 | 2.67 L/sec | [facility] | | | PRE | | | SPECIAL | | | | | | DIAGNOSTICS | | | | | | - | | | | | | PULMONARY | | | | | | FUNCTION | | + + + + + + | IYG67-20% | 15 | % | [facility] | [...] [facility] | [address] | [place], [place] | | | DIAGNOSTICS - | [address] | [address] | | | PULMONARY FUNCTION | | | | + + + + + documented in this encounter Visit Diagnoses + + | Diagnosis | + + | Aayjo-5-nwvsvorjomn deficiency (HCC) Ewgwm-7-ryvxyzdhdbx deficiency | + + documented in this encounter"
--- OUTSIDE RECORDS SUMMARY | ~2020-02-19 | XMS | Encounter Summary ---
Demographics + + + | Address | [address] [place] [address] RD | | | [place] [address] | + + + | Home Phone [...] Team Providers + +------+ + | Care Java Manager Name | Role | Phone | + +------+ + | Jerry Adrian MD | PCP | | + +------+ + Encounter Details +--------+ + + + + | Date | Type | Department | Care Team | Description | +--------+ + + + + | 04/15/ | Hospital | Pulmonary Function | Tech [facility] Adult | | | 2011 | Encounter | Lab at [facility] [address] | [address] | | | | | [address] | [facility], | | | | | [place], | [place] [address] | | | | | [address] [place] [address], | | | | | | [place] [address] | | | | | | [phone] | | | +--------+ + + + [...] LAB | e | 8:12 AM | Yveed-0-ilbcbmuhuhm | procedure are in the | | [...] + + + + + + | FGY31-01% | 0.41 | 2.79 L/sec | [facility] | | | PRE | | | SPECIAL | | | | | | DIAGNOSTICS | | | | | | - | | | | | | PULMONARY | | | | | | FUNCTION | | + + + + + + | PCU80-32% | 15 | % | [facility] | [...] | | FUNCTION | | | | JOSE GODFREY | | | | | | | | | | | | Salesperson Flowers: Andrews Conrad | | | | | | SET BUILDER Diagnosis: | | | | | | [...] Order# | | | | | | [id number] | | | | | | | [...] 75 | | | | | | 51XVL13-05% | | | | | | L/sec 2.79 | | | | | | 0.41 [id number] | | | | | | L/sec | | | | | | 0.41PEF | | | | | | L/sec 8.92 | | | | | | 6.13 31QBO46% | | | | | | L/sec [...] | | | | | RefPI max [id number] | | | | | | Volume LitersPE max | | | | | | [id number] Volume Liters | | | | | [...] | | | | | | HERMAN Mtaos ######## | | | | | | [...] Distance | | | | | | quivir=0899 feet, 421 | | | | | [...] evaluation | | | | | | fkqbnig-8-tvwtmmikuas | | | | | | disease. [...] [facility] | [address] | [place], [place] | | | DIAGNOSTICS - | [address] | [address] | | | PULMONARY FUNCTION | | | | + + + + + documented in this encounter Visit Diagnoses + + | Diagnosis | + + | Ijzsj-1-kkwueeustjh deficiency (HCC) Ydauq-3-hfpkmfqfolp deficiency | + + documented in this encounter"
--- OUTSIDE RECORDS SUMMARY | ~2020-02-19 | XMS | Encounter Summary ---
Demographics + + + | Address | [address] [place] [address] RD | | | [place] [address] | + + + | Home Phone [...] Team Providers + +------+ + | Care Cognos Bi Developer Name | Role | Phone | [...] Pavilion | | | | | | [address] | | | | | | [address] [facility] | | | | | | Pavilion, 3rd Floor | | | | | | [place], [place] | | | | | | [address] | | | | | | [phone] | | | +--------+ + + + [...] | | + +---------+ + + | [facility] DEPARTMENT OF | | | | | RADIOLOGY | | | | + +---------+ + + documented in this encounter Visit Diagnoses Not on filedocumented in this encounter"
--- OUTSIDE RECORDS SUMMARY | ~2020-02-19 | XMS | Encounter Summary ---
Demographics + + + | Address | [address] [place] [address] RD | | | [place] [address] | + + + | Home Phone [...] Team Providers + +------+ + | Care Inspector Material Disposition Name | Role | Phone | + +------+ + PCP | Unavailable | + +------+ + Encounter Details +--------+ + + + + | Date | Type | Department | Care Team | Description | +--------+ + + + + | 05/24/ | Office | General Internal | Note, Outpatient | Progress Note | | 1994 | Visit-Trans | Medicine [address] | Clinic | | | | emma | [address] | | | | | | Mailcode: [id number] | | | | | | Outpatient Clinic | | | | | | [facility], [address] | | | | | | [place], [place] | | | | | | [address] | | | | | | [phone] | | | +--------+ + + + [...] as of this encounter Progress Notes Interface, Supervisor Sample Preparation In - 01/15/2007 3:04 AM PDT CLINIC DATE: 05/24/95 PULMONARY CLINIC: SUBJECTIVE: To Aaron was seen in Pulmonary Clinic in July of last year by Dr. Pace. This patient was also seen by me when I was in Pulmonary practice in [place], [place]. This patient has documented alpha 1 antitrypsin deficiency and is getting Prolastin 10 grams every two weeks. He is also being maintained in Serevent 2 puffs two times per day and Azmacort 2 puffs two times per day. He had one episode where he started to develop an upper respiratory infection that was settling in his chest and he took Cipro 500 mg two times per day for about ten days. He has been able to barakat effectively. In fact he went on safari in [place], is not noticing any shortness of breath. He has having some cough and sputum production occasionally but this has been unchanged. PHYSICAL EXAMINATION: VITAL SIGNS: Weight 206 pounds, blood pressure 118/78, heart rate 60, respiratory rate 16. EXTREMITIES: Without cyanosis, clubbing or edema. HEENT: Tympanic membranes are normal, mouth is without erythema. NECK: Supple. CHEST: Completely clear to auscultation except for mild end-expiratory wheezes on forced expiration. He does have a barrel chest. He has no clubbing. CARDIOVASCULAR: Regular rate and rhythm without obvious murmurs. ABDOMEN: Soft, normal active bowel sounds are present, no hepatosplenomegaly. The calves are nontender. ASSESSMENT AND PLAN: 1. Alpha 1 antitrypsin deficiency. The plan will be to check pulmonary function testing today. The patient does have antibiotics and Prednisone on hand in case his reactive airway disease gets worse. He will call me in two or three days regarding his pulmonary function tests. Will plan on continuing the Prolastin. 2. 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 He is no longer smoking and seems to be well controlled with Serevent and Azmacort. 3. History of sinusitis, currently stable. 4. Patient will return to clinic in about six months for routine follow up. Misha Johansen M.D. Assembler Surgical Garment, Medicine RAYRAY/pa documented in this encounter Plan of Treatment Not on filedocumented as of this encounter Visit Diagnoses Not on filedocumented in this encounter"
--- OUTSIDE RECORDS SUMMARY | ~2020-02-19 | XMS | Encounter Summary ---
Demographics + + + | Address | [address] [place] [address] RD | | | [place] [address] | + + + | Home Phone | | + + + | Preferred Language | Unknown | + + + | Marital Status | | + + + | Holiness Affiliation | Unknown | + + + [...] Team Providers + +------+ + | Care In Service Education Teacher Name | Role | Phone | + +------+ + PCP | Unavailable | + +------+ + Reason for Visit + + + | Reason | Comments | + + + | Refill Request | | + + + | Erroneous Encounter | | | - Disregard | | + + + Encounter Details +--------+--------+ + + + | Date | Type | Department | Care Team | Description | +--------+--------+ + + + | /02/ | Refill | Pulmonary & | Oveson, Masha, ANP | Refill Request; | | 2007 | | Critical Care | | Erroneous Encounter | | | | Medicine at | | - Disregard | | | | [facility] | | | | | | [address] | | | | | | [address] [facility] | | | | | | [address], [address] Floor | | | | | | [place], [place] | | | | | | [address] | | | | | | [phone] | | | +--------+--------+ + + + [...] + | Diagnosis | + + | NO DIAGNOSIS RECEIVED - Primary | + + documented in this encounter"
--- OUTSIDE RECORDS SUMMARY | ~2020-02-19 | XMS | Encounter Summary ---
Demographics + + + | Address | [address] [place] [address] RD | | | [place] [address] | + + + | Home Phone [...] Team Providers + +------+ + | Care Blockman Name | Role | Phone | + +------+ + PCP | Unavailable | + +------+ + Encounter Details +--------+ + + + + | Date | Type | Department | Care Team | Description | +--------+ + + + + | 05/26/ | Office | UNKNOWN DEPARTMENT | Note, Outpatient | Progress Note | | 2006 | Visit-Trans | [address] [facility] | Clinic | | | | emma | [address] | | | | | | [place], [place] | | | | | | [address] | | | +--------+ + + + [...] as of this encounter Progress Notes Interface, Roustabout Pusher In - 06/21/2007 2:26 AM PDT [id number] ISABEL Matos [id number] Clinic Date: 05/26/2007 Clinic: Adult Pulmonary Clinic [...] he has any issues. Pavithra Shi / [id number] / [id number] / [id number] / cc: Jerry Adrian M.D. FAX: [phone] Electronically signed by Masha Pickering 06-20-2007 08:25:07 AM documented in this encounter Plan of Treatment Not on filedocumented as of this encounter Visit Diagnoses Not on filedocumented in this encounter"
--- OUTSIDE RECORDS SUMMARY | ~2020-02-19 | XMS | Encounter Summary ---
Demographics + + + | Address | [address] [place] [address] RD | | | [place] [address] | + + + | Home Phone [...] Providers + +------+ + | Care Gear Hobber Name | Role | Phone | + +------+ + | Jelani Higgins MD | PCP | | + +------+ + Encounter Details +--------+ + + + + | Date | Type | Department | Care Team | Description | +--------+ + + + + | 07/08/ | Cold Working Supervisor | Pulmonary & | Misha Pace MD | Alpha 1-antitrypsin | | 2009 | | Critical Care | [address] | deficiency (Primary | | | | Medicine at | [place], | Dx) | | | | [facility] | [place] [address] | | | | | [address] | [phone] | | | | | [address] [facility] | | | | | | Pavilion, [facility] Floor | | | | | | [place], [place] | | | | | | [address] | | | | | | [phone] | | | +--------+ + + + [...] | + + +--------+ + + | O2 SATURATION MULT | Pulmonary | Routin | Alpha | Ordered: 07/08/2010 | | DTRM (6 MIN WALK), | Function | e | 1-antitrypsin | | | PULM FUNCTION LAB | | | deficiency | | + + +--------+ + + | SPIROMETRY, PULM | Pulmonary | Routin | Alpha | Ordered: 07/08/2010 | | FUNCTION LAB | Function | e | 1-antitrypsin | | | | | | deficiency | | + + +--------+ + + documented as of this encounter Visit Diagnoses + + | Diagnosis | + + | Alpha 1-antitrypsin deficiency - Primary Kvlut-8-vbqsrgpkjsj deficiency | + + documented in this encounter"
--- OUTSIDE RECORDS SUMMARY | ~2020-02-19 | XMS | Encounter Summary ---
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 Outdoor interests are many including hunting [...] worsen. He does have a physician in [place] but has never seen this person and has received all of his medical care at [facility] and in [place]. He would like to continue being followed here but will receive his Prolastin in [place]. 2. COPD with chronic bronchitis and a [...] make an appointment to speak with the armhole baster hand about his concerns before quitting the shots [...] with GI, however, and find someone in [place] who can perform the tests as the patient feels it would be difficult to do the prep and drive to [place] on the same day. He was given [...]
--- OUTSIDE RECORDS SUMMARY | ~2020-02-19 | XMS | Encounter Summary ---
Demographics + + + | Address | [address] [place] [address] RD | | | [place] [address] | + + + | Home Phone [...] Team Providers + +------+ + | Care Straddle Truck Operator Name | Role | Phone | + +------+ + | Jerry Adrian MD | PCP | | + +------+ + Encounter Details +--------+---------+ + + + | Date | Type | Department | Care Team | Description | +--------+---------+ + + + | 04/28/ | Office | Pulmonary & | Misha Godfrey MD | COPD with chronic | | 2010 | Visit | Critical Care | [address] | bronchitis ([facility]); | | | | Medicine at | [facility] | [id number] | | | | [facility] | [place] [address] | deficiency ([facility]) | | | | [address] | [phone] | | | | | [address] | | | | | | [address], 3rd Floor | | | | | | [place], [place] | | | | | | [address] | | | | | | [phone] | | | +--------+---------+ + + + [...] + + + | Blood Pressure | 92/62 | 04/28/2011 8:06 AM | | | | | PDT | | + + + + + | Pulse | 66 | 04/28/2011 8:06 AM | | | | | PDT | | + + + + + | Temperature | 36.7 C (98 F) | 04/28/2011 8:06 AM | | | | | PDT | | + + + + + | Respiratory Rate | 16 | 04/28/2011 8:06 AM | | | | | PDT | | + + + + + | Oxygen Saturation | 91% | 04/28/2011 8:06 AM | | | | | PDT | | + + + + + | Inhaled Oxygen | - | - | | | Concentration | | | | + + + + + | Weight | 92.8 kg (204 lb 9.6 | 04/28/2011 8:06 AM | | | | oz) | PDT | | + + + + + | Height | 177.8 cm (5' 10") | 04/28/2011 8:06 AM | | | | | PDT | | + + + + + | Body Mass Index | 29.36 | 04/28/2011 8:06 AM | | | | | PDT | | + + + + + documented in this encounter Patient Instructions Patient Instructions Misha Godfrey MD - 04/28/2011 9:09 AM PDTBreathing capacity better. Maintain Advair and Spiriva. Am aware dry mouth may be a side effect of Spiriva Reconsider nasal wash- am aware irritates. ? less of salt package. Maintain Prolastin-C Hope you are able return to regular exercise for your own health. documented in this encounter Progress Notes Misha Godfrey MD - 04/28/2011 8:57 AM PDTFormatting of this note might be different from t he original. Date: 04/28/2011 I am seeing Herman today for 1. 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 2. Perennial rhinitis/sinusitis. PLAN:Reviewed many issues regarding AATD- conrtinue all bronchoactive meds, augmentation, n eed more regular exercise for health- overall does quite well. I again emphasized relative u tility and safety nasal saline wash-even with lower salt or try distilled rather than well w ater. AVS: Breathing capacity better. Maintain Advair and Spiriva. Am aware dry mouth may be a side effect of Spiriva Reconsider nasal wash- am aware irritates. ? less of salt package. Maintain Prolastin-C Hope you are able return to regular exercise for your own health. SUBJECTIVE: Had sinus infection ( headache, ear pain, not much drainage) in October accompanied by katherinecary correia, took 2-3 courses antibiotics ( azithromycin was one) plus Bonine with eventual relief; another episode end of February of sinusitis, treated with azithromycin/Z-pack. Not using saline nasal rinse as arvizu inside nose., more on right. Taking Advair 250/50 one BID and Spiriva one daily (started 07/2010), has dry mouth late in day. Drinks fluids to compensate. Receives Prolastin-C every 2 weeks [facility]. 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 In past he did less of physical work. No other medical setbacks. No major changes in medications. Takes an extra OTC Vitamin D as Dr. Adrian told him vitamin D level was low. He has done less hiking as no time. Looking forward to [place] season early . Physical Exam: Ht 177.8 cm (5' 10")( < 3 %ile), Wt 92.806 kg (204 lbs 9.6 oz)( < 3 %ile), B P 92/62, Pulse 66, Temperature 36.7 C (98 F), Temperature source Forehead, RR 16, SpO2 9 1%, BMI 29.36 kg/(m^2). General: No acute distress, otherwise unchanged from previous exam., Nares: congestion. Throat: No erythema, exudate, or tonsillar enlargement. No thrush. Neck: No evidence of elevated jugular veins or lymphadenopathy Lungs: Clear to auscultation bilaterally, no wheezes, rhonchi or crackles Cardiac: regular rate and rhythm No murmurs, rubs or gallops. Extremities: No cyanosis, clubbing, or edema Musculoskeletal: No obvious joint deformities noted. Neurologic: Exam grossly non-focal. Skin: No evidence of rash or skin changes. Lymph nodes: No other lymphadenopathy detected. LABS:Results for ISABEL HERMAN L ( ) Ref. Range 04/28/2011 08:27 FVC PRE Latest Range: 4.72 Liters 2.92 FVC PRE (%REF) No range found 62 FEV1 PRE Latest Range: 3.55 Liters 1.41 FEV1 PRE (%REF) No range found 40 FEV1/FVC PRE Latest Range: 75 % 48 FEV1/FVC PRE (%REF) No range found 64 PGG37-75% PRE Latest Range: 2.88 L/sec 0.40 LXO91-31% PRE (%REF) No range found 14 PEF PRE Latest Range: 9.09 L/sec 6.06 PEF PRE (%REF) No range found 67 FIF50% PRE No range found 7.63 DISTANCE WALKED-METERS No range found 384 Severe obstruction and air trapping; FEV1 improved compare 07/08/2010. Distance walked mild ly reduced. 02 saturation at end 90%. Date FVC FEV1 Ratio Post-FVC Post-FEV1 07/08/2010 2.92 1.19 41 2.64 1.24 04/28/2011 2.92 1.41 48 6MW- 1260 feet, 02 sat at en d-90% MISHA GODFREY MD PULMONARY [facility]ACULT[facility] [address] [place] [address] Mailcode: [id number] [address] documented in this encou nter Plan of Treatment Not on filedocumented as of this encounter Procedures + +--------+ + + + | Procedure Name | Priori | Date/Time | Associated Diagnosis | Comments | | | ty | | | | + +--------+ + + + | LAB REPORTS | | 12/18/2010 | | Results for this | | | | 12:00 AM | | procedure are in the | | | | PDT | | results section. | + +--------+ + + + documented in this encounter Results LAB REPORTS (12/18/2010 12:00 AM PDT) + + + | Narrative | Performed At | + + + | | | + + + + + | Transcriptions | + + | Other, Faculty - 07/21/2011 2:56 PM PDT | + + documented in this encounter Visit Diagnoses + + | Diagnosis | + + | COPD with chronic bronchitis (HCC) Obstructive chronic bronchitis without | | exacerbation | + + | Eqtsl-3-fhrcnsewqcf deficiency (HCC) Wquzd-8-ouajpufxems deficiency | + + documented in this encounter
--- OUTSIDE RECORDS SUMMARY | ~2020-02-19 | XMS | Encounter Summary ---
Demographics + + + | Address | [address] [place] [address] RD | | | [place] [address] | + + + | Home Phone | | + + + | Preferred Language | Unknown | + + + | Marital Status | | + + + | Episcopal Affiliation | Unknown | + + + | Race | White | + + + | Ethnic Group | Not or | + + + Author + + + | Author | [facility] | + + + | Organization | [facility] | + + + | Address | Unknown | + + + | Phone | Unavailable | + + + Support + + +---------+ + | Name | Relationship | Address | Phone | + + +---------+ + | Tahmina Aaron | ECON | Unknown | | + + +---------+ + Care Team Providers + +------+ + | Care Retail Service Specialist Name | Role | Phone | + +------+ + PCP | Unavailable | + +------+ + Encounter Details +--------+ + + + + | Date | Type | Department | Care Team | Description | +--------+ + + + + | 10/26/ | Office | [facility] | Clinic, Pulmonary | Progress Note | | 2007 | Visit-Trans | DISEASE | | | [...] as of this encounter Progress Notes Interface, Trust Advisor In - 12/10/2006 2:31 AM PST [id number] ISABEL Matos [id number] Clinic Date: 10/26/2006 Clinic: Adult Pulmonary Clinic INCOMPLETE REPORT Problem List: 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 Interim History: I last saw Anabell on April 20, 2006. Since that time, he has been quite well. He has not had any upper respiratory infections which would include any sinus infections. He went hunting and did not have any trouble breath-feng. He did not have any respiratory troubles with that. He does have an intermittent, although not daily, cough that is occasionally productive. His cough is not bothersome. He denies wheezing or nighttime awakenings. No hemoptysis or chest pain. Review of Systems: Constitutional: No fevers, chills, or night sweats. No change in exercise tolerance or energy level. ENT: He stopped doing his nasal sinus washes because he was asymptomatic from his sinus standpoint. He has had some increased postnasal drip recently and many of his upper respiratory infections have started as sinus infections. Cardiovascular: No chest pain or palpitations. Respiratory: As above. GI: His appetite is good. No reflux symptoms or abdominal pain. No changes in his bowel movements. Musculoskeletal: Negative. Skin is negative. Psych: Mood is good. Review of systems is otherwise negative. Medications: Prolastin 12 g IV every 2 weeks; Advair 250/50, one inhalation b.i.d.; albuterol 1 to 2 puffs p.r.n., which he tends to only use before some physical activity and does not use it daily. Flonase 1 spray in each nostril daily. He did get a flu shot this year. He does not use supplemental oxygen. Objective: Weight is 200 pounds which is his baseline. Temperature 98.4, blood pressure 118/74 in his left arm sitting. Heart rate is 64 and regular. Respiratory rate is 16. Oxygen saturation is 94% at rest on room air. He does not appear acutely or chronically ill. Skin is warm and dry, color is good. HEENT: Sclerae anicteric, conjunctivae noninjected. No nasal polyps or nasal drainage are noted. Pharynx is noninjected, no exudate or lesions. Neck is supple with no lymphadenopathy or increased JVP. Chest: He has very diminished breath sounds in the bases. His chest is clear to P and A. Heart sounds are unremarkable although a bit distant. S1, S2, no murmurs or rubs. Abdomen: Round and soft with adequate bowel sounds. No masses, tenderness, or organomegaly. Extremities: No edema, cyanosis, or clubbing. Laboratory Data: He brought a copy of lab work that was done on October 09, 2006, at [facility] in [place]. Of note, Pavithra Shi / TRISTIAN [id number] / [id number] / [id number] / [id number] cc: Jerry Adrian M.D. [address] [place] [address] Electronically signed by Masha Pickering 12-09-2006 09:00:21 AM [email or web address], Trust Advisor In - 12/10/2006 2:31 AM PST [id number] ISABEL Matos [id number] Clinic Date: 10/26/2006 Clinic: Pulmonary and Critical Care Clinic ADDENDUM Lab Work: Spirometry done in clinic today reveals that pre-bronchodilator FVC of 2.89 L (60% of predicted), FEV1 is 1.63 L (44% of predicted), and FEV1/FVC is 56%. Post-bronchodilator FVC is 2.75 L (67% of predicted), and FEV1 is 1.30 L (35% of predicted), and FEV1/FVC was 47%. This represents a post-bronchodilator decrement in FVC of 5% and a decrement in FEV1 of 20%. This compares to spirometry done April 20, 2006, at which time his pre-bronchodilator FVC was 3.17 L, his FEV1 was 1.52 L, and his FEV1/FVC is 48%. Post-bronchodilator FVC was 3.19 L, and his FEV1 was 1.54 L. Anabell brought lab work collected on October 09, 2006, from [facility] lab in [place]. Of note, he had a CBC which was within normal limits. A comprehensive metabolic screen was within normal limits other than an ALT which was mildly elevated at 48 units/L with a normal range of 0 to 46. His TSH was normal at 1.4. His PSA was normal at 3.60. Assessment: Moderate chronic obstructive pulmonary disease with a suggestion of restriction. Spirometry today shows a post-bronchodilator significant decrement in FEV1 that is likely secondary to bronchospasm. His pulmonary function tests are not outside his general range, his baseline in the last couple of years as they tend to go up and down. He has been asymptomatic. Plan: He is going to continue with his current medications, although because he has had an increase in his postnasal drip, I have asked him to resume using his saline nasal washes on a daily basis. If he has any increase in respiratory symptoms over the next few months and is not able to come to [place], we will arrange to have spirometry done in [place]. Otherwise, he will come to see us in 4 to 6 months, and of course continue with his Prolastin for his alpha-1 antitrypsin deficiency. Pavithra Shi / [id number] / [id number] / [id number] / [id number] Electronically signed by Masha Pickering 12-09-2006 09:00:05 AM documented in this encounter Plan of Treatment Not on filedocumented as of this encounter Visit Diagnoses Not on filedocumented in this encounter"
--- OUTSIDE RECORDS SUMMARY | ~2020-02-19 | XMS | Encounter Summary ---
Demographics + + + | Address | [address] [place] [address] RD | | | [place] [address] | + + + | Home Phone [...] Team Providers + +------+ + | Care Apprentice Painter Neckties Name | Role | Phone | + [...] | | | | Medicine at | [facility] | | | | | [facility] | [place], [place] | | | | | [address] | [address] | | | | | [address] | [phone] | | | | | [address], [facility] Floor | | | | | | [place], [place] | | | | | | [address] | | | | | | [phone] | | | +--------+--------+ + + + [...]
--- OUTSIDE RECORDS SUMMARY | ~2020-02-19 | XMS | Encounter Summary ---
Demographics + + + | Address | [address] [place] [address] RD | | | [place] [address] | + + + | Home Phone [...] Team Providers + +------+ + | Care Distiller Name | Role | Phone | + [...] 2017 | | Critical Care | [address] [facility] | | | | | Medicine at [facility] | | | | | [facility] | [place], [place] | | | | | [address] | [address] | | | | | [address] | [phone] | | | | | [address], [facility] Floor | | | | | | [place], [place] | | | | | | [address] | | | | | | [phone] | | | +--------+--------+ + + + [...]
--- OUTSIDE RECORDS SUMMARY | ~2020-02-19 | XMS | Encounter Summary ---
Demographics + + + | Address | [address] [place] [address] RD | | | [place] [address] | + + + | Home Phone [...] Team Providers + +------+ + | Care Taker Off Name | Role | Phone | + +------+ + PCP | Unavailable | + +------+ + Encounter Details +--------+ + + + + | Date | Type | Department | Care Team | Description | +--------+ + + + + | 03/09/ | Results | Pulmonary Function | Misha Pace MD | | | 2000 | Only | Lab at [facility] [address] | [address] | | | | | [address] | [place], | | | | | [address] | [place] [address] | | | | | [place], [place] | [phone] | | | | | [address] | | | | | | [phone] | | | +--------+ + + + [...] | SPIROMETRY WITH BD'S | Routin | 03/09/2001 | | Results for this | | | e | 8:10 AM | | procedure are in the | | | | PDT | | results section. | + +--------+ + + + documented in this encounter Results SPIROMETRY WITH BD'S (03/09/2001 8:10 AM PDT) + + + + + + | Component | Value | Ref Range | Performed | Pathologist | | | | | At | Signature | + + + + + + | FVC | 3.53 | L | | | | MEASURED | | | | | + + + + + + | FVC % PRED | 70 | % | | | + + + + + + | FEV1 | 1.56 | L/S | | | | MEASURED | | | | | + + + + + + | FEV1 % PRED | 39 | % | | | + + + + + + | FEV1/FVC | 44.00 | % | | | | MEASURED | | | | | + + + + + + | FEF(25-75) | 0.39 | L/S | | | + + + + + + | FEF(25-75) | 10 | % | | | | % PRED | | | | | + + + + + + | FVC POST | 3.66 | L | | | | BD'S | | | | | | MEASURED | | | | | + + + + + + | FVC POST | 72 | | | | | BD'S % PRED | | | | | + + + + + + | FEV1 POST | 1.91 | L | | | | BD'S | | | | | | MEASURED | | | | | + + + + + + | FEV1 POST | 48 | % | | | | BD'S % PRED | | | | | + + + + + + | FEV1/FVC | 52.00 | % | | | | POST BD'S | | | | | | MEASURD | | | | | + + + + + + | FEF() | 0.44 | L/S | | | | POST BD'S | | | | | | MEASURD | | | | | + + + + + + | FEF() | 11 | % | | | | POST BD'S % | | | | | | PRED | | | | | + + + + + + | FEV1 BD'S % | 22 | % | | | | CHANGE [...] [facility] | [address] | [place], [place] | | | DIAGNOSTICS - | [address] | [address] | | | PULMONARY FUNCTION | | | | + + + + + documented in this encounter Visit Diagnoses Not on filedocumented in this encounter"
--- OUTSIDE RECORDS SUMMARY | ~2020-02-19 | XMS | Encounter Summary ---
Demographics + + + | Address | [address] [place] [address] RD | | | [place] [address] | + + + | Home Phone [...] Team Providers + +------+ + | Care Promotions Director Name | Role | Phone | + +------+ + PCP | Unavailable | + +------+ + Encounter Details +--------+ + + + + | Date | Type | Department | Care Team | Description | +--------+ + + + + | 11/08/ | Office | General Internal | Note, Outpatient | Progress Note | | 1995 | Visit-Trans | Medicine [address] | Clinic | | | | emma | [address] | | | | | | Mailcode: [id number] | | | | | | Outpatient Clinic | | | | | | [facility], [address] | | | | | | [place], [place] | | | | | | [address] | | | | | | [phone] | | | +--------+ + + + [...] as of this encounter Progress Notes Interface, Hot Mill Roller In - 01/04/2007 3:11 AM PDT CLINIC DATE: 11/08/95 PULMONARY CLINIC SUBJECTIVE: The patient is a 45-year-old white male with known alpha1-antitrypsin deficiency. He has been getting replacement every two weeks in [place], [place]. He is doing fine. He did have an upper respiratory infection in September but it did not really seem to kick off his asthma symptoms this time. He has remained on Serevent two puffs twice a day and Azmacort two puffs twice a day. He has been using no extra Proventil. He has not taken any antibiotics since the first of September when he took Biaxin. He is having no fever, chills, or sweats. He still notices when he is hunting that if he goes uphill he gets short of breath relatively easily but recovers fairly quickly. PHYSICAL EXAMINATION: Blood pressure is 110/62, respiratory rate 12, and pulse 60. SKIN: Without clubbing, cyanosis, or edema. HEENT: Tympanic membranes are normal. Mouth is without erythema. NECK: Supple. CHEST: Completely clear; no rhonchi, rales, or wheezes. CARDIAC: Regular rate and rhythm without obvious murmurs. ABDOMEN: Soft, bowel sounds are active, no hepatosplenomegaly. ASSESSMENT AND PLAN: 1. Pulmonary function tests are pending from today. There has been a software problem with the lung volumes in diffusion so he might have to be rescheduled. We should be able to get basic spirometry. I also wanted to draw an alpha1-antitrypsin level right before his next dose is due when he gets that in [place] to see what his royce level is. Those labs are pending. 2. Asthma. The patient seems to be well-controlled on the current dose of Azmacort and Serevent. He was encouraged to carry the Proventil with him particularly when he leaves town as he is not supposed to use Azmacort and Serevent extra. This was reiterated. 3. Chronic sinusitis, currently stable. He will have a prescription for Biaxin when he leaves today to be used if he gets another infection. Routine follow-up with me will be in about six months. The patient will call once the pulmonary function tests and alpha1-antitrypsin levels are done. Misha Johansen M.D. Hand Candy Dipper, Medicine AE:dirk cc: SHABNAM OROURKE MD [address] [place] [address] [place] [address] documented in this encounter Plan of Treatment Not on filedocumented as of this encounter Visit Diagnoses Not on filedocumented in this encounter"
--- OUTSIDE RECORDS SUMMARY | ~2020-02-19 | XMS | Encounter Summary ---
Demographics + + + | Address | [address] [place] [address] RD | | | [place] [address] | + + + | Home Phone | | + + + | Preferred Language | Unknown | + + + | Marital Status | | + + + | Sikhism Affiliation | Unknown | + + + | Race | White | + + + | Ethnic Group | Not or | + + + Author + + + | Author | [facility] | + + + | Organization | [facility] | + + + | Address | Unknown | + + + | Phone | Unavailable | + + + Support + + +---------+ + | Name | Relationship | Address | Phone | + + +---------+ + | Tahmina Aaron | ECON | Unknown | | + + +---------+ + Care Team Providers + +------+ + | Care Wire Rigger Name | Role | Phone | + [...] | | | | Medicine at | [facility] | | | | | [facility] | [place], [place] | | | | | [address] | [address] | | | | | [address] | [phone] | | | | | [place], [facility] Floor | | | | | | [place], [place] | | | | | | [address] | | | | | | [phone] | | | +--------+ + + + [...]
--- OUTSIDE RECORDS SUMMARY | ~2020-02-19 | XMS | Encounter Summary ---
Demographics + + + | Address | [address] [place] [address] RD | | | [place] [address] | + + + | Home Phone [...] Team Providers + +------+ + | Care Wool Grader Name | Role | Phone | + +------+ + | Jelani Higgins MD | PCP | | + +------+ + Encounter Details +--------+ + + + + | Date | Type | Department | Care Team | Description | +--------+ + + + + | 12/23/ | Document-Sc | UNKNOWN DEPARTMENT | Unknown . | | | 2012 | anned | [address] | | | | | | [address] | | | | | | [place], [place] | | | | | | [address] | | | +--------+ + + + [...]
--- OUTSIDE RECORDS SUMMARY | ~2020-02-19 | XMS | Encounter Summary ---
Demographics + + + | Address | [address] [place] [address] RD | | | [place] [address] | + + + | Home Phone [...] Providers + +------+ + | Care Retail Leader Name | Role | Phone | + +------+ + | Jerry Adrian MD | PCP | | + +------+ + Encounter Details +--------+ + + + + | Date | Type | Department | Care Team | Description | +--------+ + + + + | 08/10/ | Hospital | Pulmonary Function | Tech, Pfl Adult | | | 2007 | Encounter | Lab at [facility] [address] | [address] | | | | | [address] | [facility], | | | | | [place], | [place] [address] | | | | | [address] [place] [address], | | | | | | [place] [address] | | | | | | [phone] | | | +--------+ + + + [...] + + | ADULT PULMONARY | | 08/10/2008 | | Results for this | | FUNCTION | | 11:59 PM | | procedure are in the | | | | PST | | results section. | + +--------+ + + + | PULMONARY FUNCTION | Routin | 08/10/2008 | | Results for this | | | e | 9:39 AM | | procedure are in the | | | | PST | | results section. | + +--------+ + + + documented in this encounter Results ADULT PULMONARY FUNCTION (08/10/2008 11:59 PM PST) + + + | Narrative | Performed At | + + + | | | + + + + + | Procedure Note | + + | Other, Faculty - 09/06/2008 9:17 AM PST | | | + + RESP CARE PULMONARY FUNCTION (08/10/2008 9:39 AM PST) + + + + +-------- ------+ | Component | Value | Ref Range | Performed | Patholo gist | | | | | At | Signatu re | + + + + +-------- ------+ | PULMONARY | Spirometry with | | [facility] | | | FUNCTION | bronchodilator, lung | | RESPIRATORY | | | | volumes, and DLCO were | | THERAPY | | | | performed:Spirometry | | | | | | results were the | | | | | | following:FVC=2.73FVC% | | | | | | predicted=93VND8=9.37FEV | | | | | | 1% | | | | | | predicted=39FEV1/FVC=50F | | | | | | EF 25-75=0.43FEF 25-75% | | | | | | predicted=15PEF=5.88PEF% | | | | | | predicted=66Post | | | | | | bronchodilator | | | | | | spirometry was the | | | | | | following:FVC=3.07FVC% | | | | | | predicted=35WYG0=6.35FEV | | | | | | 1% | | | | | | predicted=39FEV1/FVC=44F | | | | | | EF 25-75=0.39FEF 25-75% | | | | | | predicted=14PEF=5.78PEF% | | | | | | predicted=64FEV1% | | | | | | change post | | | | | | bronchodilator=-2Lung | | | | | | volume results were the | | | | | | following:VC=3.44VC% | | | | | | predicted=75ERV=0.77ERV% | | | | | | predicted=51IC=2.69IC% | | | | | | predicted=89FRC=5.72FRC% | | | | | | erxurwdmd=053AU=5.97RV% | | | | | | | | | | | | qfbiavwez=794KVB=5.41TLC | | | | | | % vhzbfhzrf=524BNPZ | | | | | | results were the | | | | | | following:Dsb=20.0 | | | | | | ml/min/mmHgDsb% | | | | | | predicted=71D/VA=3.81D/V | | | | | | A% predicted=93VA (sb) | | | | | | (L)=5.24VA (sb) (L)% | | | | | | predicted=80Adjusted for | | | | | | Hb of 17.1 | | | | | | gm/dL.HEMATOLOGYAgeMaleF | | | | | | emaleHemoglobin g/dL2 - | | | | | | 4 yrs.6 - 12 yrs.12 - 18 | | | | | | yrs.18 - 150 | | | | | | yrs.11.5-13.511.5-15.513 | | | | | | .0-16.013.5-17.511.5-13. | | | | | | 511.5-15.512.0-16.012.0- | | | | | | 16.0Electronically | | | | | | Signed by: Shannen Boss, | | | | | | RECRUITING OPERATIONS CONSULTANT | | | | | |12 - 18 yrs. | | | | | |18 - 150 yrs. | | | | | |11.5-13.5 | | | | | |11.5-15.5 | | | | | |13.0-16.0 | | | | | |13.5-17.5 | | | | | |11.5-13.5 | | | | | |11.5-15.5 | | | | | |12.0-16.0 | | | | | |12.0-16.0 | | | | | |Electronically Signed by: Shannen Boss, RECRUITING OPERATIONS CONSULTANT | | | | + + + + +-------- ------+ + + | Specimen | + + | | + + + + + | Narrative | Performed At | + + + | Ordered by an unspecified provider. | [facility] | | | RESPIRATORY | | | THERAPY | + + + + + + + + | Performing | Address | City/State/Zipcode | Phone Number | | Organization | | | | + + + + + | [facility] | [address] | [place], [place] | | | THERAPY | [address] | [address] | | + + + + + | [facility] | [address] | [place], [place] | | | THERAPY | [address] | [address] | | + + + + + documented in this encounter Visit Diagnoses Not on filedocumented in this encounter"
--- OUTSIDE RECORDS SUMMARY | ~2020-02-19 | XMS | Encounter Summary ---
Demographics + + + | Address | [address] [place] [address] RD | | | [place] [address] | + + + | Home Phone [...] Phone | + + +---------+ + | Tahimna Aaron | ECON | Unknown | | + + +---------+ + Care Team Providers + +------+ + | Care Senior Support Engineer Name | Role | Phone | [...] as of this encounter Progress Notes Interface, Working Second Hand In - 05/03/2005 9:36 AM PDT [id number] [facility] Date: 04/14/2005 Clinic: Pulmonary [...] that if need be. Pavithra Shi / [id number] / [id number] / [id number] / [id number] cc: Jerry Dasilva [address] [place] [address] Electronically signed by Masha Pickering 04-22-2005 02:33:42 PM documented i n this encounter Plan of Treatment Not on filedocumented as of this encounter Visit Diagnoses Not on filedocumented in this encounter"
--- OUTSIDE RECORDS SUMMARY | ~2020-02-19 | XMS | Encounter Summary ---
Demographics + + + | Address | [address] [place] [address] RD | | | [place] [address] | + + + | Home Phone [...] Team Providers + +------+ + | Care Corrosion Control Engineer Name | Role | Phone | + +------+ + | Jerry Adrian MD | PCP | | + +------+ + Encounter Details +--------+ + + + + | Date | Type | Department | Care Team | Description | +--------+ + + + + | 05/24/ | Results | Registration [id number] | | | | 1994 | Only | [address] | | | | | | [address] Mailcode: [id number] | | | | | | [place], [place] | | | | | | [address] | | | | | | [phone] | | | +--------+ + + + [...] + | PULMONARY FUNCTION | Routin | 05/24/1995 | | Results for this | | TESTS | e | 4:55 PM | | procedure are in the | | | | PDT | | results section. | + +--------+ + + + documented in this encounter Results PULMONARY FUNCTION TESTS (05/24/1995 4:55 PM PDT) + + + + + + | Component | Value | Ref Range | Performed | Pathologist | | | | | At | Signature | + + + + + + | FVC | 4.35 | L | | | | MEASURED | | | | | + + + + + + | FVC % PRED | 84. | % | | | + + + + + + | FEV1 | 2.23 | L/S | | | | MEASURED | | | | | + + + + + + | FEV1 % PRED | 54. | % | | | + + + + + + | FEV1/FVC | 51. | % | | | | MEASURED | | | | | + + + + + + | FEF() | 0.68 | L/S | | | + + + + + + | FEF() | 17. | % | | | | % PRED | | | | | + + + + + + | FVC POST | 89. | % | | | | BD'S % PRED | | | | | + + + + + + | FEV1 POST | 2.32 | L | | | | BD'S | | | | | | MEASURED | | | | | + + + + + + | FEV1 POST | 56. | % | | | | BD'S % PRED | | | | | + + + + + + | FEV1/FVC | 51. | % | | | | POST BD'S | | | | | | MEASURD | | | | | + + + + + + | FEF() | 0.61 | L/S | | | | POST [...] + + + + + + | EXER SAT | 94. | % | | | + + + + + + | WORK LOAD | 100. | W | | | + + + + + + | TLC | 6.11 | L | | | | MEASURED | | | | | + + + + + + | TLC % PRED | 84. | % | | | + + + + + + | FRC | 3.33 | L | | | | MEASURED | | | | | + + + + + + | FRC % PRED | 92. | % | | | + + + + + + | RV MEASURED | 1.72 | L | | | + + + + + + | RV % PRED | 81. | % | | | + + + + + + | DLCO | 26.95 | ML/MIN/MM HG | | | | MEASURED | | | | | + + + + + + | DLCO % PRED | 70. | % | | | + + + + + + | DLCO/VA | 3.67 | ML/MIN/MM HG/L | | | | MEASURED | | | | | + + + + + + | DLCO/VA % | 67. | % | | | | PRED | | | | | + + + + + + + + | Specimen | + + | | + + + + + + + | Performing | Address | City/State/Zipcode | Phone Number | | Organization | | | | + + + + + | [facility] | [address] | [place] [address] | | | PATHOLOGY | [address] | | | + + + + + documented in this encounter Visit Diagnoses Not on filedocumented in this encounter"
--- OUTSIDE RECORDS SUMMARY | ~2020-02-19 | XMS | Encounter Summary ---
Demographics + + + | Address | [address] [place] [address] RD | | | [place] [address] | + + + | Home Phone [...] Providers + +------+ + | Care Air Force Pilot Name | Role | Phone | [...] | | Medicine at | [address] [place], | | | | | [facility] | [place] [address] | | | | | [address] | [phone] | | | | | [address] [facility] | | | | | | [address], [address] Floor | | | | | | [place], [place] | | | | | | [address] | | | | | | [phone] | | | +--------+ + + + [...]
--- OUTSIDE RECORDS SUMMARY | ~2020-02-19 | XMS | Encounter Summary ---
Demographics + + + | Address | [address] [place] [address] RD | | | [place] [address] | + + + | Home Phone | | + + + | Preferred Language | Unknown | + + + | Marital Status | | + + + | Synagogue Affiliation | Unknown | + + + | Race | White | + + + | Ethnic Group | Not or | + + + Author + + + | Author | [facility] | + + + | Organization | [facility] | + + + | Address | Unknown | + + + | Phone | Unavailable | + + + Support + + +---------+ + | Name | Relationship | Address | Phone | + + +---------+ + | Tahmina Aaron | ECON | Unknown | | + + +---------+ + Care Team Providers + +------+ + | Care Janitor Caretaker Name | Role | Phone | + [...] | | | | Medicine at | [facility] | | | | | [facility] | [place], [place] | | | | | [address] | [address] | | | | | [address] [facility] | [phone] | | | | | [address], [address] Floor | | | | | | [place], [place] | | | | | | [address] | | | | | | [phone] | | | +--------+--------+ + + + [...]
--- OUTSIDE RECORDS SUMMARY | ~2020-02-19 | XMS | Encounter Summary ---
Demographics + + + | Address | [address] [place] [address] RD | | | [place] [address] | + + + | Home Phone [...] Team Providers + +------+ + | Care Web Analytics Developer Name | Role | Phone | [...] [id number] | | | | | | [place], [place] | | | | | | [address] | | | | | | [phone] | | | +--------+ + + + [...] | + + + + + | [facility] | [address] | [place] [address] | | | PATHOLOGY | [address] | | | + + + + + documented in this encounter Visit Diagnoses Not on filedocumented in this encounter"
--- OUTSIDE RECORDS SUMMARY | ~2020-02-19 | XMS | Encounter Summary ---
Demographics + + + | Address | [address] [place] [address] RD | | | [place] [address] | + + + | Home Phone | | + + + | Preferred Language | Unknown | + + + | Marital Status | | + + + | Rastafarian Affiliation | Unknown | + + + | Race | White | + + + | Ethnic Group | Not or | + + + Author + + + | Author | [facility] | + + + | Organization | [facility] | + + + | Address | Unknown | + + + | Phone | Unavailable | + + + Support + + +---------+ + | Name | Relationship | Address | Phone | + + +---------+ + | Tahmina Aaron | ECON | Unknown | | + + +---------+ + Care Team Providers + +------+ + | Care Linux System Administrator Name | Role | Phone | [...] | | Medicine at | [address] [place], | with Chronic | | | | [facility] [facility] | [place] [address] | Bronchitis (HCC) | | | | [address] | [phone] | | | | | [address] [facility] | | | | | | [place], [address] [place] [address] | | | | | | [place], [place] | | | | | | [address] | | | | | | [phone] | | | +--------+---------+ + + + [...] 491.20H COPD with 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 Not much lifti ng except in winter when has to put on chains. Takes albuterol before lifting which is main hardship. Takes Advair 250/50 BID, Prolastin l0wqmrq at [facility]. No ED visits . Did well [...] | + + | Alpha 1-antitrypsin deficiency Qerep-8-gasvudlqpyn deficiency | + + | COPD with chronic bronchitis (HCC) Obstructive chronic bronchitis without | | exacerbation | + + documented in this encounter
--- OUTSIDE RECORDS SUMMARY | ~2020-02-19 | XMS | Encounter Summary ---
Demographics + + + | Address | [address] [place] [address] RD | | | [place] [address] | + + + | Home Phone [...] Team Providers + +------+ + | Care Picker And Sorter Load And Unload Name | Role | Phone | + +------+ + | Jelani Higgins MD | PCP | | + +------+ + Encounter Details +--------+ + + + + | Date | Type | Department | Care Team | Description | +--------+ + + + + | 01/15/ | Documentati | Pulmonary & | [facility], | | | 2015 | on | Critical Care | [address] | | | | | Medicine at | [facility] | | | | | [facility] | [place], [place] | | | | | [address] | [address] | | | | | [address] [facility] | [phone] | | | | | [place], [address] [place] [address] | | | | | | [place], [place] | | | | | | [address] | | | | | | [phone] | | | +--------+ + + + [...]
--- OUTSIDE RECORDS SUMMARY | ~2020-02-19 | XMS | Encounter Summary ---
Demographics + + + | Address | [address] [place] [address] RD | | | [place] [address] | + + + | Home Phone [...] + + | Author | [facility] | + + + | Organization | [facility] | + + + | Address | Unknown | + + + | Phone | Unavailable | + + + Support + + +---------+ + | Name | Relationship | Address | Phone | + + +---------+ + | Tahmina Aaron | ECON | Unknown | | + + +---------+ + Care Team Providers + +------+ + | Care Octave Board Assembler Name | Role | Phone | + +------+ + PCP | Unavailable | + +------+ + Encounter Details +--------+ + + + + | Date | Type | Department | Care Team | Description | +--------+ + + + + | 10/26/ | Respiratory | Registration [id number] [place] | | | 2006 | Therapy | [address] | [phone] | | | | | Rd Mailcode: [id number] | | | | | | [place], [place] | | | | | | [address] | | | | | | [phone] | | | +--------+ + + + [...] | + +--------+ + + + | PUL CLINIC- | Routin | 10/26/2006 | | Results for this | | SPIROMETRY W/ | e | 3:00 PM | | procedure are in the | | BRONCHODILATOR | | PST | | results section. | + +--------+ + + + documented in this encounter Results PULM CLINIC- SPIROMETRY W/ BRONCHODILATOR (10/26/2006 3:00 PM PST) + + + + + [...] | | | | | | FOLLOWING: FVC=2.89 | | | | | | FVC% PREDICTED=60 | | | | | | FEV1=1.63 FEV1% | | | | | | PREDICTED=44 | | | | | | FEFmax=7.04 FEFmax% | | | | | | PREDICTED=75 | | | | | | FEV1/FVC%=56 FEF | | | | | | 25-75 =0.46 SLT20-70% | | | | | | PREDICTED=15 | | | | | | POST-BRONCHODILATOR | | | | | | SPIROMETRY WERE THE | | | | | | FOLLOWING FVC=2.75 | | | | | | FVC% PREDICTED=57 | | | | | | FEV1=1.30 FEV1% | | | | | | PREDICTED=35 | | | | | | FEFmax=7.36 FEFmax% | | | | | | PREDICTED=78 | | | | | | FEV1/FVC%=47 FEF | | | | | | 25-75 =0.38 XDK27-05% | | | | | | PREDICTED=12 FEV1 | | | | | | % CHANGE POST | | | | | | BRONCHODILATOR= 0 Pt | | | | | | has cough Andrews Conrad, | | | | | | PRODUCT MANAGEMENT SPECIALIST | | | | + + + [...] + + + | [facility] | [address] | [place], [place] | | | DIAGNOSTICS - | [address] | [address] | | | PULMONARY FUNCTION | | | | + + + + + documented in this encounter Visit Diagnoses Not on filedocumented in this encounter"
--- OUTSIDE RECORDS SUMMARY | ~2020-02-19 | XMS | Encounter Summary ---
Demographics + + + | Address | [address] [place] [address] RD | | | [place] [address] | + + + | Home Phone | | + + + | Preferred Language | Unknown | + + + | Marital Status | | + + + | Denominational Affiliation | Unknown | + + + | Race | White | + + + | Ethnic Group | Not or | + + + Author + + + | Author | [facility] | + + + | Organization | [facility] | + + + | Address | Unknown | + + + | Phone | Unavailable | + + + Support + + +---------+ + | Name | Relationship | Address | Phone | + + +---------+ + | Tahmina Aaron | ECON | Unknown | | + + +---------+ + Care Team Providers + +------+ + | Care Quilt Maker Name | Role | Phone | [...] as of this encounter Progress Notes Interface, Plier Worker In - 08/11/2006 3:05 AM [facility] DATE: 08/24/2000 PULMONARY CLINIC CHIEF COMPLAINT: [...] increased gas prices, has not traveled to [employer] [place] [employer] this winter. REVIEW OF SYSTEMS: As detailed [...] signs or symptoms warrant. Jimmie Montalvo M.D. Electronics Production Supervisor of Pulmonary and Critical Care Medicine [facility] / HS [id number] / [id number] / [phone] / [phone] cc: Jerry Adrian M.D. [facility] [address] [place] [address] [place] [phone] [id number] signed by Interface, Plier Worker In at 08/11/2006 3:05 AM PSTdocume nted in this encounter Plan of Treatment Not on filedocumented as of this encounter Visit Diagnoses Not on filedocumented in this encounter"
--- OUTSIDE RECORDS SUMMARY | ~2020-02-19 | XMS | Encounter Summary ---
Demographics + + + | Address | [address] [place] [address] RD | | | [place] [address] | + + + | Home Phone [...] Team Providers + +------+ + | Care Conveyor Monitor Name | Role | Phone | + +------+ + | Jelani Higgins MD | PCP | | + +------+ + Encounter Details +--------+--------+ + + + | Date | Type | Department | Care Team | Description | +--------+--------+ + + + | 04/18/ | Travel | | | | | 2019 | | | | | +--------+--------+ + + + [...]
--- OUTSIDE RECORDS SUMMARY | ~2020-02-19 | XMS | Encounter Summary ---
Demographics + + + | Address | [address] [place] [address] RD | | | [place] [address] | + + + | Home Phone [...] Team Providers + +------+ + | Care Fluid Power Mechanic Name | Role | Phone | [...] [id number] | | | | | | [place], [place] | | | | | | [address] | | | | | | [phone] | | | +--------+ + + + [...] + + + | [facility] | [address] | [place] [address] | | | PATHOLOGY | [address] | | | + + + + + documented in this encounter Visit Diagnoses Not on filedocumented in this encounter"
--- OUTSIDE RECORDS SUMMARY | ~2020-02-19 | XMS | Encounter Summary ---
Demographics + + + | Address | [address] [place] [address] RD | | | [place] [address] | + + + | Home Phone [...] Team Providers + +------+ + | Care Banking Attorney Name | Role | Phone | + [...] | | | | [address] | [facility], | | | | | [place], | [place] [address] | | | | | [address] [place] [address], | | | | | | [place] [address] | | | | | | [phone] | | | +--------+ + + + [...] following:FVC=2.73FVC% | | | | | | predicted=17KCI0=6.37FEV | | | | | | 1% [...] following:FVC=3.07FVC% | | | | | | predicted=74XEA8=4.35FEV | | | | | | 1% [...] predicted=89FRC=5.72FRC% | | | | | | fjrexjanw=354ME=5.97RV% | | | | | | | | | | | | ygambbxkd=623XJH=3.41TLC | | | | | | % nqkszznnp=223IRHF | | | | | | results [...] Boss, | | | | | | PERMASTONE MECHANIC | | | | | |12 - [...] | | |Electronically Signed by: Shannen Boss, PERMASTONE MECHANIC | | | | + + + [...] [facility] | [address] | [place], [place] | | | THERAPY | [address] | [address] | | + + + + + | [facility] | [address] | [place], [place] | | | THERAPY | [address] | [address] | | + + + + + documented in this encounter Visit Diagnoses Not on filedocumented in this encounter"
--- OUTSIDE RECORDS SUMMARY | ~2020-02-19 | XMS | Clinical Summary ---
Demographics + + + | Address | [address] [place] [address] RD | | | [place] [address] | + + + | Home Phone | | + + + | Preferred Language | Unknown | + + + | Marital Status | | + + + | Lutheran Affiliation | Unknown | + + + | Race | White | + + + | Ethnic Group | Not or | + + + Author + + + | Author | [facility] | + + + | Organization | [facility] | + + + | Address | Unknown | + + + | Phone | Unavailable | + + + Support + + +---------+ + | Name | Relationship | Address | Phone | + + +---------+ + | Tahmina Aaron | ECON | Unknown | | + + +---------+ + Care Team Providers + +------+ + | Care Manufacturing Advisor Name | Role | Phone | + +------+ + | Jelani Higgins MD | PCP | | + +------+ + Source Comments SOO is fully live on both [facility] and [facility] InPatient.[facility] Allergies + + + + + + | Active Allergy | Reactions | Severity | Noted | Comments | | | | | Date | | + + + + + + | No Known Drug | | | 08/10/20 | | | Allergies | | | 08 | | + + + + + + | Pneumococcal 23-Morena | Rash | High | 04/12/20 | Details not | | Ps Vaccine | | | 09 | entirely clear | + + + + + + Medications + + + +---------+------+------+-------+ | Medication | Sig | Dispensed | Refills | Star | End | Statu | | | | | | t | Date | s | | | | | | Date | | | + + + +---------+------+------+-------+ | PROLASTIN IV | 12 gms every 2 weeks | | 0 | 04/0 | | Activ | | | | | | 1/19 | | e | | | | | | 97 | | | + + + +---------+------+------+-------+ | fluticasone | Instill 1 spray in | 1 each | 12 | 10/2 | | Activ | | (FLONASE) 50 | nose once daily. | | | 6/20 | | e | | mcg/actuation nasal | | | | 15 | | | | spray,suspension | | | | | | | + + + +---------+------+------+-------+ | amoxicillin 500 mg | Take 1 capsule by | 21 | 0 | 12 | | Activ | | oral capsule | mouth every eight | capsule | | 8/20 | | e | | | hours. | | | 15 | | | + + + +---------+------+------+-------+ +---+ + | | Additional | | | InformationPatient | | | not taking. Reported | | | on 04/18/2019 9:54 | | | AM | +---+ + + + +---------+---+------+---+-------+ | albuterol 90 | Inhale 2 puffs by | 1 | 6 | 12/1 | | Activ | | mcg/actuation | mouth every six | Inhaler | | 8/20 | | e | | inhalation HFA | hours as needed. | | | 15 | | | | aerosol inhaler | Rinse mouth after | | | | | | | | use. | | | | | | + + +---------+---+------+---+-------+ | fluticasone | Inhale 1 puff two | 3 | 3 | 06/2 | | Activ | | propion-salmeterol | times daily. | Inhaler | | 4/20 | | e | | (ADVAIR DISKUS) | | | | 19 | | | | 250-50 mcg/dose | | | | | | | | inhalation blister | | | | | | | | with device | | | | | | | + + +---------+---+------+---+-------+ | tiotropium | inhale the contents | 90 | 5 | 06/2 | | Activ | | (SPIRIVA WITH | of one capsule | capsule | | 4/20 | | e | | HANDIHALER) 18 mcg | (18mcg) by | | | 19 | | | | inhalation capsule, | inhalation route | | | | | | | w/inhalation device | once daily; rinse | | | | | | | | mouth after use | | | | | | + + +---------+---+------+---+-------+ Active Problems + + + | Problem | Noted Date | + + + | Ybkew-0-hnbrueycmyj deficiency | 04/26/2006 | + + + | COPD with chronic bronchitis | 04/26/2006 | + + + | Sinusitis, chronic | 04/26/2006 | + + + + + | Overview: ICD10 | + + + + + | Hyperlipidemia | 04/26/2006 | + + + + + | Overview: followed by primary care provider | + + + + + | Diverticulosis | 04/26/2006 | + + + + + | Overview: hx of diverticulitis | + + + + + | Family history of colon cancer | 04/26/2006 | + + + Immunizations + + + + | Name | Administration Dates | Next Due | + + + + | Influenza, high dose | 07/07/2014 | | | seasonal, | | | | preservative-free | | | + + + + | Influenza, split | 08/24/2000 | | + + + + | Influenza, split | 08/04/2008 | | | (incl. purified | | | | surface antigen) | | | + + + + | Pneumococcal 23 | 08/10/2008 | | + + + + Social History + [...] | + + Last Filed Vital Signs + + + [...] | | + + + + + Plan of Treatment + + + + + | Health Maintenance | Due Date | Last Done | Comments | + + + + + | Influenza (Flu) | | 09/16/2017, 07/07/2014, | | | vaccination (#1) | 9 | 09/21/2009, Additional history | | | | | exists | | + + + + + Results Not on filefrom Last 3 Months Insurance + +--------+ +--------+ + +--------+ | Payer | Benefi | Subscriber | Effect | Phone | Address | Type | | | t Plan | ID | cali | | | | | | / | | Dates | | | | | | Group | | | | | | + +--------+ +--------+ + +--------+ | MEDICARE | MEDICA | xxxxxxxxxxx | 05/04/20 | [phone] | [address] | Medica | | | RE A & | | 13-Pre | 1 | [phone] | [address] | | | [address] | | sent | | [place] | | | | | | | | [phone] | | + +--------+ +--------+ + +--------+ | [employer] | AARP | xxxxxxxxxx | 05/04/20 | [phone] | [address] | Indemn | | RETIRED PEOPLE | | | 13-Pre | [phone] | [phone] | ity | | | | | sent | | [place] | | | | | | | | [phone] | | + +--------+ +--------+ + +--------+ + +--------+ +--------+ + + | Guarantor Name | Accoun | Relation to | Date | Phone | Billing Address | | | t Type | Patient | of | | | | | | | | | | + +--------+ +--------+ + + | To Aaron | Person | Self | [birth year] | [address] | | | al/Fam | | 1950 | [phone] | [place] [address] | | | cary | | | 2 (Home) | | + +--------+ +--------+ + +
--- OUTSIDE RECORDS SUMMARY | ~2020-02-19 | XMS | Encounter Summary ---
Demographics + + + | Address | [address] [place] [address] RD | | | [place] [address] | + + + | Home Phone | | + + + | Preferred Language | Unknown | + + + | Marital Status | | + + + | Gnosticist Affiliation | Unknown | + + + [...] Team Providers + +------+ + | Care Towel Sorter Name | Role | Phone | + [...] [id number] | | | | | | [place], [place] | | | | | | [address] | | | | | | [phone] | | | +--------+ + + + [...]
--- OUTSIDE RECORDS SUMMARY | ~2020-02-19 | XMS | Encounter Summary ---
Demographics + + + | Address | [address] [place] [address] RD | | | [place] [address] | + + + | Home Phone [...] Team Providers + +------+ + | Care Cooling Pipe Inspector Name | Role | Phone | [...] [id number] | | | | | | [place], [place] | | | | | | [address] | | | | | | [phone] | | | +--------+ + + + [...]
--- OUTSIDE RECORDS SUMMARY | ~2020-02-19 | XMS | Encounter Summary ---
Demographics + + + | Address | [address] [place] [address] RD | | | [place] [address] | + + + | Home Phone [...] Team Providers + +------+ + | Care Accounting Generalist Name | Role | Phone | + +------+ + PCP | Unavailable | + +------+ + Encounter Details +--------+ + + + + | Date | Type | Department | Care Team | Description | +--------+ + + + + | 05/26/ | Respiratory | Respiratory | [facility] [place] | | | 2006 | Therapy | Therapy [address] [facility] | [phone] | | | | | [address] | | | | | | Mailcode: UHS13 | | | | | | [place], [place] | | | | | | [address] | | | | | | [phone] | | | +--------+ + + + [...] + | PULMONARY FUNCTION | Routin | 05/26/2007 | | Results for this | | | e | 11:03 AM | | procedure are in the | | | | PDT | | results section. | + +--------+ + + + documented in this encounter Results RESP CARE PULMONARY FUNCTION (05/26/2007 11:03 AM PDT) + + + + + [...] following:FVC=3.19FVC% | | | | | | predicted=09JTJ9=6.52FEV | | | | | | 1% | | | | | | predicted=41FEV1/FVC=48F | | | | | | EF 25-75=0.36FEF 25-75% | | | | | | predicted=12PEF=5.99PEF% | | | | | | predicted=64Post | | | | | | bronchodilator | | | | | | spirometry was the | | | | | | following:FVC=3.52FVC% | | | | | | predicted=75PMW9=7.63FEV | | | | | | 1% | | | | | | predicted=44FEV1/FVC=46F | | | | | | EF 25-75=0.43FEF 25-75% | | | | | | predicted=14PEF=5.85PEF% | | | | | | predicted=62FEV1% | | | | | | change post | | | | | | bronchodilator=7Electron | | | | | | ically Signed by: Shannen | | | | | | [...] [facility] | [address] | [place] | | | THERAPY | [address] | [address] | | + + + + + | [facility] | [address] | [place], [place] | | | THERAPY | [address] | [address] | | + + + + + documented in this encounter Visit Diagnoses Not on filedocumented in this encounter"
--- OUTSIDE RECORDS SUMMARY | ~2020-02-19 | XMS | Encounter Summary ---
Demographics + + + | Address | [address] [place] [address] RD | | | [place] [address] | + + + | Home Phone [...] + + + | Author | [facility] | + + + | Organization | [facility] | + + + | Address | Unknown | + + + | Phone | Unavailable | + + + Support + + +---------+ + | Name | Relationship | Address | Phone | + + +---------+ + | Tahmina Aaron | ECON | Unknown | | + + +---------+ + Care Team Providers + +------+ + | Care Treasury Management Sales Consultant Name | Role | Phone | + +------+ + PCP | Unavailable | + +------+ + Encounter Details +--------+ + + + + | Date | Type | Department | Care Team | Description | +--------+ + + + + | 04/20/ | Office | [facility] | Clinic, [...] as of this encounter Progress Notes Interface, Dirt Contractor In - 05/04/2006 2:02 AM PDT [id number] ISABEL Matos [id number] Clinic Date: 04/20/2006 Clinic: Pulmonary and Critical Care Clinic Problem List : 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 Interim History: I last saw Anabell on October 13, 2005. Since that time, he has felt fairly well. Some increase of morning cough in about February 2006, and says now that he has a daily productive cough. He has trouble getting the phlegm out in the morning, but once he does, he feels pretty good. He has not had any sinus infections. No chest pain or hemoptysis. No wheezing. He rarely uses albuterol. He continues to receive his Prolastin infusions, approximately 140 mg/kg, every 2 weeks, at the [facility] in [place]. Medications: Include Advair 250/50 one inhalation twice a day, Flonase 1 inhalation in each nostril daily. Saline nasal washes on an almost daily basis. He is receiving Prolastin approximately 12 g every 2 weeks IV as noted above. Albuterol he usually uses 1 to 2 puffs before he does a lot of exercise. Review of Systems: Constitutional: Energy level is good. No fever, chills, or night sweats. ENT: No change in his sinus symptoms as long as he is using his Flonase and his nasal irrigation. Respiratory: As above. Cardiovascular: No chest pain or palpitations. GI: His appetite is good. No heartburn or abdominal cramping. : Negative. Musculoskeletal: Negative. Endocrine: Negative. Psychosocial: Negative. Hematology: Negative Neurologic: Negative. 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 He is staying closer to the home the last few months, as his is undergoing treatment for breast cancer. He has not been going to his cabin in [place] as often. Objective: Vital Signs: Weight 204 pounds, which is about at his baseline. His height is 70 inches. Blood pressure was 118/76 in his left arm, sitting; pulse is 64 and regular. Respiratory rate was 18 when he arrived, and 16 when I examined him. Temperature 98.8 and oxygen saturation was 96% at rest on room air. General: He does not appear acutely or chronically ill. Skin: Warm and dry. The color is good. HEENT: Sclerae anicteric. Conjunctivae noninjected. No nasal polyps or purulent nasal drainage was noted. Pharynx was not injected. No exudate or lesions. Neck: Supple with no lymphadenopathy or increased JVP. Heart: Heart sounds are unremarkable. S1 and S2. No murmurs or rubs. Abdomen: Round and soft with adequate bowel sounds. No masses, tenderness, or organomegaly. Laboratory Data: Spirometry done in clinic today reveals a prebronchodilator FVC of 3.17 L (65% of predicted), FEV1 of 7.52 L (41% of predicted), and FEV1/FVC of 48%. Postbronchodilator FVC is 3.19 L (65% of predicted), FEV1 is 1.54 L (41% of predicted), and FEV1/FVC is 48%. This represents a 1% increase in FVC and FEV1 postbronchodilator. This compares to spirometry done in October 2005 at which time his prebronchodilator FVC was 2.67 and his FEV1 was 1.22. Postbronchodilator FVC was 3.04 and his FEV1 was 1.47. He brought in a copy of labs drawn in [place] in August 2005. They included a CBC which was within normal limits with a hemoglobin of 16.6 and a hematocrit of 46.2 . Urinalysis was done and had showed no abnormalities. Chemistry profile revealed a normal fasting glucose of 98, uric acid 5.2, and total cholesterol 225 with HDL of 47 and LDL of 158 and triglycerides of 102. His liver function tests, which would include AST, ALT, alkaline phosphatase, GGT were all within normal limits, as were his bilirubin, protein, albumin, and globulin. BUN was 19, creatinine was 1.0. Electrolytes were within normal limits, and his TSH was normal at 1.4, and a PSA of 0.96. His ulhfs-1-yndwterqhqg level, which was a trough level, was 66 mg/dL. Assessment: Chronic obstructive pulmonary disease secondary to argol-8-zdwhpkfwjnw deficiency. Spirometry today reveals a moderate obstructive ventilatory defect with a suggestion of restriction. He shows no significant postbronchodilator reversibility. His PFT (pulmonary function test) numbers are a bit increased from his last visit but not significantly so. Plan: He is going to continue on his same medications. He will return to see me in 6 months. He will call if he has problems in the interim. Pavithra Shi / TRISTIAN [id number] / [id number] / [id number] / [phone] cc: * Jerry Adrian M.D. [address] [place] [id number] Electronically signed by Masha Pickering 05-03-2006 11:50:35 AM documented i n this encounter Plan of Treatment Not on filedocumented as of this encounter Visit Diagnoses Not on filedocumented in this encounter"
--- OUTSIDE RECORDS SUMMARY | ~2020-02-19 | XMS | Encounter Summary ---
Demographics + + + | Address | [address] [place] [address] RD | | | [place] [address] | + + + | Home Phone [...] Team Providers + +------+ + | Care Glue Maker Name | Role | Phone | + +------+ + | Jerry Adrian MD | PCP | | + +------+ + Encounter Details +--------+ + + + + | Date | Type | Department | Care Team | Description | +--------+ + + + + | 11/25/ | Braider Setter | Pulmonary & | Zion Roth, | Swmcj-6-zknhvargvco | | 2017 | | Critical Care | [address] | deficiency (HCC) | | | | Medicine at | [facility] [address] | (Primary Dx) | | | | [facility] | [place], [place] | | | | | [address] | [address] | | | | | [address] [facility] | [phone] | | | | | [address], [facility] Floor | | | | | | [place], [place] | | | | | | [address] | | | | | | [phone] | | | +--------+ + + + [...] | | | INTERPRETAT | L ID: [id number]: | | SPECIAL | | | ION [...] + + + + + + | URS54-28% | 0.53 | 2.55 L/sec | [facility] | | | PRE | | | SPECIAL | | | | | | DIAGNOSTICS | | | | | | - | | | | | | PULMONARY | | | | | | FUNCTION | | + + + + + + | YEG56-31% | 20 | % | [facility] | [...] [facility] | [address] | [place], [place] | | | DIAGNOSTICS - | [address] | [address] | | | PULMONARY FUNCTION | | | | + + + + + documented in this encounter Visit Diagnoses + + | Diagnosis | + + | Rbmqw-9-yajqgtmwzpn deficiency (HCC) - Primary Gthvn-4-mrxltgrkhoo deficiency | + + documented in this encounter"
--- OUTSIDE RECORDS SUMMARY | ~2020-02-19 | XMS | Encounter Summary ---
Demographics + + + | Address | [address] [place] [address] RD | | | [place] [address] | + + + | Home Phone [...] Team Providers + +------+ + | Care Environmental Educator Name | Role | Phone | + [...] | | | | [address] | [facility], | | | | | [place], | [place] [address] | | | | | [address] [place] [address], | | | | | | [place] [address] | | | | | | [phone] | | | +--------+ + + + [...] LAB | e | 8:12 AM | Arwec-3-juyqmuzubhg | procedure are in the | | [...] + + + + + + | CES84-62% | 0.41 | 2.79 L/sec | [facility] | | | PRE | | | SPECIAL | | | | | | DIAGNOSTICS | | | | | | - | | | | | | PULMONARY | | | | | | FUNCTION | | + + + + + + | IKD12-22% | 15 | % | [facility] | [...] | | | | | | | Respiratory Support Technician: Andrews Conrad | | | | | | COMMUTATOR TESTER Diagnosis: | | | | | | [...] Order# | | | | | | [id number] | | | | | | | [...] 75 | | | | | | 42LIB67-17% | | | | | | L/sec 2.79 | | | | | | 0.41 [id number] | | | | | | L/sec | | | | | | 0.41PEF | | | | | | L/sec 8.92 | | | | | | 6.13 22CVS42% | | | | | | L/sec [...] | | | | | RefPI max [id number] | | | | | | Volume LitersPE max | | | | | | [id number] Volume Liters | | | | | [...] Distance | | | | | | dzaqyi=8250 feet, 421 | | | | | [...] evaluation | | | | | | quebuws-1-zgohvumxnyn | | | | | | disease. [...] [facility] | [address] | [place], [place] | | | DIAGNOSTICS - | [address] | [address] | | | PULMONARY FUNCTION | | | | + + + + + documented in this encounter Visit Diagnoses + + | Diagnosis | + + | Cpemn-4-qkwqhajbkrs deficiency (HCC) Bamzd-4-sjtdexwgsio deficiency | + + documented in this encounter"
--- OUTSIDE RECORDS SUMMARY | ~2020-02-19 | XMS | Encounter Summary ---
Demographics + + + | Address | [address] [place] [address] RD | | | [place] [address] | + + + | Home Phone [...] Team Providers + +------+ + | Care Sprayer Leather Name | Role | Phone | + [...] | | | Medicine at | [facility], | | | | | [facility] | [place] [address] | | | | | [address] | [phone] | | | | | [address] | | | | | | Pavilion, 3rd Floor | | | | | | [place], [place] | | | | | | [address] | | | | | | [phone] | | | +--------+ + + + [...]
--- OUTSIDE RECORDS SUMMARY | ~2020-02-19 | XMS | Encounter Summary ---
Demographics + + + | Address | [address] | | | [place] [address] | + + + | Home Phone | | + + + | Preferred Language | Unknown | + + + | Marital Status | | + + + | Confucianism Affiliation | Unknown | + + + | Race | Unknown | + + + | Ethnic Group | Unknown | + + + Author + + + | Author | [facility] | | | and Atulana | + + + | Organization | [facility] | | | and [...] Team Providers + +------+ + | Care Ballroom Dancer Name | Role | Phone | + +------+ + PCP | Unavailable | + +------+ + Encounter Details +--------+ + + + + | Date | Type | Department | Care Team | Description | +--------+ + + + + | 08/01/ | [facility] | [facility] | Gaudencio Appiah MD | | | 1995 | Encounter | MED CTR GENERIC OP | [address] | | | | | CONV DEPT [address] | [address] | | | | | [place], | [address] | | | | | [place] [address] | | | | | | [phone] | | | +--------+ + + + [...]
--- OUTSIDE RECORDS SUMMARY | ~2020-02-19 | XMS | Encounter Summary ---
Demographics + + + | Address | [address] [place] [address] RD | | | [place] [address] | + + + | Home Phone [...] Team Providers + +------+ + | Care Civil Cadd Technician Name | Role | Phone | + +------+ + PCP | Unavailable | + +------+ + Encounter Details +--------+ + + + + | Date | Type | Department | Care Team | Description | +--------+ + + + + | 03/08/ | Office | [facility] | Note, [...] as of this encounter Progress Notes Interface, Monument Letterer In - 07/25/2006 1:04 AM PDTCLINIC DATE: 03/08/2001 ADULT PULMONARY CLINIC PROBLEM: Tichblmy-hu-oyxuwk COPD secondary to tzctw-1-axafnsczitg deficiency. HISTORY OF PRESENT ILLNESS: We last say Willie in August 2000. Since that time, he has been fairly. He had an upper respiratory infection in late December 2000, but seemed to have recovered uneventfully from that. He has been bothered by some rhinitis and rhinorrhea. He has had Beconase for this issues periodically and ran out of it a few days ago. [place] [address] and he likes to go hiking [place] at [address]. He has noticed that when he gets out the car and hikes up to the cabin that he gets pretty short of breath. Apparently, had some albuterol some years ago, thought that helped and would like a prescription for that now. He says once he is up there, he does fine hiking around. He is less active during the winter than during the summer, and has noticed that he has a little more trouble when he tries to lift and hold heavy objects. He has no other health concerns. He did get some lab work drawn in [place] recently, but we have not seen it. MEDICATIONS: Serevent 2 puffs b.i.d.; Azmacort 2 puffs b.i.d.; he has had some Prolastin's stored up, so he has been getting 10 vials the last 2 treatments; Beconase 2 puffs b.i.d. PAST MEDICAL HISTORY: Unchanged. 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 REVIEW OF SYSTEMS: Unchanged. No new problems. PHYSICAL EXAMINATION: VITAL SIGNS: Weight was 200 pounds with a 6-pound intentional weight loss since his last visit. O2 saturation 95% at rest on room air. Temperature was not done. Blood pressure 110/70, heart rate 60 and regular, and respiratory rate was 16. GENERAL: He did not appear either acutely or chronic ill. SKIN: Warm and dry. Color was good. HEENT: Sclerae were anicteric, conjunctivae were clear, no nasal polyps were visualized, and no purulent nasal drainage. Pharynx was noninjected, no exudate or lesions. NECK: Supple with no masses or lymphadenopathy. No increased JVP. CHEST: Diminished breath sounds in both bases, but did aerate to both bases, no crackles or wheezes even with forced expiratory maneuver. Heart sounds were a bit distant but unremarkable. S1 and S2, no murmurs or rubs. ABDOMEN: Round and soft with active bowel sounds. No masses, tenderness, or organomegaly. EXTREMITIES: No edema, clubbing, or cyanosis. LABORATORY DATA: Spirometry done today in the PFT Laboratory reveals a prebronchodilator FVC of 3.53 L (70% of predicted) FEV1 is 1.56 L (39% of predicted), and FEV1/FVC of 44%. Postbronchodilator FVC is 3.66 L (72% of predicted) FEV1 is 1.91 L (48% of predicted), and FEV1/FVC is 52%. ASSESSMENT: Moderately severe chronic obstructive pulmonary disease secondary to dycje-1-egftqxrdovo deficiency. Spirometry does show a decreased in FVC of 250 mL and an insignificant decrease in FEV1. What has changed is he has significant reversibility with a postbronchodilator increase in his FEV1 this time of 22%. PLAN: I have increased his Azmacort to 4 puffs b.i.d. We will have him take Flonase religiously 2 inhalations in each nostril each morning for a week and then 1 in each nostril a week thereafter. We will have him take Drixoral at night as long as he has significant rhinorrhea at night. I also wrote him a prescription for albuterol which he is to use 1-2 puffs prior to hiking and other strenuous activity, continue with his other medications. I wrote him a prescription so he could have PFTs done in [place] in a month, and we will see if the increase in inhaled steroids have made a difference. He will return to see us in 6 months or p.r.n. Pavithra Shi Division of Pulmonary and Critical Care / HS [id number] / [id number] / [id number] / cc: Vincenzo Goetz Truss Puller Helper [address] [place] [address]. [address] [place] [id number] signed by Interface, Monument Letterer In at 07/25/2006 1:04 AM PDTdocume nted in this encounter Plan of Treatment Not on filedocumented as of this encounter Visit Diagnoses Not on filedocumented in this encounter"
--- OUTSIDE RECORDS SUMMARY | ~2020-02-19 | XMS | Encounter Summary ---
Demographics + + + | Address | [address] [place] [address] RD | | | [place] [address] | + + + | Home Phone [...] Team Providers + +------+ + | Care Silverware Etcher Name | Role | Phone | + [...] 2012 | erpretation | Lab at [facility] [address] | | obstruction, not | | | | [address] | | elsewhere classified | | | | [address] | | (Primary Dx) | | | | [place], [place] | | | | | | [address] | | | | | | [phone] | | | +--------+ + + + [...] | + +--------+ + + + | ID SPIROMETRY TEST | Routin | 08/14/2013 | Chronic airway | | | | e | 10:28 AM | obstruction, not | | | | | PST | elsewhere classified | | + +--------+ + + + | SPIROMETRY, PULM | Routin | 08/04/2013 | | Results for this | | FUNCTION LAB | e | 10:46 AM | Ptalo-5-dqgizsbsqby | procedure are in the | | [...]
--- OUTSIDE RECORDS SUMMARY | ~2020-02-19 | XMS | Encounter Summary ---
Demographics + + + | Address | [address] [place] [address] RD | | | [place] [address] | + + + | Home Phone [...] Team Providers + +------+ + | Care Rim Turning Machine Operator Name | Role | Phone | + +------+ + PCP | Unavailable | + +------+ + Encounter Details +--------+ + + + + | Date | Type | Department | Care Team | Description | +--------+ + + + + | 10/26/ | Respiratory | Registration [address] | [address] [place] | | | 2006 | Therapy | [address] | [phone] | | | | | Rd Mailcode: [id number] | | | | | | [place], [place] | | | | | | [address] | | | | | | [phone] | | | +--------+ + + + [...] | | | | | 25-75 =0.46 NWF39-73% | | | | | | PREDICTED=15 [...] | | | | | 25-75 =0.38 NML55-16% | | | | | | PREDICTED=12 FEV1 | | | | | | % CHANGE POST | | | | | | BRONCHODILATOR= 0 Pt | | | | | | has cough Andrews Conrad, | | | | | | WOODWORKING MACHINE OPERATOR | | | | + + + [...] + + + | [facility] | [address] | [place], [place] | | | DIAGNOSTICS - | [address] | [address] | | | PULMONARY FUNCTION | | | | + + + + + documented in this encounter Visit Diagnoses Not on filedocumented in this encounter"
--- OUTSIDE RECORDS SUMMARY | ~2020-02-19 | XMS | Encounter Summary ---
Demographics + + + | Address | [address] [place] [address] RD | | | [place] [address] | + + + | Home Phone | | + + + | Preferred Language | Unknown | + + + | Marital Status | | + + + | Sikh Affiliation | Unknown | + + + [...] Team Providers + +------+ + | Care Power Sweeper Operator Name | Role | Phone | [...] as of this encounter Progress Notes Interface, Weld Engineer In - 05/04/2006 2:02 AM PDT [id number] ISABEL Matos [id number] Clinic Date: 04/20/2006 Clinic: Pulmonary and Critical Care Clinic Problem List : Chronic obstructive pulmonary disease secondary to kpylf-9-cdazalpkqjn deficiency. Interim History: I last saw Anabell [...] 140 mg/kg, every 2 weeks, at the [facility] in [place]. Medications: Include Advair 250/50 one inhalation twice [...] in a copy of labs drawn in [place] in August 2005. They included a CBC [...] 1.4, and a PSA of 0.96. His zqhfu-7-dnvcahbgtql level, which was a trough level, was 66 mg/dL. Assessment: Chronic obstructive pulmonary disease secondary to kivsy-0-tacztjzctvk deficiency. Spirometry today reveals a moderate obstructive [...] in the interim. Pavithra Shi / TRISTIAN [id number] / [id number] / [id number] / [id number] cc: * Jerry Adrian M.D. [address] [place] [id number] Electronically signed by Masha Pickering 05-03-2006 11:50:35 AM documented i n this encounter Plan of Treatment Not on filedocumented as of this encounter Visit Diagnoses Not on filedocumented in this encounter"
--- OUTSIDE RECORDS SUMMARY | ~2020-02-19 | XMS | Encounter Summary ---
Demographics + + + | Address | [address] [place] [address] RD | | | [place] [address] | + + + | Home Phone [...] + + + | Author | [facility] | + + + | Organization | [facility] | + + + | Address | Unknown | + + + | Phone | Unavailable | + + + Support + + +---------+ + | Name | Relationship | Address | Phone | + + +---------+ + | Tahmina Aaron | ECON | Unknown | | + + +---------+ + Care Team Providers + +------+ + | Care Chief General Pediatric Clinic Name | Role | Phone | + [...] [facility] | | | | | | [address] | | | | | | [address] [facility] | | | | | | [place], [address] | | | | | | [place], [place] | | | | | | [address] | | | | | | [phone] | | | +--------+--------+ + + + [...]
--- OUTSIDE RECORDS SUMMARY | ~2020-02-19 | XMS | Encounter Summary ---
Demographics + + + | Address | [address] [place] [address] RD | | | [place] [address] | + + + | Home Phone [...] Team Providers + +------+ + | Care Legal Records Clerk Name | Role | Phone | [...] | Medicine at | [facility] [address] [address] | 02/25/2013.) | | | | [facility] | [place], [place] | | | | | [address] | [address] | | | | | [facility] | [phone] | | | | | [place], [address] [place] [address] | | | | | | [place], [place] | | | | | | [address] | | | | | | [phone] | | | +--------+--------+ + + + [...]
--- OUTSIDE RECORDS SUMMARY | ~2020-02-19 | XMS | Encounter Summary ---
Demographics + + + | Address | [address] [place] [address] RD | | | [place] [address] | + + + | Home Phone [...] Team Providers + +------+ + | Care Workforce Investment Act Career Manager Name | Role | Phone | [...] [address] | | | | | [address] | [facility] | | | | | Loop Physician's | [place] [address] | | | | | [place], [address] [place] [address] | | | | | | [place], [place] | | | | | | [address] | | | | | | [phone] | | | +--------+ + + + [...] following:FVC=3.07FVC% | | | | | | predicted=66SKB8=8.57FEV | | | | | | 1% [...] following:FVC=3.19FVC% | | | | | | predicted=21TOP3=7.66FEV | | | | | | 1% [...] Boss, | | | | | | VENEER CLIPPER | | | | + + + + + + + + | Specimen | + + | | + + + + + + + | Performing | Address | City/State/Zipcode | Phone Number | | Organization | | | | + + + + + | [facility] | [address] | [place], [place] | | | THERAPY | [address] | [address] | | + + + + + | [facility] | [address] | [place], [place] | | | THERAPY | [facility] | [address] | | + + + + + documented in this encounter Visit Diagnoses Not on filedocumented in this encounter"
--- OUTSIDE RECORDS SUMMARY | ~2020-02-19 | XMS | Encounter Summary ---
Demographics + + + | Address | [address] [place] [address] RD | | | [place] [address] | + + + | Home Phone [...] Team Providers + +------+ + | Care Paraffin Plant Sweater Operator Name | Role | Phone | + +------+ + | Jerry Adrian MD | PCP | | + +------+ + Reason for Visit + + + | Reason | Comments | + + + | Sgsgw-5-grgjluglexp | | | deficiency | | + + + | COPD | | + + + Encounter Details +--------+---------+ + + + | Date | Type | Department | Care Team | Description | +--------+---------+ + + + | 07/08/ | Office | Pulmonary & | Misha Godfrey MD | COPD with chronic | | 2009 | Visit | Critical Care | [address] | bronchitis (HCC); | | | | Medicine at | [address] [place], | Alpha 1-antitrypsin | | | | [facility] | [place] [address] | deficiency | | | | [address] | [phone] | | | | | [facility] | | | | | | [place], [address] Floor | | | | | | [place], [place] | | | | | | [address] | | | | | | [phone] | | | +--------+---------+ + + + [...] + + + | Blood Pressure | 110/70 | 07/08/2010 8:54 AM | | | | | PDT | | + + + + + | Pulse | 73 | 07/08/2010 8:54 AM | | | | | PDT | | + + + + + | Temperature | 36.6 C (97.8 F) | 07/08/2010 8:54 AM | | | | | PDT | | + + + + + | Respiratory Rate | 16 | 07/08/2010 8:54 AM | | | | | PDT | | + + + + + | Oxygen Saturation | 95% | 07/08/2010 8:54 AM | | | | | PDT | | + + + + + | Inhaled Oxygen | - | - | | | Concentration | | | | + + + + + | Weight | 91.4 kg (201 lb 8 | 07/08/2010 8:54 AM | | | | oz) | PDT | | + + + + + | Height | 177 cm (5' 9.69") | 07/08/2010 8:54 AM | | | | | PDT | | + + + + + | Body Mass Index | 29.17 | 07/08/2010 8:54 AM | | | | | PDT | | + + + + + documented in this encounter Patient Instructions Patient Instructions Misha Godfrey MD - 07/08/2010 10:11 AM PDTBe cautious with altitude [place] and hunting. May need lower level hiking. Albuterol is helpful. Maintain Advair one puff twice daily. Try Spiriva one puff daily again, try AM. May not have dry mouth this time again. Scripts refilled to [facility]. Please use nasal saline irrigation every other day or so. Flu shot any time this month OK. Check with Zhenmonalisa regarding manager financial systems on Prolastin. documented in this encounter Progress Notes Misha Godfrey MD - 07/08/2010 10:10 AM PDTFormatting of this note might be different from t padma original. Date: 07/08/2010 I am seeing To today for 1. 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 Symptoms at altitude; decreased FEV1 this visi t. Plan: Much discussion, addressing issues, encourage retry tiotropium as FEV1 has decreased, caution at high altitude. Written instructions: Be cautious with altitude hiking and hunting. May need lower level hiking. Albuterol is hel pful. Maintain Advair one puff twice daily. Try Spiriva one puff daily again, try AM. May not have dry mouth this time again. Scripts refilled to [facility]. Please use nasal saline irrigation every other day or so. Flu shot any time this month OK. Check with Grant regarding manager financial systems on Prolastin. SUBJECTIVE: Continues to hike and backpack at altitude ( 5-6K feet). Gets SOB. Used albuterol when symp toms worse. Had [place], maxillary pain, off-color nasal drainage;Took a Z-pack with clearing. Has had sinus drainage surgery in past. Uses saline rinse in nares irregular at best. Has tried Spiriva- complains dry throat and has not used 2 years. Uses Advair BID. Takes Prolastin-C q 2 weeks, is able to shorten infusion times; goes to Infusion center at hospital. Concerns about affording medication with [employer] insuror. No medical setbacks. Had last regular visit with Dr. Adrian 10/2009. Physical Exam: Ht 177 cm (5' 9.69")( < 3 %ile), Wt 91.4 kg (201 lbs 8.0 oz)( < 3 %ile), BP 110/70, Pulse 73, Temperature 36.6 C (97.8 F), Temperature source Oral, RR 16, SpO2 95%, BMI 29.17 kg/(m^2). General: No acute distress, otherwise unchanged from previous exam, Nares: congestion. Throat: No erythema, exudate, or tonsillar enlargement [...] changes. Lymph nodes: No other lymphadenopathy detected. LABS: Outside CBC and metabolic panel from 09/25/09 normal. Spirometry with bronchodilator was performed: Spirometry results were the following: FVC=2.92 FVC% predicted=63 FEV1=1.19 FEV1% predicted=34 FEV1/FVC=41 FEF 25-75=0.30 FEF 25-75% predicted=11 PEF=6.86 PEF% predicted=76 Post bronchodilator spirometry was the following: FVC=2.64 FVC% predicted=57 FEV1=1.24 FEV1% predicted=35 FEV1/FVC=47 FEF 25-75=0.39 FEF 25-75% predicted=14 PEF=6.56 PEF% predicted=73 FEV1% change post bronchodilator=4 Patient reports using Advair 3 hours before this test. PEFs and FVCs are not consistent on pre-bronchodilator trials. Severe impairment, no response to aerosol bronchodilator. Date FVC FEV1 Ratio Post-FVC Post-FEV1 07/08/2010 2.92 1.19 41 2.64 1.24 MISHA GODFREY MD PULMONARY FACULTY [address] [place] [address] Mailcode: [id number] [address] [address] documented in this encou nter Plan of Treatment Not on filedocumented as of this encounter Visit Diagnoses + + | Diagnosis | + + | COPD with chronic bronchitis (HCC) Obstructive chronic bronchitis without | | exacerbation | + + | Alpha 1-antitrypsin deficiency Vwfay-6-pdrvrhvjfzj deficiency | + + documented in this encounter
--- OUTSIDE RECORDS SUMMARY | ~2020-02-19 | XMS | Encounter Summary ---
Demographics + + + | Address | [address] [place] [address] RD | | | [place] [address] | + + + | Home Phone [...] Team Providers + +------+ + | Care Automobile Leasing Supervisor Name | Role | Phone | + +------+ + | Jerry Adrian MD | PCP | | + +------+ + Encounter Details +--------+---------+ + + + | Date | Type | Department | Care Team | Description | +--------+---------+ + + + | 01/28/ | Office | | Zion Roth, | COPD with chronic | | 2018 | Visit | Hematology/Oncology | [address] | bronchitis (HCC) | | | | at [facility] | [address] | (Primary Dx); | | | | & Healing [address] | [place], [place] | Ccfrc-8-tzsibykgcjs | | | | [address] [place] Mailcode: | [id number] | deficiency (HCC) | | | | Critical access hospital | [phone] | | | | | and Healing, | | | | | | [address] | | | | | | [place], [place] | | | | | | [address] | | | | | | [phone] | | | +--------+---------+ + + + [...] + + + | Blood Pressure | 134/85 | 01/28/2018 10:38 AM | | | | | PDT | | + + + + + | Pulse | 59 | 01/28/2018 10:38 AM | | | | | PDT | | + + + + + | Temperature | 36.6 C (97.9 F) | 01/28/2018 10:38 AM | | | | | PDT | | + + + + + | Respiratory Rate | 16 | 01/28/2018 10:38 AM | | | | | PDT | | + + + + + | Oxygen Saturation | 93% | 01/28/2018 10:38 AM | | | | | PDT | | + + + + + | Inhaled Oxygen | - | - | | | Concentration | | | | + + + + + | Weight | 94.7 kg (208 lb 12.8 | 01/28/2018 10:38 AM | | | | oz) | PDT | | + + + + + | Height | 177.8 cm (5") | 01/28/2018 10:38 AM | | | | | PDT | | + + + + + | Body Mass Index | 29.96 | 01/28/2018 10:38 AM | | | | | PDT | | + + + + + documented in this encounter Patient Instructions Patient Instructions Vega Martin MD - 01/28/2018 10:30 AM PDTWhat is my diagnosis/Wh at am I being treated for? -Alpha-1 antitrypsin deficiency What is my plan for today s visit (what tests I have to do when I leave, how am I suppose d to use my medications)? -No changes to your therapy -Continue your Prolastin infusions What needs to happen for my condition to improve/resolve? -See above What is the name of the doctor I saw today? -VEGA MARTIN MD How do I get in touch with the doctor(s) in case I have a question? -Call [phone] We recommend signing up for [email or web address] our secure online messaging system that will [...] encounter Progress Notes Zion Roth MD - 01/28/2018 10:30 AM PDTI performed a history and physical examination of the patient and discussed his management with the fellow. I reviewed the fellow's note a nd agree with the documented findings and plan of care. FEV1 decreased significantly over the past year. Pt is not having any change in his sympto ms, he is already on appropriate therapy, and he is not a transplant candidate due to age so I would not recommend any repeat testing at this time. If symptoms worsen I would then due further testing. Follow up in 1 year. Zion Roth MD PULMONARY/CRITICAL CARE MEDICINE [address] Mailcdoe:[address] [address] hampionVega MD - 01/28/2018 10:30 AM PDT Date: 01/28/2018 Primary Care Provider: Jerry Adrian MD [facility] [address] [place] [address] Referring Provider: No Referring Provider Per Patient NO REFERRING PROVIDER PER PT To Aaron is a 67 y.o. male in pulmonary clinic today for the follow up of alpha-1 a ntitrypsin deficiency. 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 Past Social and Family History: Social History Substance Use Topics Smoking status: Former Smoker Quit date: 10/04/1985 Smokeless tobacco: Never Used Alcohol use Not on file Review of systems: As above. All other systems negative. Physical Exam: Visit Vitals Item Reading BP 134/85 Pulse 59 Temp (Src) 36.6 C (97.9 F) (Oral) RR 16 Ht 1.778 m (5' 10") Wt 94.7 kg (208 lb 12.8 oz) SpO2 93% BMI 29.96 kg/(m^2) General: No acute distress, otherwise unchanged [...] changes. Lymph nodes: No other lymphadenopathy detected. Labs: No new labs Radiology: No new imaging Pulmonary Function Tests: Date FVC FEV1 FEV1/FVC 01/28/18.....................2.79 (63%).................1.12 (34%)......................... ....40% 01/29/17.....................2.39 (53%).................1.34 (40%)......................... ....56% 08/03/14.....................2.62 (57%).................1.44 (42%)......................... [...] (75%).....4.97 (228%).............59%.................... 0.77 (51%) DLCO 01/28/18...........18.9 (82%) 01/29/17...........19.4 (80%) 08/10/08...........21.3 (76%) 6MW 04/15/12............421 04/28/11............384 Flow-volume loops were reviewed. Results are consistent with obstructive physiology. Assessment: Mr. Aaron is a 67 year old man with COPD due to alpha-1 antitrypsin deficiency [facility]. His symptoms remain stable since his last visit, and his PFTs are relatively stable. We will continue his current treatments and see him back in 1 year. Plan: No changes in medications Continue Prolastin infusions RTC 1 year or sooner PRN VEGA MARTIN MD HEMATOLOGY/ONCOLOGY AT [address] Mailcdoe:ch[address] [address] [phone] signed by Vega Martin MD at 01/28/2018 11:51 AM PDTdocumen kathryn in this encounter Plan of Treatment Not on filedocumented as of this encounter Visit Diagnoses + + | Diagnosis | + + | COPD with chronic bronchitis (HCC) - Primary Obstructive chronic bronchitis without | | exacerbation | + + | Nuiro-6-ciwwbswcvix deficiency (HCC) Ziqjd-5-jhdxkpwtgoz deficiency | + + documented in this encounter
--- OUTSIDE RECORDS SUMMARY | ~2020-02-19 | XMS | Encounter Summary ---
Demographics + + + | Address | [address] [place] [address] RD | | | [place] [address] | + + + | Home Phone [...] Team Providers + +------+ + | Care Print Finisher Name | Role | Phone | [...] 2011 | erpretation | Lab at [facility] [address] | | obstruction, not | | | | [address] | | elsewhere classified | | | | [address] | | (Primary Dx) | | | | [place], [place] | | | | | | [address] | | | | | | [phone] | | | +--------+ + + + [...] | + +--------+ + + + | SC PULMONARY STRESS | Routin | 04/16/2012 | Chronic airway | | | TESTING,SIMPLE | e | 9:49 AM | obstruction, not | | | | | PDT | elsewhere classified | | + +--------+ + + + | SC SPIROMETRY TEST | Routin | 04/16/2012 | Chronic airway | | | | e | 9:49 AM | obstruction, not | | | | | PDT | elsewhere classified | | + +--------+ + + + | SPIROMETRY, PULM | Routin | 04/15/2012 | | Results for this | | FUNCTION LAB | e | 8:12 AM | Tyqzk-1-njbhrkuhpag | procedure are in the | | | | PDT | deficiency (HCC) | results section. | + +--------+ + + + documented in this encounter Visit Diagnoses + + | Diagnosis | + + | Chronic airway obstruction, not elsewhere classified - Primary | + + documented in this encounter"
--- OUTSIDE RECORDS SUMMARY | ~2020-02-19 | XMS | Encounter Summary ---
Demographics + + + | Address | [address] [place] [address] RD | | | [place] [address] | + + + | Home Phone | | + + + | Preferred Language | Unknown | + + + | Marital Status | | + + + | Protestant Affiliation | Unknown | + + + [...] Team Providers + +------+ + | Care Livestock Buyer Name | Role | Phone | + +------+ + | Jerry Adrian MD | PCP | | + +------+ + Encounter Details +--------+ + + + + | Date | Type | Department | Care Team | Description | +--------+ + + + + | 04/28/ | Hospital | Medicine | Tech, Pfl Adult | | | 2010 | Encounter | [facility] at [facility] | Clinic [address] | | | | | [address] | [facility] | | | | | Loop Physician's | [place] [address] | | | | | [place], [address] [place] [address] | | | | | | [place], [place] | | | | | | [address] | | | | | | [phone] | | | +--------+ + + + [...] + | SPIROMETRY, PULM | Routin | 04/28/2011 | COPD with chronic | Results for this | | FUNCTION LAB | e | 8:27 AM | bronchitis (HCC) | procedure are [...] + + + + + + | REN28-53% | 0.40 | 2.88 L/sec | [facility] | | | PRE | | | SPECIAL | | | | | | DIAGNOSTICS | | | | | | - | | | | | | PULMONARY | | | | | | FUNCTION | | + + + + + + | HCT84-95% | 14 | % | [facility] | [...] | | | | | | | Belly Roller: Shannen | | | | | | THALIA Boss Diagnosis: | | | | | | COPD 496 | | | | | | 1-gaatitomjvk-515.4D | | | | | | ######## [...] Order# | | | | | | [id number] | | | | | | | [...] 75 | | | | | | 96CMZ54-14% | | | | | | L/sec 2.88 | | | | | | 0.40 [id number] | | | | | | L/sec | | | | | | 0.40PEF | | | | | | L/sec 9.09 | | | | | | 6.06 49AYS95% | | | | | | L/sec [...] | | | | | RefPI max [id number] | | | | | | Volume LitersPE max | | | | | | [id number] Volume Liters | | | | | [...] Test: | | | | | | Eqmncntyosepwo=6061 | | | | | | feet, [...] reduced | | | | | | (1735-1354 | | | | | | feet).Theoxygen [...] [facility] | [address] | [place], [place] | | | DIAGNOSTICS - | [address] | [address] | | | PULMONARY FUNCTION | | | | + + + + + documented in this encounter Visit Diagnoses + + | Diagnosis | + + | 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
--- OUTSIDE RECORDS SUMMARY | ~2020-02-19 | XMS | Encounter Summary ---
Demographics + + + | Address | [address] [place] [address] RD | | | [place] [address] | + + + | Home Phone [...] Team Providers + +------+ + | Care Apparel Rental Clerk Name | Role | Phone | + +------+ + PCP | Unavailable | + +------+ + Encounter Details +--------+ + + + + | Date | Type | Department | Care Team | Description | +--------+ + + + + | 02/14/ | Results | Pulmonary Function | Misha Pace MD | | | 2002 | Only | Lab at [facility] [address] | [address] | | | | | [address] | [place], | | | | | [address] | [place] [address] | | | | | [place], [place] | [phone] | | | | | [address] | | | | | | [phone] | | | +--------+ + + + [...] | SPIROMETRY WITH BD'S | Routin | 02/14/2003 | | Results for this | | | e | 7:44 AM | | procedure are in the | | | | PDT | | results section. | + +--------+ + + + | DIFFUSION | Routin | 02/14/2003 | | Results for this | | | e | 7:44 AM | | procedure are in the | | | | PDT | | results section. | + +--------+ + + + documented in this encounter Results DIFFUSION (02/14/2003 7:44 AM PDT) + + + + + + | Component | Value | Ref Range | Performed | Pathologist | | | | | At | Signature | + + + + + + | DLCO | 26.79 | ML/MIN/MM HG | | | | MEASURED | | | | | + + + + + + | DLCO % PRED | 89 | % | | | + + + + + + | DLCO/VA | 4.16 | ML/MIN/MM HG/L | | | | MEASURED | | | | | + + + + + + | DLCO/VA % | 95 | % | | | | PRED [...] + | [facility] | [address] | [place], [place] | | | DIAGNOSTICS - | [address] | [address] | | | PULMONARY FUNCTION | | | | + + + + + SPIROMETRY WITH BD'S (02/14/2003 7:44 AM PDT) + + + + + + | Component | Value | Ref Range | Performed | Pathologist | | | | | At | Signature | + + + + + + | FVC | 3.25 | L | | | | MEASURED | | | | | + + + + + + | FVC % PRED | 65 | % | | | + + + + + + | FEV1 | 1.76 | L/S | | | | MEASURED | | | | | + + + + + + | FEV1 % PRED | 44 | % | | | + + + + + + | FEV1/FVC | 54.00 | % | | | | MEASURED | | | | | + + + + + + | FEF() | 0.71 | L/S | | | + + + + + + | FEF() | 19 | % | | | | % PRED | | | | | + + + + + + | FVC POST | 3.41 | L | | | | BD'S | | | | | | MEASURED | | | | | + + + + + + | FVC POST | 68 | | | | | BD'S % PRED | | | | | + + + + + + | FEV1 POST | 1.76 | L | | | | BD'S | | | | | | MEASURED | | | | | + + + + + + | FEV1 POST | 44 | % | | | | BD'S % PRED | | | | | + + + + + + | FEV1/FVC | 51.00 | % | | | | POST BD'S | | | | | | MEASURD | | | | | + + + + + + | FEF(2575) | 0.55 | L/S | | | | POST BD'S | | | | | | MEASURD | | | | | + + + + + + | FEF(25-75) | 15 | % | | | [...] [facility] | [address] | [place], [place] | | | DIAGNOSTICS - | [address] | [address] | | | PULMONARY FUNCTION | | | | + + + + + documented in this encounter Visit Diagnoses Not on filedocumented in this encounter"
--- OUTSIDE RECORDS SUMMARY | ~2020-02-19 | XMS | Encounter Summary ---
Demographics + + + | Address | [address] [place] [address] RD | | | [place] [address] | + + + | Home Phone [...] Team Providers + +------+ + | Care Solution Maker Name | Role | Phone | [...] [id number] | | | | | | [place], [place] | | | | | | [address] | | | | | | [phone] | | | +--------+ + + + [...] + + + + + | [facility] | [address] | [place] [address] | | | PATHOLOGY | [address] | | | + + + + + documented in this encounter Visit Diagnoses Not on filedocumented in this encounter"
--- OUTSIDE RECORDS SUMMARY | ~2020-02-19 | XMS | Encounter Summary ---
Demographics + + + | Address | [address] [place] [address] RD | | | [place] [address] | + + + | Home Phone [...] Team Providers + +------+ + | Care Plant Protection Officer Name | Role | Phone | + +------+ + | Jerry Adrian MD | PCP | | + +------+ + Reason for Visit + + + | Reason | Comments | + + + | Refill Request | Request for Fluticasone Prop [address] [facility] [place] | + + + Encounter Details +--------+--------+ + + + | Date | Type | Department | Care Team | Description | +--------+--------+ + + + | 07/09/ | Refill | Pulmonary & | Misha Pace MD | Refill Request | | 2010 | | Critical Care | [address] | (Request for | | | | Medicine at | [facility], | Fluticasone Prop 50 | | | | [facility] | [place] [address] | [facility]) | | | | [address] | [phone] | | | | | [address] | | | | | | [address], 3rd Floor | | | | | | [place], [place] | | | | | | [address] | | | | | | [phone] | | | +--------+--------+ + + + [...]
--- OUTSIDE RECORDS SUMMARY | ~2020-02-19 | XMS | Encounter Summary ---
Demographics + + + | Address | [address] [place] [address] RD | | | [place] [address] | + + + | Home Phone | | + + + | Preferred Language | Unknown | + + + | Marital Status | | + + + | Hinduism Affiliation | Unknown | + + + | Race | White | + + + | Ethnic Group | Not or | + + + Author + + + | Author | [facility] | + + + | Organization | [facility] | + + + | Address | Unknown | + + + | Phone | Unavailable | + + + Support + + +---------+ + | Name | Relationship | Address | Phone | + + +---------+ + | Tahmina Aaron | ECON | Unknown | | + + +---------+ + Care Team Providers + +------+ + | Care Bolt Loader Name | Role | Phone | + [...] as of this encounter Progress Notes Interface, Linotypist In - 12/10/2006 2:31 AM PST [id number] ISABEL Matos [id number] Clinic Date: 10/26/2006 Clinic: Adult Pulmonary Clinic [...] was done on October 09, 2006, at [facility] in [place]. Of note, Pavithra Shi / TRISTIAN [id number] / [id number] / [id number] / [id number] cc: Jerry Adrian M.D. [address] [place] [address] Electronically signed by Masha Pickering 12-09-2006 09:00:21 AM [email or web address], Linotypist In - 12/10/2006 2:31 AM PST [id number] ISABEL Matos [id number] Clinic Date: 10/26/2006 Clinic: Pulmonary and Critical [...] work collected on October 09, 2006, from [facility] lab in [place]. Of note, he had a CBC which [...] and is not able to come to [place], we will arrange to have spirometry done in [place]. Otherwise, he will come to see us in 4 to 6 months, and of course continue with his Prolastin for his alpha-1 antitrypsin deficiency. Pavithra Shi / [id number] / [id number] / [id number] / [id number] Electronically signed by Masha iPckering 12-09-2006 09:00:05 AM documented in this encounter Plan of Treatment Not on filedocumented as of this encounter Visit Diagnoses Not on filedocumented in this encounter"
--- OUTSIDE RECORDS SUMMARY | ~2020-02-19 | XMS | Encounter Summary ---
Demographics + + + | Address | [address] | | | [place] [address] | + + + | Home Phone | | + + + | Preferred Language | Unknown | + + + | Marital Status | | + + + | Evangelical Affiliation | Unknown | + + + | Race | Unknown | + + + | Ethnic Group | Unknown | + + + Author + + + | Author | [facility] | | | and [place] | + + + | Organization | [facility] | | | and [place] [...] Providers + +------+ + | Care Radio Sportscaster Name | Role | Phone | + +------+ + PCP | Unavailable | + +------+ + Encounter Details +--------+ + + + + | Date | Type | Department | Care Team | Description | +--------+ + + + + | 08/01/ | [facility] | [facility] | Gaudencio Appiah MD | | | 1995 | Encounter | MED CTR GENERIC OP | [address] | | | | | CONV DEPT [address] | [address] | | | | | [place], | [address] | | | | | [place] [address] | | | | | | [phone] | | | +--------+ + + + [...]
--- OUTSIDE RECORDS SUMMARY | ~2020-02-19 | XMS | Encounter Summary ---
Demographics + + + | Address | [address] [place] [address] RD | | | [place] [address] | + + + | Home Phone [...] Team Providers + +------+ + | Care Sat Math Tutor Name | Role | Phone | + [...] as of this encounter Progress Notes Interface, Olive Brine Tester In - 08/25/2006 5:03 [facility]: [facility] The patient canceled [...] Vancenase one puff each nostril q.d. to [facility] at [phone]. The patient's phone number is . Jimmie Montalvo M.D. Asst. Professor Pulmonary Critical Care Medicine [facility] / HS [id number] / [id number] / [id number] / [id number] cc: Fermin Adrian M.D. [address] [place] [id number] signed by Interface, Olive Brine Tester In at 08/25/2006 5:03 AM PSTdocume nted in this encounter Plan of Treatment Not on filedocumented as of this encounter Visit Diagnoses Not on filedocumented in this encounter"
--- OUTSIDE RECORDS SUMMARY | ~2020-02-19 | XMS | Encounter Summary ---
Demographics + + + | Address | [address] [place] [address] RD | | | [place] [address] | + + + | Home Phone [...] Team Providers + +------+ + | Care Steel Rule Inspector Name | Role | Phone | + +------+ + PCP | Unavailable | + +------+ + Encounter Details +--------+ + + + + | Date | Type | Department | Care Team | Description | +--------+ + + + + | 02/14/ | Results | Pulmonary Function | Misha Pace MD | | | 2002 | Only | Lab at [facility] [address] | [address] | | | | | [address] | [place] [address] [place], | | | | | [address] | [place] [address] | | | | | [place], [place] | [phone] | | | | | [address] | | | | | | [phone] | | | +--------+ + + + [...] [facility] | [address] | [place], [place] | | | DIAGNOSTICS - | [address] | [address] | | | PULMONARY FUNCTION | | [...] | DIAGNOSTICS - | [address] | [address] | | | PULMONARY FUNCTION | | | | + + + + + documented in this encounter Visit Diagnoses Not on filedocumented in this encounter"
--- OUTSIDE RECORDS SUMMARY | ~2020-02-19 | XMS | Encounter Summary ---
Demographics + + + | Address | [address] [place] [address] RD | | | [place] [address] | + + + | Home Phone [...] Team Providers + +------+ + | Care Care Team Coordinator Scheduler Name | Role | Phone | + +------+ + | Jerry Adrian MD | PCP | | + +------+ + Encounter Details +--------+ + + + + | Date | Type | Department | Care Team | Description | +--------+ + + + + | 09/02/ | Newspaper Carrier | Pulmonary & | Misha Godfrey MD | Jkmzz-0-onfjgboelyw | | 2010 | | Critical Care | [address] | deficiency (HCC) | | | | Medicine at | [facility], | (Primary Dx) | | | | [facility] | [place] [address] | | | | | [address] | [phone] | | | | | [address] | | | | | | [address], 3rd Floor | | | | | | [place], [place] | | | | | | [address] | | | | | | [phone] | | | +--------+ + + + [...] + + + + + + | MKL80-95% | 0.41 | 2.79 L/sec | [facility] | | | PRE | | | SPECIAL | | | | | | DIAGNOSTICS | | | | | | - | | | | | | PULMONARY | | | | | | FUNCTION | | + + + + + + | UQV39-09% | 15 | % | [facility] | [...] | | | | | | | Field Traffic Investigator: Andrews Conrad | | | | | | TEXTILE EXAMINER Diagnosis: | | | | | | [...] Order# | | | | | | [id number] | | | | | | | [...] 75 | | | | | | 24HSY58-27% | | | | | | L/sec 2.79 | | | | | | 0.41 [id number] | | | | | | L/sec | | | | | | 0.41PEF | | | | | | L/sec 8.92 | | | | | | 6.13 79TBV27% | | | | | | L/sec [...] | | | | | RefPI max [id number] | | | | | | Volume LitersPE max | | | | | | [id number] Volume Liters | | | | | [...] Distance | | | | | | hrjdtz=5312 feet, 421 | | | | | [...] evaluation | | | | | | yziokdu-3-apjpvgstwvh | | | | | | disease. [...] [facility] SPECIAL | [address] | [place], [place] | | | DIAGNOSTICS - | [address] | [address] | | | PULMONARY FUNCTION | | | | + + + + + documented in this encounter Visit Diagnoses + + | Diagnosis | + + | Krjxh-8-voazmtwmspl deficiency (HCC) - Primary Qxjkd-3-xatkklkczbe deficiency | + + documented in this encounter"
--- OUTSIDE RECORDS SUMMARY | ~2020-02-19 | XMS | Encounter Summary ---
Demographics + + + | Address | [address] [place] [address] RD | | | [place] [address] | + + + | Home Phone [...] Team Providers + +------+ + | Care Stores Assistant Name | Role | Phone | + +------+ + PCP | Unavailable | + +------+ + Encounter Details +--------+ + + + + | Date | Type | Department | Care Team | Description | +--------+ + + + + | 03/07/ | Results | Pulmonary Function | Misha Pace MD | | | 2001 | Only | Lab at [facility] [address] | [address] | | | | | [address] | [address] [place], | | | | | [address] | [place] [address] | | | | | [place], [place] | [phone] | | | | | [address] | | | | | | [phone] | | | +--------+ + + + [...] [facility] | [address] | [place], [place] | | | DIAGNOSTICS - | [address] | [address] | | | PULMONARY FUNCTION | | | | + + + + + documented in this encounter Visit Diagnoses Not on filedocumented in this encounter"
--- OUTSIDE RECORDS SUMMARY | ~2020-02-19 | XMS | Encounter Summary ---
Demographics + + + | Address | [address] [place] [address] RD | | | [place] [address] | + + + | Home Phone [...] Team Providers + +------+ + | Care Display Fabrication Supervisor Name | Role | Phone | + +------+ + | Jerry Adrian MD | PCP | | + +------+ + Encounter Details +--------+ + + + + | Date | Type | Department | Care Team | Description | +--------+ + + + + | 01/28/ | Hospital | Pulmonary Function | Tech, Pfl Adult | | | 2018 | Encounter | Lab at [facility] [address] | [address] | | | | | [address] | [facility], | | | | | [place], | [place] [address] | | | | | [address] [place] [address], | | | | | | [place] [address] | | | | | | [phone] | | | +--------+ + + + [...] puffs by | 1 | 6 | 12/18/20 | | | mcg/actuation | mouth every [...] capsule by | 21 | 0 | 12/18/20 | | | oral capsule | mouth [...] the | | | | PDT | Jatic-8-zcwkmnmghsa | results section. | | | | | deficiency (HCC) | | + +--------+ + + + documented in this encounter Results SPIROMETRY, PULM FUNCTION LAB (01/28/2018 9:11 AM PDT) + + + + + + | Component | Value | Ref Range | Performed | Pathologist | | | | | At | Signature | + + + + + + | PULMONARY | Site: [facility] and | | [place] | | | INTERPRETAT | [facility] | | SPECIAL | | | ION | [address] [facility] | | DIAGNOSTICS | | | | [address],[place], [place], | | - | | | | [address]OO: [id number] | | PULMONARY | | | | Name: ISABEL | | FUNCTION | | | | HERMAN Buckley Date: | | | | | | 01/28/2018 Second ID: | | | | | | [id number]: | | | | | | Jovan MarkAge: 67 | | | | | | : 1950 Sex: | | | | | | Male Race: | | | | | | CaucasianHeight: 177.00 | | | | | | Cms Weight: 93.60 | | | | | | Kgs BSA: | | | | | | 2.11Diagnosis: COPD with | | | | | | Chronic Bronchitis | | | | | | J44.9Cough: Productive | | | | | | Wheeze: RareTbco Prod: | | | | | | Cigarette Yrs Smk: | | | | | | 10.0 Pks/Day: 1.0 | | | | | | Yrs Quit: | | | | | | 35.0Medications: Advair | | | | | | and SpirivaPost Test | | | | | | Comments: Good patient | | | | | | effort & cooperation. | | | | | | The results of | | | | | | thistest did not meet | | | | | | the ATS standards for | | | | | | acceptability due to not | | | | | | able too meetend of | | | | | | test criteria but was | | | | | | repeatable except for | | | | | | the FVC >150cc | | | | | | variability.Patient | | | | | | height and weight | | | | | | reviewed. | | | | | | | | | | | | | | | | | | Pre-Bronch | | | | | | Post-Bronch | | | | | | | | | | | | Pred | | | | | | Actual %Pred Actual | | | | | | %ChngSPIROMETRYFVC (L) | | | | | | | | | | | | 4.39 | | | | | | 2.79 63FEV1 (L) | | | | | | | | | | | | 3.23 1.12 | | | | | | 34FEV1/FVC (%) | | | | | | | | | | | | 74 40 | | | | | | 54FEF 25% (L/sec) | | | | | | 7.30 | | | | | | 0.74 10FEF 50% | | | | | | (L/sec) | | | | | | 4.31 0.32 | | | | | | 7FEF 75% (L/sec) | | | | | | | | | | | | 1.23 0.17 | | | | | | 13FEF 25-75% (L/sec) | | | | | | 2.46 | | | | | | 0.24 9FEF Max | | | | | | (L/sec) | | | | | | 8.32 5.70 | | | | | | 68FIVC (L) | | | | | | | | | | | | 2.83FIF | | | | | | 50% (L/sec) | | | | | | 6.61 | | | | | | 7.26 109FIF Max | | | | | | (L/sec) | | | | | | | | | | | | 7.30LUNG | | | | | | VOLUMESDIFFUSIONDLCOunc | | | | | | (ml/min/mmHg) | | | | | | 23.83 19.57 | | | | | | 82DLCOadj | | | | | | (ml/min/mmHg) | | | | | | 23.83 18.87 | | | | | | 79DL/VA | | | | | | (ml/min/mmHg/L) | | | | | | 3.42 3.58 | | | | | | 104VA (L) | | | | | | | | | | | | 6.96 5.28 | | | | | | 75BLOOD GASESHgb (gm/dL) | | | | | | | | | | | | 16.0 | | | | | | Interpretation: | | | | | | INTERPRETATION: | | | | | | SPIROMETRY:Spirometry | | | | | | shows severe airflow | | | | | | obstruction indicated by | | | | | | a reduced | | | | | | FEV1/FVC.Since 01/2017, | | | | | | FEV1 has decreased by | | | | | | 22%. DIFFUSING | | | | | | CAPACITY:The diffusing | | | | | | capacity is very | | | | | | slightly decreased at | | | | | | 79% (with normal | | | | | | rangebeing 80% and | | | | | | higher). Overall, | | | | | | pattern is consistent | | | | | | with severe obstruction. | | | | | | JBThis interpretation | | | | | | has been electronically | | | | | | signed: Kirstin, | | | | | | Nmudrdgmp41/29/2018 | | | | | | 10:19:06 PM | | | | + + + + + + | FVC PRE | 2.79 | 4.39 L | [facility] | | | | | | SPECIAL | | | | | | DIAGNOSTICS | | | | | | - | | | | | | PULMONARY | | | | | | FUNCTION | | + + + + + + | FVC PRE | 63 | % | [facility] | | | (%REF) | | | SPECIAL | | | | | | DIAGNOSTICS | | | | | | - | | | | | | PULMONARY | | | | | | FUNCTION | | + + + + + + | FEV1 PRE | 1.12 | 3.23 L | [facility] | | | | | | SPECIAL | | | | | | DIAGNOSTICS | | | | | | - | | | | | | PULMONARY | | | | | | FUNCTION | | + + + + + + | FEV1 PRE | 34 | % | [facility] | | | (%REF) | | | SPECIAL | | | | | | DIAGNOSTICS | | | | | | - | | | | | | PULMONARY | | | | | | FUNCTION | | + + + + + + | FEV1/FVC | 40 | 74 % | [facility] | | | PRE | | | SPECIAL | | | | | | DIAGNOSTICS | | | | | | - | | | | | | PULMONARY | | | | | | FUNCTION | | + + + + + + | FEV1/FVC | 54 | % | [facility] | | | PRE (%REF) | | | SPECIAL | | | | | | DIAGNOSTICS | | | | | | - | | | | | | PULMONARY | | | | | | FUNCTION | | + + + + + + | PEF PRE | 5.70 | 8.32 L/sec | [facility] | | | | | | SPECIAL | | | | | | DIAGNOSTICS | | | | | | - | | | | | | PULMONARY | | | | | | FUNCTION | | + + + + + + | PEF PRE | 68 | % | [facility] | | | (%REF) | | | SPECIAL | | | | | | DIAGNOSTICS | | | | | | - | | | | | | PULMONARY | | | | | | FUNCTION | | + + + + + + | CJY84-97% | 0.24 | 2.46 L/sec | [facility] | | | PRE | | | SPECIAL | | | | | | DIAGNOSTICS | | | | | | - | | | | | | PULMONARY | | | | | | FUNCTION | | + + + + + + | TED29-32% | 9 | % | [facility] | | | PRE (%REF) | | | SPECIAL | | | | | | DIAGNOSTICS | | | | | | - | | | | | | PULMONARY | | | | | | FUNCTION | | + + + + + + | FIF50% PRE | 7.26 | 6.61 L/sec | [facility] | | | | | | SPECIAL | | | | | | DIAGNOSTICS | | | | | | - | | | | | | PULMONARY | | | | | | FUNCTION | | + + + + + + | FIF50% PRE | 109 | % | [facility] | | | (%REF) | | | SPECIAL | | | | | | DIAGNOSTICS | | | | | | - | | | | | | PULMONARY | | | | | | FUNCTION | | + + + + + + | DLCO PRE | 19.57 | 23.83 | [facility] | | | | | ml/min/mmHg | SPECIAL | | | | | | DIAGNOSTICS | | | | | | - | | | | | | PULMONARY | | | | | | FUNCTION | | + + + + + + | DLCO PRE | 82 | % | [facility] | | | (%REF) | | | SPECIAL | | | | | | DIAGNOSTICS | | | | | | - | | | | | | PULMONARY | | | | | | FUNCTION | | + + + + + + | DLCO ADJ | 18.87 | 23.83 | [facility] | | | PRE | | ml/min/mmHg | SPECIAL | | | | | | DIAGNOSTICS | | | | | | - | | | | | | PULMONARY | | | | | | FUNCTION | | + + + + + + | DLCO ADJ | 79 | % | [facility] | | | PRE (%REF) | | | SPECIAL | | | | | | DIAGNOSTICS | | | | | | - | | | | | | PULMONARY | | | | | | FUNCTION | | + + + + + + | DLCO/VA ADJ | 3.58 | ml/min/mmHg/L | [facility] | | | PRE | | | SPECIAL | | | | | | DIAGNOSTICS | | | | | | - | | | | | | PULMONARY | | | | | | FUNCTION | | + + + + + + | DLCO/VA ADJ | 104 | % | [facility] | | | [...] [facility] | [address] | [place], [place] | | | DIAGNOSTICS - | [address] | [address] | | | PULMONARY FUNCTION | | | | + + + + + documented in this encounter Visit Diagnoses + + | Diagnosis | + + | COPD with chronic bronchitis (HCC) Obstructive chronic bronchitis without | | exacerbation | + + | Tugcp-9-pmsshtewvtb deficiency (HCC) Czamq-3-fuidyieggdg deficiency | + + documented in this encounter"
--- OUTSIDE RECORDS SUMMARY | ~2020-02-19 | XMS | Encounter Summary ---
Demographics + + + | Address | [address] | | | [place] [address] | + + + | Home Phone | | + + + | Preferred Language | Unknown | + + + | Marital Status | | + + + | Confucianist Affiliation | Unknown | + + + | Race | Unknown | + + + | Ethnic Group | Unknown | + + + Author + + + | Author | [facility] | | | and Atulana | + + + | Organization | [facility] | | | and [place] [...] Team Providers + +------+ + | Care Bobbin Presser Name | Role | Phone | + +------+ + PCP | Unavailable | + +------+ + Encounter Details +--------+ + + + + | Date | Type | Department | Care Team | Description | +--------+ + + + + | 12/19/ | Hospital | [facility] | | | | 1993 - | Encounter | MED CTR GENERIC OP | | | | | | CONV DEPT [address] | | | | 05/10/ | | [place], | | | | 1995 | | [place] [address] | | | | | | [phone] | | | +--------+ + + + [...]
--- OUTSIDE RECORDS SUMMARY | ~2020-02-19 | XMS | Encounter Summary ---
Demographics + + + | Address | [address] [place] [address] RD | | | [place] [address] | + + + | Home Phone [...] Team Providers + +------+ + | Care Transfer Worker Name | Role | Phone | [...] Medicine at | [facility] | | | | | [facility] | [place], [place] | | | | | [address] | [address] | | | | | [address] | [phone] | | | | | [address], [facility] Floor | | | | | | [place], [place] | | | | | | [address] | | | | | | [phone] | | | +--------+--------+ + + + [...]
--- OUTSIDE RECORDS SUMMARY | ~2020-02-19 | XMS | Encounter Summary ---
Demographics + + + | Address | [address] [place] [address] RD | | | [place] [address] | + + + | Home Phone [...] Team Providers + +------+ + | Care Rnfa Name | Role | Phone | + +------+ + | Jelani Higgins MD | PCP | | + +------+ + Encounter Details +--------+ + + + + | Date | Type | Department | Care Team | Description | +--------+ + + + + | 04/26/ | Ancillary | Registration [id number] | Masha Pickering ANP | | | 2006 | Registratio | [facility] [place] | | | | | n | [place] Mailcode: [id number] | | | | | | [place], [place] | | | | | | [address] | | | | | | [phone] | | | +--------+ + + + [...]
--- OUTSIDE RECORDS SUMMARY | ~2020-02-19 | XMS | Encounter Summary ---
Demographics + + + | Address | [address] [place] [address] RD | | | [place] [address] | + + + | Home Phone [...] Team Providers + +------+ + | Care Head Cd Reactor Operator Name | Role | Phone | [...] | | Medicine at | [facility] | | | | | [facility] | [place], [place] | | | | | [address] | [address] | | | | | [facility] | [phone] | | | | | [place], [address] Floor | | | | | | [place], [place] | | | | | | [address] | | | | | | [phone] | | | +--------+ + + + [...]
--- OUTSIDE RECORDS SUMMARY | ~2020-02-19 | XMS | Encounter Summary ---
Demographics + + + | Address | [address] [place] [address] RD | | | [place] [address] | + + + | Home Phone | | + + + | Preferred Language | Unknown | + + + | Marital Status | | + + + | Judaism Affiliation | Unknown | + + + [...] Team Providers + +------+ + | Care Dominatrix Name | Role | Phone | + [...] | | Medicine at | [facility], | with Chronic | | | | [facility] | [place] [address] | Bronchitis (HCC); | | | | [address] | [phone] | Sinusitis | | | | [address] [facility] | | | | | | Pavilion, 3rd Floor | | | | | | [place], [place] | | | | | | [address] | | | | | | [phone] | | | +--------+---------+ + + + [...] approximately 12 gm q 2 weeks at [facility]. No reacti ons. Continues get out, some [...] | + + | Alpha 1-antitrypsin deficiency Ekwyt-7-wnloufufmgj deficiency | + + | COPD with chronic bronchitis (HCC) Obstructive chronic bronchitis without | | exacerbation | + + | Sinusitis Unspecified sinusitis (chronic) | + + documented in this encounter
--- OUTSIDE RECORDS SUMMARY | ~2020-02-19 | XMS | Encounter Summary ---
Demographics + + + | Address | [address] [place] [address] RD | | | [place] [address] | + + + | Home Phone [...] Team Providers + +------+ + | Care Mainspring Winder Name | Role | Phone | + +------+ + PCP | Unavailable | + +------+ + Encounter Details +--------+ + + + + | Date | Type | Department | Care Team | Description | +--------+ + + + + | 05/26/ | Respiratory | Respiratory | [facility] [place] | | | 2006 | Therapy | Therapy [address] [facility] | [phone] | | | | | [address] | | | | | | Mailcode: [id number] | | | | | | [place], [place] | | | | | | [address] | | | | | | [phone] | | | +--------+ + + + [...] following:FVC=3.19FVC% | | | | | | predicted=42GNV1=8.52FEV | | | | | | 1% [...] following:FVC=3.52FVC% | | | | | | predicted=12TEI7=8.63FEV | | | | | | 1% [...] SOO RESPIRATORY | [address] | [place] | | | THERAPY | [address] | [address] | | + + + + + | SOO RESPIRATORY | [address] | [place], [place] | | | THERAPY | [address] | [address] | | + + + + + documented in this encounter Visit Diagnoses Not on filedocumented in this encounter"
--- OUTSIDE RECORDS SUMMARY | ~2020-02-19 | XMS | Encounter Summary ---
Demographics + + + | Address | [address] [place] [address] RD | | | [place] [address] | + + + | Home Phone [...] Team Providers + +------+ + | Care Fruit Harvest Worker Name | Role | Phone | [...] | | | | Medicine at | [facility] [address] | spray) | | | | [facility] | [place], [place] | | | | | [address] | [address] | | | | | [address] [facility] | [phone] | | | | | [place], 3rd Floor | | | | | | [place], [place] | | | | | | [address] | | | | | | [phone] | | | +--------+--------+ + + + [...]
--- OUTSIDE RECORDS SUMMARY | ~2020-02-19 | XMS | Encounter Summary ---
Demographics + + + | Address | [address] [place] [address] RD | | | [place] [address] | + + + | Home Phone [...] Team Providers + +------+ + | Care Parts Clerk Name | Role | Phone | + +------+ + PCP | Unavailable | + +------+ + Encounter Details +--------+ + + + + | Date | Type | Department | Care Team | Description | +--------+ + + + + | 07/10/ | Office | General Internal | Note, Outpatient | Progress Note | | 1996 | Visit-Trans | Medicine [address] | Clinic | | | | emma | Kajal Joyce | | | | | | Mailcode: [id number] | | | | | | Outpatient Clinic | | | | | | [facility], [address] | | | | | | [place], [place] | | | | | | [address] | | | | | | [phone] | | | +--------+ + + + [...] as of this encounter Progress Notes Interface, Granular Operator In - 11/16/2006 1:06 AM PST CLINIC DATE: 07/10/97 PULMONARY CLINIC SUBJECTIVE: Mr. 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 He continues to be maintained on 10 grams intravenously every two weeks despite recommendations to increase to 12.5 grams intravenously every two weeks to optimize his drug levels. The patient remains on this level due to concerns over cost to his insurance company and possible denial of coverage. He continues to feel well without shortness of breath at rest or with exertion. He claims that he feels better than he did last time I saw him. Since last visit he has traveled to [place] and had no troubles. He recently had a cold without any complications. There has been no cough or mucus production. There has been no hemoptysis. There has been no chest pain. MEDICATIONS: 1. Azmacort two puffs two times daily. 2. Serevent two puffs two times daily. 3. Prolastin 10 grams intravenous every two weeks. REVIEW OF SYSTEMS: Less sinus allergy symptoms since last visit. He took nasal corticosteroids for four days with improvement. He has not required antibiotics since last January 1997. No fevers, chills, sweats, or night sweats. No other new problems. 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 He traveled to [facility] in the springtime and plans to go again soon. OBJECTIVE: GENERAL: The patient is a gentleman looking his stated age, well-nourished, well-hydrated, in no acute distress. VITAL SIGNS: Weight 205 pounds, heart rate 68 and regular, blood pressure 100/70, respiratory rate 16 and unlabored, oxygen saturation is 96 percent on room air. SKIN: Warm and dry with good turgor. There is no jaundice. HEENT: Sclerae are anicteric without injection. Oropharynx is clear. CHEST: Examination shows distant breath sounds without rales or rhonchi. CARDIOVASCULAR: Regular rate and rhythm with normal S1 and S2. EXTREMITIES: No clubbing, cyanosis, or edema. LABORATORY VALUES: Pulmonary function tests today show an FEV1 of 2.12 liters (52 percent of predicted) with a FVC before bronchodilators of 4.13, which increases to 4.31 liters (84 percent of predicted). The room air oxygen saturation is 96 percent. ASSESSMENT: 1. 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 The patient continues to have severe airways obstruction but is well compensated. He has had good response to his current medications. 2. Xocyc-8-xvcxqwjdkuo deficiency. The patient had a repeat trough level of 54 which is sub-therapeutic. I have now advised the patient on numerous occasions to increase his dose to 12.5 grams intravenous every two weeks, which is his target dose based on a dose of 140 mg/kg at a weight of 90 kilograms. He continues to not increase to this level due to problems with his insurance company. He has no evidence of any other abnormalities. Liver tests performed June 20, 1997, at [facility] in [place] were reviewed and showed normal liver tests. 3. Chronic sinusitis, resolved. PLAN: 1. Continue prolastin infusions with goal to increase to 140 mg/kg intravenous every two weeks. He should check a level approximately three to four months after beginning the new infusion. 2. Follow up every six months with pulmonary function tests. 3. Continue yearly liver tests. 4. Continue alcohol abstinence. 5. Avoid acetaminophen ingestion. 6. Again referred the patient to mfilx-3-banuujysrgr deficiency support group. 7. Continue Serevent and Azmacort at current dosing level. Jimmie Montalvo M.D. Cargo Services Coordinator, Lung Transplantation Brake Repairer Air, Pulmonary and Critical Care Medicine MSC/clg cc: Enmanuel OROURKE MD [address] [facility] [address] documented in this encounter Plan of Treatment Not on filedocumented as of this encounter Visit Diagnoses Not on filedocumented in this encounter"
--- OUTSIDE RECORDS SUMMARY | ~2020-02-19 | XMS | Encounter Summary ---
Demographics + + + | Address | [address] | | | [place] [address] | + + + | Home Phone | | + + + | Preferred Language | Unknown | + + + | Marital Status | | + + + | Sabianism Affiliation | Unknown | + + + | Race | Unknown | + + + | Ethnic Group | Unknown | + + + Author + + + | Author | [facility] | | | and [place] | + + + | Organization | [facility] | | | and [place] | [...] Providers + +------+ + | Care Web Feeder Name | Role | Phone | + +------+ + PCP | Unavailable | + +------+ + Encounter Details +--------+ + + + + | Date | Type | Department | Care Team | Description | +--------+ + + + + | 12/19/ | Hospital | [facility] | | | | 1993 - | Encounter | MED CTR GENERIC OP | | | | | | CONV DEPT [address] | | | | 05/10/ | | [place], | | | | 1995 | | [place] [address] | | | | | | [phone] | | | +--------+ + + + [...]
--- OUTSIDE RECORDS SUMMARY | ~2020-02-19 | XMS | Encounter Summary ---
Demographics + + + | Address | [address] [place] [address] RD | | | [place] [address] | + + + | Home Phone [...] Providers + +------+ + | Care Director Museum [employer] Name | Role | Phone | + [...] | | | | [facility] | [place], [place] | | | | | [address] | [address] | | | | | [address] [facility] | [phone] | | | | | [place], [address] [place] [address] | | | | | | [place], [place] | | | | | | [address] | | | | | | [phone] | | | +--------+ + + + [...]
--- OUTSIDE RECORDS SUMMARY | ~2020-02-19 | XMS | Encounter Summary ---
Demographics + + + | Address | [address] [place] [address] RD | | | [place] [address] | + + + | Home Phone [...] Team Providers + +------+ + | Care Pension Examiner Name | Role | Phone | + +------+ + | Jerry Adrian MD | PCP | | + +------+ + Reason for Visit + + + | Reason | Comments | + + + | Mkfxp-6-fixyuthlqba | | | deficiency | | + + + Encounter Details +--------+---------+ + + + | Date | Type | Department | Care Team | Description | +--------+---------+ + + + | 07/13/ | Office | Pulmonary & | Hollister, Carolina C, | Zjail-4-ktbsznfsacl | | 2011 | Visit | Critical Care | [address] | deficiency ([facility]); | | | | Medicine at | [facility] [address] | COPD with chronic | | | | [facility] | [place], [place] | bronchitis ([facility]) | | | | [address] | [address] | | | | | [address] [facility] | [phone] | | | | | Pavilion, [facility] Floor | | | | | | [place], [place] | | | | | | [address] | | | | | | [phone] | | | +--------+---------+ + + + [...] Care Provider: MD KIRT Cummins INTERNAL MEDICINE [address] [place] [address] Referring Provider: Misha Pace MD [address] [place] [address] To Aaron is a 61 y.o. male in pulmonary clinic today for the follow up of A1AT and COPD. PROBLEM LIST: A1AT - Prolastin IV u4xhozh - Tiotropium - Advair - FEV1 ~1.5 and stable since 2005 Subjective: To Aaron is a 61 y.o. 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 He reports that h enriqueta continues to do very well. 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 He is excited about [facility] son this year as his cameras have noted some very large bulls. He denies any fever, chills or night sweats. He continues to walk into his [employer] spots without too much difficult y (around 2.5miles). He went to a curriculum development manager a couple of weeks ago and will get the resul ts of the tests next week. Current Medications: Current Outpatient Prescriptions Medication Sig albuterol 90 mcg/Actuation Inhalation HFA Aerosol Inhaler Inhale 2 Puffs every six hour s as needed. Rinse mouth after use. fluticasone (FLONASE) 50 mcg/Actuation Nasal [place], Suspension Instill 1 [place] in nose once daily. fluticasone-salmeterol (ADVAIR DISKUS) [...] COPD. CAROLINA HI MD PULMONARY/CRITICAL CARE MEDICINE [address] [place] [address] Mailcode: Uhn[address] [id number] [phone] signed by Carolina Hi MD at 04/15/2012 1:27 PM PDTdocumente d in this encounter Plan of Treatment Not on filedocumented as of this encounter Visit Diagnoses + + | Diagnosis | + + | Wyfuk-4-nihhxyftdfr deficiency (HCC) Lnpos-2-bnzcuytzfut deficiency | + + | COPD with chronic bronchitis (HCC) Obstructive chronic bronchitis without | | exacerbation | + + documented in this encounter
--- OUTSIDE RECORDS SUMMARY | ~2020-02-19 | XMS | Encounter Summary ---
Demographics + + + | Address | [address] [place] [address] RD | | | [place] [address] | + + + | Home Phone [...] Team Providers + +------+ + | Care Jet Handler Name | Role | Phone | + [...] as of this encounter Progress Notes Interface, Broke Handler In - 05/01/2006 1:04 AM PDTCLINIC DATE: [...] not helped. He has not seen his security risk analyst regarding this problem. 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 SKIN: Negative. [...] driving a truck twice a week to [facility]. He is active with hiking in [...] infection. I encouraged him to see his security risk analyst for an yearly exam and to have his neck pain evaluated. Anabell needs to have yearly liver function tests to look for any signs of liver disease related to alpha 1-antitrypsin deficiency. We would like to see him back in 4 to 6 months. Zaid Sih. Division of Pulmonary and Critical Care / HS [id number] / [id number] / [id number] / cc: Fermin Adrian M.D. [address] [place], [place] [address]Mhimftamkwpbfn signed by Interface, Broke Handler In at 05/01/2006 1:0 4 AM PDTdocumented in this encounter Plan of Treatment Not on filedocumented as of this encounter Visit Diagnoses Not on filedocumented in this encounter"
--- OUTSIDE RECORDS SUMMARY | ~2020-02-19 | XMS | Encounter Summary ---
Demographics + + + | Address | [address] [place] [address] RD | | | [place] [address] | + + + | Home Phone [...] Team Providers + +------+ + | Care System Safety Engineer Name | Role | Phone | [...] as of this encounter Progress Notes Interface, Gauge Controller In - 05/03/2005 5:58 AM PDTClinic Date: [...] needing some nocturnal O2. Zaid Shi. / [id number] / [id number] / [id number] / [id number] cc: Jimmie Montalvo M.D. [facility] Pulmonary Division Jerry Adrian M.D. [address] [place] [address] [address] [place], [place] [address]Hnyftwecjmbzld signed by Interface, Gauge Controller In at 05/03/2005 5:5 8 AM PDTdocumented in this encounter Plan of Treatment Not on filedocumented as of this encounter Visit Diagnoses Not on filedocumented in this encounter"
--- OUTSIDE RECORDS SUMMARY | ~2020-02-19 | XMS | Encounter Summary ---
Demographics + + + | Address | [address] [place] [address] RD | | | [place] [address] | + + + | Home Phone [...] Team Providers + +------+ + | Care Induction Heat Treater Name | Role | Phone | + [...] 2013 | erpretation | Lab at [facility] [address] | | obstruction, not | | | | [address] | | elsewhere classified | | | | [facility] [place] | | (Primary Dx) | | | | [place], [place] | | | | | | [address] | | | | | | [phone] | | | +--------+ + + + [...] | + +--------+ + + + | AR DIFFUSING | Routin | 08/07/2014 | Chronic airway | | | CAPACITY | e | 2:59 PM | obstruction, not | | | | | PST | elsewhere classified | | + +--------+ + + + | AR SPIROMETRY TEST | Routin | 08/07/2014 | Chronic airway | | | | e | 2:59 PM | obstruction, not | | | | | PST | elsewhere classified | | + +--------+ + + + | SPIROMETRY, PULM | Routin | 08/03/2014 | | Results for this | | FUNCTION LAB | e | 8:04 AM | Vpuxa-9-aytxfxmyofq | procedure are in the | | | | PDT | deficiency (HCC) | results section. | + +--------+ + + + documented in this encounter Visit Diagnoses + + | Diagnosis | + + | Chronic airway obstruction, not elsewhere classified - Primary | + + documented in this encounter"
--- OUTSIDE RECORDS SUMMARY | ~2020-02-19 | XMS | Encounter Summary ---
Demographics + + + | Address | [address] [place] [address] RD | | | [place] [address] | + + + | Home Phone [...] Team Providers + +------+ + | Care Human Resources Receptionist Name | Role | Phone | + +------+ + | Jelani Higgins MD | PCP | | + +------+ + Encounter Details +--------+---------+ + + + | Date | Type | Department | Care Team | Description | +--------+---------+ + + + | 04/18/ | Office | Pulmonary & | Zion Roth, | Hjslv-9-ngirgguuymh | | 2019 | Visit | Critical Care | [address] | deficiency ([facility]) | | | | Medicine at | [facility] [address] | (Primary Dx); COPD | | | | [facility] | [place], [place] | with chronic | | | | [address] | [address] | bronchitis (HCC) | | | | [address] [facility] | [phone] | | | | | [place], [address] [place] [address] | | | | | | [place], [place] | | | | | | [address] | | | | | | [phone] | | | +--------+---------+ + + + [...] in case I have a question? -Call [phone] We recommend signing up for [employer] our secure online messaging system that will [...] 04/18/2019 Primary Care Provider: Jelani Higgins MD [address] [place] [address] Referring Provider: No Referring Provider Per Patient NO REFERRING PROVIDER PER PT To Aaron is a 68 y.o. male in pulmonary clinic today for the follow up of A1AT. PROBLEM LIST: A1AT- Prolastin IV x5ztvud - Tiotropium - Advair - FEV1 ~1.5 and stable since 2005 Subjective: To Aaron reports he has lost 25# and is feeling 5x better. Did have pn eumonia over the winter but recovered. 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 Current Medications: Current Outpatient Medications Medication Sig [...] this visit. Past Medical History: Diagnosis Date Jwkwi-8-nautbmgdjsg deficiency (HCC) Past Social and Family History: [...] treatment. Zion Roth MD PULMONARY/CRITICAL CARE MEDICINE [address] [place] [address] Mailcode: Uhn67 [place] [address] documented in this en counter Plan of Treatment Not on filedocumented as of this encounter Visit Diagnoses + + | Diagnosis | + + | Bkolh-1-oylnqfgqdms deficiency (HCC) - Primary Cznol-4-tycyqlhshwb deficiency | + + | COPD with chronic bronchitis (HCC) Obstructive chronic bronchitis without | | exacerbation | + + documented in this encounter
--- OUTSIDE RECORDS SUMMARY | ~2020-02-19 | XMS | Encounter Summary ---
Demographics + + + | Address | [address] [place] [address] RD | | | [place] [address] | + + + | Home Phone [...] Team Providers + +------+ + | Care Atlassian Administrator Name | Role | Phone | [...] [id number] | | | | | | [place], [place] | | | | | | [address] | | | | | | [phone] | | | +--------+ + + + [...]
--- OUTSIDE RECORDS SUMMARY | ~2020-02-19 | XMS | Encounter Summary ---
Demographics + + + | Address | [address] [place] [address] RD | | | [place] [address] | + + + | Home Phone [...] Team Providers + +------+ + | Care Community Specialist Name | Role | Phone | [...] as of this encounter Progress Notes Marc, Business Assistant In - 05/02/2005 4:49 PM PDTClinic Date: 10/16/2003 Clinic: Pulmonary Problem: Chronic obstructive pulmonary disease secondary to xbnno-9-drrnotggujs deficiency. 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 Complete metabolic panel done in [place] in January 2003 was within normal limits. Assessment 1. Tjewu-6-bukvoxlhtgq deficiency. 2. Chronic obstructive pulmonary disease secondary to fluqk-9-sduvikggdss deficiency. He does have a history of [...] Division of Pulmonary and Critical Care / [id number] / [id number] / [id number] / cc: Jerry Adrian M.D. [address] [facility]. [address] [place] [id number] signed by Interface, Business Assistant In at 05/02/2005 4:4 9 PM PDTdocumented in this encounter Plan of Treatment Not on filedocumented as of this encounter Visit Diagnoses Not on filedocumented in this encounter"
--- OUTSIDE RECORDS SUMMARY | ~2020-02-19 | XMS | Encounter Summary ---
Demographics + + + | Address | [address] [place] [address] RD | | | [place] [address] | + + + | Home Phone [...] Team Providers + +------+ + | Care Marine Air [employer] Task Force Planners Name | Role | Phone | + [...] | | | | Medicine at | [facility] | | | | | [facility] | [place], [place] | | | | | [address] | [address] | | | | | Loop [facility] | [phone] | | | | | [place], [facility] Floor | | | | | | [place], [place] | | | | | | [address] | | | | | | [phone] | | | +--------+ + + + [...] + | Diagnosis | + + | Ghyhh-6-snybygyawve deficiency (HCC) - Primary Wkrpe-6-dlwyrrcjjme deficiency | + + | 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
--- OUTSIDE RECORDS SUMMARY | ~2020-02-19 | XMS | Encounter Summary ---
Demographics + + + | Address | [address] [place] [address] RD | | | [place] [address] | + + + | Home Phone [...] Providers + +------+ + | Care Gear Shaper Set Up Operator Name | Role | Phone | + +------+ + | Jerry Adrian MD | PCP | | + +------+ + Reason for Visit + + + | Reason | Comments | + + + | Medication Refill | Fluticasone | + + + Encounter Details +--------+ + + + + | Date | Type | Department | Care Team | Description | +--------+ + + + + | 06/25/ | Telephone | Pulmonary & | Gonzalez, Zion C, | Medication Refill | | 2013 | | Critical Care | [address] | (Fluticasone) | | | | Medicine at | [facility] | | | | | [facility] | [place], [place] | | | | | [address] | [address] | | | | | [address] [facility] | [phone] | | | | | [place], [address] [place] [address] | | | | | | [place], [place] | | | | | | [address] | | | | | | [phone] | | | +--------+ + + + [...]
--- OUTSIDE RECORDS SUMMARY | ~2020-02-19 | XMS | Encounter Summary ---
Demographics + + + | Address | [address] [place] [address] RD | | | [place] [address] | + + + | Home Phone [...] Team Providers + +------+ + | Care Member Service Specialist Name | Role | Phone | + +------+ + PCP | Unavailable | + +------+ + Encounter Details +--------+ + + + + | Date | Type | Department | Care Team | Description | +--------+ + + + + | 07/07/ | Office | UNKNOWN DEPARTMENT | Note, Outpatient | Progress Note | | 1993 | Visit-Trans | [address] [facility] | Clinic | | | | emma | [address] | | | | | | [place], [place] | | | | | | [address] | | | +--------+ + + + [...] as of this encounter Progress Notes Interface, Client Consultant In - 01/30/2007 3:05 AM PDT CLINIC DATE: 07/07/94 PULMONARY AND CRITICAL CARE: REFERRAL SOURCE: Misha Maldonado M.D. REASON FOR REFERRAL: Further evaluation alpha1-antitrypsin deficiency. 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 PROBLEM #1: Alpha1-antitrypsin deficiency/emphysema. The patient mentions no breathing difficulties prior to three or four years ago when he had episodic chest pain after paroxysms of coughing accompanied by wheezing. The chest pain was both right and left side. 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 [...] has lived all of his life in [place]. He lives in a house and has [...] he fits the guidelines recommended by the [place] [employer]. 3. I told him I would be able to answer further questions at any time and assist his physicians in initiating Prolastin management if he so desired. Misha Pace M.D. Production Planner, Medicine Division of Pulmonary and Critical Care AFB:matt CC: MISHA MALDONADO MD DEPARTMENT OF MEDICINE [facility] documented in this encounter Plan of Treatment Not on filedocumented as of this encounter Visit Diagnoses Not on filedocumented in this encounter
--- OUTSIDE RECORDS SUMMARY | ~2020-02-19 | XMS | Encounter Summary ---
Demographics + + + | Address | [address] [place] [address] RD | | | [place] [address] | + + + | Home Phone [...] Team Providers + +------+ + | Care Bid Writer Name | Role | Phone | + +------+ + PCP | Unavailable | + +------+ + Encounter Details +--------+ + + + + | Date | Type | Department | Care Team | Description | +--------+ + + + + | 07/30/ | Office | [facility] | Note, Outpatient | Progress Note | | 1997 | Visit-Trans | MEDICINE | Clinic | [...] as of this encounter Progress Notes Interface, Stem Maker In - 10/09/2006 5:04 AM [facility]: [facility] PULMONARY AND CRITICAL CARE CLINIC CHIEF COMPLAINT: Follow-up fjuf-6-rkkyxavgvmr replacement therapy. HISTORY OF PRESENT ILLNESS: The patient was last seen on January 22, 1998. At that time, his dose was increased from 10 to 12 mg IV every two weeks. The patient has traveled to [facility] for six weeks after that time for a hunting trip. He was given prescriptions for Vancenase and antibiotics but he has not taken any of them. He had an uneventful trip. Since that time, he has been back to his usual activities and has set up a hunting camp at the 5,000 foot level. He walks four miles into it each way, and he is able to do it without significant shortness of breath. He has no shortness of breath at rest or with exertion. He has no cough. He has had no sputum production. He has had no chest pain. There is no lower extremity edema. MEDICATIONS: 1. Prolastin 12 mg IV q 12 weeks. 2. Serevent 2 puffs PO q.i.d.. 3. Azmacort 2 puffs PO b.i.d.. 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 His trip to [facility] and his hunting camp are as I described above. FAMILY HISTORY: Unchanged. REVIEW OF SYSTEMS: No fevers, chills, sweats or night sweats. He complains of an intermittent rash on his forehead for which he has used Elocon cream in the past. He would like to have a refill for that. He is concerned about his weight. He feels best when he is at less than 195 pounds, but his weight fluctuates between that and 205 based on his diet. He has not had a flu vaccine this year. He has no other new problems. He has noted no other complaints. PHYSICAL EXAMINATION: GENERAL: This is a male appearing the stated age. He is well-nourished and well-hydrated. In no acute distress. VITAL SIGNS: Weight is 207 pounds. Temperature is 96.3 degrees Fahrenheit. Heart rate is 64 and regular. Blood pressure is 110/84. Respiratory rate is 8 and nonlabored. On room air, the oxygen saturation rate at rest is 95%. SKIN: Skin is warm and dry with good turgor. There is a macular erythematous rash on the forehead with some dryness. There are no spider angiomas, petechiae or other rashes. HEENT: Normocephalic and atraumatic. Sclerae are anicteric without injection. Oropharynx is clear without erythema or exudate. NECK: Neck is supple. CHEST: Chest exam shows distant breath sounds without rales or rhonchi appreciated. There is a normal expiratory phase. CARDIAC: Cardiac examination reveals a regular rate and rhythm without murmurs, gallops or clicks. ABDOMEN: Abdomen is soft and nontender without right upper quadrant tenderness. EXTREMITIES: Without clubbing, cyanosis or edema. LABORATORY DATA: The pulmonary function tests today show FEV1 of 1.95 (48% of predicted) which increases 11% after bronchodilators to 2.16 (53% of predicted). FEC is 4.09 (80% of predicted) and increases 6% to 4.33 after bronchodilators. FEV1/FEC is 0.48. Prolastin trough levels and liver tests are pending. ASSESSMENT: 1. Chronic obstructive pulmonary disease secondary to eeguy-3-fbqrknimmux deficiency. The patient continues to have severe airway obstruction with little change in his pulmonary function tests except that his baseline FEV1 before bronchodilator is higher than it was before, with less reversibility although his maximal level is similar. 2. Soybw-3-qwofgmjeffj deficiency. Awaiting trough levels after replacement therapy was increased. 3. Chronic sinusitis, resolved, at this time. 4. Chronic intermittent rash on the forehead. PLAN: 1. Check Prolastin trough level. 2. Check liver function tests every six months. 3. Follow-up pulmonary function tests in six months. 4. Continue alcohol and acetaminophen abstinence. 5. Continue current metered dose inhaler. 6. Prescription for Elocon 1% cream to forehead on a PRN basis. Jimmie Chesnutt, M.D. Cloth Folder Hand, Lung Transplantation Drapery Hanger, Pulmonary and Critical Care Medicine MC/raul cc: Enmanuel MARQUEZ MD [address] [place] [address] [address] [place] [id number] signed by Interface, Stem Maker In at 10/09/2006 5:04 AM PSTdocumented in this encounter Plan of Treatment Not on filedocumented as of this encounter Visit Diagnoses Not on filedocumented in this encounter"
--- OUTSIDE RECORDS SUMMARY | ~2020-02-19 | XMS | Encounter Summary ---
Demographics + + + | Address | [address] [place] [address] RD | | | [place] [address] | + + + | Home Phone [...] Team Providers + +------+ + | Care Customer Professional Name | Role | Phone | + +------+ + | Jerry Adrian MD | PCP | | + +------+ + Encounter Details +--------+ + + + + | Date | Type | Department | Care Team | Description | +--------+ + + + + | 08/04/ | Hospital | Pulmonary Function | Tech, Pfl Adult | | | 2012 | Encounter | Lab at [facility] [address] | [address] | | | | | [address] | [facility], | | | | | [place], | [place] [address] | | | | | [address] [place] [address], | | | | | | [place] [address] | | | | | | [phone] | | | +--------+ + + + [...] LAB | e | 10:46 AM | Iseqw-3-pyclcxrvjqq | procedure are in the | | [...] + + + + + + | JEV94-62% | 0.34 | 2.69 L/sec | [facility] | | | PRE | | | SPECIAL | | | | | | DIAGNOSTICS | | | | | | - | | | | | | PULMONARY | | | | | | FUNCTION | | + + + + + + | TTP57-98% | 13 | % | [facility] | [...] | | | | | | | Non Garment Sewing Machine Operator: Andrews | | | | | | Anamaria DIRECTOR SMB SALES Diagnosis: | | | | | | [...] Order# | | | | | | [id number] | | | | | | | [...] 75 | | | | | | 02DAU45-19% | | | | | | L/sec 2.69 | | | | | | 0.34 [id number] | | | | | | L/sec | | | | | | 0.34PEF | | | | | | L/sec 8.75 | | | | | | 5.80 22EUE31% | | | | | | L/sec [...] Distance | | | | | | wkrjpc=0453 feet, 381 | | | | | [...] | | | | | | mildly reduced(2682-3897 | | | | | | feet). [...] [facility] | [address] | [place], [place] | | | DIAGNOSTICS - | [address] | [address] | | | PULMONARY FUNCTION | | | | + + + + + documented in this encounter Visit Diagnoses + + | Diagnosis | + + | Hllln-3-xxqsnkyulmf deficiency (HCC) Rohlv-1-reauxmwgqoy deficiency | + + | 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
--- OUTSIDE RECORDS SUMMARY | ~2020-02-19 | XMS | Encounter Summary ---
Demographics + + + | Address | [address] [place] [address] RD | | | [place] [address] | + + + | Home Phone [...] Team Providers + +------+ + | Care Operating Room Specialist Name | Role | Phone | [...] as of this encounter Progress Notes Interface, Changeover Operator In - 06/21/2006 2:30 AM PDTCLINIC DATE: [...] of Pulmonary and Critical Care / HS [id number] / [id number] / [id number] / [id number] signed by Interface, Changeover Operator In at 06/21/2006 2:30 AM PDTdoc umented in this encounter Plan of Treatment Not on filedocumented as of this encounter Visit Diagnoses Not on filedocumented in this encounter"
--- OUTSIDE RECORDS SUMMARY | ~2020-02-19 | XMS | Encounter Summary ---
Demographics + + + | Address | [address] [place] [address] RD | | | [place] [address] | + + + | Home Phone [...] Providers + +------+ + | Care Clinical Trial Assistant Name | Role | Phone | [...] | | | Medicine at | [facility], | [address] | | | | Phys[facility] [place] | [place] [address] | CP-Handihaler); | | | | [address] | [phone] | Refill Request | | | | Loop [facility] | | (Request for Advair | | | | [place], 3rd Floor | | [phone].) | | | | [place], [place] | | | | | | [address] | | | | | | [phone] | | | +--------+--------+ + + + [...]
--- OUTSIDE RECORDS SUMMARY | ~2020-02-19 | XMS | Encounter Summary ---
Demographics + + + | Address | [address] [place] [address] RD | | | [place] [address] | + + + | Home Phone [...] Team Providers + +------+ + | Care Project Safety Manager Name | Role | Phone | + +------+ + | Jerry Adrian MD | PCP | | + +------+ + Reason for Visit + + + | Reason | Comments | + + + | Upxpo-1-swxorjzvekk | | | deficiency | | + [...] | | Medicine at | [address] [place], | Alpha 1-antitrypsin | | | | [facility] | [place] [address] | deficiency | | | | [address] | [phone] | | | | | [address] [facility] | | | | | | [place], 3rd Floor | | | | | | [place], [place] | | | | | | [address] | | | | | | [phone] | | | +--------+---------+ + + + [...] this month [place]. Check with Zhenmonalisa regarding financial specialist on Prolastin. documented in this encounter Progress [...] this month [place]. Check with Grant regarding financial specialist on Prolastin. SUBJECTIVE: Continues to hike and [...] at hospital. Concerns about affording medication with [employer] insuror. No medical setbacks. Had last regular [...] 2.64 1.24 MISHA GODFREY MD PULMONARY FACULTY [address] [place] [address] Mailcode: Uhn67 [address] [address] documented in this encou nter Plan of Treatment Not on filedocumented as of this encounter Visit Diagnoses + + | Diagnosis | + + | COPD with chronic bronchitis (HCC) Obstructive chronic bronchitis without | | exacerbation | + + | Alpha 1-antitrypsin deficiency Nocgi-8-yerikulzdoz deficiency | + + documented in this encounter
--- OUTSIDE RECORDS SUMMARY | ~2020-02-19 | XMS | Encounter Summary ---
Demographics + + + | Address | [address] [place] [address] RD | | | [place] [address] | + + + | Home Phone | | + + + | Preferred Language | Unknown | + + + | Marital Status | | + + + | Advent Affiliation | Unknown | + + + [...] Team Providers + +------+ + | Care Transportation Modeler Name | Role | Phone | + [...] | | | | [address] | [facility], | | | | | [place], | [place] [address] | | | | | [address] [place] [address], | | | | | | [place] [address] | | | | | | [phone] | | | +--------+ + + + [...] LAB | e | 10:46 AM | Ieevw-7-vyaaczvugpx | procedure are in the | | [...] + + + + + + | FDM54-69% | 0.34 | 2.69 L/sec | [facility] | | | PRE | | | SPECIAL | | | | | | DIAGNOSTICS | | | | | | - | | | | | | PULMONARY | | | | | | FUNCTION | | + + + + + + | VAW89-38% | 13 | % | [facility] | [...] | | | | | | | Parts And Service Manager: Andrews | | | | | | Anamaria SAS ETL DEVELOPER Diagnosis: | | | | | | [...] Order# | | | | | | [id number] | | | | | | | [...] 75 | | | | | | 64EWF09-38% | | | | | | L/sec 2.69 | | | | | | 0.34 41NwvPDA91-53 | | | | | | L/sec | | | | | | 0.34PEF | | | | | | L/sec 8.75 | | | | | | 5.80 59VUE44% | | | | | | L/sec [...] Distance | | | | | | xkrinz=7017 feet, 381 | | | | | [...] | | | | | | mildly reduced(7927-0289 | | | | | | feet). [...] [facility] | [address] | [place], [place] | | | DIAGNOSTICS - | [address] | [address] | | | PULMONARY FUNCTION | | | | + + + + + documented in this encounter Visit Diagnoses + + | Diagnosis | + + | Guawi-0-ydflseutesj deficiency (HCC) Uvjkv-4-zglksgqzvjy deficiency | + + | 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
--- OUTSIDE RECORDS SUMMARY | ~2020-02-19 | XMS | Encounter Summary ---
Demographics + + + | Address | [address] [place] [address] RD | | | [place] [address] | + + + | Home Phone [...] Team Providers + +------+ + | Care Table Saw Operator Name | Role | Phone | + +------+ + | Jelani Higgins MD | PCP | | + +------+ + Encounter Details +--------+ + + + + | Date | Type | Department | Care Team | Description | +--------+ + + + + | 04/12/ | Document-Sc | UNKNOWN DEPARTMENT | Other, Faculty | | | 2010 | anned | [address] [facility] | [phone] | | | | | [address] | | | | | | [place], [place] | | | | | | [address] | | | +--------+ + + + [...]
--- OUTSIDE RECORDS SUMMARY | ~2020-02-19 | XMS | Encounter Summary ---
Demographics + + + | Address | [address] [place] [address] RD | | | [place] [address] | + + + | Home Phone [...] + + + | Author | [facility] | + + + | Organization | [facility] | + + + | Address | Unknown | + + + | Phone | Unavailable | + + + Support + + +---------+ + | Name | Relationship | Address | Phone | + + +---------+ + | Tahmina Aaron | ECON | Unknown | | + + +---------+ + Care Team Providers + +------+ + | Care Behavioral Health Specialist Name | Role | Phone | [...] Clinic | | | | | | [facility], [address] | | | | | | [place], [place] | | | | | | [address] | | | | | | [phone] | | | +--------+ + + + [...] as of this encounter Progress Notes Interface, Engine Dynamometer Tester In - 01/04/2007 3:11 AM PDT CLINIC DATE: 11/08/95 PULMONARY CLINIC SUBJECTIVE: The patient is a 45-year-old white male with known alpha1-antitrypsin deficiency. He has been getting replacement every two weeks in [place], [place]. He is doing fine. He did [...] alpha1-antitrypsin levels are done. Misha Johansen M.D. Life Skills Teacher, Medicine AE:dirk cc: SHABNAM OROURKE MD [address] [place] [address] [place] [address] documented in this encounter Plan of Treatment Not on filedocumented as of this encounter Visit Diagnoses Not on filedocumented in this encounter"
--- OUTSIDE RECORDS SUMMARY | ~2020-02-19 | XMS | Encounter Summary ---
Demographics + + + | Address | [address] [place] [address] RD | | | [place] [address] | + + + | Home Phone [...] Team Providers + +------+ + | Care Stave Jointer Name | Role | Phone | + +------+ + | Jerry Adrian MD | PCP | | + +------+ + Reason for Visit + + + | Reason | Comments | + + + | Izwzs-2-kvnydgksrix | | | deficiency | | + + + Encounter Details +--------+---------+ + + + | Date | Type | Department | Care Team | Description | +--------+---------+ + + + | 08/04/ | Office | Pulmonary & | Grant, Carolina C, | Lhuer-8-khxlcyfeoni | | 2012 | Visit | Critical Care | [address] | deficiency (HCC) | | | | Medicine at | [address] | (Primary Dx) | | | | [facility] | [place], [place] | | | | | [address] | [address] | | | | | Loop [facility] | [phone] | | | | | [facility] | | | | | | [facility] [place] | | | | | | [address] | | | | | | [phone] | | | +--------+---------+ + + + [...] 08/04/2013 Primary Care Provider: Enmanuel Adrian MD [facility] [address] [place] [address] Referring Provider: Misha Pace MD [address] [place] [address] Herman Hall is a 63 y.o. male in pulmonary clinic today for the follow up of A1AT and COPD. PROBLEM LIST: A1AT - Prolastin IV k3zeeri - Tiotropium - Advair - FEV1 ~1.5 [...] after use. fluticasone (FLONASE) 50 mcg/actuation Nasal [place], Suspension Instill [address] [place] in nose once daily. fluticasone-salmeterol (ADVAIR DISKUS) [...] this visit. Past Medical History Diagnosis Date Aeaev-0-cglolraghva deficiency Past Social and Family History: No [...] albuterol CAROLINA HI MD PULMONARY/CRITICAL CARE MEDICINE [address] [place] [address] Mailcode: Uhn67 [place] [address] [phone] signed by Carolina Hi MD at 08/08/2013 [...] + | PULMONARY | Site: [facility] and | | [facility] | | | INTERPRETAT | [facility] | | SPECIAL | | | ION | [address] [facility], | | DIAGNOSTICS | | | | [place], [place], | | - | | | | [address]FX: [id number] | | PULMONARY | | | | [...] + + + + + + | BXU85-14% | 0.39 | 2.67 L/sec | [facility] | | | PRE | | | SPECIAL | | | | | | DIAGNOSTICS | | | | | | - | | | | | | PULMONARY | | | | | | FUNCTION | | + + + + + + | MMR97-83% | 15 | % | [facility] | [...] [facility] | [address] | [place], [place] | | | DIAGNOSTICS - | [address] | [address] | | | PULMONARY FUNCTION | | | | + + + + + documented in this encounter Visit Diagnoses + + | Diagnosis | + + | Rqbkf-6-rozvlkthfda deficiency (HCC) - Primary Gizju-7-rycgeavzmbu deficiency | + + documented in this encounter
--- OUTSIDE RECORDS SUMMARY | ~2020-02-19 | XMS | Encounter Summary ---
Demographics + + + | Address | [address] [place] [address] RD | | | [place] [address] | + + + | Home Phone [...] Team Providers + +------+ + | Care Talent Sourcer Name | Role | Phone | + +------+ + PCP | Unavailable | + +------+ + Encounter Details +--------+ + + + + | Date | Type | Department | Care Team | Description | +--------+ + + + + | 10/13/ | Office | Pulmonary & | Masha Pickering ANP | | | 2005 | Visit-ECX | Critical Care | | | | | | Medicine at | | | | | | [facility] | | | | | | [address] | | | | | | [address] [facility] | | | | | | [address], 3rd Floor | | | | | | [place], [place] | | | | | | [address] | | | | | | [phone] | | | +--------+ + + + [...]
--- OUTSIDE RECORDS SUMMARY | ~2020-02-19 | XMS | Encounter Summary ---
Demographics + + + | Address | [address] [place] [address] RD | | | [place] [address] | + + + | Home Phone [...] Providers + +------+ + | Care Manager Nuclear Name | Role | Phone | + [...]
--- OUTSIDE RECORDS SUMMARY | ~2020-02-19 | XMS | Encounter Summary ---
Demographics + + + | Address | [address] [place] [address] RD | | | [place] [address] | + + + | Home Phone [...] Team Providers + +------+ + | Care Piano Stringer Name | Role | Phone | + [...] [address] | | | | | [address] | [facility] | | | | | Loop Physician's | [place] [address] | | | | | [place], [address] [place] [address] | | | | | | [place], [place] | | | | | | [address] | | | | | | [phone] | | | +--------+ + + + [...] + + + + + + | LNQ89-87% | 0.40 | 2.88 L/sec | [facility] | | | PRE | | | SPECIAL | | | | | | DIAGNOSTICS | | | | | | - | | | | | | PULMONARY | | | | | | FUNCTION | | + + + + + + | LAB22-85% | 14 | % | [facility] | [...] | | | | | | | Protection Consultant: Shannen | | | | | | THALIA Boss Diagnosis: | | | | | | COPD 496 | | | | | | 9-gwenpiwhfur-982.4D | | | | | | ######## [...] Order# | | | | | | [id number] | | | | | | | [...] 75 | | | | | | 56RRK68-50% | | | | | | L/sec 2.88 | | | | | | 0.40 91CojYEU19-13 | | | | | | L/sec | | | | | | 0.40PEF | | | | | | L/sec 9.09 | | | | | | 6.06 47GXQ35% | | | | | | L/sec [...] | | | | | RefPI max [id number] | | | | | | Volume LitersPE max | | | | | | cdA2POD Volume Liters | | | | | [...] Test: | | | | | | Cgfeioouxvsilq=4632 | | | | | | feet, [...] reduced | | | | | | (7872-2777 | | | | | | feet).Theoxygen [...] [facility] | [address] | [place], [place] | | | DIAGNOSTICS - | [address] | [address] | | | PULMONARY FUNCTION | | | | + + + + + documented in this encounter Visit Diagnoses + + | Diagnosis | + + | 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
--- OUTSIDE RECORDS SUMMARY | ~2020-02-19 | XMS | Clinical Summary ---
Demographics + + + | Address | [address] [place] [address] RD | | | [place] [address] | + + + | Home Phone [...] Team Providers + +------+ + | Care Portable Sawmill Operator Name | Role | Phone | + +------+ + | Jelani Higgins MD | PCP | | + +------+ + Source Comments [facility]OO is fully [facility] and [facility] In[facility] Allergies + + + + + + [...] Noted Date | + + + | Ufrmi-6-afardpoyynh deficiency | 04/26/2006 | + + + [...] | MEDICA | xxxxxxxxxxx | 05/04/20 | [phone] | [address] | Medica | | | RE A & | | 13-Pre | 1 | [phone] | re | | | B | | sent | | [place] | | | | | | | | [address] | | + +--------+ +--------+ + +--------+ | [employer] | AARP | xxxxxxxxxx | 05/04/20 | [phone] | [address] | Indemn | | RETIRED PEOPLE | | | 13-Pre | 9 | [id number] | ity | | | | | sent | | [place]OLIE [place] | | | | | | | | [address] | | + +--------+ +--------+ + +--------+ + +--------+ +--------+ + + | Guarantor Name | Accoun | Relation to | Date | Phone | Billing Address | | | t Type | Patient | of | | | | | | | | | | + +--------+ +--------+ + + | To Aaron | Person | Self | [birth year] | [address] | | | al/Fam | | 1950 | [phone] | [place] [address] | | | cary | | | 2 (Home) | | + +--------+ +--------+ + +
--- OUTSIDE RECORDS SUMMARY | ~2020-02-19 | XMS | Encounter Summary ---
Demographics + + + | Address | [address] [place] [address] RD | | | [place] [address] | + + + | Home Phone [...] Team Providers + +------+ + | Care Eyeletter Name | Role | Phone | + [...] 2017 | erpretation | Lab at [facility] [address] | | respiratory | | | | [address] | | abnormalities | | | | [facility] | | (Primary Dx) | | | | [place], [place] | | | | | | [address] | | | | | | [phone] | | | +--------+ + + + [...] + +--------+ + + + | AL DIFFUSING | Routin | 01/30/2018 | Dyspnea and | | | CAPACITY | e | 10:19 PM | respiratory | | | | | PDT | abnormalities | | + +--------+ + + + | AL SPIROMETRY TEST | Routin | 01/30/2018 | [...] the | | | | PDT | Hocff-3-bfdbikhwcnt | results section. | | | | | deficiency (HCC) | | + +--------+ + + + documented in this encounter Visit Diagnoses + + | Diagnosis | + + | Dyspnea and respiratory abnormalities - Primary | + + documented in this encounter"
--- OUTSIDE RECORDS SUMMARY | ~2020-02-19 | XMS | Encounter Summary ---
Demographics + + + | Address | [address] [place] [address] RD | | | [place] [address] | + + + | Home Phone | | + + + | Preferred Language | Unknown | + + + | Marital Status | | + + + | Gnosticist Affiliation | Unknown | + + + | Race | White | + + + | Ethnic Group | Not or | + + + Author + + + | Author | [facility] | + + + | Organization | [facility] | + + + | Address | Unknown | + + + | Phone | Unavailable | + + + Support + + +---------+ + | Name | Relationship | Address | Phone | + + +---------+ + | Tahmina Aaron | ECON | Unknown | | + + +---------+ + Care Team Providers + +------+ + | Care School Year Nanny Name | Role | Phone | + +------+ + PCP | Unavailable | + +------+ + Encounter Details +--------+ + + + + | Date | Type | Department | Care Team | Description | +--------+ + + + + | 03/09/ | Results | Pulmonary Function | Misha Pace MD | | | 2000 | Only | Lab at [facility] [address] | [address] | | | | | [address] | [place], | | | | | [place] | [place] [address] | | | | | [place], [place] | [phone] | | | | | [address] | | | | | | [phone] | | | +--------+ + + + [...] [facility] | [address] | [place], [place] | | | DIAGNOSTICS - | [address] | [address] | | | PULMONARY FUNCTION | | | | + + + + + documented in this encounter Visit Diagnoses Not on filedocumented in this encounter"
--- OUTSIDE RECORDS SUMMARY | ~2020-02-19 | XMS | Encounter Summary ---
Demographics + + + | Address | [address] [place] [address] RD | | | [place] [address] | + + + | Home Phone | | + + + | Preferred Language | Unknown | + + + | Marital Status | | + + + | Buddhism Affiliation | Unknown | + + + [...] Team Providers + +------+ + | Care Guitar Player Name | Role | Phone | + +------+ + | Jelani Higgins MD | PCP | | + +------+ + Encounter Details +--------+ + + + + | Date | Type | Department | Care Team | Description | +--------+ + + + + | 10/13/ | Ancillary | Registration [address] | Masha Pickering ANP | | | 2005 | Registratio | [address] | | | | | n | [place] Mailcode: [id number] | | | | | | [place], [place] | | | | | | [address] | | | | | | [phone] | | | +--------+ + + + [...]
--- OUTSIDE RECORDS SUMMARY | ~2020-02-19 | XMS | Encounter Summary ---
Demographics + + + | Address | [address] [place] [address] RD | | | [place] [address] | + + + | Home Phone [...] Team Providers + +------+ + | Care Dock Operations Supervisor Name | Role | Phone | [...] | | | | [address] | [facility], | | | | | [place], | [place] [address] | | | | | [address] [place] [address], | | | | | | [place] [address] | | | | | | [phone] | | | +--------+ + + + [...] the | | | | PDT | Dqndr-3-flrolpwvoio | results section. | | | | [...] + + | PULMONARY | Site: [facility] and | | [place] | | | INTERPRETAT | [facility], [facility] | | SPECIAL | | | ION | [address] [facility] | | DIAGNOSTICS | | | | Rd,[place], [place], | | - | | | | [address]KS: [id number] | | PULMONARY | | | | Name: ISABEL | | FUNCTION | | | | HERMAN Buckley Date: | | | | | | 01/28/2018 Second ID: | | | | | | [id number]: | | | | | | Jovan [...] Kirstin, | | | | | | Cdomunzft25/29/2018 | | | | | | 10:19:06 [...] + + + + + + | UPE26-24% | 0.24 | 2.46 L/sec | [facility] | | | PRE | | | SPECIAL | | | | | | DIAGNOSTICS | | | | | | - | | | | | | PULMONARY | | | | | | FUNCTION | | + + + + + + | AMS10-43% | 9 | % | [facility] | [...] [facility] | [address] | [place], [place] | | | DIAGNOSTICS - | [address] | [address] | | | PULMONARY FUNCTION | | | | + + + + + documented in this encounter Visit Diagnoses + + | Diagnosis | + + | COPD with chronic bronchitis (HCC) Obstructive chronic bronchitis without | | exacerbation | + + | Gbapi-1-efpnvdjflni deficiency (HCC) Ntbjj-2-brcgpcmtohf deficiency | + + documented in this encounter"
--- OUTSIDE RECORDS SUMMARY | ~2020-02-19 | XMS | Encounter Summary ---
Demographics + + + | Address | [address] [place] [address] RD | | | [place] [address] | + + + | Home Phone [...] Team Providers + +------+ + | Care Barrel Drainer Name | Role | Phone | + [...] | | | | Medicine at | [facility] [address] | Disk) | | | | Phys[facility] | [place], [place] | | | | | [address] | [address] | | | | | [address]'s | [phone] | | | | | [address], [facility] Floor | | | | | | [place], [place] | | | | | | [address] | | | | | | [phone] | | | +--------+--------+ + + + [...]
--- OUTSIDE RECORDS SUMMARY | ~2020-02-19 | XMS | Encounter Summary ---
Demographics + + + | Address | [address] [place] [address] RD | | | [place] [address] | + + + | Home Phone [...] Team Providers + +------+ + | Care Mechatronics Technician Name | Role | Phone | + +------+ + | Jerry Adrian MD | PCP | | + +------+ + Encounter Details +--------+ + + + + | Date | Type | Department | Care Team | Description | +--------+ + + + + | 07/31/ | Fluid Power Mechanic | Pulmonary & | Carolina Hi, | Dzgoh-5-hkqjsdpobam | | 2012 | | Critical Care | [address] | deficiency (HCC) | | | | Medicine at | [facility] [address] | (Primary Dx); COPD | | | | Phys[facility] | [facility] [place] | with chronic | | | | [address] | [address] | bronchitis (HCC) | | | | Loop Phys[address]'s | [phone] | | | | | [address], rust Floor | | | | | | [place], [place] | | | | | | [address] | | | | | | [phone] | | | +--------+ + + + [...] + + + + + + | JFE29-93% | 0.34 | 2.69 L/sec | [facility] | | | PRE | | | SPECIAL | | | | | | DIAGNOSTICS | | | | | | - | | | | | | PULMONARY | | | | | | FUNCTION | | + + + + + + | HSW91-51% | 13 | % | [facility] | [...] | | | | | | | Churn Drill Operator: Andrews | | | | | | Anamaria ESTEBAN Diagnosis: | | | | | | [...] Order# | | | | | | [id number] | | | | | | | [...] 75 | | | | | | 39EMU54-73% | | | | | | L/sec 2.69 | | | | | | 0.34 [id number] | | | | | | L/sec | | | | | | 0.34PEF | | | | | | L/sec 8.75 | | | | | | 5.80 87OZA39% | | | | | | L/sec [...] Distance | | | | | | qznfsc=8025 feet, 381 | | | | | [...] | | | | | | mildly reduced(7425-3146 | | | | | | feet). [...] [facility] SPECIAL | [address] | [place], [place] | | | DIAGNOSTICS - | [address] | [address] | | | PULMONARY FUNCTION | | | | + + + + + documented in this encounter Visit Diagnoses + + | Diagnosis | + + | Mhrzy-0-kzrbqdntkjd deficiency (HCC) - Primary Dbera-5-ffulpdfrgbv deficiency | + + | 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
--- OUTSIDE RECORDS SUMMARY | ~2020-02-19 | XMS | Encounter Summary ---
Demographics + + + | Address | [address] [place] [address] RD | | | [place] [address] | + + + | Home Phone [...] Providers + +------+ + | Care Business Analytics Manager Name | Role | Phone [...] [id number] | | | | | | [place], [place] | | | | | | [address] | | | | | | [phone] | | | +--------+ + + + [...]
--- OUTSIDE RECORDS SUMMARY | ~2020-02-19 | XMS | Encounter Summary ---
Demographics + + + | Address | [address] [place] [address] RD | | | [place] [address] | + + + | Home Phone | | + + + | Preferred Language | Unknown | + + + | Marital Status | | + + + | Bahai Affiliation | Unknown | + + + [...] Team Providers + +------+ + | Care Staffing Director Name | Role | Phone | + +------+ + | Jelani Higgins MD | PCP | | + +------+ + Encounter Details +--------+ + + + + | Date | Type | Department | Care Team | Description | +--------+ + + + + | 04/12/ | Wire Twister | Pulmonary & | Zion Roth, | Swjph-2-jbngpnmkdiz | | 2012 | | Critical Care | [address] | deficiency (HCC) | | | | Medicine at | [facility] [address] | (Primary Dx); COPD | | | | [facility] | [place], [place] | with chronic | | | | [address] | [address] | bronchitis (HCC) | | | | Loop Phys[address]'s | [phone] | | | | | [address], [facility] Floor | | | | | | [place], [place] | | | | | | [address] | | | | | | [phone] | | | +--------+ + + + [...] + | Diagnosis | + + | Cxhgc-6-ufolorgagvq deficiency (HCC) - Primary Cpfzs-7-cqmkzbcmsmy deficiency | + + | 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
--- OUTSIDE RECORDS SUMMARY | ~2020-02-19 | XMS | Encounter Summary ---
Demographics + + + | Address | [address] [place] [address] RD | | | [place] [address] | + + + | Home Phone [...] Team Providers + +------+ + | Care Shirrer Name | Role | Phone | + [...] Rd | | | | | | [place], [place] | | | | | | [address] | | | +--------+ + + + [...]
--- OUTSIDE RECORDS SUMMARY | ~2020-02-19 | XMS | Encounter Summary ---
Demographics + + + | Address | [address] [place] [address] RD | | | [place] [address] | + + + | Home Phone [...] + +------+ + | Care Academic Affairs Coordinator Name | Role | Phone | + +------+ + | Jelani Higgins MD | PCP | | + +------+ + Encounter Details +--------+ + + + + | Date | Type | Department | Care Team | Description | +--------+ + + + + | 07/08/ | Physiological Chemist | Pulmonary & | Misha Pace MD | Alpha 1-antitrypsin | | 2009 | | Critical Care | [address] | deficiency (Primary | | | | Medicine at | [facility], | Dx) | | | | [facility] | [place] [address] | | | | | [address] | [phone] | | | | | Loop [address] | | | | | | Pavilion, [facility] Floor | | | | | | [place], [place] | | | | | | [address] | | | | | | [phone] | | | +--------+ + + + [...] + | Alpha 1-antitrypsin deficiency - Primary Acwlb-2-yjwmmajfqgr deficiency | + + documented in this encounter"
--- OUTSIDE RECORDS SUMMARY | ~2020-02-19 | XMS | Encounter Summary ---
Demographics + + + | Address | [address] [place] [address] RD | | | [place] [address] | + + + | Home Phone [...] Team Providers + +------+ + | Care Nurses' Association Executive Director Name | Role | Phone | [...] [id number] | | | | | | [place], [place] | | | | | | [address] | | | | | | [phone] | | | +--------+ + + + [...] + + + | [facility] | [address] | [place] [address] | | | PATHOLOGY | [address] | | | + + + + + documented in this encounter Visit Diagnoses Not on filedocumented in this encounter"
--- OUTSIDE RECORDS SUMMARY | ~2020-02-19 | XMS | Encounter Summary ---
Demographics + + + | Address | [address] [place] [address] RD | | | [place] [address] | + + + | Home Phone [...] Team Providers + +------+ + | Care Identifier Horse Name | Role | Phone | + [...] | | | | 3rd Floor | [place], [place] | | | | | | [place], [place] | [address] | | | | | | [address] | Phone: | | | | | | Phone: | [phone] | | | | | | [phone] | Fax: | | | | | | Fax: | [phone] | | | | | | [phone] | | +--------+--------+ + + + + Encounter Details +--------+---------+ + + + | Date | Type | Department | Care Team | Description | +--------+---------+ + + + | 09/20/ | Office | | Zion Roth, | Smswa-0-aycbhnejqzv | | 2015 | Visit | Hematology/Oncology | [address] | deficiency (HCC) | | | | at [facility] | [facility] [address] | (Primary Dx); COPD | | | | & Healing [address] | [place], [place] | with chronic | | | | [address] [place] Mailcode: | [id number] | bronchitis (HCC) | | | | [facility] | [phone] | | | | | and Healing, | | | | | | [address] | | | | | | [facility] [place] | | | | | | [address] | | | | | | [phone] | | | +--------+---------+ + + + [...] in case I have a question? -Call [phone] We recommend signing up for Mydeo our secure online messaging system that will [...] Care Provider: MD [facility] [address] [place] [address] Referring Provider: Misha Pace MD [facility] [place] [address] To Aaron is a 65 y.o. male in pulmonary clinic today for the follow up of COPD and A1AT deficiency. PROBLEM LIST: A1AT - Prolastin IV q0ihdpw - Tiotropium - Advair - FEV1 ~1.5 [...] this visit. Past Medical History Diagnosis Date Phtqf-7-nixwzwctgpr deficiency (HCC) Past Social and Family History: [...] use. Zion Roth MD PULMONARY/CRITICAL CARE MEDICINE [address] [facility] Mailcdoe:ch7[place] [address] Display Progress Note in LOGIDOC-Solutionshart: Yes documented in this en counter Plan of Treatment Not on filedocumented as of this encounter Visit Diagnoses + + | Diagnosis | + + | Psxwt-2-eikozjhnuxi deficiency (HCC) - Primary Ommer-0-pkdmafiavly deficiency | + + | COPD with chronic bronchitis (HCC) Obstructive chronic bronchitis without | | exacerbation | + + documented in this encounter
--- OUTSIDE RECORDS SUMMARY | ~2020-02-19 | XMS | Encounter Summary ---
Demographics + + + | Address | [address] [place] [address] RD | | | [place] [address] | + + + | Home Phone [...] Team Providers + +------+ + | Care Cattle Manager Name | Role | Phone | [...] Pavilion | | | | | | [address] | | | | | | Loop [address] | | | | | | Pavilion, 3rd Floor | | | | | | [place], [place] | | | | | | [address] | | | | | | [phone] | | | +--------+ + + + [...]
--- OUTSIDE RECORDS SUMMARY | ~2020-02-19 | XMS | Encounter Summary ---
Demographics + + + | Address | [address] [place] [address] RD | | | [place] [address] | + + + | Home Phone [...] Team Providers + +------+ + | Care Schedule Clerk Name | Role | Phone | [...] Clinic | | | | | | [facility], [address] | | | | | | [place], [place] | | | | | | [address] | | | | | | [phone] | | | +--------+ + + + [...] as of this encounter Progress Notes Interface, Military Pilot In - 11/16/2006 1:06 AM PST CLINIC DATE: 07/10/97 PULMONARY CLINIC SUBJECTIVE: Mr. 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 He traveled to [place] in the springtime and plans to go [...] 1. Chronic obstructive pulmonary disease secondary to cqdsa-0-qpcapaenybw deficiency. The patient continues to have severe airways obstruction but is well compensated. He has had good response to his current medications. 2. Wgcjp-7-zghkadopdrc deficiency. The patient had a repeat trough [...] Liver tests performed June 20, 1997, at [facility] in [place] were reviewed and showed normal liver tests. [...] ingestion. 6. Again referred the patient to kisyi-1-ldwzozqqhmz deficiency support group. 7. Continue Serevent and Azmacort at current dosing level. Jimmie Montalvo M.D. Corrective Therapist, Lung Transplantation Licensing And Registration Director, Pulmonary and Critical Care Medicine MSC/clg cc: Enmanuel OROURKE MD [address] [place] [address] documented in this encounter Plan of Treatment Not on filedocumented as of this encounter Visit Diagnoses Not on filedocumented in this encounter"
--- OUTSIDE RECORDS SUMMARY | ~2020-02-19 | XMS | Encounter Summary ---
Demographics + + + | Address | [address] [place] [address] RD | | | [place] [address] | + + + | Home Phone [...] Author + + + | Author | [facility] | + + + | Organization | [facility] | + + + | Address | Unknown | + + + | Phone | Unavailable | + + + Support + + +---------+ + | Name | Relationship | Address | Phone | + + +---------+ + | Tahmina Aaron | ECON | Unknown | | + + +---------+ + Care Team Providers + +------+ + | Care Hothouse Worker Name | Role | Phone | [...] | | | | Medicine at | [facility] | | | | | Physicians Pavilion | [place], [place] | | | | | [address] | [address] | | | | | Loop Phys[address]'s | [phone] | | | | | [place], [address] [place] [address] | | | | | | [place], [place] | | | | | | [address] | | | | | | [phone] | | | +--------+ + + + [...]
--- OUTSIDE RECORDS SUMMARY | ~2020-02-19 | XMS | Encounter Summary ---
Demographics + + + | Address | [address] [place] [address] RD | | | [place] [address] | + + + | Home Phone [...] Team Providers + +------+ + | Care Learning Center Coordinator Name | Role | Phone | [...] bronchitis (HCC) | | | | at [facility] | [address] | (Primary Dx); | | | | & Healing [address] | [place], [place] | Afewu-3-sglwxgrhgxf | | | | [address] [place] Mailcode: | [address] | deficiency (HCC) | | | | [facility] | [phone] | | | | | and Healing, | | | | | | Building [address] | | | | | | [place], [place] | | | | | | [address] | | | | | | [phone] | | | +--------+---------+ + + + [...] in case I have a question? -Call [phone] We recommend signing up for Quippi our secure online messaging system that will [...] MEDICINE [address] Mailcdoe:[address] [place] [address] hampionVega MD - 01/28/2018 10:30 AM PDT Date: 01/28/2018 Primary Care Provider: Jerry Adrian MD [facility] [address] [place] [address] Referring Provider: No Referring Provider Per Patient NO REFERRING PROVIDER PER PT To Aaron is a 67 y.o. male in pulmonary clinic today for the follow up of alpha-1 a ntitrypsin deficiency. PROBLEM LIST: A1AT- Prolastin IV z2ootmm - Tiotropium - Advair - FEV1 ~1.5 [...] due to alpha-1 antitrypsin deficiency who prese [facility] for routine followup. His symptoms remain stable since his last visit, and his PFTs are relatively stable. We will continue his current treatments and see him back in 1 year. Plan: No changes in medications Continue Prolastin infusions RTC 1 year or sooner PRN VEGA MARTIN MD HEMATOLOGY/ONCOLOGY AT [address] Mailcdoe:ch7[place] [address] [phone] signed by Vega Martin MD at 01/28/2018 11:51 AM PDTdocumen kathryn in this encounter Plan of Treatment Not on filedocumented as of this encounter Visit Diagnoses + + | Diagnosis | + + | COPD with chronic bronchitis (HCC) - Primary Obstructive chronic bronchitis without | | exacerbation | + + | Btutu-9-sxrnaaystbw deficiency (HCC) Wogks-8-idqmiqwqufk deficiency | + + documented in this encounter
--- OUTSIDE RECORDS SUMMARY | ~2020-02-19 | XMS | Encounter Summary ---
Demographics + + + | Address | [address] [place] [address] RD | | | [place] [address] | + + + | Home Phone [...] Team Providers + +------+ + | Care Professor Of Communication Arts Name | Role | Phone | + [...] Pavilion | | | | | | [address] | | | | | | Loop [facility] | | | | | | Pavilion, 3rd Floor | | | | | | [place], [place] | | | | | | [address] | | | | | | [phone] | | | +--------+ + + + [...]
--- OUTSIDE RECORDS SUMMARY | ~2020-02-19 | XMS | Encounter Summary ---
Demographics + + + | Address | [address] [place] [address] RD | | | [place] [address] | + + + | Home Phone [...] Team Providers + +------+ + | Care Spa Experience Coordinator Name | Role | Phone | [...] | | Medicine at | [address] [place], | | | | | Physicians [facility]ilion | [place] [address] | | | | | [address] | [phone] | | | | | Loop Phys[address]'s | | | | | | Pavilion, 3rd Floor | | | | | | [place], [place] | | | | | | [address] | | | | | | [phone] | | | +--------+ + + + [...]
--- OUTSIDE RECORDS SUMMARY | ~2020-02-19 | XMS | Encounter Summary ---
Demographics + + + | Address | [address] [place] [address] RD | | | [place] [address] | + + + | Home Phone [...] Providers + +------+ + | Care Manager Customer Name | Role | Phone | + [...] as of this encounter Progress Notes Interface, Organizational Effectiveness Director In - 10/09/2006 5:04 AM [facility]: [facility] PULMON[facility] CRITICAL CARE CLINIC CHIEF COMPLAINT: Follow-up unrc-6-myvftdqhytz replacement therapy. HISTORY OF PRESENT ILLNESS: The patient was last seen on January 22, 1998. At that time, his dose was increased from 10 to 12 mg IV every two weeks. The patient has traveled to [facility] for six weeks after that time [...] continues to do well. 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 Chronic obstructive pulmonary disease secondary to ijhzt-8-rjimguokqns deficiency. The patient continues to have severe airway obstruction with little change in his pulmonary function tests except that his baseline FEV1 before bronchodilator is higher than it was before, with less reversibility although his maximal level is similar. 2. Dwmer-1-bbzhiewfdup deficiency. Awaiting trough levels after replacement therapy [...] on a PRN basis. Jimmie Chesnutt, M.D. Handcrew Foreman, Lung Transplantation Inspector Rubber Stamp Die, Pulmonary and Critical Care Medicine MC/raul cc: Enmanuel MARQUEZ MD [address] [place] [address] [address] [place] [id number] signed by Interface, Organizational Effectiveness Director In at 10/09/2006 5:04 AM PSTdocumented in this encounter Plan of Treatment Not on filedocumented as of this encounter Visit Diagnoses Not on filedocumented in this encounter"
--- OUTSIDE RECORDS SUMMARY | ~2020-02-19 | XMS | Encounter Summary ---
Demographics + + + | Address | [address] [place] [address] RD | | | [place] [address] | + + + | Home Phone [...] Team Providers + +------+ + | Care Monument Mason Name | Role | Phone | + +------+ + | Jelani Higgins MD | PCP | | + +------+ + Encounter Details +--------+ + + + + | Date | Type | Department | Care Team | Description | +--------+ + + + + | 03/20/ | Speech Therapy Teacher | Pulmonary & | Zion Roth, | | | 2019 | | Critical Care | [address] | | | | | Medicine at | [facility] | | | | | Physicians [facility]ilion | [place], [place] | | | | | [address] | [address] | | | | | Loop Physician's | [phone] | | | | | [place], [address] [place] [address] | | | | | | [place], [place] | | | | | | [address] | | | | | | [phone] | | | +--------+ + + + [...]
--- OUTSIDE RECORDS SUMMARY | ~2020-02-19 | XMS | Encounter Summary ---
Demographics + + + | Address | [address] [place] [address] RD | | | [place] [address] | + + + | Home Phone | | + + + | Preferred Language | Unknown | + + + | Marital Status | | + + + | Oriental Orthodox Affiliation | Unknown | + + + | Race | White | + + + | Ethnic Group | Not or | + + + Author + + + | Author | [facility] | + + + | Organization | [facility] | + + + | Address | Unknown | + + + | Phone | Unavailable | + + + Support + + +---------+ + | Name | Relationship | Address | Phone | + + +---------+ + | Tahmina Hall | ECON | Unknown | | + + +---------+ + Care Team Providers + +------+ + | Care Capital Project Engineer Name | Role | Phone | + +------+ + | Jerry Adrian MD | PCP | | + +------+ + Encounter Details +--------+ + + + + | Date | Type | Department | Care Team | Description | +--------+ + + + + | 11/25/ | Chucking Machine Set Up Operator | Pulmonary & | Zion Roth, | Cxcer-9-sldqfhpjfzr | | 2017 | | Critical Care | [address] | deficiency (HCC) | | | | Medicine at | [facility] [address] | (Primary Dx) | | | | [facility] | [place], [place] | | | | | [address] | [address] | | | | | Loop Physician's | [phone] | | | | | [place], [facility] Floor | | | | | | [place], [place] | | | | | | [address] | | | | | | [phone] | | | +--------+ + + + [...] | | | INTERPRETAT | L ID: [id number]: | | SPECIAL | | | ION [...] + + + + + + | JHC03-32% | 0.53 | 2.55 L/sec | [facility] | | | PRE | | | SPECIAL | | | | | | DIAGNOSTICS | | | | | | - | | | | | | PULMONARY | | | | | | FUNCTION | | + + + + + + | BNO22-83% | 20 | % | [facility] | [...] [facility] | [address] | [place], [place] | | | DIAGNOSTICS - | [address] | [address] | | | PULMONARY FUNCTION | | | | + + + + + documented in this encounter Visit Diagnoses + + | Diagnosis | + + | Fgmvr-4-mzuzsnumdcf deficiency (HCC) - Primary Cifhj-3-rocppsampks deficiency | + + documented in this encounter"
--- OUTSIDE RECORDS SUMMARY | ~2020-02-19 | XMS | Encounter Summary ---
Demographics + + + | Address | [address] [place] [address] RD | | | [place] [address] | + + + | Home Phone [...] Providers + +------+ + | Care Senior Energy Consultant Name | Role | Phone | [...] as of this encounter Progress Notes Interface, Reuse Technician In - 05/03/2005 1:24 AM PDT [id number] IS[facility]EL [facility] Date: 12/15/2004 Clinic: TELEPHONE [...] a man with underlying emphysema secondary to gvkns-7-jnbxgphigrx deficiency. Plan: I called a prescription for amoxicillin 875 mg 1 p.o. b.i.d x10 days. I advised him to call his primary care doctor and/or be seen in an urgent care clinic if he develops a fever, pleuritic chest pain, or any increase in his shortness of breath. Pavithra Shi / TRISTIAN [id number] / [id number] / [id number] / [id number] Electronically signed by Masha Pickering 12-26-2004 04:36:05 PM documented i n this encounter Plan of Treatment Not on filedocumented as of this encounter Visit Diagnoses Not on filedocumented in this encounter"
--- OUTSIDE RECORDS SUMMARY | ~2020-02-19 | XMS | Encounter Summary ---
Demographics + + + | Address | [address] [place] [address] RD | | | [place] [address] | + + + | Home Phone [...] Team Providers + +------+ + | Care Continuous Process Machine Operator Name | Role | Phone [...] | | | | 3rd Floor | [place], [place] | | | | | | [place], [place] | [address] | | | | | | [address] | Phone: | | | | | | Phone: | [phone] | | | | | | [phone] | Fax: | | | | | | Fax: | [phone] | | | | | | [phone] | | +--------+--------+ + + + + Encounter Details +--------+---------+ + + + | Date | Type | Department | Care Team | Description | +--------+---------+ + + + | 01/29/ | Office | | Zion Roth, | COPD with chronic | | 2017 | Visit | Hematology/Oncology | [address] | bronchitis (HCC) | | | | at [facility] | [address] | (Primary Dx); | | | | & Healing [address] | [place], [place] | Zzfcm-9-ptgojywuzaz | | | | Peng Vibha Mailcode: | [address] | deficiency ([facility]) | | | | [facility] | [phone] | | | | | and Adela, | | | | | | Building [address] | | | | | | [place], [place] | | | | | | [address] | | | | | | [phone] | | | +--------+---------+ + + + [...] in case I have a question? -Call [phone] We recommend signing up for [employer] our secure online messaging system that will [...] 01/29/2017 Primary Care Provider: Jerry Adrian MD [facility] [address] [place] [address] Referring Provider: Jerry Adrian MD [facility] [address] [place] [address] To Aaron is a 66 y.o. male in pulmonary clinic today for the follow up of alpha 1 a ntitrypsin disease. PROBLEM LIST: A1AT - Prolastin IV v6ibnob - Tiotropium - Advair - FEV1 ~1.5 [...] this visit. Past Medical History: Diagnosis Date Hredc-6-bfrnquqhdfu deficiency (HCC) Past Social and Family History: [...] prognosis. Zion Roth MD PULMONARY/CRITICAL CARE MEDICINE [address] Mailcdoe:[place] [address] Display Progress Note in MyChart: Yes documented in this en counter Plan of Treatment Not on filedocumented as of this encounter Visit Diagnoses + + | Diagnosis | + + | COPD with chronic bronchitis (HCC) - Primary Obstructive chronic bronchitis without | | exacerbation | + + | Emkaz-9-jynfqheunys deficiency (HCC) Izsvz-9-obnvppffsgo deficiency | + + documented in this encounter"
--- OUTSIDE RECORDS SUMMARY | ~2020-02-19 | XMS | Encounter Summary ---
Demographics + + + | Address | [address] [place] [address] RD | | | [place] [address] | + + + | Home Phone [...] Team Providers + +------+ + | Care Supervisor Livestock Yard Name | Role | Phone | + [...] Pavilion | | | | | | [address] | | | | | | Loop Physician's | | | | | | Pavilion, [address] [place] [address] | | | | | | [place], [place] | | | | | | [address] | | | | | | [phone] | | | +--------+ + + + [...]
--- OUTSIDE RECORDS SUMMARY | ~2020-02-19 | XMS | Encounter Summary ---
Demographics + + + | Address | [address] [place] [address] RD | | | [place] [address] | + + + | Home Phone [...] Providers + +------+ + | Care Automotive Technician Name | Role | Phone | + +------+ + | Jerry Adrian MD | PCP | | + +------+ + Encounter Details +--------+ + + + + | Date | Type | Department | Care Team | Description | +--------+ + + + + | 10/25/ | Supervisor Bottle House Cleaners | Pulmonary & | Zion Roth, | COPD with chronic | | 2018 | | Critical Care | [address] | bronchitis (HCC) | | | | Medicine at | [facility] [address] | (Primary Dx); | | | | Physicians [facility] | [place], [place] | Evymj-1-mboodkpwxop | | | | [address] | [address] | deficiency (HCC) | | | | Loop Physician's | [phone] | | | | | [place], [facility] Floor | | | | | | [place], [place] | | | | | | [address] | | | | | | [phone] | | | +--------+ + + + [...] + + + | PULMONARY | Site: [facility] and | | [facility] | | | INTERPRETAT | [facility] | | SPECIAL | | | ION | [facility] | | DIAGNOSTICS | | | | Rd,[place], [place], | | - | | | | [address]TC: [id number] | | PULMONARY | | | | Name: ISABEL | | FUNCTION | | | | HERMAN Buckley Date: | | | | | | 01/28/2018 Second ID: | | | | | | [id number]: | | | | | | Luis Aldana: 67 | | | | | | [...] obstruction. | | | | | | Jayshree interpretation | | | | | | has been electronically | | | | | | signed: Kirstin, | | | | | | Ytfmgnfvp79/29/2018 | | | | | | 10:19:06 [...] + + + + + + | SKT19-76% | 0.24 | 2.46 L/sec | [facility] | | | PRE | | | SPECIAL | | | | | | DIAGNOSTICS | | | | | | - | | | | | | PULMONARY | | | | | | FUNCTION | | + + + + + + | ARZ96-58% | 9 | % | [facility] | [...] [facility] | [address] | [place], [place] | | | DIAGNOSTICS - | [address] | [address] | | | PULMONARY FUNCTION | | | | + + + + + documented in this encounter Visit Diagnoses + + | Diagnosis | + + | COPD with chronic bronchitis (HCC) - Primary Obstructive chronic bronchitis without | | exacerbation | + + | Ytqsr-7-tochlmeylua deficiency (HCC) Llbda-3-xasnqqdyiwk deficiency | + + documented in this encounter"
--- OUTSIDE RECORDS SUMMARY | ~2020-02-19 | XMS | Encounter Summary ---
Demographics + + + | Address | [address] [place] [address] RD | | | [place] [address] | + + + | Home Phone | | + + + | Preferred Language | Unknown | + + + | Marital Status | | + + + | Scientologist Affiliation | Unknown | + + + [...] Team Providers + +------+ + | Care User Support Analyst Name | Role | Phone | [...] | 2005 | Registratio | [address] [facility] | | | | | n | Jayden Mailcode: [id number] | | | | | | [place], [place] | | | | | | [address] | | | | | | [phone] | | | +--------+ + + + [...]
--- OUTSIDE RECORDS SUMMARY | ~2020-02-19 | XMS | Encounter Summary ---
Demographics + + + | Address | [address] [place] [address] RD | | | [place] [address] | + + + | Home Phone [...] Author | [facility] | + + + | Organization | [facility] | + + + | Address | Unknown | + + + | Phone | Unavailable | + + + Support + + +---------+ + | Name | Relationship | Address | Phone | + + +---------+ + | Tahmina Aaron | ECON | Unknown | | + + +---------+ + Care Team Providers + +------+ + | Care Drafter Patent Name | Role | Phone | + +------+ + PCP | Unavailable | + +------+ + Encounter Details +--------+ + + + + | Date | Type | Department | Care Team | Description | +--------+ + + + + | 10/16/ | Results | Pulmonary Function | Misha Pace MD | | | 2003 | Only | Lab at [facility] [address] | [address] | | | | | [address] | [place], | | | | | [place] | [place] [address] | | | | | [place], [place] | [phone] | | | | | [address] | | | | | | [phone] | | | +--------+ + + + [...] [facility] | [address] | [place], [place] | | | DIAGNOSTICS - | [address] | [address] | | | PULMONARY FUNCTION | | [...] + + + | PF COMMENT | [id number] | | | | | 1 | | | | | + +---------+ + + + + + | Specimen | + + | | + + + + + + + | Performing | Address | City/State/Zipcode | Phone Number | | Organization | | | | + + + + + | [facility] | [address] | [place], [place] | | | DIAGNOSTICS - | [address] | [address] | | | PULMONARY FUNCTION | | | | + + + + + documented in this encounter Visit Diagnoses Not on filedocumented in this encounter"
--- OUTSIDE RECORDS SUMMARY | ~2020-02-19 | XMS | Encounter Summary ---
Demographics + + + | Address | [address] [place] [address] RD | | | [place] [address] | + + + | Home Phone [...] Providers + +------+ + | Care Chief Development Officer Name | Role | Phone | [...] | | | | Medicine at | [facility] | | | | | Phys[facility] | [place], [place] | | | | | [address] | [address] | | | | | Loop Physician's | [phone] | | | | | [place], [address] [place] [address] | | | | | | [place], [place] | | | | | | [address] | | | | | | [phone] | | | +--------+ + + + [...]
--- OUTSIDE RECORDS SUMMARY | ~2020-02-19 | XMS | Encounter Summary ---
Demographics + + + | Address | [address] [place] [address] RD | | | [place] [address] | + + + | Home Phone [...] Team Providers + +------+ + | Care Cardiology Teacher Name | Role | Phone | [...] as of this encounter Progress Notes Interface, Procurement Clerk In - 07/25/2006 1:04 AM PDTCLINIC DATE: 03/08/2001 ADULT PULMONARY CLINIC PROBLEM: Nxnwxqez-hw-wwqgmt COPD secondary to plzla-9-xhanwzwzfmf deficiency. HISTORY OF PRESENT ILLNESS: We last [...] did get some lab work drawn in [facility] recently, but we have not seen it. [...] severe chronic obstructive pulmonary disease secondary to dyyem-7-mwodtbcnaqk deficiency. Spirometry does show a decreased in [...] so he could have PFTs done in [place] in a month, and we will see if the increase in inhaled steroids have made a difference. He will return to see us in 6 months or p.r.n. Pavithra Shi Division of Pulmonary and Critical Care / HS [id number] / [id number] / [id number] / cc: Vincenzo Goetz City Maintenance Manager [address] [place] [address]. [address] [place] [address] [id number] signed by Interface, Procurement Clerk In at 07/25/2006 1:04 AM PDTdocume nted in this encounter Plan of Treatment Not on filedocumented as of this encounter Visit Diagnoses Not on filedocumented in this encounter"
--- OUTSIDE RECORDS SUMMARY | ~2020-02-19 | XMS | Encounter Summary ---
Demographics + + + | Address | [address] [place] [address] RD | | | [place] [address] | + + + | Home Phone | | + + + | Preferred Language | Unknown | + + + | Marital Status | | + + + | Baptism Affiliation | Unknown | + + + [...] Providers + +------+ + | Care Supervisor Bindery Name | Role | Phone | + [...] Pavilion | | | | | | [address] | | | | | | Loop Physician's | | | | | | [facility], 3rd Floor | | | | | | [place], [place] | | | | | | [address] | | | | | | [phone] | | | +--------+ + + + [...]
--- OUTSIDE RECORDS SUMMARY | ~2020-02-19 | XMS | Encounter Summary ---
Demographics + + + | Address | [address] [place] [address] RD | | | [place] [address] | + + + | Home Phone [...] Providers + +------+ + | Care Business Mail Entry Clerk Name | Role | Phone | + +------+ + PCP | Unavailable | + +------+ + Encounter Details +--------+ + + + + | Date | Type | Department | Care Team | Description | +--------+ + + + + | 04/20/ | Respiratory | | Other, Faculty | | | 2006 | Therapy | | [phone] | | +--------+ + + + + [...] | + +--------+ + + + | [facility]- | Routin | 04/20/2006 | | Results for this | | SPIROMETRY W/ | e | 9:38 AM | | procedure are in the | | BRONCHODILATOR | | PDT | | results section. | + +--------+ + + + documented in this encounter Results [facility]- SPIROMETRY W/ BRONCHODILATOR (04/20/2006 9:38 AM [...] | | | | | 25-75 =0.45 PQR47-96% | | | | | | PREDICTED=14 [...] | | | | | 25-75 =0.42 PAM53-78% | | | | | | PREDICTED=13 [...] [facility] | [address] | [place], [place] | | | DIAGNOSTICS - | [address] | [address] | | | PULMONARY FUNCTION | | | | + + + + + documented in this encounter Visit Diagnoses Not on filedocumented in this encounter"
--- OUTSIDE RECORDS SUMMARY | ~2020-02-19 | XMS | Encounter Summary ---
Demographics + + + | Address | [address] [place] [address] RD | | | [place] [address] | + + + | Home Phone [...] Team Providers + +------+ + | Care Classification And Treatment Director Name | Role | Phone | [...] 05/04/ | Refill | Pulmonary & | Misha Pace MD | Refill Request | | 2011 | | Critical Care | [address] | ([facility]) | | | | Medicine at | [facility], | | | | | Phys[facility] | [place] [address] | | | | | [address] | [phone] | | | | | Loop Physician's | | | | | | Pavilion, 3rd Floor | | | | | | [place], [place] | | | | | | [address] | | | | | | [phone] | | | +--------+--------+ + + + [...]
--- OUTSIDE RECORDS SUMMARY | ~2020-02-19 | XMS | Encounter Summary ---
Demographics + + + | Address | [address] [place] [address] RD | | | [place] [address] | + + + | Home Phone [...] Team Providers + +------+ + | Care Terminal Operator Name | Role | Phone | [...] | | | | 3rd Floor | [place], [place] | | | | | | [place], [place] | [address] | | | | | | [address] | Phone: | | | | | | Phone: | [phone] | | | | | | [phone] | Fax: | | | | | | Fax: | [phone] | | | | | | [phone] | | +--------+--------+ + + + + Encounter Details +--------+ + + + + | Date | Type | Department | Care Team | Description | +--------+ + + + + | 01/29/ | Results/Int | Pulmonary Function | | Chronic obstructive | | 2016 | erpretation | Lab at [facility] [address] | | pulmonary disease, | | | | [address] | | unspecified COPD | | | | [facility] | | type (HCC) (Primary | | | | [place], [place] | | Dx) | | | | [address] | | | | | | [phone] | | | +--------+ + + + [...] | + +--------+ + + + | [place] DIFFUSING | Routin | 02/12/2017 | Chronic | | | CAPACITY | e | 8:44 AM | obstructive | | | | | PDT | pulmonary disease, | | | | | | unspecified COPD | | | | | | type (HCC) | | + +--------+ + + + | [place] SPIROMETRY TEST | Routin | 02/12/2017 | [...] LAB | e | 8:40 AM | Bsiri-3-ffiqiwgxvok | procedure are in the | | | | PDT | deficiency (HCC) | results section. | + +--------+ + + + documented in this encounter Visit Diagnoses + + | Diagnosis | + + | Chronic obstructive pulmonary disease, unspecified COPD type (HCC) - Primary | + + documented in this encounter"
--- OUTSIDE RECORDS SUMMARY | ~2020-02-19 | XMS | Encounter Summary ---
Demographics + + + | Address | [address] [place] [address] RD | | | [place] [address] | + + + | Home Phone [...] Team Providers + +------+ + | Care Ship Construction Teacher Name | Role | Phone | + +------+ + | Jerry Adrian MD | PCP | | + +------+ + Encounter Details +--------+ + + + + | Date | Type | Department | Care Team | Description | +--------+ + + + + | 10/25/ | Storeroom Clerk | Pulmonary & | Zion Roth, | COPD with chronic | | 2018 | | Critical Care | [address] | bronchitis (HCC) | | | | Medicine at | [facility] [address] | (Primary Dx); | | | | Physicians [facility] | [place], [place] | Oimax-3-ysruufxnmbn | | | | [address] | [address] | deficiency (HCC) | | | | Loop Physician's | [phone] | | | | | [place], [facility] Floor | | | | | | [place], [place] | | | | | | [address] | | | | | | [phone] | | | +--------+ + + + [...] + + + | PULMONARY | Site: [facility] and | | [facility] | | | INTERPRETAT | [facility] | | SPECIAL | | | ION | [facility] | | DIAGNOSTICS | | | | Rd,[place], [place], | | - | | | | [address]RF: [id number] | | PULMONARY | | | | Name: ISABEL | | FUNCTION | | | | HERMAN Buckley Date: | | | | | | 01/28/2018 Second ID: | | | | | | [id number]: | | | | | | Luis [...] Kirstin, | | | | | | Kgmyemtid41/29/2018 | | | | | | 10:19:06 [...] + + + + + + | TJW91-59% | 0.24 | 2.46 L/sec | [facility] | | | PRE | | | SPECIAL | | | | | | DIAGNOSTICS | | | | | | - | | | | | | PULMONARY | | | | | | FUNCTION | | + + + + + + | SUI34-21% | 9 | % | [facility] | [...] [facility] | [address] | [place], [place] | | | DIAGNOSTICS - | [address] | [address] | | | PULMONARY FUNCTION | | | | + + + + + documented in this encounter Visit Diagnoses + + | Diagnosis | + + | 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
--- OUTSIDE RECORDS SUMMARY | ~2020-02-19 | XMS | Encounter Summary ---
Demographics + + + | Address | [address] [place] [address] RD | | | [place] [address] | + + + | Home Phone [...] Team Providers + +------+ + | Care Local Delivery Driver Name | Role | Phone | [...] | [address] | bronchitis ([facility]); | | | | Medicine at | [facility], | Khqvf-1-qtydkgqhiuy | | | | Phys[facility]ilion | [place] [address] | deficiency ([facility]) | | | | [address] | [phone] | | | | | Loop Phys[address]'s | | | | | | [facility], 3rd Floor | | | | | | [place], [place] | | | | | | [address] | | | | | | [phone] | | | +--------+---------+ + + + [...] 1. 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 Receives Prolastin-C every 2 weeks at [facility]. 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 In past he did less of physical work. No other medical setbacks. No major changes in medications. Takes an extra OTC Vitamin D as Dr. Adrian told him vitamin D level was low. He has done less hiking as no time. Looking forward to [employer] season early . Physical Exam: Ht 177.8 [...] FEV1/FVC PRE (%REF) No range found 64 ULA14-72% PRE Latest Range: 2.88 L/sec 0.40 JFC13-00% PRE (%REF) No range found 14 PEF [...] en d-90% MISHA GODFREY MD PULMONARY FACULTY [address] [place] [address] Mailcode: Uhn67 [address] [address] documented in this encou nter [...] | | exacerbation | + + | Wsoaf-1-tpbnczynkkm deficiency (HCC) Qximb-3-dweggdwisja deficiency | + + documented in this encounter
--- OUTSIDE RECORDS SUMMARY | ~2020-02-19 | XMS | Encounter Summary ---
Demographics + + + | Address | [address] [place] [address] RD | | | [place] [address] | + + + | Home Phone [...] Team Providers + +------+ + | Care Transplanter Name | Role | Phone | + [...] Clinic | | | | | | [facility], [address] | | | | | | [place], [place] | | | | | | [address] | | | | | | [phone] | | | +--------+ + + + [...] as of this encounter Progress Notes Interface, Bone Worker In - 01/15/2007 3:04 AM PDT CLINIC DATE: 05/24/95 PULMONARY CLINIC: SUBJECTIVE: To Aaron was seen in Pulmonary Clinic in July of last year by Dr. Pace. This patient was also seen by me when I was in Pulmonary practice in [place], [place]. This patient has documented alpha 1 [...] for routine follow up. Misha Johansen M.D. Soap Mixer, Medicine RAYRAY/pa documented in this encounter Plan of Treatment Not on filedocumented as of this encounter Visit Diagnoses Not on filedocumented in this encounter"
--- OUTSIDE RECORDS SUMMARY | ~2020-02-19 | XMS | Encounter Summary ---
Demographics + + + | Address | [address] [place] [address] RD | | | [place] [address] | + + + | Home Phone [...] Team Providers + +------+ + | Care Instructor Modeling Name | Role | Phone | + [...] | elsewhere classified | | | | [address] | | (Primary Dx) | | | | Loop Physician's | | | | | | [place], 3rd Floor | | | | | | [place], [place] | | | | | | [address] | | | | | | [phone] | | | +--------+ + + + [...] | + +--------+ + + + | [place] SPIROMETRY TEST | Routin | 04/29/2011 | [...]
[~2020-02-19 03:13] MED LIST changes: +ALBUTEROL2.5 MG/3 M INH; +HYDROXYZINE HCL50 MG PO; +PREDNISONE20 MG PO; +TAMIFLU75 MG PO
[2020-02-19] MEDS ORDERED: NORCO 5-325 TA1 EACH PO (03:49)
== END 2020-02-19 03:55 | disposition home or self-care (01) ==
LOC: ED 03:13
DX: S22.31XA Fracture of one rib, right side, initial encounter for closed fracture (principal); J44.9 Chronic obstructive pulmonary disease, unspecified; Z88.1 Allergy status to other antibiotic agents; Z87.891 Personal history of nicotine dependence; Z88.8 Allergy status to other drugs, medicaments and biological substances; Z79.899 Other long term (current) drug therapy; W05.0XXA Fall from non-moving wheelchair, initial encounter
CPT/HCPCS: 71046; 99283-25

== ENCOUNTER 2021-03-01 20:31 | Emergency (ER) | payer MEDICARE ==
[~2021-03-01] VITALS: Ht 177.8 cm; Wt 88.7 kg
[~2021-03-01 20:31] MED LIST changes: +NORCO 5-325 TA1 EACH PO
[2021-03-01] MEDS ORDERED: DOXYCYCLINE HY100 MG PO (22:41)
[2021-03-01] MEDS ORDERED: PREDNISONE20 MG PO (22:41)
--- NOTE | 2021-03-02 14:41 | EKG ---
[facility] [address] [facility] [place] [address] Signed Sinus rhythm with sinus arrhythmia with occasional premature ventricular complexes Otherwise normal ECG When compared with ECG of 19-OCT-2019 21:44, premature ventricular complexes are now present QT has shortened Confirmed by CHAR GUZMAN DO ([id number]) on 03/02/2021 2:41:13 PM Electronically Signed By: CHAR GUZMAN DO 03/02/21 1441 PATIENT NAME: HALLHERMAN PALACIO Electrocardiogram DATE OF : 46 PHYSICIAN: CHAR GUZMAN DO REPORT #: [id number] REPORT IS CONFIDENTIAL AND NOT TO BE RELEASED WITHOUT AUTHORIZATION
== END 2021-03-01 23:53 | disposition home or self-care (01) ==
LOC: ED 20:31
DX: J44.1 Chronic obstructive pulmonary disease with (acute) exacerbation (principal); Z20.822 Contact with and (suspected) exposure to COVID-19; Z87.891 Personal history of nicotine dependence; Z88.0 Allergy status to penicillin; Z88.8 Allergy status to other drugs, medicaments and biological substances; Z79.899 Other long term (current) drug therapy
CPT/HCPCS: 71046; 80053; 83880; 84484; 85025; 93005; 93010; 99285-25; C9803; J7512; U0003

== ENCOUNTER 2024-12-28 03:20 | Emergency (ER) | payer MEDICARE, OTHER ==
[~2024-12-28] VITALS: Ht 177.8 cm; Wt 91.8 kg
[~2024-12-28 03:20] MED LIST changes: +DOXYCYCLINE HY100 MG PO
[2024-12-28] MEDS ORDERED: TETRACAINE HCL 0.5% 4 ML BTL OS ONE (03:30)
[2024-12-28] MEDS ORDERED: MAXITROL EYE DRO5 ML OPTH (03:46)
[2024-12-28] MEDS ORDERED: NEOMYCIN/POLYMYXIN/DEXAMETH OPTH SUSPENSION BOTTLE OS ONE (04:00)
[2024-12-28 04:20] VITALS: BP 157/94
== END 2024-12-28 04:20 | disposition home or self-care (01) ==
LOC: ED 03:20
DX: S05.01XA Injury of conjunctiva and corneal abrasion without foreign body, right eye, initial encounter (principal); J44.9 Chronic obstructive pulmonary disease, unspecified; X58.XXXA Exposure to other specified factors, initial encounter; Z79.52 Long term (current) use of systemic steroids; Z79.899 Other long term (current) drug therapy; Z88.1 Allergy status to other antibiotic agents; Z88.0 Allergy status to penicillin; Z88.8 Allergy status to other drugs, medicaments and biological substances; Z87.891 Personal history of nicotine dependence
CPT/HCPCS: 99283